=== PATIENT | female | born 1950 | race Caucasian/White ===

== ENCOUNTER 2016-07-10 09:23 | Inpatient (IN) | payer OTHER, MEDICARE ==
[~2016-07-10] VITALS: Ht 162.6 cm; Wt 99.9 kg
--- NOTE | 2016-07-10 10:01 | MH ---
cc: JUANITO BRICE M.D. DATE OF ADMISSION: 07/11/2016 ADMITTING DIAGNOSIS Severe osteoarthritis of the right hip, pain right hip, gait disturbance. HISTORY OF PRESENT ILLNESS The patient is a 66-year-old white female who has experienced greater than a one year history of pain involving her right hip area. She had noted the gradual onset of discomfort about the hip area unrelated to injury or unusual activity for which she had undergone previous medical evaluation with her primary care physician who initially diagnosed her symptoms as being related to sciatica. She was placed into a therapy program and prescribed meloxicam 7.5 mg. Following several weeks of treatment she experienced some trend of improvement and had been doing reasonably well for several months thereafter until her symptoms gradually began to recur. She returned to her primary care physician. At that time x-ray studies were completed of the right hip, the results of which reported severe arthritic changes for which the patient was again placed into a therapy program and prescribed meloxicam 15 mg. She was subsequently seen by the undersigned physician in April of this year describing ongoing pain about the right hip area for which she had begun to require the use of a cane as an ambulatory aid. A review of her x-ray studies revealed severe degenerative changes with compromise of the joint space for which findings and treatment options were reviewed. At that time the patient did not express her desire to undergo any form of operative intervention and thus elected to continue with conservative management while following her course of therapy intervention taking meloxicam as previously prescribed. She returned to the office shortly thereafter reporting that she was having increasing pain and incapacitation with regards to all weightbearing activities. Treatment options were again reviewed including the involvement of total hip arthroplasty with the emphasis being made that the decision to proceed with surgery would be left entirely to the patient's discretion. She admitted at that time that her symptoms had progressed to a point in time where she was ready to consider such treatment and planned accordingly in this regard which has resulted in this current admission in order that total hip replacement be completed. PAST MEDICAL HISTORY Her past medical history, hospitalizations and surgeries have included: 1. Vein stripping of the left lower extremity. 2. Bilateral cataract excision. 3. Tonsillectomy. Her medical illnesses include: 1. Hypothyroidism. 2. Depression. 3. Hypertension. MEDICATIONS 1. Levothyroxine 100 mcg daily. 2. Paroxetine 40 mg daily. 3. Bupropion 150 mg daily. 4. Amlodipine 5 mg daily. 5. Brimonidine 0.2% solution, one drop twice daily to each eye. ALLERGIES SHE DESCRIBES A DRUG ALLERGY TO SULFA WHICH HAS BEEN ASSOCIATED WITH FACIAL SWELLING. REVIEW OF SYSTEMS No history of headache, seizure or syncope. Occasional sinus congestion secondary to environmental irritants. No epistaxis. Auditory acuity intact. No tinnitus. No bleeding gums or dysphagia. Denies cough, shortness of breath, upper respiratory infection, pneumonia or tuberculosis. No angina or heart disease. She is medically managed for hypertension. Her appetite is good. Bowel movements are regular. No hepatitis, gallbladder disease, ulcers or hemorrhoids. No urinary tract infection. No kidney stones. No history of fractures. Positive history of depression. Her remaining review of systems is unremarkable and noncontributory. FAMILY HISTORY The patient has been a for over 6-1/2 years. Her at 50 years of age with a history of congestive heart failure. Two sons and one daughter indicated to be in good health. Family history is otherwise positive for hypertension, heart disease and prostate cancer. SOCIAL HISTORY The patient completed a high school education. She has been a housewife. She admits to a 40 year use of tobacco, less than one pack per day. Ethanol consumption in the form of an occasional glass of wine or beer. PHYSICAL EXAMINATION Height 5 feet 4 inches, weight 205 pounds. GENERAL: An alert, oriented and responsive 66-year-old white female who sits quietly upon the examination table with no obvious distress. HEAD, EYES, EARS, NOSE, AND THROAT: Pupils are equal, round and reactive to light. Extraocular movements full. Sclera clear. External nares clear. External auditory canals clear. Edentulous. Mucous membranes pink and moist. Pharynx clear. NECK: Supple. Active range of motion without appreciable pain. Carotid pulse palpable bilaterally. Trachea midline. Thyroid without enlargement. LUNGS: Clear to auscultation and percussion. BACK: No CVA tenderness. No discomfort throughout the dorsolumbar spine. HEART: Regular rhythm. No murmur or gallop. ABDOMEN: Soft, nontender. Bowel sounds present. PELVIC: Per primary care physician. EXTREMITIES: Extremities: Right Hip: No localizing tenderness to palpation. Restricted mobility of the hip joint in all ranges assessed, especially involving rotational motion with pain at the extreme of mobility and crepitation elicited. No obvious instability. Straight leg raising negative at 60 degrees. Simon sign is positive. Distal sensory grossly intact. Pronounced antalgic gait with cane support. NEUROLOGIC: Cranial nerves II through XII grossly intact. IMPRESSION Severe osteoarthritis of the right hip, pain right hip, gait disturbance. PLAN Right total hip arthroplasty. The nature of the planned surgical procedure, the potential complications and risks associated, the expectations of surgery and the consent form were thoroughly reviewed with the patient in the presence of her daughter prior to admission to the hospital. The patient has indicated her full understanding regarding all of the above and given consent to proceed with treatment as outlined. Medical evaluation and clearance for surgery will be completed by her primary care physician, Dr. Tracy. Juanito Brice MD NBS/BT /11:15 AM /8:59 AM
[2016-07-10] MEDS ORDERED: BRIM0.2S4 EACH EYE (13:06)
[2016-07-10] MEDS ORDERED: AMLO5TAB2 PO (13:06)
[2016-07-10] MEDS ORDERED: PARO40TA2 PO (13:06)
[2016-07-10] MEDS ORDERED: LEVO100T5 PO (13:06)
[2016-07-10] MEDS ORDERED: BUPR150T3 PO (13:06)
[2016-07-11] MEDS: POVIDONE IODINE 7.5% SCRUB 118 ML BOTTLE TOP SCH (06:00)
[2016-07-11] MEDS ORDERED: ceFAZolin 2 GM PREMIX 50 ML IV SCH (06:00)
[2016-07-11] MEDS ORDERED: METOPROLOL TARTRATE 25 MG TAB PO PRN (06:00)
[2016-07-11] MEDS ORDERED: LACTATED RINGER'S 1000 ML IV SCH (06:00)
[2016-07-11] MEDS ORDERED: SODIUM CHLORID 0.9% 500 ML IV SCH (06:00)
[2016-07-11] MEDS ORDERED: INSULIN HUMAN REGULAR 1,000 UNITS/10 ML VIAL SQ PRN (06:00)
[2016-07-11 06:27] VITALS: BP 139/76; PULSE 61; RESP 16; TEMP 98.5; O2SAT 96
[2016-07-11] MEDS: TRANEXAMIC ACID 1 GM POST-OP IV SCH ×4 (06:44→09:44)
[2016-07-11] MEDS ORDERED: ceFAZolin INJ 1,000 MG VIAL ONE (07:02)
[2016-07-11] MEDS ORDERED: MIDAZOLAM HCL 2 MG/2 ML VIAL ONE (07:17)
[2016-07-11] MEDS ORDERED: ACETAMINOPHEN 1000 MG/100 ML VIAL IV ONE (07:17)
[2016-07-11] MEDS ORDERED: HYDROmorphone HCL PF 2 MG/ML VIAL ONE (07:18)
[2016-07-11] MEDS ORDERED: fentaNYL CITRATE 250 MCG/5 ML AMP ONE (07:18)
[2016-07-11] MEDS ORDERED: TRANEXAMIC ACID 1 GM PRIOR TO PROCEDURE IV SCH ×2 (07:30)
[2016-07-11] MEDS ORDERED: Post-op Orders (for Pharmacy) MISC XX ONE (10:08)
[2016-07-11] MEDS ORDERED: MAGNESIUM HYDROXIDE SUSP 30 ML CUP PO PRN (10:15)
[2016-07-11] MEDS ORDERED: DOCUSATE SODIUM 100 MG CAP PO PRN (10:15)
[2016-07-11] MEDS ORDERED: BISACODYL 10 MG SUPP PR PRN (10:15)
[2016-07-11] MEDS ORDERED: ACETAMINOPHEN/HYDROcodone 325 MG/5 MG TAB PO PRN (10:15)
[2016-07-11] MEDS ORDERED: TRANEXAMIC ACID INJ 1,000 MG in SODIUM CHLORIDE 0.9% INJ 100 ML IV SCH (10:15)
[2016-07-11] MEDS ORDERED: ACETAMINOPHEN 325 MG TAB PO PRN (10:15)
[2016-07-11] MEDS ORDERED: ONDANSETRON HCL 4 MG/2 ML VIAL IV PUSH PRN (10:15)
[2016-07-11] MEDS ORDERED: SODIUM CHLORIDE 0.9% FLUSH 5 ML FLUSH IVF PRN (10:15)
[2016-07-11] MEDS ORDERED: NALOXONE HCL 0.4 MG/ML AMP IV PRN (10:15)
--- NOTE | 2016-07-11 11:01 | RADRPT ---
EXAM DATE/TIME: 07/11/2016 10:21 [facility] COMPARISON: No previous studies available for comparison. INDICATIONS : Post op right total hip. MEDICAL HISTORY : Unobtainable. SURGICAL HISTORY : Unobtainable. ENCOUNTER: Initial ACUITY: 1 day PAIN SCORE: Non-responsive. LOCATION: Right hip. FINDINGS: View of the right hip was obtained. There is a total hip arthroplasty. Both the femoral and acetabula r components are appropriately positioned without fracture. There appear to be 2 HORTENCIA type drains just cephalad to the hip joint. CONCLUSION: Appropriate postoperative appearance of the right hip status post total arthroplasty. Jack Ritter MD on July 11, 2016 at 10:54 Board Certified Radiologist. This report was verified electronically.
[2016-07-11] MEDS: DEXT 5%-NACL 0.45% 1000 ML INJ 1,000 ML IV SCH ×2 (11:19→20:00)
[2016-07-11 11:25] VITALS: BP 142/65; PULSE 74; RESP 17; TEMP 96.3; O2SAT 92
[2016-07-11] MEDS ORDERED: DO NOT ADM ANY ANTICOAGULANT DRUGS XX PRN (11:45)
[2016-07-11] MEDS ORDERED: MISCELLANEOUS PHARMACY INFORMATION XX ONE (12:00)
[2016-07-11] MEDS ORDERED: PROPOFOL 200 MG/20 ML AMP IV ONE (12:39)
[2016-07-11] MEDS ORDERED: NEOSTIGMINE 3 MG/3 ML SYR IV ONE (12:39)
[2016-07-11] MEDS ORDERED: ePHEDrine/NS 25 MG/5 ML SYR IV ONE (12:39)
[2016-07-11] MEDS ORDERED: PHENYLEPH/NS 1000 MCG/10 ML SYR IV ONE (12:39)
[2016-07-11] MEDS ORDERED: ONDANSETRON HCL 4 MG/2 ML VIAL IV PUSH ONE (12:40)
[2016-07-11] MEDS ORDERED: LACTATED RINGER'S 1000 ML INJ 1,000 ML IV ONE (12:40)
[2016-07-11] MEDS: PCA - TOTAL MG MORPHINE DELIVERED PER SHIFT SCH ×2 (14:00→22:00)
[2016-07-11 16:00] VITALS: BP 122/67; PULSE 63; RESP 18; TEMP 96.2; O2SAT 98
--- NOTE | 2016-07-11 16:49 | PD.CONS ---
[facility] Requested By Primary Care Physician Laureano Tracy MD Diagnoses: History of Present Illness This is a pleasant 66-year-old female who is status post right hip arthroplasty today for the indication of end-stage osteoarthritis. History was obtained from the patient as well as from review of her chart from her primary care physician's office. She states that she currently does not have pain. She has a history of hypertension, hypothyroidism, depression. She does smoke cigarettes. She lives by herself after her 6 years ago and is planning to go to a [facility] facility upon discharge. The patient states she is otherwise been in good health recently. Review of Systems Except as stated in HPI: all other systems reviewed are Neg Past Family Social History Allergies: Coded Allergies: Sulfa (Verified Allergy, Severe, HIVES, 07/11/16) Past Medical History Prediabetes although the patient is unaware Hypothyroidism Hypertension Depression Tobacco use Past Surgical History Cataract surgery, vein removal from the leg Reported Medications Allergies Coded Allergies Type Severity Reaction Last Updated Verified Sulfa Allergy Severe HIVES 07/11/16 Yes Active Scripts Medications Dose Route/Sig Days Date Category Brimonidine Opth Drops (Brimonidine Tartrate) 0.2% Soln 1 Drop EACH EYE BID 07/10/16 Reported Bupropion HCl ER 24 HR (Bupropion HCl) 150 Mg Tab 150 Mg PO DAILY 07/10/16 Reported Paroxetine (Paroxetine HCl) 40 Mg Tab 40 Mg PO DAILY 07/10/16 Reported Amlodipine (Amlodipine Besylate) 5 Mg Tab 5 Mg PO DAILY 07/10/16 Reported Levothyroxine (Levothyroxine Sodium) 100 Mcg Tab 100 Mcg PO DAILY 07/10/16 Reported Family History Dad had mesothelioma, mother had myocardial infarction Social History Her 6 years ago. She has 2 dogs. Lives by herself. She does smoke tobacco. Denies alcohol use. Physical Exam Vital Signs Vital Signs Date Time Temp Pulse Resp B/P Pulse Ox O2 Delivery O2 Flow Rate FiO2 07/11/16 11:25 96.3 74 17 142/65 92 07/11/16 11:00 73 16 150/81 94 Nasal Cannula 3 07/11/16 10:45 72 16 150/81 99 Nasal Cannula 4 07/11/16 10:30 100 21 154/91 96 Nasal Cannula 4 07/11/16 10:15 83 19 160/82 95 Nasal Cannula 4 07/11/16 10:12 97.8 78 20 144/82 97 Nasal Cannula 4 07/11/16 06:27 98.5 61 16 139/76 96 Physical Exam GENERAL: Well-nourished, well-developed patient. SKIN: Warm and dry. HEAD: Normocephalic. EYES: No scleral icterus. No injection or drainage. NECK: Supple, trachea midline. No JVD or lymphadenopathy. CARDIOVASCULAR: Regular rate and rhythm without murmurs, gallops, or rubs. RESPIRATORY: Breath sounds equal bilaterally. No accessory muscle use. GASTROINTESTINAL: Abdomen soft, non-tender, nondistended. EXTREMITIES: No cyanosis, or edema. NEUROLOGICAL: Awake, alert, and oriented x 3. Non-focal. Laboratory Laboratory Tests Test 07/11/16 06:20 Blood Type O POSITIVE Antibody Screen NEGATIVE Blood Bank Comment Assessment and Plan Problem List: (1) Depression ICD Code: F32.9 Status: Acute (2) Hypothyroidism ICD Code: E03.9 Status: Acute (3) HTN (hypertension) ICD Code: I10 Status: Acute (4) Prediabetes ICD Code: R73.03 Status: Acute Assessment and Plan Status post right hip arthroplasty management as per orthopedic surgery. Hypothyroidism - continue Synthroid as per home dose. Hypertension - blood pressure mildly elevated. We'll resume her Norvasc tomorrow morning. Depression - resume Paxil. Tobacco use - cessation counseling. Possible history of prediabetes. No indication to place the patient on sliding scale insulin. She is taking good by mouth. I advised her to follow-up with her primary care physician to monitor this. -DVT prophylaxis with Xarelto [address] you Dr[address] le for this consult. Citlaly Greene MD Jul 11, 2016 16:49
[2016-07-11] MEDS: MAGNESIUM HYDROXIDE SUSP 30 ML CUP PO SCH ×2 (17:30→20:07)
[2016-07-11] MEDS: MORPHINE SULFATE 30 MG/30 ML PCA IV SCH (18:50)
[2016-07-11] MEDS: ZOLPIDEM TARTRATE 5 MG TAB PO PRN (20:07)
[2016-07-11] MEDS: SENNOSIDES 8.6 MG TAB PO SCH (20:07)
[2016-07-11] MEDS: SODIUM CHLORIDE 0.9% FLUSH 5 ML FLUSH IVF SCH (20:08)
[2016-07-11] MEDS: BRIMONIDINE TARTRATE 0.2% OPHT SOLN 5 ML BTL EACH EYE SCH (20:08)
[2016-07-11 20:20] VITALS: BP 119/61; PULSE 68; RESP 16; TEMP 96.6; O2SAT 96
[2016-07-12 00:24] VITALS: BP 119/70; PULSE 72; RESP 16; TEMP 96.5; O2SAT 94
[2016-07-12 04:21] VITALS: BP 105/53; PULSE 73; RESP 16; TEMP 98.2; O2SAT 94
[2016-07-12] MEDS: POVIDONE IODINE 7.5% SCRUB 118 ML BOTTLE TOP SCH (06:00)
[2016-07-12] MEDS: PCA - TOTAL MG MORPHINE DELIVERED PER SHIFT SCH ×3 (06:00→22:39)
[2016-07-12] MEDS ORDERED: HYDR-3516 PO (06:05)
[2016-07-12] MEDS ORDERED: ASPI325T PO (06:05)
--- NOTE | 2016-07-12 06:07 | HHI.FF ---
Face to Face Verification Diagnosis: (1) Degenerative joint disease (DJD) of hip Physical Therapy Gait training Hip: Total hip, Protocol: Right, Abduction pillow while in bed Right LE Weight Bearing: WB as tolerated Right LE Range of Motion: Active ROM Nursing Dressing Changes: Daily dressing change I have seen patient Vanessa Cortez on 07/12/16. My clinical findings support the need for the requested home health care services because: Limited ability to care for self High risk of falls I certify that my clinical findings support that this patient is homebound because: Post-op weakness Unsteady gait/balance Unsafe to leave home unassisted Vinay Brice MD Jul 12, 2016 06:07
[2016-07-12] MEDS: DEXT 5%-NACL 0.45% 1000 ML INJ 1,000 ML IV SCH ×3 (06:09→20:34)
[2016-07-12] MEDS: LEVOTHYROXINE SODIUM 100 MCG TAB PO SCH (06:09)
[2016-07-12] MEDS ORDERED: GETGO ROLLING W1 MI1 (06:10)
[2016-07-12] MEDS ORDERED: BEDSIDE COMMODE1 MI1 (06:10)
[2016-07-12 06:13] LABS: HEMATOCRIT 29.9 % (35.0-46.0); REVIEW FLAG FINAL
[2016-07-12] MEDS: BRIMONIDINE TARTRATE 0.2% OPHT SOLN 5 ML BTL EACH EYE SCH ×2 (07:29→20:35)
[2016-07-12 07:44] VITALS: BP 113/53; PULSE 79; RESP 18; TEMP 98.1; O2SAT 92
[2016-07-12] MEDS: SODIUM CHLORIDE 0.9% FLUSH 5 ML FLUSH IVF SCH ×2 (09:00→20:32)
[2016-07-12] MEDS: MORPHINE SULFATE 30 MG/30 ML PCA IV SCH (09:27)
[2016-07-12] MEDS: MAGNESIUM HYDROXIDE SUSP 30 ML CUP PO SCH ×2 (09:29→20:04)
[2016-07-12] MEDS: amLODIPine BESYLATE 5 MG TAB PO SCH (09:29)
[2016-07-12] MEDS: PARoxetine HCL 20 MG TAB PO SCH (09:29)
[2016-07-12] MEDS: RIVAROXABAN 10 MG TAB PO SCH (09:29)
[2016-07-12] MEDS: buPROPion HCL 150 MG SUSTAINED RELEASE TAB PO SCH (09:29)
--- NOTE | 2016-07-12 10:32 | MP ---
cc: JUANITO BRICE M.D. DATE OF SURGERY 07/11/2016 PREOPERATIVE DIAGNOSIS Severe osteoarthritis of the right hip, pain right hip, gait disturbance. POSTOPERATIVE DIAGNOSIS Severe osteoarthritis of the right hip, pain right hip, gait disturbance. PROCEDURE Right total hip arthroplasty SURGEON Juanito Brice MD ANESTHESIA General endotracheal INDICATIONS A 66-year-old white female with a one-year history of pain involving her right hip onset being unrelated to injury or unusual activity. She had undergone previous medical evaluation with her primary care physician at which time where she was initially diagnosed as having sciatica and was treated with therapy intervention, as well as being prescribed Meloxicam 7.5 mg. Following several weeks of treatment, the patient did note some improvement with regards to her lower back symptoms and for several months thereafter seemed to be doing reasonably well until she returned to her primary care physician noting some residual symptoms involving her right hip area. X-ray studies completed at that time reported severe arthritic changes for which the patient was again placed into therapy and prescribed Meloxicam 15 mg. She was later seen by the undersigned physician in April of this year describing ongoing pain about her right hip for which she was requiring the use of a cane as an ambulatory aid. A review of her x-ray studies did reveal severe degenerative changes with compromise of the joint space for which findings and treatment options were reviewed. At that time, the patient was not interested in pursuing any form of operative intervention and elected to continue with conservative modalities following her course of therapy intervention and continuing her Meloxicam as previously prescribed. She returned to the office more recently indicating that she was having increasing pain and incapacitation regarding all weightbearing activities. Treatment options were again reviewed with the involvement of total hip arthroplasty being outlined and emphasis being made that the decision to proceed with surgery would be left entirely to the patient's discretion. The patient indicated at that time that she was at that point where she was ready to proceed with operative treatment and in compliance with her wishes, she was scheduled for admission at this time in order that the above be accomplished. FORMAT Following the induction of satisfactory general anesthesia by endotracheal intubation as completed per the Department of Anesthesia, the patient was positioned upon the operating table in a left lateral decubitus fashion. The right hip and lower extremity proper were isolated with a U-drape thereafter being prepped with Betadine solution and draped into a sterile field in the routine manner. Prior to initiation of the actual procedure, the standard time-out protocol was completed. All parameters were appropriately addressed and confirmed by operating room personnel. A standard posterolateral approach to the hip was initiated through a sharp skin incision and developed through abundant underlying subcutaneous tissue with hemostasis maintained by electrocautery. By deepening dissection the fascia overlying, the gluteus musculature was exposed and thereafter sharply incised to the limits of the incision. The short external rotator structures were identified. The piriformis tendon being utilized as an anatomical landmark, division of these structures was completed in a superior to inferior orientation and reflected medially exposing the posterior capsule. The sciatic nerve was protected. An L-shaped capsulotomy was accomplished through which a posterior dislocation of the femoral head was completed. Examination revealed severe degenerative changes with significant erosion of articular cartilage, subchondral bone exposed and hypertrophic bony reaction along the margins of the femoral head. The femoral template was positioned for alignment orientation. The neck was scored and thereafter divided with power saw, the amputated segment being passed to the back table as surgical specimen. Attention was initially directed to the proximal femur. Cancellus bone was harvested. The tapered reamer was inserted for alignment orientation. Sequential rasping and broaching was accomplished from 7-10 mm with the calcar kali being utilized to the 10 mm stage. The 10 mm stem was determined to be a favorable fit. Trial component being removed, attention was redirected to the acetabulum. The labrum and reactive soft tissue were sharply excised. Progressive reaming was accomplished from 48-51 mm. The 52 trial shell positioned and determined to be satisfactory. All trial components being removed, the wound was copiously irrigated with pulsating antibiotic solution. Hemostasis maintained by electrocautery. Harvested cancellous bone was digitally impacted into the depths of the acetabulum and thereafter a 52 mm ring lock acetabular shell was firmly seated in approximately 45 degrees inclination to the horizontal and slight anteversion. A single 25 mm, 6.5 cancellous screw was inserted superiorly to augment fixation. The permanent high wall acetabular liner was affixed to the acetabular shell. The canal was thereafter irrigated and dried and the size 10 standard femoral stem was firmly seated to which a 36 mm modular head with -6 mm neck length adapter was attached. The hip being carried through a passive range of motion and stability demonstrated at 90 degrees flexion and 45 degrees internal rotation. The wound was thereafter copiously irrigated with antibiotic saline solution, hemostasis maintained by electrocautery. The posterior capsule was repaired with 0 Vicryl suture. Piriformis tendon and short external rotators structures reapproximated with running 0 Vicryl suture. Hemovac drains inserted through superior stab wounds. The fascia of the gluteus musculature being reapproximated with a running 0 Vicryl suture. Remaining portion of the wound closed in layers in the routine manner. Skin margins being reapproximated with a running subcuticular 3-0 Vicryl suture over which Steri-Strips were applied. Xeroform gauze and a bulky dry sterile dressing placed. The patient repositioned into a supine orientation abduction splint attached. Anesthesia discontinued. The patient thus transferred to a hospital bed and returned to recovery room in satisfactory condition having tolerated her operative procedure well. Estimated blood loss was approximately 350 cc as determined per anesthesia. All implants were of the [employer] special education instructor. MD MARIANA Webster/MICHEL /10:04 AM /10:01 AM
[2016-07-12 12:00] VITALS: BP 111/47; PULSE 71; RESP 18; TEMP 99; O2SAT 93
[2016-07-12 16:00] VITALS: BP 112/56; PULSE 79; RESP 20; TEMP 97.6; O2SAT 95
[2016-07-12] MEDS: SENNOSIDES 8.6 MG TAB PO SCH (20:04)
[2016-07-12 20:05] VITALS: BP 115/52; PULSE 80; RESP 18; TEMP 97.4; O2SAT 91
[2016-07-12] MEDS: ZOLPIDEM TARTRATE 5 MG TAB PO PRN (20:08)
[2016-07-13] VITALS (7 sets, daily range): BP systolic 114–128; BP diastolic 44–68; PULSE 67–80; RESP 17–18; TEMP 97.1–99.5; O2SAT 93–98
[2016-07-13] MEDS: POVIDONE IODINE 7.5% SCRUB 118 ML BOTTLE TOP SCH (02:22)
[2016-07-13] MEDS: DEXT 5%-NACL 0.45% 1000 ML INJ 1,000 ML IV SCH ×4 (04:00→20:14)
[2016-07-13] MEDS: LEVOTHYROXINE SODIUM 100 MCG TAB PO SCH (04:32)
[2016-07-13] MEDS: PCA - TOTAL MG MORPHINE DELIVERED PER SHIFT SCH (04:33)
[2016-07-13] MEDS: BRIMONIDINE TARTRATE 0.2% OPHT SOLN 5 ML BTL EACH EYE SCH ×2 (09:00→20:14)
[2016-07-13] MEDS: PARoxetine HCL 20 MG TAB PO SCH (11:01)
[2016-07-13] MEDS: RIVAROXABAN 10 MG TAB PO SCH (11:01)
[2016-07-13] MEDS: MAGNESIUM HYDROXIDE SUSP 30 ML CUP PO SCH ×2 (11:01→20:15)
[2016-07-13] MEDS: amLODIPine BESYLATE 5 MG TAB PO SCH (11:01)
[2016-07-13] MEDS: buPROPion HCL 150 MG SUSTAINED RELEASE TAB PO SCH (11:01)
[2016-07-13] MEDS: ACETAMINOPHEN/HYDROcodone 325 MG/5 MG TAB PO PRN ×2 (11:02→13:53)
[2016-07-13] MEDS: SODIUM CHLORIDE 0.9% FLUSH 5 ML FLUSH IVF SCH ×2 (11:03→20:15)
[2016-07-13] MEDS: ZOLPIDEM TARTRATE 5 MG TAB PO PRN (20:15)
[2016-07-13] MEDS: SENNOSIDES 8.6 MG TAB PO SCH (20:15)
[2016-07-14 00:20] VITALS: BP 118/61; PULSE 72; RESP 16; TEMP 98.1; O2SAT 96
[2016-07-14] MEDS: LEVOTHYROXINE SODIUM 100 MCG TAB PO SCH (05:45)
[2016-07-14] MEDS: ACETAMINOPHEN/HYDROcodone 325 MG/5 MG TAB PO PRN ×2 (06:00→11:57)
[2016-07-14 07:58] VITALS: BP 123/80; PULSE 74; RESP 18; TEMP 97.3; O2SAT 94
[2016-07-14] MEDS: PARoxetine HCL 20 MG TAB PO SCH (08:07)
[2016-07-14] MEDS: buPROPion HCL 150 MG SUSTAINED RELEASE TAB PO SCH (08:07)
[2016-07-14] MEDS: MAGNESIUM HYDROXIDE SUSP 30 ML CUP PO SCH (08:07)
[2016-07-14] MEDS: amLODIPine BESYLATE 5 MG TAB PO SCH (08:07)
[2016-07-14] MEDS: RIVAROXABAN 10 MG TAB PO SCH (08:07)
[2016-07-14] MEDS: SODIUM CHLORIDE 0.9% FLUSH 5 ML FLUSH IVF SCH (08:08)
[2016-07-14] MEDS: BRIMONIDINE TARTRATE 0.2% OPHT SOLN 5 ML BTL EACH EYE SCH (08:09)
[2016-07-14] MEDS: DEXT 5%-NACL 0.45% 1000 ML INJ 1,000 ML IV SCH (12:00)
--- NOTE | 2016-07-18 14:07 | MD ---
cc: JESÚS TRACY MD SELTZER, NORMAN ADMISSION DATE: 07/11/2016 DISCHARGE DATE: 07/14/2016 ADMISSION DIAGNOSIS Severe osteoarthritis of the right hip, pain right hip, gait disturbance. DISCHARGE DIAGNOSIS Severe osteoarthritis of the right hip, pain right hip, gait disturbance. HISTORY A 66-year-old white female who had experienced greater than 1-year history of pain about her right hip. She had noted the gradual onset of discomfort unrelated to injury or unusual activity and had undergone previous medical evaluation with her primary care physician who initially diagnosed her symptoms as being related to sciatica. She was started in therapy and prescribed meloxicam 7.5 mg and was followed on an outpatient basis. Initially she experienced some trend of improvement and was doing reasonably well for several months and all her symptoms gradually began to recur. She returned to her primary care physician and at that time x-ray studies were completed, the results of which reported severe arthritic changes about her right hip for which the patient returned for additional therapy and prescribed meloxicam 15 mg. She was later seen by the undersigned physician in April of this year and at that time reported ongoing pain about her right hip which had begun to require use of a cane as an ambulatory aid. A review of her x-ray studies revealed severe degenerative changes with compromise of the joint space for which treatment options were reviewed. At that time the patient was not interested in considering any form of operative intervention and elected to continue with conservative modalities following her course of therapy intervention and continuing meloxicam. She returned to the office more recently in follow-up disposition reporting increasing pain and incapacitation regarding all weightbearing activities. Her treatment options were again reviewed including the involvement of total hip arthroplasty with emphasis being made that the decision to proceed with surgery would be left entirely to the patient's discretion. She readily admitted that she had progressed to a point in time where she was ready to consider such treatment and in compliance with her wishes she has currently been scheduled for admission in order that the above be accomplished. Her physical examination at the time of admission revealed no localizing tenderness about the right hip. There was restricted mobility of the hip joint in all ranges assessed especially involving rotational motion with pain at the extremes of mobility and crepitation elicited. No obvious instability. Straight-leg raising was negative at 60 degrees. Simon sign positive. Distal sensory grossly intact. Pronounced antalgic gait with cane support. HOSPITAL COURSE Prior to admission to the hospital the patient had undergone medical evaluation and clearance for surgery as completed by her primary care physician Dr. Tracy. She was taken to the operating room on the June and on that date underwent a right total hip arthroplasty completed in an uncomplicated manner. The patient was noted to have tolerated her operative procedure well and her postoperative course stable thereafter. She was progressively mobilized under the guidance of physical therapy, being permitted weightbearing to tolerance about the right lower extremity. Follow up examination of her surgical wound noted it to be intact, healing favorably, no evidence of infection. Medical followup per the hospitalist service, DVT prophylaxis initiated. Social service was consulted to assist with discharge planning. Hemoglobin/hematocrit assessment postoperatively was 10.4 and 29.9, respectively. The patient had indicated her desire for temporary rehab placement upon discharge from the hospital. Plans were finalized through the assistance of the Social Service Department and pending medical clearance she was scheduled for transfer on the third postoperative day, at which time she was noted to be making steady progress with regards to her rehab program. She had been scheduled for office followup in approximately 4 weeks. Her condition at the time of discharge was stable. Prognosis was favorable. MEDICATIONS Discharge medications included: 1. Hydrocodone 5/325 #60. 2. Aspirin 325 mg 1 tablet twice daily for 4 weeks #60. MD MARIANA Webster/TLL /6:44 AM /1:43 PM
== END 2016-07-14 13:05 | DRG 470 ==
LOC: HSDI 07-11 05:18 → N06B 07-11 11:23
PROVIDERS: ADMIT Orthopaedic Surgery; ATTEND Orthopaedic Surgery
PROC: 0SR903Z Replacement of Right Hip Joint with Ceramic Synthetic Substitute, Open Approach (ICD-10-PCS; principal; 2016-07-11 07:22)
DX: M16.11 Unilateral primary osteoarthritis, right hip (principal); I10 Essential (primary) hypertension; E03.9 Hypothyroidism, unspecified; F17.210 Nicotine dependence, cigarettes, uncomplicated; R73.03 Prediabetes; F32.9 Major depressive disorder, single episode, unspecified; M54.30 Sciatica, unspecified side; Z79.01 Long term (current) use of anticoagulants
CPT/HCPCS: 73501; 85014; 85018; 86850; 86900; 86901; 87641; 88304; 88305; 88311; 94150; C1776; J0131; J0690; J1170; J2250; J2270; J2370; J2405; J2710; J3010; J7120

== ENCOUNTER 2016-11-03 08:51 | Inpatient (IN) | payer OTHER, MEDICARE ==
[~2016-11-03] VITALS: Ht 162.6 cm; Wt 97.2 kg
[~2016-11-03 08:51] MED LIST: AMLO5TAB2 PO; ASPI325T PO; BEDSIDE COMMODE1 MI1; BRIM0.2S4 EACH EYE; BUPR150T3 PO; GETGO ROLLING W1 MI1; HYDR-3516 PO; LEVO100T5 PO; PARO40TA2 PO
[2016-11-03 08:52] VITALS: BP 150/73; PULSE 77; RESP 24; TEMP 97.6; O2SAT 96
[2016-11-03] MEDS ORDERED: CEPH-459 PO (09:18)
[2016-11-03] MEDS ORDERED: GABA100C4 PO (09:18)
[2016-11-03 09:31] VITALS: RESP 16; O2SAT 95
[2016-11-03 09:40] LABS: AUTOMATED NEUTROPHIL # 8.2 TH/MM3 (1.8-7.7); BASOPHIL % 0.3 % (0.0-2.0); EOSINOPHIL # 0.2 TH/MM3 (0-0.4); EOSINOPHIL % 1.9 % (0.0-4.0); HEMATOCRIT 33.7 % (35.0-46.0); HEMO FLAGS DIFF FINAL; LYMPH % 15.3 % (9.0-44.0); LYMPHOCYTE # 1.7 TH/MM3 (1.0-4.8); MEAN CORPUSCULAR HEMOGLOBIN 29.5 PG (27.0-34.0); MEAN CORPUSCULAR HGB CONC 35.5 % (32.0-36.0); MONO % 9.1 % (0.0-8.0); NEUT % 73.4 % (16.0-70.0); PLATELET COUNT 510 TH/MM3 (150-450); RED BLOOD COUNT 4.06 MIL/MM3 (4.00-5.30); RED CELL DISTRIBUTION WIDTH 14.7 % (11.6-17.2); WHITE BLOOD COUNT 11.1 TH/MM3 (4.0-11.0)
[2016-11-03 09:52] LABS: ANION GAP 9 MEQ/L (5-15); AST (GOT) 32 U/L (15-37); BICARBONATE 24.7 MEQ/L (21.0-32.0); BLOOD UREA NITROGEN 9 MG/DL (7-18); CHLORIDE 102 MEQ/L (98-107); GLOMERULAR FILTRATION RATE 60 ML/MIN (>89); POTASSIUM 3.4 MEQ/L (3.5-5.1); SODIUM (NA) 136 MEQ/L (136-145)
[2016-11-03 09:53] LABS: ALT (GPT) 46 U/L (10-53)
[2016-11-03 09:55] LABS: ALKALINE PHOSPHATASE 168 U/L (45-117); TOTAL BILIRUBIN ADULT 0.3 MG/DL (0.2-1.0)
--- NOTE | 2016-11-03 10:04 | PD ---
HPI Chief Complaint: Hip Injury Time Seen by Provider: 09:58 Travel History International Travel<30 days: No Contact w/Intl Traveler<30days: No Traveled to known affect area: No History of Present Illness HPI 66-year-old female patient with history of right total hip replacement done by Dr. quigley in June, presents to the ER today because a one-week history of increased redness and swelling over the right hip incision site. She states it hurts more with movement now. She denies any fevers, vomiting, or any other symptoms. She denies any injuries. Patient states that she had seen her primary care physician and has been put on Keflex for several days without improvement. Modifying Factors: None Associated Signs & Symptoms: Right hip surgery area pain, redness Risk Factors: Total hip surgery done by Dr. quigley in June PFS Past Medical History Hx Anticoagulant Therapy: No Arthritis: Yes (OA) Depression: Yes Cancer: No Cardiovascular Problems: No Chemotherapy: No Cerebrovascular Accident: No Diabetes: No Diminished Hearing: No Endocrine: Yes Genitourinary: No Hepatitis: No Hypertension: Yes Immune Disorder: No Musculoskeletal: Yes (OA) Neurologic: No Psychiatric: Yes (DEPRESSION) Reproductive: No Respiratory: No Thyroid Disease: Yes Influenza Vaccination: Yes Past Surgical History Abdominal Surgery: No AICD: No Cardiac Surgery: No Ear Surgery: No Endocrine Surgery: No Eye Surgery: Yes (CATARACTS) Genitourinary Surgery: No Gynecologic Surgery: No Hysterectomy: No Joint Replacement: Yes (RIGHT TOTAL HIP 07/11/16 DR QUIGLEY) Oral Surgery: Yes (TONSILLECTOMY) Pacemaker: No Thoracic Surgery: No Tonsillectomy: Yes Other Surgery: Yes (LEFT LEG VEIN STRIPPING) Social History Alcohol Use: No Tobacco Use: Yes (1/2 ppd) Substance Use: No Allergies-Medications (Allergen,Severity, Reaction): Coded Allergies: Sulfa (Verified Allergy, Severe, HIVES, 07/11/16) Reported Meds & Prescriptions Reported Meds & Active Scripts Active Bedside Commode (Device) 1 Mis Mis 1 Ea .ROUTE DIRECTED Walker Rolling/GetGo (Device) 1 Mis Mis 1 Ea .ROUTE DIRECTED Aspirin 325 Mg Tab 325 Mg PO BID Reported Gabapentin 100 Mg Cap 100 Mg PO BID Keflex (Cephalexin) 250 Mg Cap 250 Mg PO Q6H Brimonidine Opth Drops (Brimonidine Tartrate) 0.2% Soln 1 Drop EACH EYE BID Bupropion HCl ER 24 HR (Bupropion HCl) 150 Mg Tab 150 Mg PO DAILY Paroxetine (Paroxetine HCl) 40 Mg Tab 40 Mg PO DAILY Amlodipine (Amlodipine Besylate) 5 Mg Tab 5 Mg PO DAILY Levothyroxine (Levothyroxine Sodium) 100 Mcg Tab 100 Mcg PO DAILY Review of Systems Except as stated in HPI: all other systems reviewed are Neg Physical Exam Narrative GENERAL: Well-developed elderly white female patient currently in mild distress. Awake and oriented 3. SKIN: Focused skin assessment warm/dry. HEAD: Atraumatic. Normocephalic. EYES: Pupils equal and round. No scleral icterus. No injection or drainage. ENT: No nasal bleeding or discharge. Mucous membranes pink and moist. NECK: Trachea midline. No JVD. CARDIOVASCULAR: Regular rate and rhythm. No murmur appreciated. RESPIRATORY: No accessory muscle use. Clear to auscultation. Breath sounds equal bilaterally. GASTROINTESTINAL: Abdomen soft, non-tender, nondistended. Hepatic and splenic margins not palpable. MUSCULOSKELETAL: No obvious deformities. No clubbing. No cyanosis. No edema. Pelvis: Stable, tender palpation with obvious erythema over the right hip surgery scar area. No underlying fluctuance. NEUROLOGICAL: Awake and alert. No obvious cranial nerve deficits. Motor grossly within normal limits. Normal speech. PSYCHIATRIC: Appropriate mood and affect; insight and judgment normal. Data Data Last Documented VS Vital Signs Date Time Temp Pulse Resp B/P Pulse Ox O2 Delivery O2 Flow Rate FiO2 11/03/16 09:31 16 95 Room Air 11/03/16 08:52 97.6 77 150/73 Orders Complete Blood Count With Diff (11/03/16 09:23) Comprehensive Metabolic Panel (11/03/16 09:23) Lactic Acid Sepsis Protocol (11/03/16 09:23) Blood Culture (11/03/16 09:23) Blood Glucose (11/03/16 09:23) Ecg Monitoring (11/03/16 09:23) Iv Access Insert/Monitor (11/03/16 09:23) Oximetry (11/03/16 09:23) Oxygen Administration (11/03/16 09:23) Hip, Uni(Ap&Lat) Wo Ap Pelvis (11/03/16 09:59) Piperacil-Tazo 4.5 Gm Premix (Zosyn 4.5 (11/03/16 10:53) Vancomycin Inj (Vancomycin Inj) (11/03/16 10:53) Labs Laboratory Tests Test 11/03/16 09:25 White Blood Count 11.1 TH/MM3 Red Blood Count 4.06 MIL/MM3 Hemoglobin 12.0 GM/DL Hematocrit 33.7 % Mean Corpuscular Volume 83.0 FL Mean Corpuscular Hemoglobin 29.5 PG Mean Corpuscular Hemoglobin 35.5 % Concent Red Cell Distribution Width 14.7 % Platelet Count 510 TH/MM3 Mean Platelet Volume 8.0 FL Neutrophils (%) (Auto) 73.4 % Lymphocytes (%) (Auto) 15.3 % Monocytes (%) (Auto) 9.1 % Eosinophils (%) (Auto) 1.9 % Basophils (%) (Auto) 0.3 % Neutrophils # (Auto) 8.2 TH/MM3 Lymphocytes # (Auto) 1.7 TH/MM3 Monocytes # (Auto) 1.0 TH/MM3 Eosinophils # (Auto) 0.2 TH/MM3 Basophils # (Auto) 0.0 TH/MM3 CBC Comment DIFF FINAL Differential Comment Sodium Level 136 MEQ/L Potassium Level 3.4 MEQ/L Chloride Level 102 MEQ/L Carbon Dioxide Level 24.7 MEQ/L Anion Gap 9 MEQ/L Blood Urea Nitrogen 9 MG/DL Creatinine 0.93 MG/DL Estimat Glomerular Filtration 60 ML/MIN Rate Random Glucose 110 MG/DL Lactic Acid Level 1.4 mmol/L Calcium Level 9.3 MG/DL Total Bilirubin 0.3 MG/DL Aspartate Amino Transf 32 U/L (AST/SGOT) Alanine Aminotransferase 46 U/L (ALT/SGPT) Alkaline Phosphatase 168 U/L Total Protein 7.7 GM/DL Albumin 2.5 GM/DL MDM Medical Decision Making Medical Screen Exam Complete: Yes Emergency Medical Condition: Yes Medical Record Reviewed: Yes Interpretation(s) Laboratory Tests Test 11/03/16 09:25 White Blood Count 11.1 TH/MM3 (4.0-11.0) Hematocrit 33.7 % (35.0-46.0) Platelet Count 510 TH/MM3 (150-450) Neutrophils (%) (Auto) 73.4 % (16.0-70.0) Monocytes (%) (Auto) 9.1 % (0.0-8.0) Neutrophils # (Auto) 8.2 TH/MM3 (1.8-7.7) Monocytes # (Auto) 1.0 TH/MM3 (0-0.9) Potassium Level 3.4 MEQ/L (3.5-5.1) Estimat Glomerular Filtration 60 ML/MIN (>89) Rate Random Glucose 110 MG/DL (74-106) Alkaline Phosphatase 168 U/L (45-117) Albumin 2.5 GM/DL (3.4-5.0) Differential Diagnosis Right hip surgery area redness, painseptic arthritis versus cellulitis Narrative Course Patient has failed outpatient therapy. IV antibiotics initiated after cultures are drawn. I have attempted to call Dr. quigley without success. At this point , my plan would be to admit to medicine for further treatment with IV antibiotics. Case was discussed with Dr. Hendricks for admission. Diagnosis Primary Impression: Cellulitis of right hip Admitting Information Admitting Physician Requests: Admit Padmini Roman MD Nov 03, 2016 10:04
--- NOTE | 2016-11-03 10:49 | RADRPT ---
EXAM DATE/TIME: 11/03/2016 10:18 [place] COMPARISON: No previous studies available for comparison. INDICATIONS : Right hip pain, No trauma MEDICAL HISTORY : None. SURGICAL HISTORY : Right total hip ENCOUNTER: Initial ACUITY: 1 day PAIN SCORE: 6/10 LOCATION: Right pelvis FINDINGS: A two view examination of the right hip was performed. A total hip prosthesis is noted in place. Bony structures are intact. Acetabular and femoral components are in satisfactory alignment without evidence of dislocation or lo osening. CONCLUSION: Status post right hip replacement. There is no evidence of fracture or dislocation. Semaj Wells MD on November 03, 2016 at 10:46 Board Certified Radiologist. This report was verified electronically.
[2016-11-03] MEDS ORDERED: PIPERACIL-TAZO 4.5 GM PREMIX 100 ML IV STA (10:53)
[2016-11-03] MEDS ORDERED: VANCOMYCIN INJ 1,000 MG in SODIUM CHLOR 0.9% 250 ML INJ 250 ML IV STA (10:53)
[2016-11-03] MEDS ORDERED: Vancomycin Consult Pharmacy 1 EA OTHER PRN (11:45)
[2016-11-03] MEDS ORDERED: SENNOSIDES 8.6 MG TAB PO PRN (11:45)
[2016-11-03] MEDS ORDERED: NALOXONE HCL 0.4 MG/ML AMP IV PRN (11:45)
[2016-11-03] MEDS ORDERED: LACTULOSE SYRUP 20 GM/30 ML CUP PO PRN (11:45)
[2016-11-03] MEDS ORDERED: MAGNESIUM HYDROXIDE SUSP 30 ML CUP PO PRN (11:45)
[2016-11-03] MEDS ORDERED: SODIUM CHLORIDE 0.9% FLUSH 10 ML FLUSH IV FLUSH PRN (11:45)
[2016-11-03] MEDS ORDERED: BISACODYL 10 MG SUPP RECTAL PRN (11:45)
[2016-11-03] MEDS ORDERED: ONDANSETRON HCL 4 MG/2 ML VIAL IVP PRN (11:45)
[2016-11-03 12:00] VITALS: BP 137/68; PULSE 65; RESP 16; O2SAT 99
--- NOTE | 2016-11-03 14:01 | HHI.HP ---
[facility] Primary Care Physician Laureano Tracy MD Admission Diagnosis right hip cellulitis/failed outpatient therapy Diagnoses: Travel History International Travel<30 Days: No Contact w/Intl Traveler <30 Da: No Traveled to Known Affected Are: No History of Present Illness Mrs. Cortez is a 66-year-old female. She is being at [employer] secondary to cellulitis. Cellulitis is at a right hip incision wound. Hip surgery was approximately 4 months ago. She says the symptoms started 3 days ago at which time she has started Keflex as an outpatient. Despite antibiotics as an outpatient symptoms are getting worse so she came to the hospital today. No smoking, alcohol, or drug abuse. She lives alone at home. She denies any fevers or sweats. No sepsis on preliminary workup. This does represent an outpatient treatment failure and given hardware within her hip immediate control infection is recommended. She had otherwise been recovering quite well from her surgery and is pleased with the outcome describing minimal pain during her recovery. Review of Systems Constitutional: DENIES: Fatigue, Weight gain, Chills Eyes: DENIES: Blurred vision, Diplopia Ears, nose, mouth, throat: DENIES: Tinnitus, Hearing loss, Vertigo Respiratory: DENIES: Cough, Wheezing, Shortness of breath Cardiovascular: DENIES: Chest pain, Palpitations Gastrointestinal: DENIES: Abdominal pain, Black stools, Bloody stools Musculoskeletal: DENIES: Joint pain, Muscle aches, Stiffness Integumentary: COMPLAINS OF: Abnormal pigmentation Hematologic/lymphatic: DENIES: Bruising Immunologic/allergic: DENIES: Eczema Neurologic: DENIES: Abnormal gait Psychiatric: DENIES: Anxiety, Confusion Past Family Social History Past Medical History A diabetic Hypertension Hypothyroidism Depression Past history of tobacco use (not current) Past Surgical History Cataract surgery Vein surgery on leg Right hip replacement Reported Medications Reported Meds & Active Scripts Active Bedside Commode (Device) 1 Mis Mis 1 Ea .ROUTE DIRECTED Walker Rolling/GetGo (Device) 1 Mis Mis 1 Ea .ROUTE DIRECTED Aspirin 325 Mg Tab 325 Mg PO BID Reported Gabapentin 100 Mg Cap 100 Mg PO BID Brimonidine Opth Drops (Brimonidine Tartrate) 0.2% Soln 1 Drop EACH EYE BID Bupropion HCl ER 24 HR (Bupropion HCl) 150 Mg Tab 150 Mg PO DAILY Paroxetine (Paroxetine HCl) 40 Mg Tab 40 Mg PO DAILY Amlodipine (Amlodipine Besylate) 5 Mg Tab 5 Mg PO DAILY Levothyroxine (Levothyroxine Sodium) 100 Mcg Tab 100 Mcg PO DAILY Allergies: Coded Allergies: Sulfa (Verified Allergy, Severe, HIVES, 07/11/16) Family History Mesothelioma and father Myocardial infarction and mother Social History No smoking currently No alcohol use No drug abuse Physical Exam Vital Signs Vital Signs Date Time Temp Pulse Resp B/P Pulse Ox O2 Delivery O2 Flow Rate FiO2 11/03/16 09:31 16 95 Room Air 11/03/16 09:18 16 100 Room Air 11/03/16 08:52 97.6 77 24 150/73 96 Room Air Physical Exam GENERAL: NAD, A&Ox3 HEAD: Normocephalic. NECK: Supple, trachea midline. No lymphadenopathy. EYES: No scleral icterus. No injection or drainage. CARDIOVASCULAR: Regular rate and rhythm without murmurs, gallops, or rubs. RESPIRATORY: Breath sounds equal bilaterally. No accessory muscle use. GASTROINTESTINAL: Abdomen soft, non-tender, nondistended. MUSCULOSKELETAL: No cyanosis, or edema. Well healing right incision wound from his surgery. There is some scabbing of the distal portion of the wound. Surrounding the distal aspect of the scar are erythema and induration without tenderness or fluctuance to suggest any abscess no drainage (nothing to culture) SKIN: Warm and dry. NEURO: No focal neurological deficitis. Laboratory Laboratory Tests Test 11/03/16 09:25 White Blood Count 11.1 Red Blood Count 4.06 Hemoglobin 12.0 Hematocrit 33.7 Mean Corpuscular Volume 83.0 Mean Corpuscular Hemoglobin 29.5 Mean Corpuscular Hemoglobin 35.5 Concent Red Cell Distribution Width 14.7 Platelet Count 510 Mean Platelet Volume 8.0 Neutrophils (%) (Auto) 73.4 Lymphocytes (%) (Auto) 15.3 Monocytes (%) (Auto) 9.1 Eosinophils (%) (Auto) 1.9 Basophils (%) (Auto) 0.3 Neutrophils # (Auto) 8.2 Lymphocytes # (Auto) 1.7 Monocytes # (Auto) 1.0 Eosinophils # (Auto) 0.2 Basophils # (Auto) 0.0 CBC Comment DIFF FINAL Differential Comment Sodium Level 136 Potassium Level 3.4 Chloride Level 102 Carbon Dioxide Level 24.7 Anion Gap 9 Blood Urea Nitrogen 9 Creatinine 0.93 Estimat Glomerular Filtration 60 Rate Random Glucose 110 Lactic Acid Level 1.4 Calcium Level 9.3 Total Bilirubin 0.3 Aspartate Amino Transf 32 (AST/SGOT) Alanine Aminotransferase 46 (ALT/SGPT) Alkaline Phosphatase 168 Total Protein 7.7 Albumin 2.5 Date/Time Procedure Status Source Growth 11/03/16 09:30 Aerobic Blood Culture Received Blood Peripheral Pending 11/03/16 09:30 Anaerobic Blood Culture Received Blood Peripheral Pending Result Diagram: 11/03/1692411/03/16924 Assessment and Plan Problem List: (1) Cellulitis of right hip ICD Code: L03.115 Status: Acute (2) HTN (hypertension) ICD Code: I10 Status: Acute (3) Hypothyroidism ICD Code: E03.9 Status: Acute (4) Depression ICD Code: F32.9 Status: Acute Assessment and Plan Assessment and plan 66-year-old female admitted secondary to right hip cellulitis Cellulitis of right hip Cellulitis is over area where patient had surgery and is around her wound Wound is otherwise well healing Vancomycin Probiotics Monitor for improvement Orthopedics consult Hypertension Continue baseline treatments Follow blood pressure Depression Continue baseline treatments Follow as an outpatient Hypothyroidism No change of present treatments Follow as an outpatient DVT prophylaxis Lovenox Discharge planning Patient will need improvement in her wound with good response to IV antibiotics prior to reconsideration for switch to oral antibiotics and discharged home Physician Certification 2 Midnight Certification Type: Admission for Inpatient Services Order for Inpatient Services The services are ordered in accordance with Medicare regulations or non- Medicare payer requirements, as applicable. In the case of services not specified as inpatient-only, they are appropriately provided as inpatient services in accordance with the 2-midnight benchmark. Estimated LOS (days): 3 days is the estimated time the patient will need to remain in the hospital, assuming treatment plan goals are met and no additional complications. Post-Hospital Plan: Home Ramon Hendricks MD Nov 03, 2016 2:01 pm
[2016-11-03] MEDS: ENOXAPARIN SODIUM 40 MG/0.4 ML SYRINGE SQ SCH (14:36)
[2016-11-03] MEDS: LACTOBACILLUS ACIDOPHILUS TAB PO SCH ×2 (14:58→18:25)
[2016-11-03 15:00] VITALS: BP 135/60; PULSE 68; RESP 16; TEMP 96.9; O2SAT 97
[2016-11-03 17:00] VITALS: BP 137/60; PULSE 66; RESP 16; TEMP 98.8; O2SAT 98
[2016-11-03] MEDS: GABAPENTIN 100 MG CAP PO SCH (19:58)
[2016-11-03] MEDS: BRIMONIDINE TARTRATE 0.2% OPHT SOLN 5 ML BTL EACH EYE SCH (19:58)
[2016-11-03] MEDS: ASPIRIN 325 MG TAB PO SCH (19:58)
[2016-11-03] MEDS: DOCUSATE SODIUM 50 MG/SENNA 8.6 MG TAB PO SCH (19:58)
[2016-11-03] MEDS: SODIUM CHLORIDE 0.9% FLUSH 10 ML FLUSH IV FLUSH SCH (19:58)
[2016-11-03 20:00] VITALS: BP 117/58; PULSE 83; RESP 19; TEMP 99; O2SAT 98
[2016-11-03] MEDS ORDERED: VANCOMYCIN INJ 1,000 MG in SODIUM CHLOR 0.9% 250 ML INJ 250 ML IV SCH (23:00)
[2016-11-04 00:06] VITALS: BP 111/55; PULSE 76; RESP 18; TEMP 98.8; O2SAT 93
[2016-11-04] MEDS ORDERED: ACETAMINOPHEN/HYDROcodone 325 MG/5 MG TAB PO PRN (03:15)
[2016-11-04] MEDS: VANCOMYCIN INJ 1,500 MG in SODIUM CHLORID 0.9% 500 ML INJ 500 ML IV SCH (03:42)
[2016-11-04 04:00] VITALS: BP 118/53; PULSE 66; RESP 19; TEMP 97.2; O2SAT 97
[2016-11-04] MEDS: LEVOTHYROXINE SODIUM 100 MCG TAB PO SCH (05:27)
[2016-11-04 06:33] LABS: AUTOMATED NEUTROPHIL # 7.7 TH/MM3 (1.8-7.7); BASOPHIL % 0.4 % (0.0-2.0); EOSINOPHIL # 0.2 TH/MM3 (0-0.4); HEMATOCRIT 30.2 % (35.0-46.0); HEMO FLAGS DIFF FINAL; LYMPH % 16.4 % (9.0-44.0); LYMPHOCYTE # 1.8 TH/MM3 (1.0-4.8); MEAN CELL VOLUME 83.3 FL (80.0-100.0); MEAN CORPUSCULAR HGB CONC 33.6 % (32.0-36.0); MONO % 9.7 % (0.0-8.0); NEUT % 71.5 % (16.0-70.0); PLATELET COUNT 462 TH/MM3 (150-450); RED BLOOD COUNT 3.63 MIL/MM3 (4.00-5.30); RED CELL DISTRIBUTION WIDTH 14.9 % (11.6-17.2); WHITE BLOOD COUNT 10.8 TH/MM3 (4.0-11.0)
[2016-11-04 07:03] LABS: ALKALINE PHOSPHATASE 159 U/L (45-117); ALT (GPT) 43 U/L (10-53); ANION GAP 10 MEQ/L (5-15); AST (GOT) 37 U/L (15-37); BICARBONATE 23.8 MEQ/L (21.0-32.0); BLOOD UREA NITROGEN 8 MG/DL (7-18); CHLORIDE 105 MEQ/L (98-107); GLOMERULAR FILTRATION RATE 76 ML/MIN (>89); POTASSIUM 3.4 MEQ/L (3.5-5.1); SODIUM (NA) 139 MEQ/L (136-145); TOTAL BILIRUBIN ADULT 0.2 MG/DL (0.2-1.0)
[2016-11-04 08:00] VITALS: BP 125/80; PULSE 66; RESP 16; TEMP 97; O2SAT 95
[2016-11-04] MEDS: BRIMONIDINE TARTRATE 0.2% OPHT SOLN 5 ML BTL EACH EYE SCH ×2 (08:13→22:03)
[2016-11-04] MEDS: DOCUSATE SODIUM 50 MG/SENNA 8.6 MG TAB PO SCH ×2 (08:14→21:00)
[2016-11-04] MEDS: SODIUM CHLORIDE 0.9% FLUSH 10 ML FLUSH IV FLUSH SCH ×2 (08:14→22:01)
[2016-11-04] MEDS: amLODIPine BESYLATE 5 MG TAB PO SCH (08:14)
[2016-11-04] MEDS: GABAPENTIN 100 MG CAP PO SCH ×2 (08:14→22:00)
[2016-11-04] MEDS: PARoxetine HCL 20 MG TAB PO SCH (08:14)
[2016-11-04] MEDS: buPROPion HCL 150 MG SUSTAINED RELEASE TAB PO SCH (08:14)
[2016-11-04] MEDS: LACTOBACILLUS ACIDOPHILUS TAB PO SCH ×3 (08:14→17:05)
[2016-11-04] MEDS: ASPIRIN 325 MG TAB PO SCH ×2 (08:14→22:00)
[2016-11-04] MEDS ORDERED: POTASSIUM CHLORIDE 10 MEQ CONTROLLED RELEASE TAB PO ONE (08:15)
[2016-11-04] MEDS ORDERED: buPROPion HCL 150 MG EXTENDED RELEASE TAB PO SCH (09:00)
[2016-11-04 12:00] VITALS: BP 120/58; PULSE 68; RESP 16; TEMP 98.7; O2SAT 96
[2016-11-04] MEDS: ENOXAPARIN SODIUM 40 MG/0.4 ML SYRINGE SQ SCH (13:01)
--- NOTE | 2016-11-04 15:02 | HHI.PR ---
Subjective Remarks Improving since yesterday. Patient does report febrile symptoms overnight but she did not have a documented fever in our records. This likely represents rapid benefit from antibiotics and clinically patient shows improvement of her cellulitis. She has no new complaints today Objective Vital Signs Date Time Temp Pulse Resp B/P Pulse Ox O2 Delivery O2 Flow Rate FiO2 11/04/16 12:00 98.7 68 16 120/58 96 11/04/16 08:00 97.0 66 16 125/80 95 11/04/16 04:00 97.2 66 19 118/53 97 11/04/16 00:06 98.8 76 18 111/55 93 11/03/16 20:00 99.0 83 19 117/58 98 11/03/16 17:00 98.8 66 16 137/60 98 11/03/16 15:00 96.9 68 16 135/60 97 I/O 11/03/16 11/03/16 11/03/16 11/04/16 11/04/16 11/04/16 07:00 15:00 23:00 07:00 15:00 23:00 Intake Total 120 ml 860 ml Balance 120 ml 860 ml Intake Oral 120 ml 360 ml IV Total 0 ml 500 ml # Voids 2 2 # Bowel Movements 0 0 Result Diagram: 11/04/16 0551 11/04/16 0551 Objective Remarks GENERAL: NAD, A&Ox3 HEAD: Normocephalic. NECK: Supple, trachea midline. No lymphadenopathy. EYES: No scleral icterus. No injection or drainage. CARDIOVASCULAR: Regular rate and rhythm without murmurs, gallops, or rubs. RESPIRATORY: Breath sounds equal bilaterally. No accessory muscle use. GASTROINTESTINAL: Abdomen soft, non-tender, nondistended. MUSCULOSKELETAL: No cyanosis, or edema. Decreased erythema and induration around the wound at right hip. SKIN: Warm and dry. NEURO: No focal neurological deficitis. A/P Problem List: (1) Cellulitis of right hip ICD Code: L03.115 Assessment and Plan Assessment and plan 66-year-old female admitted secondary to right hip cellulitis. Improving significantly on vancomycin. Continue to monitor for further improvement. Follow CBC. Cellulitis of right hip Improved overnight. Continue antibiotic treatment. Vancomycin Probiotics Monitor for improvement Orthopedics consult Hypertension Continue baseline treatments Follow blood pressure Depression Continue baseline treatments Follow as an outpatient Hypothyroidism No change of present treatments Follow as an outpatient DVT prophylaxis Lovenox Discharge planning Significant improvement in the last 24 hours. Continue antibiotic treatments and if she continues to improve through tomorrow we'll consider discharge on by mouth antibiotics tomorrow. Ramon Henrdicks MD Nov 04, 2016 15:02
[2016-11-04 16:00] VITALS: BP 136/65; PULSE 69; RESP 16; TEMP 99.7; O2SAT 99
[2016-11-04] MEDS: ACETAMINOPHEN/HYDROcodone 325 MG/10 MG TAB PO PRN (19:43)
[2016-11-04 20:00] VITALS: BP 136/69; PULSE 68; RESP 19; TEMP 98.9; O2SAT 97
[2016-11-05] VITALS: BP 106/62; PULSE 57; RESP 23; TEMP 96.2; O2SAT 95
[2016-11-05] MEDS: VANCOMYCIN INJ 1,500 MG in SODIUM CHLORID 0.9% 500 ML INJ 500 ML IV SCH (03:46)
[2016-11-05] MEDS: ACETAMINOPHEN/HYDROcodone 325 MG/10 MG TAB PO PRN (03:50)
[2016-11-05] MEDS: LEVOTHYROXINE SODIUM 100 MCG TAB PO SCH (05:35)
[2016-11-05 06:02] LABS: HEMATOCRIT 29.3 % (35.0-46.0); MEAN CELL VOLUME 82.8 FL (80.0-100.0); MEAN CORPUSCULAR HGB CONC 33.8 % (32.0-36.0); PLATELET COUNT 457 TH/MM3 (150-450); RED BLOOD COUNT 3.54 MIL/MM3 (4.00-5.30); RED CELL DISTRIBUTION WIDTH 14.5 % (11.6-17.2); REVIEW FLAG FINAL; WHITE BLOOD COUNT 9.3 TH/MM3 (4.0-11.0)
[2016-11-05 06:26] LABS: BICARBONATE 27.7 MEQ/L (21.0-32.0); POTASSIUM 4.2 MEQ/L (3.5-5.1)
[2016-11-05 08:00] VITALS: BP 109/66; PULSE 63; RESP 16; TEMP 97.2; O2SAT 94
[2016-11-05] MEDS: PARoxetine HCL 20 MG TAB PO SCH (08:42)
[2016-11-05] MEDS: GABAPENTIN 100 MG CAP PO SCH (08:42)
[2016-11-05] MEDS ORDERED: CLIN1CAP6 PO (08:42)
[2016-11-05] MEDS ORDERED: LACTTAB8 PO (08:42)
[2016-11-05] MEDS ORDERED: AUGM875T3 PO (08:42)
[2016-11-05] MEDS: buPROPion HCL 150 MG SUSTAINED RELEASE TAB PO SCH (08:42)
[2016-11-05] MEDS: amLODIPine BESYLATE 5 MG TAB PO SCH (08:42)
[2016-11-05] MEDS ORDERED: NORC5TAB PO (08:42)
[2016-11-05] MEDS: LACTOBACILLUS ACIDOPHILUS TAB PO SCH (08:42)
[2016-11-05] MEDS: ASPIRIN 325 MG TAB PO SCH (08:42)
[2016-11-05] MEDS: SODIUM CHLORIDE 0.9% FLUSH 10 ML FLUSH IV FLUSH SCH (08:43)
[2016-11-05] MEDS: DOCUSATE SODIUM 50 MG/SENNA 8.6 MG TAB PO SCH (08:43)
[2016-11-05] MEDS: BRIMONIDINE TARTRATE 0.2% OPHT SOLN 5 ML BTL EACH EYE SCH (08:44)
--- NOTE | 2016-11-05 08:46 | HHI.DS ---
Discharge Summary Admission Date Nov 03, 2016 at 11:33 am Discharge Date: Nov 05, 2016 Admitting Diagnosis right hip cellulitis/failed outpatient therapy (1) Cellulitis of right hip ICD Code: L03.115 Diagnosis: Principal (2) HTN (hypertension) ICD Code: I10 Diagnosis: Secondary (3) Hypothyroidism ICD Code: E03.9 Diagnosis: Secondary (4) Depression ICD Code: F32.9 Diagnosis: Secondary Procedures None Brief History - From Admission Mrs. Cortez is a 66-year-old female. She is being at [facility] secondary to cellulitis. Cellulitis is at a right hip incision wound. Hip surgery was approximately 4 months ago. She says the symptoms started 3 days ago at which time she has started Keflex as an outpatient. Despite antibiotics as an outpatient symptoms are getting worse so she came to the hospital today. No smoking, alcohol, or drug abuse. She lives alone at home. She denies any fevers or sweats. No sepsis on preliminary workup. This does represent an outpatient treatment failure and given hardware within her hip immediate control infection is recommended. She had otherwise been recovering quite well from her surgery and is pleased with the outcome describing minimal pain during her recovery. CBC/BMP: 11/05/16 0524 11/05/16 0524 Significant Findings Laboratory Tests Test 11/03/16 11/04/16 11/05/16 09:25 05:51 05:24 White Blood Count 11.1 TH/MM3 (4.0-11.0) Hematocrit 33.7 % 30.2 % 29.3 % (35.0-46.0) (35.0-46.0) (35.0-46.0) Platelet Count 510 TH/MM3 462 TH/MM3 457 TH/MM3 (150-450) (150-450) (150-450) Neutrophils (%) (Auto) 73.4 % 71.5 % (16.0-70.0) (16.0-70.0) Monocytes (%) (Auto) 9.1 % (0.0-8.0) 9.7 % (0.0-8.0) Neutrophils # (Auto) 8.2 TH/MM3 (1.8-7.7) Monocytes # (Auto) 1.0 TH/MM3 1.1 TH/MM3 (0-0.9) (0-0.9) Potassium Level 3.4 MEQ/L 3.4 MEQ/L (3.5-5.1) (3.5-5.1) Estimat Glomerular Filtration 60 ML/MIN (>89) 76 ML/MIN (>89) Rate Random Glucose 110 MG/DL 176 MG/DL (74-106) (74-106) Alkaline Phosphatase 168 U/L 159 U/L (45-117) (45-117) Albumin 2.5 GM/DL 2.1 GM/DL (3.4-5.0) (3.4-5.0) Red Blood Count 3.63 MIL/MM3 3.54 MIL/MM3 (4.00-5.30) (4.00-5.30) Hemoglobin 10.2 GM/DL 9.9 GM/DL (11.6-15.3) (11.6-15.3) Hospital Course Mrs. Cortez is a 66-year-old female. She had a right hip surgery in June of this year which is approximate 4 months ago. 3 days prior to coming into the emergency department she had development of a right cellulitis at her right hip wound. The surgical wound had previously been healing well. She tried Keflex as an outpatient over the three-day course nothing improved and in fact there was worsening. She was treated with vancomycin inpatient and has had significant improvement in rapid improvement in her cellulitis in the time that she has been here (2 days ). Medically stable now for transition to by mouth treatment and discharged home today. She has not patient follow up with orthopedics next month. Because she responded well to vancomycin, clindamycin and double coverage with Augmentin (patient has a sulfa allergy) has been selected as treatment. Discharge home today. Pt Condition on Discharge: Stable Discharge Disposition: Discharge Home Discharge Time: <= 30 minutes Discharge Instructions DIET: Follow Instructions for: As Tolerated, No Restrictions Activities you can perform: Regular-No Restrictions Follow up Referrals: Orthopedics - 1 Month with Vinay Brice MD PCP Follow-up - 2 Weeks New Medications: Amoxicillin-Clavulanate (Augmentin) 875-125 Mg Tab 1 TAB PO BID Infection #14 Ref 0 TAB Clindamycin (Clindamycin) 300 Mg Cap 600 MG PO Q8H Infection #21 Ref 0 CAP Hydrocodone-Acetaminophen ([place]) 5-325 mg Tab 1 TAB PO Q6H PRN PAIN #20 Ref 0 TAB Lactobacillus Acidophilus (Lactobacillus Acidophilus) 1 Tab Tab 1 TAB PO TIDAC Nutritional Supplement #30 Ref 0 TAB Continued Medications: Amlodipine (Amlodipine) 5 Mg Tab 5 MG PO DAILY Blood Pressure Management #30 Ref 0 TAB Aspirin (Aspirin) 325 Mg Tab 325 MG PO BID Prevent Blood Clot #60 Ref 0 TAB Brimonidine Opth Drops (Brimonidine Opth Drops) 0.2% Soln 1 DROP EACH EYE BID Intraocular pressure #1 Ref 0 BOTTLE Bupropion HCl ER 24 HR (Bupropion HCl ER 24 HR) 150 Mg Tab 150 MG PO DAILY Control Depression Ref 0 TAB Gabapentin (Gabapentin) 100 Mg Cap 100 MG PO BID #60 Ref 0 CAP Levothyroxine (Levothyroxine) 100 Mcg Tab 100 MCG PO DAILY Thyroid #30 Ref 0 TAB Paroxetine (Paroxetine) 40 Mg Tab 40 MG PO DAILY #30 Ref 0 TAB Ramon Hendricks MD Nov 05, 2016 8:46 am
[2016-11-06] MEDS ORDERED: PHARMACY ORDERED LAB ONE (02:45)
== END 2016-11-05 10:52 | disposition home or self-care (01) | DRG 603 ==
LOC: NEPC 08:51 → NEDA 11:33 → N07B 14:53
PROVIDERS: ADMIT Hospitalist; ATTEND Hospitalist
DX: L03.115 Cellulitis of right lower limb (principal); I10 Essential (primary) hypertension; E03.9 Hypothyroidism, unspecified; F32.9 Major depressive disorder, single episode, unspecified; Z87.891 Personal history of nicotine dependence; Z88.2 Allergy status to sulfonamides; Z96.641 Presence of right artificial hip joint
CPT/HCPCS: 73502; 80048; 80053; 83605; 85025; 85027; 87040; 96365; 96368; J1650; J2543; J3370; J7040; J7050

== ENCOUNTER 2017-01-23 13:01 | Day surgery (SDC) | payer OTHER ==
[~2017-01-23 13:01] MED LIST changes: +AUGM875T3 PO; +CLIN1CAP6 PO; +GABA100C4 PO; -HYDR-3516 PO; +LACTTAB8 PO; +NORC5TAB PO
[2017-01-23 13:25] VITALS: BP 168/72; PULSE 84; RESP 17; TEMP 98.5; O2SAT 99
[2017-01-23 15:05] VITALS: BP 158/72; PULSE 68; RESP 17; TEMP 98.6; O2SAT 98
--- NOTE | 2017-01-23 15:15 | PD.RAD ---
Post Procedure Progress Note Pre Procedure Diagnosis: (1) Cellulitis of right hip Post Procedure Diagnosis: (1) Synovial fluid collection, Right hip (2) Cellulitis of right hip Procedure Date: Jan 23, 2017 Supervising Radiologist: Jack Ritter Proceduralist/Assist: Malinda Gallardo, RT(R)(CV), RT Kia(R) Anesthesia: Local Plan of Activity Patient to Unit: ROPU Patient Condition: Good See PACS Report for procedural detail/treatment Drainage Procedure Procedure 1 Imaging Guidance: Ultrasound Procedure Type: Aspiration (Complex right hip periarticular collection) [place]: 6 Drainage: Suction (Syringe aspiration) Fluid Removal (CCs): 41 Fluid Description: Cloudy, Yellow Findings: Complex periarticular right hip collection identified sonographically. 41cc drained and sample sent to lab. 5cc lidocaine injected through catheter with some relief of clinical symptoms Jack Ritter MD Jan 23, 2017 15:15
[2017-01-23 15:20] VITALS: BP 157/70; PULSE 67; RESP 18; O2SAT 98
--- NOTE | 2017-01-23 16:23 | RADRPT ---
EXAM DATE/TIME: 01/23/2017 14:20 [facility] COMPARISON: No previous studies available for comparison. INDICATIONS : Patient s/p right hip surgery. Pain and redness at surgical site. MEDICAL HISTORY : 1. HTN 2. Graves disease 3. OA 4. anxiety 5. smoker SURGICAL HISTORY : 1.Right hip surgery 2. tonsillectomy 3. left leg stripping ENCOUNTER: Initial ACUITY: 4 - 6 months PAIN SCORE: 10/10 LOCATION: Right hip FLUORO TIME: IMAGE SERIES: DEVICE(S): 18 gauge needle was placed into the right hip joint. RESPONSE: Pre procedure pain level was 10/10 Post procedure pain level was 0/10 FLUID: Total volume of41 cc of cloudy yellow fluid was removed. Fluid specimen was submitted to the lab for evaluation. TECH NOTE: 6.3 EXPEL CATH WAS INSERTED AND FLUID WAS THEN DRAWN OFF.CATH WAS THEN REMOVED.THELMA MURILLO MR#:[id number] :48 Exam Dt/Desc: January 23, 2017ASPIRATION, HIP, RIGHT PROCEDURE : 1. Fluoroscopically guided lateral right hip aspiration. The risks, benefits and alternatives to the procedure were explained and verbal and written consent w as obtained. The site was prepped in sterile fashion. Right hip was interrogated sonographically an d demonstrated a complex, hypoechoic collection lateral to the hip prosthesis measuring 5.2 x 8.4 cm. Full sterile technique was used, including cap, mask, sterile gloves and gown and a large sterile she et. Hand hygiene and 2% chlorhexidine and/or betadine/alcohol prep was utilized per protocol for cut aneous antisepsis. The skin and subcutaneous tissues were infiltrated with local anesthetic solution . 21 gauge micropuncture needle was sonographically guided into the collection. The 018 wire was advanc ed through the needle over which the 3-4 dilator was placed. An 80 cm Foley wire was advanced through the outer 4 Tuvaluan dilator to facilitate placement of the 6.3 Tuvaluan expel catheter. A total of 41 c c of cloudy, somewhat thick yellow fluid was aspirated. Approximately half that volume was sent to arabella lopez for analysis. Post aspiration measurements of the lateral fluid collection show significant decrease in size now measuring 2.9 x 6.2 cm. The echogenicity is also increased suggesting particulat e debris. Approximately 5 cc of lidocaine was then infused into the collection. Preprocedural pain le amelia was reported at 10 out of 10 with a postprocedural pain level 0/10. The patient tolerated the procedure well and there were no complications. CONCLUSION: Uncomplicated aspiration as above. Jack Ritter MD on January 23, 2017 at 16:14 Board Certified Radiologist. This report was verified electronically.
[2017-01-23 18:49] LABS: WBC, SYNOVIAL FLUID 15500 /MM3 (0-200)
[2017-01-28] MEDS ORDERED: HYDR-3583 PO (08:52)
== END 2017-01-23 15:45 | disposition home or self-care (01) ==
LOC: HROP 13:01 → HRIP 13:02 → HROP 15:45
PROVIDERS: ATTEND Orthopaedic Surgery
DX: L03.115 Cellulitis of right lower limb (principal); B95.61 Methicillin susceptible Staphylococcus aureus infection as the cause of diseases classified elsewhere
CPT/HCPCS: 20610; 77002; 86403; 87015; 87070; 87077; 87102; 87116; 87186; 87205; 87206; 89051; 89060; C1729; C1769

== ENCOUNTER → 2017-01-28 | Outpatient (CLI) | payer OTHER ==
[~2017-01-28] MED LIST changes: -AUGM875T3 PO; -CLIN1CAP6 PO; +EPIN1INJ21 IV PUSH; +EPIN1INJ21 SQ; -GABA100C4 PO; +HYDR-3516 PO; +HYDR-3583 PO; +SOLU250I IV PUSH; +VANC10IN IV
[2017-01-28 09:54] LABS: HEMATOCRIT 34.3 % (35.0-46.0); MEAN CELL VOLUME 78.4 FL (80.0-100.0); MEAN CORPUSCULAR HEMOGLOBIN 25.3 PG (27.0-34.0); MEAN CORPUSCULAR HGB CONC 32.2 % (32.0-36.0); RED BLOOD COUNT 4.37 MIL/MM3 (4.00-5.30); RED CELL DISTRIBUTION WIDTH 17.5 % (11.6-17.2); WHITE BLOOD COUNT 11.7 TH/MM3 (4.0-11.0)
[2017-01-28 09:55] LABS: AUTOMATED NEUTROPHIL # 8.6 TH/MM3 (1.8-7.7); BASOPHIL # 0.1 TH/MM3 (0-0.2); BASOPHIL % 0.8 % (0.0-2.0); EOSINOPHIL # 0.2 TH/MM3 (0-0.4); EOSINOPHIL % 1.7 % (0.0-4.0); HEMO FLAGS DIFF FINAL; LYMPH % 17.5 % (9.0-44.0); LYMPHOCYTE # 2.1 TH/MM3 (1.0-4.8); MONO % 6.8 % (0.0-8.0); NEUT % 73.2 % (16.0-70.0); PLATELET COUNT 562 TH/MM3 (150-450)
[2017-01-28 10:03] LABS: PROTHROMBIN TIME - PATIENT 10.5 SEC (9.8-11.6)
[2017-01-28 10:19] LABS: BLOOD, URINE NEG (NEG); GLUCOSE,URINE NEG (NEG); HYALINE CAST, URINE 1 /lpf (RARE); KETONE, URINE NEG (NEG); MUCUS URINE FEW /lpf (OCC); NITRITE,URINE NEG (NEG); URINE COLOR YELLOW (YELLW/STRAW)
[2017-01-28 10:21] LABS: COMMENT (UR) CATH-CULT NOT IND; CULTURE IF INDICATED CATH CULTURE NOT IND
[2017-01-28 10:22] LABS: POTASSIUM 4.1 MEQ/L (3.5-5.1)
== END ==
LOC: CPRE 08:05
PROVIDERS: ATTEND Orthopaedic Surgery
DX: Z01.812 Encounter for preprocedural laboratory examination (principal); T84.51XA Infection and inflammatory reaction due to internal right hip prosthesis, initial encounter
CPT/HCPCS: 36415; 80048; 81001; 85025; 85610

== ENCOUNTER 2017-01-30 05:25 | Inpatient (IN) | payer OTHER, MEDICARE ==
--- NOTE | 2017-01-26 17:36 | MH ---
cc: JUANITO QUIGLEY DATE OF ADMISSION: 01/30/2017 ADMITTING DIAGNOSIS: 1. Septic joint, status post right total hip arthroplasty. 2. Pain, right hip. HISTORY OF PRESENT ILLNESS: The patient is a 66-year-old white female who was admitted to [facility] in June of this year for a history of severe osteoarthritis of her right hip with associated pain and gait disturbance. At that time, she underwent a right total hip arthroplasty which was accomplished in an uncomplicated manner and the patient noted to have tolerated her operative procedure quite well. She was progressed into a postoperative rehab program and when seen in office follow up approximately one month postoperatively, she appeared to be doing quite well reporting a definite trend of improvement regarding her preoperative level of pain. Her surgical wound was healing favorably. Her x-ray studies noted total hip components to be in appropriate alignment and orientation. The patient was encouraged to continue with her rehab program and was scheduled to be seen in office follow up approximately four months thereafter. She returned to the office in November at which time she was almost five months postop and at that time reported that she had been continuing to do well until the past few weeks when she began to note soreness about her right hip and [facility] she was prescribed an antibiotic. There were no medical records to review but the patient was experiencing some lingering symptoms for which she was later seen in the emergency room of [facility] and was admitted to the hospital for a suspected cellulitis of her right hip and treated with a two-day course of intravenous antibiotics. Her white blood cell count was reported as being 9.3. Upon discharge from the hospital, the patient was maintained on oral antibiotics for an additional one week and thereafter returned to the [facility] facility where she was encouraged to continue with antibiotic coverage. She completed an additional course of treatment and shortly thereafter began to note some recurrent swelling and soreness about her right hip and was again started on a course of oral antibiotics including Cipro 500 milligrams twice a day and clindamycin 300 milligrams three times a day. She presented to the undersigned in November and at that time her x-ray studies noted total hip components to remain in appropriate alignment and orientation. The patient was suspected as having a localized cellulitis of her right hip, possibly as a reaction to suture material, and at that time was treated with a Kenalog injection and a Medrol Dosepack. She thereafter described a trend of improvement with follow up examination of her surgical wound being unremarkable for any residual erythema and no localizing tenderness. At that time, the patient was again encouraged to continue with her exercise activities, transitioning from a cane as her progress might permit and was scheduled to actually be seen in further follow up in June of the coming year. Unfortunately she was noted to have developed a recurrent pain about her right hip and she was beyond the six month serg of her surgery and at that time a recommendation was made to proceed with additional diagnostic studies. Subsequent laboratory values included an elevated white count at 11.2. Her sedimentation rate at 52 with the upper limits of normal being at 40. Her C-reactive protein at 67.8 with the upper limit of normal being 4.9. A subsequent aspiration under fluoroscopic control of her right hip was initially described as being unremarkable for any organisms but subsequent culture analysis demonstrated a methicillin-resistant staph aureus. The patient returned to the office at that time and the findings of her recent studies were reviewed and further disposition was completed. Of interest, during the course of that office evaluation, the patient volunteered that during the previous two years she had actually been admitted to the hospital for a MRSA infection of her lower back region that did require debridement and an extended course of antibiotic treatment thereafter. Unfortunately this information had not been relayed to the treating surgeon prior to her hip arthroplasty. Based upon current findings however, it was felt that the patient's current symptomatology was consistent with a septic process involving her right hip and thus it was recommended that she be readmitted to the hospital in order that she would undergo a resection arthroplasty of her right hip with insertion of a cement spacer with infectious disease consultation being completed anticipating at least a six week course of intravenous antibiotic intervention before further disposition might be made including consideration for a second-stage reimplantation. The patient indicated her full understanding regarding this course of treatment and has given her consent to proceed accordingly. PAST MEDICAL HISTORY, HOSPITALIZATIONS AND SURGERIES: In addition to that described above have included: 1. A vein stripping of the left lower extremity. 2. Bilateral cataract excision. 3. Tonsillectomy. Her medical illnesses include: 1. Hypothyroidism. 2. Depression. 3. Hypertension. MEDICATIONS: Her medications have included: 1. Levothyroxine 100 micrograms daily. 2. Paroxetine 40 milligrams daily. 3. Bupropion 150 milligrams daily. 4. Amlodipine 5 milligrams daily. 5. 0.2% solution one drop to each eye twice daily. ALLERGIES: THE PATIENT DESCRIBES A DRUG ALLERGY TO SULFA, WHICH HAD BEEN ASSOCIATED WITH FACIAL SWELLING. REVIEW OF SYSTEMS: There is no headache, seizure or syncope. Occasional sinus congestion as related to environmental irritants. No epistaxis. Auditory acuity intact. No tinnitus. No bleeding gums or dysphagia. Denies cough, shortness of breath, upper respiratory infection, pneumonia or tuberculosis. No angina or heart disease. She is medically managed for hypertension. Appetite is good. Bowel movements are regular. No hepatitis, gallbladder disease, ulcers or hemorrhoids. There has been no urinary tract infection. No kidney stones. No history of fractures. She has been treated in the past for depression. Her remaining review of systems is unremarkable and noncontributory. FAMILY HISTORY: The patient has been a for almost seven years. Her at 50 years of age with a history of congestive heart failure. She has two sons and one daughter, all described as being in good health. Her family history is positive for hypertension, heart disease and prostate cancer. SOCIAL HISTORY: The patient completed a high school education. She has been a housewife. She admits to a forty pack/year use of tobacco but less than one pack per day. Ethanol consumption in the form of an occasional glass of wine or beer. PHYSICAL EXAMINATION: HEIGHT: 5 feet 4 inches. WEIGHT: 205 pounds. GENERAL: An alert, oriented and responsive 66-year-old white female sitting quietly upon the examination table in no obvious distress. HEAD, EYES, EARS, NOSE, AND THROAT: Pupils are equally round and reactive to light. Extraocular movements full. Sclerae are clear. External nares clear. External auditory canals clear. Edentulous. Mucous membranes pink and moist. Pharynx clear. NECK: Supple. Active range of motion without associated pain. Carotid pulse palpable bilaterally. Trachea midline. Thyroid without enlargement. LUNGS: Clear to auscultation and percussion. BACK: No CVA tenderness. No discomfort involving the dorsal or lumbar spine. HEART: Regular rhythm. No murmur or gallop. ABDOMEN: Soft, nontender. Bowel sounds present. PELVIC: Per her primary care physician. EXTREMITIES: Right hip - an intact surgical wound about the posterolateral aspect of the hip with no obvious signs of infection. There is no significant tenderness elicited with palpation. There is limited mobility of the hip joint at the extremes of motion with mild discomfort associated. No sensation of instability. Straight leg raising negative at 80 degrees. Mild antalgic gait with walker support. NEUROLOGIC: Cranial nerves II through XII grossly intact. IMPRESSION: 1. Septic joint status post right total hip arthroplasty. 2. Pain, right hip. PLAN: Resection arthroplasty with insertion of cement spacer right hip. The nature of the planned surgical procedure, the potential complications and risks associated, the expectations of surgery and the consent form were thoroughly reviewed with the patient prior to her admission to the hospital. Vanessa has indicated her full understanding regarding all of the above and given consent to proceed with treatment as outlined. MD MARIANA Webster/JCC /4:58 PM /5:10 PM
[~2017-01-30] VITALS: Ht 162.6 cm; Wt 92.3 kg
[~2017-01-30 05:25] MED LIST changes: -EPIN1INJ21 IV PUSH; -EPIN1INJ21 SQ; -HYDR-3516 PO; -SOLU250I IV PUSH; -VANC10IN IV
[2017-01-30] MEDS ORDERED: POVIDONE IODINE 7.5% SCRUB 118 ML BOTTLE TOPICAL SCH (06:00)
[2017-01-30] MEDS ORDERED: POVIDONE IODINE 5% (ANTISEPSIS KIT) 4 APPLICATIONS EACH NARE PRN (06:00)
[2017-01-30] MEDS ORDERED: SODIUM CHLORID 0.9% 500 ML IV PRN (06:00)
[2017-01-30] MEDS ORDERED: LACTATED RINGER'S 1000 ML IV PRN (06:00)
[2017-01-30] MEDS ORDERED: CHLORHEXIDINE GLUCONATE 2 % 1 PACK (2 CLOTHS) TOPICAL PRN (06:00)
[2017-01-30] MEDS ORDERED: INSULIN HUMAN REGULAR 1,000 UNITS/10 ML VIAL SQ PRN (06:00)
[2017-01-30] MEDS ORDERED: METOPROLOL TARTRATE 25 MG TAB PO PRN (06:00)
[2017-01-30] MEDS ORDERED: ceFAZolin INJ 1,000 MG VIAL ONE (07:08)
[2017-01-30] MEDS ORDERED: MIDAZOLAM HCL 2 MG/2 ML VIAL ONE (07:15)
[2017-01-30] MEDS ORDERED: FAMOTIDINE 20 MG/2 ML VIAL ONE (07:15)
[2017-01-30] MEDS ORDERED: TRANEXAMIC ACID 1 GM PRIOR TO PROCEDURE IV SCH ×2 (07:30)
[2017-01-30] MEDS ORDERED: TRANEXAMIC ACID 1 GM POST-OP IV SCH ×2 (10:30)
[2017-01-30] MEDS ORDERED: DO NOT ADM ANY ANTICOAGULANT DRUGS PRN (10:50)
[2017-01-30] MEDS ORDERED: *morphine SULFATE 8 MG/ML PERIprocedure ONLY ONE (10:55)
[2017-01-30] MEDS: DEXT 5%-NACL 0.45% 1000 ML INJ 1,000 ML IV SCH ×2 (10:56→18:56)
[2017-01-30] MEDS ORDERED: ACETAMINOPHEN 325 MG TAB PO PRN (11:00)
[2017-01-30] MEDS ORDERED: TRANEXAMIC ACID INJ 1,000 MG in SODIUM CHLORIDE 0.9% INJ 100 ML IV SCH (11:00)
[2017-01-30] MEDS ORDERED: Post-op Orders (for Pharmacy) MISC XX ONE (11:00)
[2017-01-30] MEDS ORDERED: MISCELLANEOUS PHARMACY INFORMATION XX ONE (11:00)
[2017-01-30] MEDS ORDERED: DOCUSATE SODIUM 100 MG CAP PO PRN (11:00)
[2017-01-30] MEDS ORDERED: ONDANSETRON HCL 4 MG/2 ML VIAL IVP PRN (11:00)
[2017-01-30] MEDS ORDERED: ZOLPIDEM TARTRATE 5 MG TAB PO PRN (11:00)
[2017-01-30] MEDS ORDERED: ACETAMINOPHEN/HYDROcodone 325 MG/5 MG TAB PO PRN (11:00)
[2017-01-30] MEDS ORDERED: SODIUM CHLORIDE 0.9% FLUSH 5 ML FLUSH IVF PRN (11:00)
--- NOTE | 2017-01-30 11:27 | MP ---
cc: JUANITO BRICE MD DATE OF SURGERY 01/30/2017 PREOPERATIVE DIAGNOSIS Septic joint status post right total hip arthroplasty, pain of the right hip. POSTOPERATIVE DIAGNOSIS Septic joint status post right total hip arthroplasty, pain of the right hip. PROCEDURE Resection arthroplasty right hip with insertion of cement spacer utilizing the Biomet stage I select system. SURGEON Juanito Brice MD ANESTHESIA Generalized endotracheal INDICATIONS This is a 66-year-old white female who underwent a right total hip arthroplasty in June of this year for a history of severe osteoarthritis of the right hip for which she was noted to have tolerated her operative procedure well and experienced an uneventful recovery in the initial postoperative. She was carried through a course of rehabilitation and did quite well with regards to progressive mobilization. She returned to the office in November of this year reporting that she had been doing quite well until the previous few weeks when she began to note some soreness about her right hip and was evaluated by her primary care physician at which time she was prescribed a course of antibiotics. The patient did experience some lingering discomfort thereafter and was later seen in the emergency room of [facility] at which time she was admitted to the hospital for a suspected cellulitis of her right hip and treated with a 2-day course of intravenous antibiotics at which time her white count was reported to be 9.3. Upon discharge from the hospital, she was maintained on additional antibiotics for a one week interval of time and then seen in follow-up evaluation at [facility] facility. She was encouraged to continue with antibiotic coverage. Her treatment at that time did include Cipro 500 mg twice daily and clindamycin 300 mg three times daily. She subsequently presented to the undersigned physician in the latter part of November and at that time her x-ray studies revealed total hip components to remain in appropriate alignment and orientation. The patient was suspected as having a possible cellulitis of the right hip, possibly related to suture material. She was treated with a Kenalog injection and a Medrol Dosepak and thereafter described overall improvement with her surgical wound appearing unremarkable. She continued to conform to an exercise program and was scheduled for follow-up disposition in June of the coming year. Unfortunately, she began to develop recurrent pain about her right hip even beyond the six-month period postoperatively and at that time she underwent additional diagnostic studies which included a white count elevated at 11.2, sedimentation rate 52, and C-reactive protein 67.8, all parameters being above normal limits. A subsequent fluoroscopic aspiration of her right hip initially was unremarkable for any organisms, but later culture analysis demonstrated methicillin-resistant staph aureus. The patient returned to the office thereafter and at that time the findings of her recent evaluation were reviewed. During the course of the office evaluation, the patient volunteered that during the previous two years she had actually been admitted to the hospital for a MRSA infection of her lower back that did require debridement and an extended course of antibiotic treatment. Unfortunately, this information had not been provided prior to her surgical treatment. Based upon her current findings however, it was felt that the patient's symptomatology was consistent with a septic process of her right hip and thus it was recommended that she be readmitted to the hospital in anticipation of undergoing a resection arthroplasty of her right hip with insertion of a cement spacer with infectious disease consultation regarding antibiotic management. Upon completion of same, consideration being given for a stage II reimplantation. The patient was in full agreement to this plan of treatment and was admitted at this time in order that the above be accomplished. FORMAT Following the induction of satisfactory general anesthesia by endotracheal intubation as completed per the Department of Anesthesia, the patient was positioned upon the operating table in a left lateral decubitus fashion. The right hip and lower extremity proper were isolated with a U-drape thereafter being prepped with Betadine solution and draped into a sterile field in the routine manner. Prior to initiation of the actual procedure, the standard time-out protocol was completed. All parameters were appropriately addressed and confirmed by operating room personnel. The previous surgical scar about the posterolateral aspect of the hip was used as a landmark for initiating a new skin incision which was developed through underlying subcutaneous tissue with hemostasis being maintained by electrocautery. By progressive dissection, the posterior capsular region was exposed, both soft tissue and fluid specimen was obtained for culture analysis. The joint space was entered with additional culture material being obtained and thereafter the previously inserted total hip was dislocated from the confines of the acetabular shell. The ceramic head was removed and the proximal femur debrided of all fibrotic tissue. Limited release was completed with flexible osteotomes and thereafter the femoral component was extracted from the confines of the femoral canal. Attention was redirected to the acetabulum. The acetabular liner was removed. The anchoring screw extracted from the acetabular shell and thereafter the shell removed from the acetabulum proper. A thorough debridement was accomplished throughout the acetabular and proximal femur region including a pulse antibiotic lavage and brushing of the canal itself. Debridement of the acetabulum was accomplished with graded reamers. Sizing was accomplished with 52 mm acetabulum and determined to be satisfactory and size 11 femoral stem determined to be appropriate. The wound was thereafter irrigated in a repeat fashion and on the back table, the cement spacer mold was prepared utilizing a 52 mm hip head cement spacer and an 11-mm hip stem spacer component. With the component fully formed utilizing a 1.2 grams tobramycin mix with each unit of cement with 140 grams unit for the femoral component and two 40 grams units for the head component and once the components had fully cured, they were assembled utilizing a -6 mm neck length adapter. The stem was inserted into the proximal canal following repeat irrigation and the head component attached and reduced into the acetabulum. The hip was carried through a passive range of motion and stability was demonstrated at 90 degrees flexion and 45 degrees internal rotation. Final irrigation was accomplished. The posterior capsular region was repaired with 0 Vicryl suture. The remaining portion of the wound was closed in layers in the routine manner, skin margins being reapproximated with a running subcuticular 3-0 Vicryl suture over which Steri-Strips were applied. A silver impregnated dressing was used to cover the operative site. The patient was repositioned into a supine orientation where an abduction splint was attached. Anesthesia was discontinued and she was thereafter transferred to a hospital bed and returned to recovery room in satisfactory condition having tolerated her operative procedure well. Estimated blood loss approximately 450 cc as determined per anesthesia. The implants were of the Biomet ground source heat pump technician. MD MARIANA Webster/MICHEL /10:43 AM /11:00 AM
--- NOTE | 2017-01-30 11:39 | RADRPT ---
EXAM DATE/TIME: 01/30/2017 11:04 [facility] COMPARISON: HIP RIGHT AP ONLY WO AP PELVIS, July 11, 2016, 10:21. INDICATIONS : Post op right hip. MEDICAL HISTORY : None. SURGICAL HISTORY : None. ENCOUNTER: Initial ACUITY: 1 day PAIN SCORE: 10/10 LOCATION: Right hip. FINDINGS: A single frontal view of the right hip shows a total hip prosthesis in good position on this single p rojection. No discrete fracture is observed. Mild soft tissue swelling noted. CONCLUSION: Total hip arthroplasty. Jameson Fair Jr., MD on January 30, 2017 at 11:37 Board Certified Radiologist. This report was verified electronically.
[2017-01-30] MEDS ORDERED: NALOXONE HCL 0.4 MG/ML AMP IV PUSH PRN (13:00)
[2017-01-30] MEDS: ACETAMINOPHEN/HYDROcodone 325 MG/5 MG TAB PO PRN (13:45)
[2017-01-30] MEDS: MORPHINE SULFATE 30 MG/30 ML PCA IV SCH ×2 (13:45→15:28)
[2017-01-30] MEDS ORDERED: VANCOMYCIN HCL 1000 MG VIAL ONE (13:58)
[2017-01-30] MEDS: PCA - TOTAL MG MORPHINE DELIVERED PER SHIFT SCH ×2 (14:00→20:41)
[2017-01-30] MEDS ORDERED: VANCOMYCIN 500 MG VIAL ONE (14:03)
[2017-01-30] MEDS ORDERED: Vancomycin Consult Pharmacy 1 EA OTHER SCH (14:15)
--- NOTE | 2017-01-30 14:25 | PD.ID.CON ---
History of Present Illness Service ID Consult Requested By Dr Brice Reason for Consult R prosthetic hip infection Primary Care Physician Laureano Tracy MD Diagnoses: History of Present Illness 66 yo female sp R hip arthroplasty in June 2016 She reported to me doing well for the first 4 months, but in October developped progressive swelling, redness, painwith walking She was given cipro for almost 4 weeks without any signifiance improvement Also she had Kenalog injection in November and Medrol pack with temporal improvement She continued with pain , swelling and switched from cane back to walkr 2/2 pain On 01/23 the hip was aspirated and culture was positive for MRSA Pt was admitted to the hospital and uderwent resection of infected prosthesis with placementof abx spacer Pt has no other c/o, except some fatigue Self reported temps were in uppre 97s F She is afebrile, but has mild leukocytosis 11K and promintt thrombocytosis - 560+ Review of Systems Except as stated in HPI: all other systems reviewed are Neg Past Family Social History Allergies: Coded Allergies: Sulfa (Sulfonamide Antibiotics) (Verified Allergy, Severe, HIVES, 01/30/17 ) Past Medical History HTN depression arthritis Graves disease Past Surgical History R hip arthroplasty 07/11/2016 cataract surgeries tonsilectomy Active Ordered Medications Medications where reviewed in EMR Antibiotics Include: none Family History reviewed non contributory Social History + Tobacco. 1 pack a week No ETOH. No Illicit Drugs. Physical Exam Vital Signs Vital Signs Date Time Temp Pulse Resp B/P (MAP) Pulse Ox O2 Delivery O2 Flow Rate FiO2 01/30/17 13:54 62 12 112/53 (72) 100 Nasal Cannula 2 01/30/17 13:45 19 01/30/17 12:15 66 12 120/57 (78) 100 Nasal Cannula 2 01/30/17 11:15 64 12 156/63 (94) 99 Nasal Cannula 2 01/30/17 11:00 70 12 155/67 (96) 97 Nasal Cannula 2 01/30/17 10:50 97.5 70 12 141/64 (89) 100 Nasal Cannula 2 01/30/17 06:21 97.7 68 20 135/65 (88) 98 Physical Exam CONSTITUTIONAL/GENERAL: This is a moderately obese patient, in no apparent distress. TUBES/LINES/DRAINS: SKIN: No jaundice, rashes, or lesions. Skin temperature appropriate. Not diaphoretic. HEAD: Atraumatic. Normocephalic. EYES: Pupils equal and round and reactive. Extraocular motions intact. No scleral icterus. No injection or drainage. Fundi not examined. ENT: Hearing grossly normal. Nose without bleeding or purulent drainage. Oral mucosae without visible erythema, exudates, masses, or lesions. Edentulous NECK: Trachea midline. Supple, nontender. CARDIOVASCULAR: Regular rate and rhythm without murmurs, gallops, or rubs. No JVD. Peripheral pulses symmetric. well perfused perifery RESPIRATORY/CHEST: Symmetric, unlabored respirations. Clear to auscultation. Breath sounds equal bilaterally. No wheezes, rales, or rhonchi. GASTROINTESTINAL: Abdomen soft, non-tender, nondistended. No hepato-splenomegaly , or palpable masses. No guarding. Bowel sounds present. GENITOURINARY: Without palpable bladder distension. MUSCULOSKELETAL: Extremities without clubbing, cyanosis, or edema. . No mottling or clubbing. Surg dressing i place over R hip, intect RLE immobilyzer LYMPHATICS: No palpable cervical or supraclavicular adenopathy. NEUROLOGICAL: Awake and alert. Motor and sensory grossly within normal limits. Follows commands. Clear speech . Moves all extremities. PSYCHIATRIC: No obvious anxiety/depression. no apparent hallucinations or other psychotic thought process. Laboratory Date/Time Source Procedure Growth Status 01/30/17 08:11 Wound Hip Fungal Smear Pending Received 01/30/17 08:11 Wound Hip Fungal Culture Pending Received Imaging Last Impressions Hip X-Ray 01/30/17 1056 Signed Impressions: Service Date/Time: Monday, January 30, 2017 11:04 - CONCLUSION: Total hip arthroplasty. 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
--- NOTE | 2017-01-30 14:27 | HHI.FF ---
Infusion Therapy Location of Infusion Therapy: Home [facility] IV Infusion Order Patient Information Patient Weight 88 kg Diagnosis: Coded Allergies: Sulfa (Sulfonamide Antibiotics) (Verified Allergy, Severe, HIVES, 01/30/17 ) Administer Medication Vancomycin 2 grams IV q 24 hours Start Treatment: Jan 31, 2017 Stop Treatment: Mar 14, 2017 Additional Information Venous access: PICC Line Additional Instructions [x] Peripheral flush and dressing changes per protocol [x] Implanted port and central casing in line feeder: * Implanted port: 10 ml Normal Saline followed by 5 ml Heparin 100 units/ml Heparin flush after each use and monthly to maintain. [] May leave port accessed during therapy. [] May leave peripheral site accessed for duration of therapy. [x] If patient has SOB or respiratory distress, check oxygen saturation. If less than 90% or clinical signs of respiratory distress, administer oxygen at 2 L/min. via nasal cannula and notify physician. [x] Anaphylaxis/Reaction orders: * Stop infusion. * Keep IV line open with saline flush. * Notify physician. * Monitor vital signs every 15 minutes until symptoms resolve. * Check Oxygen saturation; Oxygen at 2 L/min. via nasal cannula if less than 90% or clinical signs of respiratory distress. * Administer diphenhydramine (Benadryl) 25 mg IV STAT, (unless patient has received as pre-med). May repeat once, if necessary. * Solu-Cortef 250 mg IVP over 30-60 seconds, use 100 mg vials for each dissolution. * Epinephrine (1mg/1 ml) 0.3 mg subcutaneously or IVP now with any signs of respiratory distress. * Check with physician for new additional pre-med orders if patient is re- challenged or re-treated. [x] May remove PICC line when treatment complete, after confirming with Physician. [x] If the patient is admitted to the hospital, the ED, or transferred via [facility] , complete transfer form including medication reconciliation order sheet. Laboratory Tests Weekly Labs: CBC w/diff, Creatinine (q Mon, Thur), CRP, SED Rate, Vancomycin Trough (q Mon, Thur) Makayla Mejia MD Jan 30, 2017 14:27
[2017-01-30 16:00] VITALS: BP 103/51; PULSE 64; RESP 18; TEMP 97.3; O2SAT 94
--- NOTE | 2017-01-30 17:13 | PD.CONS ---
[facility] By Dr. Brice. Reason for Consult Medical management Primary Care Physician Laureano Tracy MD Diagnoses: History of Present Illness This is a 66-year-old female who was admitted due to right septic joint and had a resection arthroplasty right hip with insertion of cement spacer utilizing the Biomet stage I select system that was done today. [facility] consulted for medical management. Patient was seen after surgery. Only complaining of right hip pain otherwise she has no complaints. All other systems reviewed and negative. Review of Systems Cardiovascular: COMPLAINS OF: Lower Extremity Edema Past Family Social History Allergies: Coded Allergies: Sulfa (Sulfonamide Antibiotics) (Verified Allergy, Severe, HIVES, 01/30/17 ) Past Medical History Hypothyroidism, depression, hypertension, glaucoma Past Surgical History Right total hip arthroplasty A vein stripping of the left lower extremity. Bilateral cataract excision. Tonsillectomy. Reported Medications Hydrocodone-Acetaminophen 10-325 mg Tab 1 Tab PO Q6H PRN Brimonidine Opth Drops (Brimonidine Tartrate) 0.2% Soln 1 Drop EACH EYE BID Bupropion HCl ER 24 HR (Bupropion HCl) 150 Mg Tab 150 Mg PO DAILY Paroxetine (Paroxetine HCl) 40 Mg Tab 40 Mg PO DAILY Amlodipine (Amlodipine Besylate) 5 Mg Tab 5 Mg PO DAILY Levothyroxine (Levothyroxine Sodium) 100 Mcg Tab 100 Mcg PO DAILY Active Ordered Medications Current Medications Povidone Iodine (Betadine 7.5% Scrub) 1 applic ONCE TOPICAL Last administered on 01/30/17 06:00; Start 01/30/17 at 06:00; Stop 01/30/17 at 12:48; Status DC Tranexamic Acid 1000 mg/Sodium Chloride 110 ml @ 220 mls/hr ONCE IV Last administered on 01/30/17 06:35; Start 01/30/17 at 07:30; Stop 01/30/17 at 13 :30; Status DC Tranexamic Acid 1000 mg/Sodium Chloride 110 ml @ 220 mls/hr ONCE IV Last administered on 01/30/17 11:51; Start 01/30/17 at 10:30; Stop 01/30/17 at 16 :30; Status DC Lactated Ringer's 1,000 ml @ 30 mls/hr Q24H PRN IV SEE LABEL COMMENTS Last administered on 01/30/17 06:31; Start 01/30/17 at 06:00; Stop 01/30/17 at 12 :47; Status DC Sodium Chloride 500 ml @ 30 mls/hr [id number] PRN IV SEE LABEL COMMENTS; Start at 06:00; Stop 01/30/17 at 12:47; Status DC Metoprolol Tartrate (Lopressor) 25 mg OPERATIONAL RISK ANALYST PRN PO SEE LABEL COMMENTS; Start 01/30/17 at 06:00; Stop 01/30/17 at 12:47; Status DC Povidone Iodine (Betadine 5% Antisepsis Kit) 1 applic OPERATIONAL RISK ANALYST PRN EACH NARE SEE LABEL COMMENTS Last administered on 01/30/17 06:30; Start 01/30/17 at 06: 00; Stop 01/30/17 at 12:47; Status DC Chlorhexidine Gluconate (Chlorhexidine 2% Cloth) 3 pack OPERATIONAL RISK ANALYST PRN TOPICAL SEE LABEL COMMENTS Last administered on 01/30/17 06:20; Start 01/30/17 at 06: 00; Stop 01/30/17 at 12:47; Status DC Insulin Human Regular (NovoLIN R INJ) See Protocol Table ... OPERATIONAL RISK ANALYST PRN SQ SEE PROTOCOL TABLE; Start 01/30/17 at 06:00; Stop 01/30/17 at 12:47; Status DC Cefazolin Sodium (Ancef Inj) 2,000 mg STK-MED ONCE .ROUTE ; Start 01/30/17 at 07:08; Stop 01/30/17 at 07:09; Status DC Midazolam HCl (Versed Inj) 2 mg STK-MED ONCE .ROUTE Last administered on 07:20; Start 01/30/17 at 07:15; Stop 01/30/17 at 07:16; Status DC Famotidine (Pepcid Inj) 20 mg STK-MED ONCE .ROUTE Last administered on 07:18; Start 01/30/17 at 07:15; Stop 01/30/17 at 07:16; Status DC Morphine Sulfate (*morphine INJ PERIprocedure ONLY) 8 mg STK-MED ONCE .ROUTE Last administered on 01/30/17 10:55; Start 01/30/17 at 10:55; Stop 01/30/17 at 10:56; Status DC Dextrose/Sodium Chloride 1,000 ml @ 125 mls/hr Q8H IV Last administered on 10:56; Start 01/30/17 at 10:56 IV Flush (NS Flush) 2 ml UNSCH PRN IVF FLUSH AFTER USING IV ACCESS; Start 03/08 at 11:00 IV Flush (NS Flush) 2 ml BID IVF ; Start 01/30/17 at 21:00 Miscellaneous Information (Post-op Orders (for Pharmacy)) STAT ONCE XX ; Start 01/30/17 at 11:00; Stop 01/30/17 at 12:50; Status DC Miscellaneous Medication ([facility] Pharmacy Information) ONCE ONCE XX ; Start 03/08 at 11:00; Stop 01/30/17 at 12:50; Status DC Acetaminophen/ Hydrocodone Bitart ([place] [address] 5-325 Mg) 1 tab Q4H PRN PO PAIN LESS THAN 5 ON SCALE; Start 01/30/17 at 11:00 Acetaminophen/ Hydrocodone Bitart ([place] [address] 5-325 Mg) 2 tab Q4H PRN PO PAIN SCALE 5 TO 10 Last administered on 01/30/17 13:45; Start 01/30/17 at 11:00 Acetaminophen (Tylenol) 650 mg Q6H PRN PO FEVER > 101; Start 01/30/17 at 11:00 Tranexamic Acid 1000 mg/Sodium Chloride 110 ml @ 200 mls/hr UNSCH IV ; Start 01/30/17 at 11:00; Stop 01/30/17 at 11:32; Status UNV Ondansetron HCl (Zofran Inj) 4 mg Q6H PRN IVP NAUSEA OR VOMITING; Start at 11:00 Docusate Sodium (Colace) 100 mg BID PRN PO CONSTIPATION; Start 01/30/17 at 11: 00 Zolpidem Tartrate (Ambien) 5 mg HS PRN PO SLEEP; Start 01/30/17 at 11:00 Naloxone HCl (Narcan Inj) 0.4 mg UNSCH PRN IV PUSH RESPIRATORY RATE LESS THAN 10; Start 01/30/17 at 13:00; Stop 02/01/17 at 12:59 Morphine Sulfate (Morphine 1 Mg/ ml SUPERVISOR DRAWING) 30 mg UNSCH IV Last administered on t 15:28; Start 01/30/17 at 13:00; Stop 02/01/17 at 12:59 SUPERVISOR DRAWING Dosage Infused (Pha) 1 Q8HR .XX Last administered on 01/30/17 14:00; Start 01/30/17 at 14:00; Stop 02/01/17 at 13:59 Aspirin (Aspirin) 325 mg BID PO ; Start 01/30/17 at 21:00 Vancomycin HCl (Vancomycin Inj) 1,000 mg STK-MED ONCE .ROUTE Last administered on 01/30/17 13:58; Start 01/30/17 at 13:58; Stop 01/30/17 at 13:59; Status DC Vancomycin HCl 1500 mg/Sodium Chloride 515 ml @ 257.5 mls/ hr Q18H IV ; Start 01/31/17 at 10:00 Pharmacy Profile Note 0 ml @ 0 mls/hr UNSCH OTHER ; Start 01/30/17 at 14:15 Vancomycin HCl (Vancomycin Inj) 500 mg STK-MED ONCE .ROUTE ; Start 01/30/17 at 14:03; Stop 01/30/17 at 14:04; Status DC Miscellaneous Information SPECIFIC LAB TO BE DRAWN:VANCOMYCIN TROUGH DATE TO... ONCE ONCE .XX ; Start 02/01/17 at 21:45; Stop 02/01/17 at 21:46 Miscellaneous Information ALL NURSING DEPARTME... UNSCH PRN .XX SEE LABEL COMMENTS; Start 01/30/17 at 10:50; Stop 01/31/17 at 10:49 Influenza Virus Vaccine (Flu (Quadrivalent) Vaccine Inj) 0.5 ml ONCE ONCE IM ; Start 01/31/17 at 10:00; Stop 01/31/17 at 10:01 Family History Family history positive for hypertension and prostate cancer. Social History Smokes for 40 pack per year use of tobacco but less than one pack per day. Occasional alcohol use. Physical Exam Vital Signs Vital Signs Date Time Temp Pulse Resp B/P (MAP) Pulse Ox O2 Delivery O2 Flow Rate FiO2 01/30/17 15:28 17 01/30/17 13:54 62 12 112/53 (72) 100 Nasal Cannula 2 01/30/17 13:45 19 01/30/17 12:15 66 12 120/57 (78) 100 Nasal Cannula 2 01/30/17 11:15 64 12 156/63 (94) 99 Nasal Cannula 2 01/30/17 11:00 70 12 155/67 (96) 97 Nasal Cannula 2 01/30/17 10:50 97.5 70 12 141/64 (89) 100 Nasal Cannula 2 01/30/17 06:21 97.7 68 20 135/65 (88) 98 Physical Exam GENERAL: This is a well-nourished, well-developed patient, in no apparent distress. SKIN: No rashes, ecchymoses or lesions. Cool and dry. HEAD: Atraumatic. Normocephalic. No temporal or scalp tenderness. EYES: Pupils equal round and reactive. Extraocular motions intact. No scleral icterus. No injection or drainage. ENT: Nose without bleeding, purulent drainage or septal hematoma. Throat without erythema, tonsillar hypertrophy or exudate. Uvula midline. Airway patent. NECK: Trachea midline. No JVD or lymphadenopathy. Supple, nontender, no meningeal signs. CARDIOVASCULAR: Regular rate and rhythm without murmurs, gallops, or rubs. RESPIRATORY: Clear to auscultation. Breath sounds equal bilaterally. No wheezes , rales, or rhonchi. GASTROINTESTINAL: Abdomen soft, non-tender, nondistended. No hepato-splenomegaly , or palpable masses. No guarding. MUSCULOSKELETAL: Extremities without clubbing, cyanosis, or edema. No joint tenderness, effusion, or edema noted. No calf tenderness. Negative Homans sign bilaterally. NEUROLOGICAL: Awake and alert. Cranial nerves II through XII intact. Sensation grossly intact. Laboratory Laboratory Tests Test 01/30/17 16:15 Erythrocyte Sedimentation Rate 82 Date/Time Source Procedure Growth Status 01/30/17 08:11 Wound Hip Fungal Smear - Final NO FUNGAL ELEMENTS SEEN. Resulted 01/30/17 08:11 Wound Hip Fungal Culture Pending Resulted Imaging Last Impressions Hip X-Ray 01/30/17 1056 Signed Impressions: Service Date/Time: Monday, January 30, 2017 11:04 - CONCLUSION: Total hip arthroplasty. Jameson Fair Jr., MD Assessment and Plan Assessment and Plan This is a 66-year-old female who presented with right hip septic joint Right hip septic joint s/p right hip arthroplasty on June 2016. -Status post resection arthroplasty right hip with insertion of cement spacer utilizing the Biomet stage I select system that was done today. -Infectious disease was consulted and patient put on vancomycin. Continue with vancomycin per infectious disease. Hypertension/depression/hypothyroidism -Since blood pressures normal at the moment can hold off on her oral antihypertensive medication. Will resume her other medication. DVT prophylaxis -Per orthopedic surgeon. Discussed Condition With patient Venice Munguia MD Jan 30, 2017 17:13
[2017-01-30 19:20] VITALS: BP 149/60; PULSE 83; RESP 18; TEMP 97.4; O2SAT 97
[2017-01-30] MEDS: SODIUM CHLORIDE 0.9% FLUSH 5 ML FLUSH IVF SCH (20:39)
[2017-01-30] MEDS: ASPIRIN 325 MG TAB PO SCH (20:39)
[2017-01-30] MEDS: BRIMONIDINE TARTRATE 0.2% OPHT SOLN 5 ML BTL EACH EYE SCH (20:39)
[2017-01-30 23:49] VITALS: BP 117/62; PULSE 76; RESP 18; TEMP 98.9; O2SAT 96
[2017-01-31] MEDS: DEXT 5%-NACL 0.45% 1000 ML INJ 1,000 ML IV SCH ×4 (01:41→23:05)
[2017-01-31] MEDS: MORPHINE SULFATE 30 MG/30 ML PCA IV SCH (03:21)
[2017-01-31 03:23] VITALS: BP 107/49; PULSE 72; RESP 18; TEMP 98.9; O2SAT 97
[2017-01-31] MEDS ORDERED: ASPI325T PO (06:00)
[2017-01-31] MEDS ORDERED: HYDR-3516 PO (06:00)
[2017-01-31] MEDS: PCA - TOTAL MG MORPHINE DELIVERED PER SHIFT SCH ×4 (06:00→23:05)
--- NOTE | 2017-01-31 06:04 | HHI.FF ---
Face to Face Verification Diagnosis: (1) Septic hip Physical Therapy Gait training Hip: Total hip, Protocol: Right, Abduction pillow while in bed Right LE Weight Bearing: Partial WB 50% Right LE Range of Motion: Active ROM Nursing Dressing Changes: Other Additional Instructions Post-op dressing may be maintained for 7 days then initiate daily dressing change for additional one week I have seen patient Vanessa Cortez on 01/31/17. My clinical findings support the need for the requested home health care services because: Limited ability to care for self High risk of falls I certify that my clinical findings support that this patient is homebound because: Post-op weakness Unsteady gait/balance Unsafe to leave home unassisted Vinay Brice MD Jan 31, 2017 06:04
[2017-01-31] MEDS: LEVOTHYROXINE SODIUM 100 MCG TAB PO SCH (06:11)
[2017-01-31 07:09] LABS: HEMATOCRIT 27.9 % (35.0-46.0); REVIEW FLAG FINAL
[2017-01-31 08:00] VITALS: BP 126/69; PULSE 75; RESP 17; TEMP 96.5; O2SAT 95
[2017-01-31] MEDS: PARoxetine HCL 20 MG TAB PO SCH (08:56)
[2017-01-31] MEDS: ASPIRIN 325 MG TAB PO SCH ×2 (08:56→20:39)
[2017-01-31] MEDS: BRIMONIDINE TARTRATE 0.2% OPHT SOLN 5 ML BTL EACH EYE SCH ×2 (08:56→20:39)
[2017-01-31] MEDS: buPROPion HCL 150 MG SUSTAINED RELEASE TAB PO SCH (08:57)
[2017-01-31] MEDS: SODIUM CHLORIDE 0.9% FLUSH 5 ML FLUSH IVF SCH ×2 (08:57→20:39)
[2017-01-31] MEDS ORDERED: INFLUENZA VIRUS VACCINE (QUADRIVALENT) 0.5 ML SYR IM ONE (10:00)
[2017-01-31] MEDS ORDERED: VANCOMYCIN INJ 1,500 MG in SODIUM CHLORID 0.9% 500 ML INJ 500 ML IV SCH (10:00)
[2017-01-31 12:00] VITALS: BP 117/47; PULSE 68; RESP 17; TEMP 98.4; O2SAT 94
--- NOTE | 2017-01-31 13:10 | HHI.PR ---
Subjective Remarks Follow-up for right hip infection Patient stated that she just feels very weak. Denies any pain. She stated that she is on amlodipine at home. Otherwise she has no other complaints. Objective Vitals Vital Signs Date Time Temp Pulse Resp B/P (MAP) Pulse Ox O2 Delivery O2 Flow Rate FiO2 01/31/17 12:00 98.4 68 17 117/47 (70) 94 01/31/17 08:00 96.5 75 17 126/69 (88) 95 01/31/17 07:24 Room Air 01/31/17 06:00 18 01/31/17 03:23 98.9 72 18 107/49 (68) 97 01/31/17 03:21 16 01/30/17 23:49 98.9 76 18 117/62 (80) 96 01/30/17 20:41 16 01/30/17 19:20 97.4 83 18 149/60 (89) 97 01/30/17 16:00 97.3 64 18 103/51 (68) 94 01/30/17 15:28 17 01/30/17 13:54 62 12 112/53 (72) 100 Nasal Cannula 2 01/30/17 13:45 19 I/O 01/30/17 01/30/17 01/30/17 01/31/17 01/31/17 01/31/17 07:00 15:00 23:00 07:00 15:00 23:00 Intake Total 2190 ml 480 ml 480 ml Output Total 450 ml Balance 1740 ml 480 ml 480 ml Intake Oral 480 ml 480 ml IV Total 2190 ml Output Estimated Blood Loss 450 ml # Voids 1 2 # Bowel Movements 0 0 Result Diagram: 01/31/1760401/31/17604 Objective Remarks GENERAL: This is a well-nourished, well-developed patient, in no apparent distress. Patient is sitting in chair. NECK: Trachea midline. No JVD or lymphadenopathy. Supple, nontender, no meningeal signs. CARDIOVASCULAR: Regular rate and rhythm without murmurs, gallops, or rubs. RESPIRATORY: Clear to auscultation. Breath sounds equal bilaterally. No wheezes , rales, or rhonchi. GASTROINTESTINAL: Abdomen soft, non-tender, nondistended. No hepato-splenomegaly , or palpable masses. No guarding. MUSCULOSKELETAL: Extremities without clubbing, cyanosis, or edema. No joint tenderness, effusion, or edema noted. No calf tenderness. Negative Homans sign bilaterally. NEUROLOGICAL: Awake and alert. Cranial nerves II through XII intact. Sensation grossly intact. Medications and IVs Current Medications Povidone Iodine (Betadine 7.5% Scrub) 1 applic ONCE TOPICAL Last administered on 01/30/17 06:00; Start 01/30/17 at 06:00; Stop 01/30/17 at 12:48; Status DC Tranexamic Acid 1000 mg/Sodium Chloride 110 ml @ 220 mls/hr ONCE IV Last administered on 01/30/17 06:35; Start 01/30/17 at 07:30; Stop 01/30/17 at 13 :30; Status DC Tranexamic Acid 1000 mg/Sodium Chloride 110 ml @ 220 mls/hr ONCE IV Last administered on 01/30/17 11:51; Start 01/30/17 at 10:30; Stop 01/30/17 at 16 :30; Status DC Lactated Ringer's 1,000 ml @ 30 mls/hr Q24H PRN IV SEE LABEL COMMENTS Last administered on 01/30/17 06:31; Start 01/30/17 at 06:00; Stop 01/30/17 at 12 :47; Status DC Sodium Chloride 500 ml @ 30 mls/hr [id number] PRN IV SEE LABEL COMMENTS; Start at 06:00; Stop 01/30/17 at 12:47; Status DC Metoprolol Tartrate (Lopressor) 25 mg AIR ROUTE CONTROLLER PRN PO SEE LABEL COMMENTS; Start 01/30/17 at 06:00; Stop 01/30/17 at 12:47; Status DC Povidone Iodine (Betadine 5% Antisepsis Kit) 1 applic AIR ROUTE CONTROLLER PRN EACH NARE SEE LABEL COMMENTS Last administered on 01/30/17 06:30; Start 01/30/17 at 06: 00; Stop 01/30/17 at 12:47; Status DC Chlorhexidine Gluconate (Chlorhexidine 2% Cloth) 3 pack AIR ROUTE CONTROLLER PRN TOPICAL SEE LABEL COMMENTS Last administered on 01/30/17 06:20; Start 01/30/17 at 06: 00; Stop 01/30/17 at 12:47; Status DC Insulin Human Regular (NovoLIN R INJ) See Protocol Table ... AIR ROUTE CONTROLLER PRN SQ SEE PROTOCOL TABLE; Start 01/30/17 at 06:00; Stop 01/30/17 at 12:47; Status DC Cefazolin Sodium (Ancef Inj) 2,000 mg STK-MED ONCE .ROUTE ; Start 01/30/17 at 07:08; Stop 01/30/17 at 07:09; Status DC Midazolam HCl (Versed Inj) 2 mg STK-MED ONCE .ROUTE Last administered on 07:20; Start 01/30/17 at 07:15; Stop 01/30/17 at 07:16; Status DC Famotidine (Pepcid Inj) 20 mg STK-MED ONCE .ROUTE Last administered on 07:18; Start 01/30/17 at 07:15; Stop 01/30/17 at 07:16; Status DC Morphine Sulfate (*morphine INJ PERIprocedure ONLY) 8 mg STK-MED ONCE .ROUTE Last administered on 01/30/17 10:55; Start 01/30/17 at 10:55; Stop 01/30/17 at 10:56; Status DC Dextrose/Sodium Chloride 1,000 ml @ 125 mls/hr Q8H IV Last administered on 10:56; Start 01/30/17 at 10:56 IV Flush (NS Flush) 2 ml UNSCH PRN IVF FLUSH AFTER USING IV ACCESS; Start 03/08 at 11:00 IV Flush (NS Flush) 2 ml BID IVF ; Start 01/30/17 at 21:00 Miscellaneous Information (Post-op Orders (for Pharmacy)) STAT ONCE XX ; Start 01/30/17 at 11:00; Stop 01/30/17 at 12:50; Status DC Miscellaneous Medication ([facility] Information) ONCE ONCE XX ; Start 03/08 at 11:00; Stop 01/30/17 at 12:50; Status DC Acetaminophen/ Hydrocodone Bitart ([place] 5-325 Mg) 1 tab Q4H PRN PO PAIN LESS THAN 5 ON SCALE; Start 01/30/17 at 11:00 Acetaminophen/ Hydrocodone Bitart ([place] 5-325 Mg) 2 tab Q4H PRN PO PAIN SCALE 5 TO 10 Last administered on 01/31/17 16:05; Start 01/30/17 at 11:00 Acetaminophen (Tylenol) 650 mg Q6H PRN PO FEVER > 101; Start 01/30/17 at 11:00 Tranexamic Acid 1000 mg/Sodium Chloride 110 ml @ 200 mls/hr UNSCH IV ; Start 01/30/17 at 11:00; Stop 01/30/17 at 11:32; Status UNV Ondansetron HCl (Zofran Inj) 4 mg Q6H PRN IVP NAUSEA OR VOMITING; Start at 11:00 Docusate Sodium (Colace) 100 mg BID PRN PO CONSTIPATION; Start 01/30/17 at 11: 00 Zolpidem Tartrate (Ambien) 5 mg HS PRN PO SLEEP; Start 01/30/17 at 11:00 Naloxone HCl (Narcan Inj) 0.4 mg UNSCH PRN IV PUSH RESPIRATORY RATE LESS THAN 10; Start 01/30/17 at 13:00; Stop 02/01/17 at 12:59 Morphine Sulfate (Morphine 1 Mg/ ml SUPPLY MANAGER) 30 mg UNSCH IV Last administered on 03:21; Start 01/30/17 at 13:00; Stop 02/01/17 at 12:59 SUPPLY MANAGER Dosage Infused (Pha) 1 Q8HR .XX Last administered on 01/31/17 14:00; Start 01/30/17 at 14:00; Stop 02/01/17 at 13:59 Aspirin (Aspirin) 325 mg BID PO Last administered on 01/31/17 08:56; Start 01/30/17 at 21:00 Vancomycin HCl (Vancomycin Inj) 1,000 mg STK-MED ONCE .ROUTE Last administered on 01/30/17 13:58; Start 01/30/17 at 13:58; Stop 01/30/17 at 13:59; Status DC Vancomycin HCl 1500 mg/Sodium Chloride 515 ml @ 257.5 mls/ hr Q18H IV Last administered on 01/31/17 09:07; Start 01/31/17 at 10:00; Stop 01/31/17 at 10 :00; Status DC Pharmacy Profile Note 0 ml @ 0 mls/hr UNSCH OTHER ; Start 01/30/17 at 14:15 Vancomycin HCl (Vancomycin Inj) 500 mg STK-MED ONCE .ROUTE ; Start 01/30/17 at 14:03; Stop 01/30/17 at 14:04; Status DC Miscellaneous Information SPECIFIC LAB TO BE DRAWN:VANCOMY... ONCE ONCE .XX ; Start 02/04/17 at 08:45; Stop 02/04/17 at 08:46 Miscellaneous Information ALL NURSING DEPARTME... UNSCH PRN .XX SEE LABEL COMMENTS; Start 01/30/17 at 10:50; Stop 01/31/17 at 10:49; Status DC Influenza Virus Vaccine (Flu (Quadrivalent) Vaccine Inj) 0.5 ml ONCE ONCE IM Last administered on 01/31/17 08:56; Start 01/31/17 at 10:00; Stop 01/31/17 at 10:01; Status DC Brimonidine Tartrate ([place] 0.2% Opth Soln) 1 drop BID EACH EYE Last administered on 01/31/17 08:56; Start 01/30/17 at 21:00 Bupropion HCl (Wellbutrin Sr) 150 mg DAILY PO Last administered on 01/31/17 08:57; Start 01/31/17 at 09:00 Levothyroxine Sodium (Synthroid) 100 mcg DAILY@0600 PO Last administered on 06:11; Start 01/31/17 at 06:00 Paroxetine HCl (Paxil) 40 mg DAILY PO Last administered on 01/31/17 08:56; Start 01/31/17 at 09:00 Vancomycin HCl 2250 mg/Sodium Chloride 522.5 ml @ 250 mls/hr Q24H IV ; Start 02/01/17 at 09:00 A/P Assessment and Plan This is a 66-year-old female who presented with right hip septic joint Right hip septic joint s/p right hip arthroplasty on June 2016. -Status post resection arthroplasty right hip with insertion of cement spacer utilizing the Biomet stage I select system on 11/30/2016. -Infectious disease was consulted and patient put on vancomycin. Continue with vancomycin per infectious disease. Hypertension/depression/hypothyroidism -Since blood pressures normal at the moment can hold off on her oral antihypertensive medication. Continue with current regimen. -Will continue to monitor blood pressure to determine when to restart her antihypertensive medication. DVT prophylaxis -Per orthopedic surgeon. Discussed management patient's nurse. Venice Munguia MD Jan 31, 2017 13:10
--- NOTE | 2017-01-31 15:25 | HHI.IDPN ---
Subjective Subjective Remarks afebrile growing MRSA in 3/3 op cultures no new c/o Antibiotics vancomycin Allergies: Coded Allergies: Sulfa (Sulfonamide Antibiotics) (Verified Allergy, Severe, HIVES, 01/30/17 ) Objective . Vital Signs Date Time Temp Pulse Resp B/P (MAP) Pulse Ox O2 Delivery O2 Flow Rate FiO2 01/31/17 12:00 98.4 68 17 117/47 (70) 94 01/31/17 08:00 96.5 75 17 126/69 (88) 95 01/31/17 07:24 Room Air 01/31/17 06:00 18 01/31/17 03:23 98.9 72 18 107/49 (68) 97 01/31/17 03:21 16 01/30/17 23:49 98.9 76 18 117/62 (80) 96 01/30/17 20:41 16 01/30/17 19:20 97.4 83 18 149/60 (89) 97 01/30/17 16:00 97.3 64 18 103/51 (68) 94 01/30/17 15:28 17 01/31/17 01/31/17 02/01/17 15:00 23:00 07:00 Intake Total 600 ml Balance 600 ml Intake Oral 600 ml # Voids 3 # Bowel Movements 0 . Laboratory Tests Test 01/30/17 16:15 01/31/17 06:05 Erythrocyte Sedimentation Rate 82 mm/hr Hemoglobin 8.8 GM/DL Hematocrit 27.9 % Laboratory Tests Test 01/31/17 06:05 Creatinine 0.68 MG/DL Estimat Glomerular Filtration Rate 86 ML/MIN Microbiology Date/Time Source Procedure Growth Status 01/30/17 08:11 Wound Hip Fungal Smear - Final NO FUNGAL ELEMENTS SEEN. Resulted 01/30/17 08:11 Wound Hip Fungal Culture Pending Resulted 01/30/17 08:11 Wound Hip Acid Fast Stain - Final NO ACID FAST BACILLI SEEN Resulted 01/30/17 08:11 Wound Hip Mycobacterial Culture Pending Resulted 01/30/17 08:11 Wound Hip Gram Stain - Final Resulted 01/30/17 08:11 Wound Culture - Preliminary S. Aureus Mrsa Resulted 01/30/17 08:11 Abscess Hip Fungal Smear - Final NO FUNGAL ELEMENTS SEEN. Resulted 01/30/17 08:11 Abscess Hip Fungal Culture Pending Resulted 01/30/17 08:11 Abscess Hip Acid Fast Stain - Final NO ACID FAST BACILLI SEEN Resulted 01/30/17 08:11 Abscess Hip Mycobacterial Culture Pending Resulted 01/30/17 08:11 Abscess Hip Gram Stain - Final Resulted 01/30/17 08:11 Wound Culture - Preliminary S. Aureus Mrsa Resulted 01/30/17 08:11 Wound Hip Fungal Smear - Final NO FUNGAL ELEMENTS SEEN. Resulted 01/30/17 08:11 Wound Hip Fungal Culture Pending Resulted 01/30/17 08:11 Wound Hip Acid Fast Stain - Final NO ACID FAST BACILLI SEEN Resulted 01/30/17 08:11 Wound Hip Mycobacterial Culture Pending Resulted 01/30/17 08:11 Wound Hip Gram Stain - Final Resulted 01/30/17 08:11 Wound Culture - Preliminary S. Aureus Mrsa Resulted Physical Exam CONSTITUTIONAL/GENERAL: This is a moderately obese patient, in no apparent distress. SKIN: No jaundice, rashes, or lesions. CARDIOVASCULAR: Regular rate and rhythm without murmurs, gallops, or rubs. No JVD. Peripheral pulses symmetric. well perfused perifery RESPIRATORY/CHEST: Symmetric, unlabored respirations. Clear to auscultation. Breath sounds equal bilaterally. No wheezes, rales, or rhonchi. GASTROINTESTINAL: Abdomen soft, non-tender, nondistended. No hepato-splenomegaly , or palpable masses. MUSCULOSKELETAL: Extremities without clubbing, cyanosis, or edema. . No mottling or clubbing. Surg dressing i place over R hip, intect RLE immobilyzer NEUROLOGICAL: Awake and alert. 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
[2017-01-31 16:00] VITALS: BP 96/50; PULSE 72; RESP 18; TEMP 98.7; O2SAT 96
[2017-01-31] MEDS: ACETAMINOPHEN/HYDROcodone 325 MG/5 MG TAB PO PRN ×2 (16:05→20:40)
--- NOTE | 2017-01-31 20:14 | RADRPT ---
EXAM DATE/TIME: 01/31/2017 19:00 [facility] COMPARISON: No previous studies available for comparison. INDICATIONS : Post PICC placement. MEDICAL HISTORY : None. SURGICAL HISTORY : Total hip replacement, right. ENCOUNTER: Initial ACUITY: 1 day PAIN SCORE: 0/10 LOCATION: Bilateral chest FINDINGS: A single view of the chest demonstrates the lungs to be symmetrically aerated without evidence of mas s, infiltrate or effusion. Right PICC line tip near cavoatrial junction. The cardiomediastinal conto urs are unremarkable except tortuous aorta.. Osseous structures are intact. CONCLUSION: 1. Right PICC line tip near cavoatrial junction without pneumothorax. Tk Woods MD on January 31, 2017 at 20:12 Board Certified Radiologist. This report was verified electronically.
[2017-01-31 20:44] VITALS: O2SAT 96
[2017-01-31 20:53] VITALS: BP 108/55; PULSE 71; RESP 18; TEMP 98.6; O2SAT 94
[2017-02-01] MEDS: ACETAMINOPHEN/HYDROcodone 325 MG/5 MG TAB PO PRN ×5 (01:38→17:02)
[2017-02-01 01:44] VITALS: BP 112/44; PULSE 65; RESP 18; TEMP 96; O2SAT 98
[2017-02-01] MEDS: LEVOTHYROXINE SODIUM 100 MCG TAB PO SCH (05:29)
[2017-02-01 07:40] LABS: HEMATOCRIT 22.8 % (35.0-46.0); MEAN CELL VOLUME 79.4 FL (80.0-100.0); MEAN CORPUSCULAR HEMOGLOBIN 25.9 PG (27.0-34.0); MEAN CORPUSCULAR HGB CONC 32.7 % (32.0-36.0); PLATELET COUNT 336 TH/MM3 (150-450); RED BLOOD COUNT 2.88 MIL/MM3 (4.00-5.30); RED CELL DISTRIBUTION WIDTH 17.2 % (11.6-17.2); REVIEW FLAG FINAL; WHITE BLOOD COUNT 10.9 TH/MM3 (4.0-11.0)
--- NOTE | 2017-02-01 07:53 | MD ---
cc: JESÚS FISCHER MD, NORMAN CROSSMAN,SALLY Turner M.D. ADMISSION DATE: 01/30/2017 DISCHARGE DATE: 02/02/2017 [place] Visit Search.Discharge Date ADMITTING DIAGNOSIS Septic joint status post right total hip arthroplasty and pain right hip. DISCHARGE DIAGNOSIS Septic joint status post right total hip arthroplasty and pain right hip. HISTORY This is a 66-year-old white female who was admitted to [facility] in June of this year for history of severe osteoarthritis of her right hip at which time she underwent a total hip arthroplasty which was completed in an uncomplicated manner. The patient was noted to have tolerated her operative procedure well and her initial rehabilitation was unremarkable. At approximately 5-6 months post-op she develop some localized irritation about her wound site that was thought to be consistent with a cellulitis. She was treated with antibiotic coverage over a two-week interval of time, initially experiencing a trend of improvement but gradually noting a recurrence of soreness about the hip area thereafter. She subsequently underwent additional diagnostic evaluation which noted an elevated white count of 11.2, sedimentation rate 52 and C-reactive protein 67.8. A subsequent aspiration under fluoroscopic control of her right hip initially was described as unremarkable with no organisms being identified, but subsequent culture analysis demonstrated MRSA. The patient returned to the office and at that time the findings of her study were reviewed. Of interest during the course of that evaluation the patient volunteered that during the previous 1-2 years she had actually been admitted to the hospital for a MRSA infection of her lower back that required debridement and an extended course of antibiotic treatment. Unfortunately this information had not been relayed to the treating surgeon prior to her hip arthroplasty. Based upon current findings, however, it was felt that the patient should be re-admitted to the hospital for an obvious septic process of her right hip in anticipation of undergoing a resection arthroplasty with insertion of a cement spacer with Infectious Disease consultation involving at least a six-week course of intravenous antibiotic treatment before consideration might be given to a second-stage reimplantation. The patient was in agreement to this recommendation and thus admitted at this time in order that the above be accomplished. Her physical examination at the time of admission revealed an intact surgical wound about the posterolateral aspect of her right hip with no obvious signs of infection. There was no significant tenderness elicited with palpation, limited mobility of the hip joint at the extremes of motion with mild discomfort associated, no sensation of instability. Straight-leg raising negative at 80 degrees. Mild antalgic gait with walker support. HOSPITAL COURSE On the date of admission the patient was taken to the operating room and at that time underwent a resection arthroplasty of her right hip with insertion of a cement spacer. She was noted to have tolerated her operative procedure well and her postoperative course stable thereafter. Hemoglobin and hematocrit assessment postoperatively was 8.8 and 27.9 respectively. The patient was permitted mobilization conforming to a partial weightbearing status about her right lower extremity. Infectious Disease consultation was completed with Dr. Mejia who made appropriate disposition with regards to intravenous antibiotic coverage. Bean Viner was consulted to assist with discharge planning. The patient expressed her desire to be transferred to a rehab facility for initial mobilization upon discharge from the hospital. Plans were finalized in this regard and she was thus scheduled to be transferred on the third postoperative day to continue her antibiotic coverage. She was scheduled to be seen in office follow-up in approximately 4 weeks. Her condition at the time of discharge was stable. Prognosis fair. Additional discharge medications include: 1. Hydrocodone 5/325, #60. 2. Aspirin 325 mg, one tablet twice daily for 4 weeks. Vinay Brice MD NBS/BT /6:28 AM /7:31 AM
[2017-02-01 08:00] VITALS: BP 109/50; PULSE 62; RESP 18; TEMP 95.8; O2SAT 96
[2017-02-01 08:46] LABS: BICARBONATE 26.1 MEQ/L (21.0-32.0)
[2017-02-01] MEDS ORDERED: VANCOMYCIN INJ 2,250 MG in SODIUM CHLORID 0.9% 500 ML INJ 500 ML IV SCH (09:00)
[2017-02-01] MEDS: SODIUM CHLORIDE 0.9% FLUSH 5 ML FLUSH IVF SCH (09:00)
[2017-02-01] MEDS: ASPIRIN 325 MG TAB PO SCH (09:21)
[2017-02-01] MEDS: buPROPion HCL 150 MG SUSTAINED RELEASE TAB PO SCH (09:21)
[2017-02-01] MEDS: PARoxetine HCL 20 MG TAB PO SCH (09:21)
[2017-02-01] MEDS: BRIMONIDINE TARTRATE 0.2% OPHT SOLN 5 ML BTL EACH EYE SCH (09:24)
[2017-02-01] MEDS ORDERED: EPIN1INJ21 SQ (09:50)
[2017-02-01] MEDS ORDERED: VANC10IN IV (09:50)
[2017-02-01] MEDS ORDERED: EPIN1INJ21 IV PUSH (09:50)
[2017-02-01] MEDS ORDERED: SOLU250I IV PUSH (09:50)
[2017-02-01] MEDS: DEXT 5%-NACL 0.45% 1000 ML INJ 1,000 ML IV SCH (10:56)
[2017-02-01 12:00] VITALS: BP 99/46; PULSE 61; RESP 18; TEMP 96.3; O2SAT 99
[2017-02-01 13:58] VITALS: O2SAT 96
[2017-02-04] MEDS ORDERED: PHARMACY ORDERED LAB ONE (08:45)
== END 2017-02-01 17:21 | DRG 465 ==
LOC: HSDI 05:25 → N06A 14:43
PROVIDERS: ADMIT Orthopaedic Surgery; ATTEND Orthopaedic Surgery
PROC: 0SPR0JZ Removal of Synthetic Substitute from Right Hip Joint, Femoral Surface, Open Approach (ICD-10-PCS; 2017-01-30)
PROC: 0QB60ZZ Excision of Right Upper Femur, Open Approach (ICD-10-PCS; 2017-01-30)
PROC: 0QB40ZZ Excision of Right Acetabulum, Open Approach (ICD-10-PCS; 2017-01-30)
PROC: 0SH908Z Insertion of Spacer into Right Hip Joint, Open Approach (ICD-10-PCS; 2017-01-30)
PROC: 0SPA0JZ Removal of Synthetic Substitute from Right Hip Joint, Acetabular Surface, Open Approach (ICD-10-PCS; principal; 2017-01-30 07:20)
PROC: 02HV33Z Insertion of Infusion Device into Superior Vena Cava, Percutaneous Approach (ICD-10-PCS; 2017-01-31)
PROC: B548ZZA Ultrasonography of Superior Vena Cava, Guidance (ICD-10-PCS; 2017-01-31)
DX: T84.51XA Infection and inflammatory reaction due to internal right hip prosthesis, initial encounter (principal); B95.62 Methicillin resistant Staphylococcus aureus infection as the cause of diseases classified elsewhere; I10 Essential (primary) hypertension; F32.9 Major depressive disorder, single episode, unspecified; E03.9 Hypothyroidism, unspecified; Z86.14 Personal history of Methicillin resistant Staphylococcus aureus infection; Z88.1 Allergy status to other antibiotic agents; D75.89 Other specified diseases of blood and blood-forming organs; H40.9 Unspecified glaucoma; F17.210 Nicotine dependence, cigarettes, uncomplicated; Z23 Encounter for immunization
CPT/HCPCS: 36415; 71010; 73501; 80048; 81001; 82565; 85014; 85018; 85025; 85027; 85610; 85652; 86403; 86850; 86900; 86901; 87015; 87070; 87102; 87116; 87147; 87186; 87205; 87206; 90471; 90686; 94150; G0008; J0690; J2250; J2270; J3370; J7040; J7120; Q2038

== ENCOUNTER → 2017-02-27 | Day surgery (SDC) | payer OTHER ==
--- NOTE | 2017-02-26 15:29 | MH ---
cc: CECILIARUTHJUANITO DATE OF ADMISSION: 02/27/2017 ADMITTING DIAGNOSIS Dislocation, right hip. HISTORY OF PRESENT ILLNESS The patient is a 66-year-old white female who has had a rather involved history dealing with her right hip. She was admitted to the hospital in June of this year for a history of severe osteoarthritis of her right hip for which she did undergo a right total hip arthroplasty and noted to have tolerated her operative procedure well and her postoperative course stable thereafter. She was noted to make favorable progress with regards to her initial rehabilitation until November of this year when she was approximately five months post-op when she began to experience some pain and swelling about her hip area. She underwent subsequent evaluation and was later diagnosed as having a MRSA infection of her right hip for which she was re-admitted to the hospital in January at which time she underwent a resection arthroplasty of her right hip and insertion of a stage I cement spacer. She was also evaluated by Dr. Makayla Mejia for infectious disease intervention. Following her discharge from the hospital she was maintained in a rehabilitation facility where she was progressively mobilized while continuing to receive intravenous antibiotic coverage and was subsequently discharged home to continue treatment on an outpatient basis. It was during this interval of time that she became aware of some soreness and redness about her right hip area and an obvious shortening of her right lower extremity. She had contacted the office with regards to these findings and at that time was advised to present to the office for further evaluation and treatment. X-ray studies revealed a superior dislocation of the spacer implant for which a recommendation was made to proceed with an attempt at closed reduction while the patient continues to receive her intravenous antibiotic coverage prior to being evaluated for a stage II reimplantation. The patient was in agreement to this recommendation and thus scheduled for admission to the hospital at this time. PAST MEDICAL HISTORY Her past medical history in addition to the surgery involving her right hip include: 1. Vein stripping of the left lower extremity. 2. Bilateral cataract excision. 3. Tonsillectomy. 4. The patient later provided information following her original hip surgery that she apparently had been treated at sometime in the past year or so for a MRSA infection of her back area that did require some type of I&D procedure. Her medical illnesses include: 1. Hypothyroidism. 2. Depression. 3. Hypertension. MEDICATIONS 1. Levofloxacin 100 mcg daily. 2. Paroxetine 40 mg daily. 3. Bupropion 150 mg daily. 4. Amlodipine 5 mg daily. 5. Eye drops that are taken daily. ALLERGIES THE PATIENT DESCRIBES A DRUG ALLERGY TO SULFA WHICH HAS BEEN ASSOCIATED WITH FACIAL SWELLING. REVIEW OF SYSTEMS No headache, seizure or syncope. Occasional sinus congestion secondary to environmental agents. No epistaxis. Auditory acuity intact. No tinnitus. No bleeding gums or dysphagia. No cough, shortness of breath, upper respiratory infection, pneumonia or tuberculosis. No angina or heart disease. She is medically managed for hypertension. Her appetite is good. Bowel movements regular. No hepatitis, gallbladder disease, ulcers or hemorrhoids. No urinary tract infection. No kidney stones. No fractures. She has been treated in the past for depression. The remaining review of systems is unremarkable and noncontributory. FAMILY HISTORY The patient has been a for seven years, at 50 years of age with a history of congestive heart failure. Two sons and one daughter all indicated to be in good health. Family history is positive for hypertension, heart disease and prostate cancer. SOCIAL HISTORY The patient completed a high school education. She has been a housewife. Admits to a [id number] use of tobacco but less than one pack per day in the more recent past. Ethanol consumption in the form of an occasional glass of wine or beer. PHYSICAL EXAMINATION Height 5 feet 4 inches, weight 205 pounds. GENERAL: An alert, oriented and responsive 66-year-old white female who sits quietly upon the examination table with mild distress as related to her right hip area. HEENT: Pupils are equally round and reactive to light. Extraocular movements full. Sclera clear. External nares clear. External auditory canals clear. Edentulous. Mucous membranes pink and moist. Pharynx clear. NECK: Supple. Active mobility without appreciable pain. Carotid pulse palpable bilaterally. Trachea midline. Thyroid without enlargement. LUNGS: Clear to auscultation and percussion. BACK: No CVA tenderness. No discomfort of the dorsolumbar spine. HEART: Regular rhythm. No murmur or gallop. ABDOMEN: Soft, nontender. Bowel sounds present. PELVIC: Per primary care physician. EXTREMITIES: An intact surgical wound about the posterolateral aspect of the right hip with no drainage. There is minimal bordering erythema but no associated fluctuance. Limited mobility of the hip joint with pain associated at the extremes of motion. There is an obvious shortening of the right lower extremity compared to the left leg of at least 2 cm magnitude. Distal sensory grossly intact. NEUROLOGIC: Cranial nerves II through XII grossly intact. IMPRESSION 1. Dislocated spacer implant prosthesis, right hip. 2. History of MRSA infection right hip, status post total hip arthroplasty. 3. Right hip pain. PLAN Attempt at closed reduction dislocated right hip. The nature of the planned surgical procedure, the potential complications and risks associated, the expectations of surgery and the consent form were thoroughly reviewed with the patient prior to her admission to the hospital. Vanessa has indicated her full understanding regarding all of the above and given consent to proceed with treatment as outlined. Juanito Brice MD NBS/BT /3:01 PM /3:12 PM
[~2017-02-27] VITALS: Ht 162.6 cm; Wt 93.0 kg
[~2017-02-27] MED LIST changes: +ASPI-183 PO; -ASPI325T PO; -BEDSIDE COMMODE1 MI1; +CHLORHEXIDINE GLUCONATE 2 % 1 PACK (2 CLOTHS) TOPICAL PRN; +DO NOT ADM ANY ANTICOAGULANT DRUGS PRN; +EPIN1INJ21 IV PUSH; +EPIN1INJ21 SQ; -GETGO ROLLING W1 MI1; -HYDR-3583 PO; +INSULIN HUMAN REGULAR 1,000 UNITS/10 ML VIAL SQ PRN; +LACTATED RINGER'S 1000 ML IV PRN; -LACTTAB8 PO; +METOPROLOL TARTRATE 25 MG TAB PO PRN; +MORPHINE SULFATE 10 MG/ML INJ IM ONE; -NORC5TAB PO; +PICC Daily Heparin 100 unit/mL Lock Flush IV FLUSH SCH; +PICC PRN After Blood Draw NS Lock Flush IV FLUSH; +POVIDONE IODINE 5% (ANTISEPSIS KIT) 4 APPLICATIONS EACH NARE PRN; +POVIDONE IODINE 7.5% SCRUB 118 ML BOTTLE TOPICAL SCH; +PROPOFOL 200 MG/20 ML AMP IV ONE; +SODIUM CHLORID 0.9% 500 ML IV PRN; +SODIUM CHLORIDE 0.9% FLUSH 10 ML FLUSH IV FLUSH PRN; +VANC10IN IV
--- NOTE | 2017-02-27 12:48 | EKG ---
Date Performed: 02/27/2017 Time Performed: 10:01:31 PTAGE: 66 years EKG: Sinus rhythm WITH FREQUENT VENTRICULAR PREMATURE COMPLEXES WITH OCCASIONAL SUPRAVENTRICULAR PREMATURE COMPLEXES I N A BIGEMINAL PATTERN ABNORMAL RHYTHM ECG NO PREVIOUS TRACING DOCTOR: Rodney Gunderson Interpretating Date/Time 02/27/2017 12:46:22
--- NOTE | 2017-02-27 12:51 | MP ---
cc: JUANITO BRICE DATE OF SURGERY: February 27, 2017 PREOPERATIVE DIAGNOSIS Dislocation right hip status post resection arthroplasty for history of septic joint following total hip arthroplasty. POSTOPERATIVE DIAGNOSIS Dislocation right hip status post resection arthroplasty for history of septic joint following total hip arthroplasty. PROCEDURE PERFORMED Attempted closed reduction dislocated spacer prosthesis. SURGEON Juanito Brice MD ANESTHESIA IV sedation. PROCEDURE Following induction of satisfactory IV sedation as completed per the Department of Anesthesia, the standard time-out protocol was completed where after pre-manipulation C-arm monitoring demonstrated a superior dislocation of the head of the spacer component in relationship to the glenoid. By way of longitudinal traction and slight rotational motion, the head of the implant was reduced to the level of the acetabulum, but would not fully seat within the depths of the acetabulum, that was thought to be possibly secondary to soft-tissue content within the confines of the acetabulum that prevented the head of the component from fully seating. Unfortunately as the hip was passively manipulated thereafter it would obviously dislocate from the confines of the acetabulum. This potential outcome had been previously discussed with the patient prior to the procedure for which it was noted that no further disposition would be made at this time and the patient would complete two additional weeks of prescribed intravenous antibiotic coverage before being reevaluated for reimplantation of a stage II procedure. The patient otherwise was noted to have tolerated today's manipulation without difficulty. Juanito Brice MD NBS/TLL /12:25 PM /12:36 PM
[2017-02-27 13:35] VITALS: BP 132/58; PULSE 73; RESP 18; TEMP 97.1; O2SAT 100
--- NOTE | 2017-02-28 14:21 | RADRPT ---
EXAM DATE/TIME: 02/27/2017 12:14 [facility] COMPARISON: ASPIRATION, HIP, RIGHT, January 23, 2017, 14:20. HIP RIGHT AP ONLY WO AP PELVIS, January 30, 2017, 1 1:04. INDICATIONS : Closed reduction, right hip. MEDICAL HISTORY : None. SURGICAL HISTORY : Right total hip replacement ENCOUNTER: Initial ACUITY: 1 day PAIN SCORE: Non-responsive. LOCATION: Right hip FINDINGS: View of the right hip was obtained. Right hip replacement is noted. Femoral component is well-seated within the acetabulum. CONCLUSION: Satisfactory alignment of right hip prosthesis. Semaj Wells MD on February 28, 2017 at 14:18 Board Certified Radiologist. This report was verified electronically.
== END | disposition home or self-care (01) ==
LOC: HSDC 08:20
PROVIDERS: ATTEND Orthopaedic Surgery
DX: T84.020A Dislocation of internal right hip prosthesis, initial encounter (principal); M16.11 Unilateral primary osteoarthritis, right hip; M00.9 Pyogenic arthritis, unspecified; I10 Essential (primary) hypertension; E03.9 Hypothyroidism, unspecified; F32.9 Major depressive disorder, single episode, unspecified; Z86.14 Personal history of Methicillin resistant Staphylococcus aureus infection; Z96.641 Presence of right artificial hip joint
CPT/HCPCS: 01200; 27266; 73501; 76000; 93005; J1642

== ENCOUNTER 2017-04-17 05:17 | Inpatient (IN) | payer OTHER, MEDICARE ==
--- NOTE | 2017-04-11 18:38 | MH ---
cc: JUANITO QUIGLEY DATE OF ADMISSION: 04/17/2017 ADMITTING DIAGNOSIS 1. MRSA infection, right hip status post total hip arthroplasty 2. Pain right hip 3. Dislocation cement spacer prosthesis right hip. HISTORY OF PRESENT ILLNESS The patient is a 66-year-old white female who was admitted to the hospital in June of this year for A history of osteoarthritis of her right hip and, at that time, she underwent a right total hip arthroplasty. She was noted to have tolerated her operative procedure well and she did make favorable progress with regards to her initial rehab program. Approximately five months postoperatively, she began to experience pain and swelling about her hip area and was later evaluated and diagnosed as having a MRSA infection of her right hip for which she was readmitted to the hospital in January and, at that time, she underwent a resection arthroplasty of her right hip followed by the insertion of a stage I cement spacer. She had been seen by Dr. Makayla Mejia for infectious disease intervention and was being followed on an outpatient basis at which time she was receiving intravenous antibiotic treatment. She later began to develop some soreness and redness about the hip area with an obvious shortening of her right lower extremity for which she was seen in the office and, at that time, was diagnosed as having a dislocation of her temporary prosthesis. She was readmitted to the hospital in February of this year and at that time underwent closed manipulation of the dislocated implant. The implant was noted to reduce but would not remain in a reduced position with a recurrent subluxation from the confines of the hip joint. At that time, it was elected not to proceed with any further intervention, especially with regards to opening the hip joint for additional management. The patient was followed on an outpatient basis and, at that time, was continuing to be monitored by Dr. Mejia. She was followed with laboratory studies, which did demonstrate a gradual trend of improvement over time with the more recent studies noting her white blood count to be at 6.1, sedimentation rate 36, C-reactive protein 7.5. These findings were reviewed with Dr. Mejia who felt that they were within normal parameters for a patient of her stated age and, given her overall response and the clinical appearance of her wound, it was felt that the setting was appropriate to proceed with reimplantation of total hip components. The patient was quite eager to proceed in this direction and thus has been scheduled for admission at this time in order that the above be accomplished. PAST MEDICAL HISTORY 1. Vein stripping of the left lower extremity 2. Bilateral cataract excision, 3. Tonsillectomy. The patient also was subsequently provided additional information following her original hip surgery that had not been revealed beforehand that noted that sometime within the previous year she had been diagnosed with a MRSA infection of her back area that did require I&D treatment. MEDICAL ILLNESSES 1. Hypothyroidism, 2. Depression 3. Hypertension. MEDICATIONS Prescribed medications have included 1. Levofloxacin 100 mcg daily, 2. Paroxetine 40 mg daily. 3. Bupropion 150 mg daily, 4. Amlodipine 5 mg daily 5. Eye drops taken daily. ALLERGIES SULFA - HAS BEEN ASSOCIATED WITH FACIAL SWELLING. REVIEW OF SYSTEMS No headache, seizure or syncope. Occasional sinus congestion as related to environmental agents. No epistaxis. Auditory acuity intact. No tinnitus. No bleeding gums or dysphagia. No cough, shortness of breath, upper respiratory infection, pneumonia or tuberculosis. No angina or heart disease. She is medically managed for hypertension. Appetite good. Bowel movements regular. No hepatitis, gallbladder disease, ulcers or hemorrhoids. No urinary tract infection. No kidney stones. No fracture. She has been treated in the past for depression. Her remaining review of systems is unremarkable and noncontributory. FAMILY HISTORY The patient has been a for at least seven years, at 50 years of age secondary to congestive heart failure. She has two sons and one daughter, all described as being in good health. Her family history is positive for hypertension, heart disease and prostate cancer. SOCIAL HISTORY The patient completed a high school education. She has been a housewife. She admits to a 40 pack-year use of tobacco but trying to taper down to less than one-pack per day more recently. Ethanol consumption in the form of an occasional glass of wine or beer. PHYSICAL EXAMINATION VITAL SIGNS: Height 5 feet 4 inches, weight 204 pounds. GENERAL: An alert, oriented and responsive 66-year-old white female who sits quietly upon the examination table with no obvious distress. HEENT: Pupils are equally round and reactive to light. Extraocular movements full. Sclerae clear. External nares clear. External auditory canals clear. Edentulous. Mucous membranes pink and moist. Pharynx clear. NECK: Supple. Active range of motion without pain. Carotid pulse palpable bilaterally. Trachea midline. Thyroid without enlargement. LUNGS: Clear to auscultation and percussion. No CVA tenderness. No discomfort throughout the dorsal lumbar spine. HEART: Regular rhythm. No murmur or gallop. ABDOMEN: Soft, nontender. Bowel sounds present. PELVIC: Per primary care physician. EXTREMITIES: A healed surgical wound about the posterolateral aspect of the right hip. There is no associated erythema or suggestion for fluctuance. There is limited mobility of the hip joint with mild discomfort at the extremes of motion. No significant sensation of instability. There is shortening of the right lower extremity as compared to the opposite leg consistent with dislocated prosthesis. Active toe motion. Sensory grossly intact. NEUROLOGIC: Cranial nerves II-XII grossly intact. IMPRESSION History of MRSA infection status post right total hip arthroplasty, pain right hip, dislocation cement spacer implant right hip. PLAN Reimplantation of right total hip. The nature of the planned surgical procedure, the potential complications and risks associated, the expectations of surgery and the consent form have been thoroughly reviewed with the patient prior to her admission to the hospital. In addition, emphasis had been made that during the course of the surgical procedure should any indication be noted that would suggest residual infection about the hip joint, the plan would encompass abandoning the total hip replacement and reevaluating for application of a cement spacer implant. The patient has indicated her full understanding regarding all of the above and given consent to proceed with treatment at this time. MD MARIANA Webster/ /3:59 PM /6:01 PM
[~2017-04-17 05:17] MED LIST changes: -ASPI-183 PO; +ASPI325T33 PO; -CHLORHEXIDINE GLUCONATE 2 % 1 PACK (2 CLOTHS) TOPICAL PRN; -DO NOT ADM ANY ANTICOAGULANT DRUGS PRN; -EPIN1INJ21 IV PUSH; -EPIN1INJ21 SQ; -INSULIN HUMAN REGULAR 1,000 UNITS/10 ML VIAL SQ PRN; -LACTATED RINGER'S 1000 ML IV PRN; -METOPROLOL TARTRATE 25 MG TAB PO PRN; -MORPHINE SULFATE 10 MG/ML INJ IM ONE; -PICC Daily Heparin 100 unit/mL Lock Flush IV FLUSH SCH; -PICC PRN After Blood Draw NS Lock Flush IV FLUSH; -POVIDONE IODINE 5% (ANTISEPSIS KIT) 4 APPLICATIONS EACH NARE PRN; -POVIDONE IODINE 7.5% SCRUB 118 ML BOTTLE TOPICAL SCH; -PROPOFOL 200 MG/20 ML AMP IV ONE; -SODIUM CHLORID 0.9% 500 ML IV PRN; -SODIUM CHLORIDE 0.9% FLUSH 10 ML FLUSH IV FLUSH PRN; -VANC10IN IV
[2017-04-17] MEDS ORDERED: METOPROLOL TARTRATE 25 MG TAB PO PRN (06:00)
[2017-04-17] MEDS ORDERED: POVIDONE IODINE 7.5% SCRUB 118 ML BOTTLE TOPICAL SCH (06:00)
[2017-04-17] MEDS ORDERED: VANCOMYCIN 1000 MG/NS 250 ML (for <70 kg) IV SCH ×2 (06:00)
[2017-04-17] MEDS ORDERED: ceFAZolin 2 GM PREMIX 50 ML IV SCH (06:00)
[2017-04-17] MEDS ORDERED: SODIUM CHLORID 0.9% 500 ML IV PRN (06:00)
[2017-04-17] MEDS ORDERED: POVIDONE IODINE 5% (ANTISEPSIS KIT) 4 APPLICATIONS EACH NARE PRN (06:00)
[2017-04-17] MEDS ORDERED: LACTATED RINGER'S 1000 ML IV PRN (06:00)
[2017-04-17] MEDS ORDERED: CHLORHEXIDINE GLUCONATE 2 % 1 PACK (2 CLOTHS) TOPICAL PRN (06:00)
[2017-04-17] MEDS ORDERED: ceFAZolin INJ 1,000 MG VIAL ONE (06:10)
[2017-04-17] MEDS ORDERED: FAMOTIDINE 20 MG/2 ML VIAL ONE (06:30)
[2017-04-17] MEDS ORDERED: ACETAMINOPHEN 1000 MG/100 ML 100 ML IV ONE (06:30)
[2017-04-17] MEDS ORDERED: TRANEXAMIC ACID 1 GM PRIOR TO PROCEDURE IV SCH ×2 (07:00)
[2017-04-17] MEDS ORDERED: Post-op Orders (for Pharmacy) XX ONE (09:37)
[2017-04-17] MEDS ORDERED: ONDANSETRON HCL 4 MG/2 ML VIAL IVP PRN (10:00)
[2017-04-17] MEDS ORDERED: ZOLPIDEM TARTRATE 5 MG TAB PO PRN (10:00)
[2017-04-17] MEDS ORDERED: MISCELLANEOUS PHARMACY INFORMATION XX ONE (10:00)
[2017-04-17] MEDS ORDERED: TRANEXAMIC ACID INJ 1,000 MG in SODIUM CHLORIDE 0.9% INJ 100 ML IV SCH (10:00)
[2017-04-17] MEDS ORDERED: TRANEXAMIC ACID 1 GM POST-OP IV SCH ×2 (10:00)
[2017-04-17] MEDS ORDERED: ACETAMINOPHEN 325 MG TAB PO PRN (10:00)
[2017-04-17] MEDS ORDERED: NALOXONE HCL 0.4 MG/ML AMP IV PUSH PRN (10:00)
[2017-04-17] MEDS ORDERED: DOCUSATE SODIUM 100 MG CAP PO PRN (10:00)
[2017-04-17] MEDS: DEXT 5%-NACL 0.45% 1000 ML INJ 1,000 ML IV SCH ×2 (11:00→17:36)
[2017-04-17] MEDS: MORPHINE SULFATE 30 MG/30 ML PCA IV SCH ×2 (11:09→20:28)
--- NOTE | 2017-04-17 11:51 | RADRPT ---
EXAM DATE/TIME: 04/17/2017 11:24 [facility] COMPARISON: HIP RIGHT AP ONLY WO AP PELVIS, February 27, 2017, 12:14. INDICATIONS : Post op right hip surgery MEDICAL HISTORY : None. SURGICAL HISTORY : previous right hip surgeries ENCOUNTER: Initial ACUITY: 1 day PAIN SCORE: 10/10 LOCATION: Right hip FINDINGS: A single AP view of the right hip was obtained and demonstrates the patient is status post right hip arthroplasty. The femoral and acetabular components are intact and in normal alignment. There is surr ounding soft tissue swelling and gas. CONCLUSION: Expected postoperative changes status post arthroplasty. Kelvin Bush MD on April 17, 2017 at 11:49 Board Certified Radiologist. This report was verified electronically.
[2017-04-17] MEDS ORDERED: LACTATED RINGER'S 1000 ML INJ 1,000 ML IV ONE (12:00)
[2017-04-17] MEDS ORDERED: PHENYLEPH/NS 1000 MCG/10 ML SYR IV ONE (12:00)
[2017-04-17] MEDS ORDERED: NEOSTIGMINE 5 MG/5 ML SYRINGE IV PUSH ONE (12:00)
[2017-04-17] MEDS ORDERED: GLYCOPYRROLATE 1 MG/5 ML SYRINGE IV PUSH ONE (12:00)
[2017-04-17] MEDS ORDERED: PROPOFOL 200 MG/20 ML AMP IV ONE (12:00)
[2017-04-17] MEDS ORDERED: LIDOCAINE HCL 1% PF 5 ML SYRINGE OTHER ONE (12:00)
[2017-04-17] MEDS ORDERED: ROCURONIUM INJ 50 MG/5 ML SYRINGE IV PUSH ONE (12:00)
[2017-04-17] MEDS ORDERED: ONDANSETRON HCL 4 MG/2 ML VIAL IV ONE (12:00)
[2017-04-17] MEDS ORDERED: ePHEDrine/NS 25 MG/5 ML SYRINGE IV ONE (12:00)
[2017-04-17] MEDS: PCA - TOTAL MG MORPHINE DELIVERED PER SHIFT SCH ×2 (14:00→22:00)
--- NOTE | 2017-04-17 14:29 | MP ---
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 PROCEDURE Second stage reimplantation, right hip. SURGEON Juanito Brice MD ANESTHESIA General endotracheal. INDICATIONS 66-year-old white female who was admitted to the hospital in June of this year for history of osteoarthritis of her right hip and at that time underwent a right total hip arthroplasty. She tolerated her operative procedure well and made favorable progress with initial rehab period. Approximately 5 months postoperatively she began to experience pain and swelling about her hip area and was later diagnosed as having a MRSA infection of her right hip for which she was re-admitted to the hospital in January and at that time underwent resection arthroplasty followed by insertion of a stage I cement spacer. The patient was evaluated at that time by Dr. Makayla Mejia for infectious disease management and followed on outpatient basis thereafter. Subsequent to this treatment the patient began to develop some soreness and redness about her right hip with shortening of her right lower extremity for which follow-up examination identified a dislocation of her temporary prosthesis. She was re-admitted to the hospital in February and at that time underwent a closed manipulation of the dislocated implant, at which time the implant reduced but would not remain in its reduced position with recurrent subluxation from the confines of the hip joint. It was elected not to proceed with any further intervention at that time, especially as regarding opening the hip joint for additional management. The patient was followed on outpatient basis and was continuing to be monitored by Dr. Mejia. Her laboratory studies did demonstrate a trend of improvement over time with her white blood count being at 6.1, sedimentation rate 36 and C-reactive protein 17.5. These findings were reviewed with Dr. Mejia who felt they were within normal parameters for the patient of her stated age and given her overall response and clinical appearance of her wound, it was felt that the setting was appropriate to proceed with reimplantation of total hip components. The patient was eager to proceed in this direction and thus scheduled for readmission at this time in order that the above be accomplished. FORMAT Following induction of satisfactory general anesthesia by endotracheal intubation as completed per the Department of Anesthesia, the patient was positioned upon the operating table in a left lateral decubitus fashion. The right hip and lower extremity proper was isolated with a U drape thereafter being prepped with Betadine solution and draped into a sterile field in the routine manner. Prior to initiation of the actual procedure the standard time-out protocol was completed, all parameters were appropriately confirmed by operating room personnel. A previous surgical scar about the posterolateral aspect of the right hip was utilized as anatomical landmark for initiating a new skin incision and developed to underlying subcutaneous tissue with hemostasis maintained by electrocautery. As progressive dissection was completed to the level of the joint space, three separate culture specimens including both fluid and soft tissue were obtained and submitted to the lab for analysis. The results of which were negative for any residual evidence of bacterial contamination. Progressive dissection facilitated exposure of the head of the dislocated stage I cement spacer. Significant fibrotic and reactive tissue was encountered during the course of the dissection and resected in the process of developing the wound. The head of the cement spacer was dissociated from the stem component improving visualization and thereafter the femoral component was extracted from the confines of the acetabulum. There was significant fibrotic tissue occupying the confines of the acetabulum which was debrided in its entirety. There was a localized cavitary defect at the 4 o'clock position of the acetabulum but progressive reaming under image control did demonstrate a satisfactory development of the confines of the acetabulum. A 50 mm trial acetabular shell was positioned and determined to be satisfactory. With the trial component removed attention was redirected to the proximal femur. Reactive tissue was excised and progressive rasping and broaching was accomplished from 7 through 11 mm with the calcar kali being utilized at 11 mm stage. The 11 mm stem was determined to be a favorable fit. With all trial components being removed the wound was copiously irrigated with pulsating antibiotic solution. Hemostasis was maintained by electrocautery. A 50-mm Continuum trabecular metal shell was thereafter firmly seated approximately 45 degrees inclination to the horizontal and slight anteversion. Two additional 6.5-mm cancellous screws were inserted superiorly of 25 and 30 mm length to augment fixation. The permanent high wall acetabular liner was attached to the acetabular shell. The 11 mm trial femoral broach was repositioned and a trial reduction followed utilizing a 36 mm modular head with -6 mm neck length adapter. The hip reduced and was carried through a passive range of motion with stability being demonstrated at 90 degrees flexion and 45 degrees internal rotation. An open dislocation was completed. The trial femoral component being removed, the canal was thoroughly irrigated and dried and thereafter 11 mm Echo biometric standard femoral stem was firmly seated to which a 36 mm ceramic head with -6 mm neck length adapter attached. The hip was again reduced and carried through a repeat range of motion with stability again being demonstrated as previously described. Final irrigation was accomplished, hemostasis being maintained. The residual capsular area was reapproximated with 0 Vicryl suture. The remaining portion of the wound was closed in layers in the routine manner, skin margins being reapproximated with a running subcuticular 3-0 Vicryl suture over which Steri-Strips were applied. Xeroform gauze and a bulky dry sterile dressing were placed. The patient was repositioned into a supine orientation where an abduction splint was attached. Anesthesia was discontinued and she was thereafter transferred to a hospital bed and returned to the recovery room in satisfactory condition having tolerated her operative procedure well. Estimated blood loss was approximately 400 ccs as determined per Anesthesia. Acetabular implants were of the [employer] men's locker room attendant, femoral implants of the [employer] men's locker room attendant. MD MARIANA Webster/TLL /9:44 AM /1:48 PM
--- NOTE | 2017-04-17 14:35 | PD.CONS ---
[facility] By Dr. Vinay Winslow, orthopedics Reason for Consult Medical management in a patient with hypothyroidism and hypertension Primary Care Physician Laureano Tracy MD Diagnoses: History of Present Illness This is a 66-year-old female with known history of hypertension which is controlled. She does have a history of MRSA infection postoperatively from a total hip arthroplasty. This originally started of as the first surgery in June and subsequent spacer placement and final surgery today. She is seen postoperatively in her room without complaints. No pain. She had general anesthesia and is recovering well. She does note recent changes in her medications Review of Systems Musculoskeletal: COMPLAINS OF: Joint pain Except as stated in HPI: all other systems reviewed are Neg Past Family Social History Allergies: Coded Allergies: Sulfa (Sulfonamide Antibiotics) (Verified Allergy, Severe, HIVES, 04/17/17 ) Past Medical History Hypertension Depression Past Surgical History Been stripping Cataract surgery Tonsillectomy Multiple surgeries for her right hip Reported Medications Reviewed in the EMR Active Ordered Medications Reviewed in the EMR Family History Hypertension, prostate cancer Social History The patient smokes a pack a day, lives alone, is a Physical Exam Vital Signs Vital Signs Date Time Temp Pulse Resp B/P (MAP) Pulse Ox O2 Delivery O2 Flow Rate FiO2 04/17/17 11:09 15 04/17/17 11:00 97.8 63 15 140/63 (88) 100 Nasal Cannula 3 04/17/17 10:45 62 16 142/70 (94) 100 Nasal Cannula 3 04/17/17 10:30 64 16 155/65 (95) 100 Nasal Cannula 3 04/17/17 10:15 65 16 152/70 (97) 100 Nasal Cannula 3 04/17/17 10:00 66 17 137/62 (87) 100 Nasal Cannula 3 04/17/17 09:43 97.7 64 14 120/58 (78) 97 Nasal Cannula 3 04/17/17 05:42 98.5 73 20 157/73 (101) 99 Physical Exam GENERAL: This is a well-nourished, well-developed patient, in no apparent distress. SKIN: No rashes, ecchymoses or lesions. Cool and dry. HEAD: Atraumatic. Normocephalic. No temporal or scalp tenderness. EYES: Pupils equal round and reactive. Extraocular motions intact. No scleral icterus. No injection or drainage. ENT: Nose without bleeding, purulent drainage or septal hematoma. Throat without erythema, tonsillar hypertrophy or exudate. Uvula midline. Airway patent. NECK: Trachea midline. No JVD or lymphadenopathy. Supple, nontender, no meningeal signs. CARDIOVASCULAR: Regular rate and rhythm without murmurs, gallops, or rubs. RESPIRATORY: Clear to auscultation. Breath sounds equal bilaterally. No wheezes , rales, or rhonchi. GASTROINTESTINAL: Abdomen soft, non-tender, nondistended. No hepato-splenomegaly , or palpable masses. No guarding. MUSCULOSKELETAL: Extremities without clubbing, cyanosis, or edema. No joint tenderness, effusion, or edema noted. No calf tenderness. Negative Homans sign bilaterally. NEUROLOGICAL: Awake and alert. Cranial nerves II through XII intact. Motor and sensory grossly within normal limits. Five out of 5 muscle strength in all muscle groups. Normal speech. Laboratory Date/Time Source Procedure Growth Status 04/17/17 07:36 Fluid Other Gram Stain - Final Resulted 04/17/17 07:36 Fluid Other Body Fluid Culture Pending Resulted 04/17/17 07:36 Wound Other Gram Stain - Final Resulted 04/17/17 07:36 Wound Other Wound Culture Pending Resulted Assessment and Plan Problem List: (1) Hypothyroidism ICD Code: E03.9 - Hypothyroidism, unspecified Status: Acute Plan: With a history of Graves', currently stable on levothyroxin which we will continue (2) Depression ICD Code: F32.9 - Major depressive disorder, single episode, unspecified Status: Acute Plan: Continue bupropion and paroxetine, stable (3) HTN (hypertension) ICD Code: I10 - Essential (primary) hypertension Status: Acute Plan: Currently controlled on amlodipine which we will continue Assessment and Plan Continue orthopedic management Patient declines a nicotine patch at this time Continue PT and OT Patient plans to go home once cleared by orthopedic Code Status Full code Discussed Condition With Patient Keerthi Quintanilla MD Apr 17, 2017 14:35
[2017-04-17 15:34] VITALS: BP 134/62; PULSE 70; RESP 19; TEMP 95.6; O2SAT 99
--- NOTE | 2017-04-17 16:49 | MB ---
cc: KAYLEIGH COLBY MD DATE OF CONSULTATION: 04/17/[address] Vinay Brice. REASON FOR CONSULTATION: Antibiotic management. Right hip reimplantation. HISTORY OF PRESENT ILLNESS This is a 66-year-old white female who has had infection of the right hip following right hip arthroplasty in June 2016. The patient required removal of the prosthesis and placement of antibiotic spacer and treatment with antibiotic treatment for MRSA. She was seen by Dr. Mejia for infectious disease and she was treated with a long course of IV antibiotics and then the antibiotics was discontinued and eventually it was decided that it was safe to go ahead and reimplant the prosthesis which was performed today. New cultures were sent and the patient has been given IV antibiotic preop with cefazolin and also vancomycin. The patient currently has no complaints. She is awake and alert. PAST MEDICAL HISTORY 1. Hypertension 2. Depression 3. Cataract surgery 4. Hip surgery 5. Tonsillectomy. ALLERGIES SULFA CEPHAZOLIN VANCOMYCIN SYNTHROID PAXIL WELLBUTRIN NORVASC XARELTO MORPHINE SULFATE NEEDED SOCIAL HISTORY The patient smokes half-a-pack of cigarettes a day. No alcohol or tobacco. IMPRESSION No alcohol or illicit drugs. FAMILY HISTORY Noncontributory. REVIEW OF SYSTEMS Review of systems negative 10-point review. PHYSICAL EXAMINATION IN [facility]: This is a moderately obese female who is in no acute distress. She is awake and alert and oriented. VITAL SIGNS: Include temperature 95.6, BP 134/62, respirations 19, heart rate 70. HEAD, EYES, EARS, NOSE, AND THROAT: Head is atraumatic. Extraocular movements grossly intact, pupils reactive to light. No icterus. Oropharynx moist mucosa without lesions. NECK: Supple without adenopathy. LUNGS: Clear breath sounds bilateral. HEART: Regular S1-S2 without murmurs, rubs or gallops. ABDOMEN: Benign, soft, nontender. RECTUM: A rectal was not performed. EXTREMITIES: The right hip is post surgery. There is no erythema visible. No significant swelling visible. The rest of the extremities have no clubbing, cyanosis or edema. SKIN: No rash. NEUROLOGIC: No gross focal findings. PSYCHIATRIC: The patient is calm and cooperative. IMPRESSION Patient with prior right hip infection due to MRSA who required removal of the prosthetic hardware and now admitted for reimplantation which has been performed. RECOMMENDATIONS 1. Follow the cultures which were obtained with the surgery 2. Follow her clinical status during the hospitalization. Decision on antibiotics depending on the new culture results. If the cultures are negative I think the patient should be able to safely be discharged from the hospital. I will follow up on the cultures. 4. The patients doctor Dr. Mejia is unavailable until April 24. Thank you for this consultation. Kayleigh Colby MD FD/javier /3:31 PM /4:21 PM [email or web address]
[2017-04-17] MEDS: BRIMONIDINE TARTRATE 0.2% OPHT SOLN 5 ML BTL EACH EYE SCH (20:15)
[2017-04-17 20:57] VITALS: BP 114/57; PULSE 72; RESP 16; TEMP 99.9; O2SAT 95
[2017-04-18] VITALS (7 sets, daily range): BP systolic 114–140; BP diastolic 56–97; PULSE 64–107; RESP 16–19; TEMP 96.8–100.4; O2SAT 94–96
[2017-04-18 04:55] LABS: HEMATOCRIT 32.2 % (35.0-46.0); HEMOGLOBIN 10.3 GM/DL (11.6-15.3)
[2017-04-18] MEDS: LEVOTHYROXINE SODIUM 100 MCG TAB PO SCH (05:35)
[2017-04-18] MEDS: DEXT 5%-NACL 0.45% 1000 ML INJ 1,000 ML IV SCH ×3 (05:43→19:00)
[2017-04-18] MEDS: MORPHINE SULFATE 30 MG/30 ML PCA IV SCH ×2 (05:54→17:02)
[2017-04-18] MEDS: PCA - TOTAL MG MORPHINE DELIVERED PER SHIFT SCH ×3 (06:00→21:03)
[2017-04-18] MEDS ORDERED: HYDR-3516 PO (06:06)
--- NOTE | 2017-04-18 06:08 | HHI.FF ---
Face to Face Verification Diagnosis: (1) Septic hip Physical Therapy Gait training Hip: Total hip, Protocol: Right, Abduction pillow while in bed Right LE Weight Bearing: WB as tolerated Right LE Range of Motion: Active ROM Nursing Dressing Changes: Daily dressing change I have seen patient Vanessa Cortez on 04/18/17. My clinical findings support the need for the requested home health care services because: Limited ability to care for self High risk of falls I certify that my clinical findings support that this patient is homebound because: Post-op weakness Unsteady gait/balance Unsafe to leave home unassisted Vinay Brice MD Apr 18, 2017 06:08
[2017-04-18] MEDS: amLODIPine BESYLATE 5 MG TAB PO SCH (09:45)
[2017-04-18] MEDS: RIVAROXABAN 10 MG TAB PO SCH (09:45)
[2017-04-18] MEDS: BRIMONIDINE TARTRATE 0.2% OPHT SOLN 5 ML BTL EACH EYE SCH ×2 (09:46→21:03)
[2017-04-18] MEDS: buPROPion HCL 150 MG SUSTAINED RELEASE TAB PO SCH (09:46)
[2017-04-18] MEDS: PARoxetine HCL 20 MG TAB PO SCH (09:46)
--- NOTE | 2017-04-18 09:51 | HHI.PR ---
Subjective Remarks patient seen and evaluated today in follow-up for reimplantation of hip implant , pulse 71, no fevers, feels well, pain is controlled ID consult appreciated Objective Vitals Vital Signs Date Time Temp Pulse Resp B/P (MAP) Pulse Ox O2 Delivery O2 Flow Rate FiO2 04/18/17 08:00 97.8 107 18 117/73 (88) 95 04/18/17 06:00 15 04/18/17 05:54 15 04/18/17 04:00 99.8 81 17 124/64 (84) 94 04/18/17 00:35 100.4 88 17 140/63 (88) 96 04/17/17 22:00 16 04/17/17 20:57 99.9 72 16 114/57 (76) 95 04/17/17 20:28 15 04/17/17 15:34 95.6 70 19 134/62 (86) 99 04/17/17 14:00 18 04/17/17 11:09 15 04/17/17 11:00 97.8 63 15 140/63 (88) 100 Nasal Cannula 3 04/17/17 10:45 62 16 142/70 (94) 100 Nasal Cannula 3 04/17/17 10:30 64 16 155/65 (95) 100 Nasal Cannula 3 04/17/17 10:15 65 16 152/70 (97) 100 Nasal Cannula 3 04/17/17 10:00 66 17 137/62 (87) 100 Nasal Cannula 3 I/O 04/17/17 04/17/17 04/17/17 04/18/17 04/18/17 04/18/17 07:00 15:00 23:00 07:00 15:00 23:00 Intake Total 1700 ml 360 ml 240 ml Output Total 400 ml Balance 1300 ml 360 ml 240 ml Intake Oral 360 ml 240 ml IV Total 1700 ml Output Urine Total 0 ml Estimated Blood Loss 400 ml # Voids 1 3 # Bowel Movements 0 0 Result Diagram: 04/18/17 0429 Imaging Last Impressions Hip X-Ray 04/17/17 0000 Signed Impressions: Service Date/Time: Monday, April 17, 2017 11:24 - CONCLUSION: Expected postoperative changes status post arthroplasty. Kelvin Bush MD Objective Remarks GENERAL: This is a well-nourished, well-developed patient, in no apparent distress. CARDIOVASCULAR: Regular rate and rhythm without murmurs, gallops, or rubs. RESPIRATORY: Clear to auscultation. Breath sounds equal bilaterally. No wheezes , rales, or rhonchi. GASTROINTESTINAL: Abdomen soft, non-tender, nondistended. Normal active bowel sounds MUSCULOSKELETAL: Extremities without clubbing, cyanosis, or edema. NEURO: Alert & Oriented x4 to person, place, time, situation. Moves all ext x4 A/P Problem List: (1) Hypothyroidism ICD Code: E03.9 - Hypothyroidism, unspecified Status: Acute Plan: With a history of Graves' status post radiation, currently stable on levothyroxine which we will continue (2) Depression ICD Code: F32.9 - Major depressive disorder, single episode, unspecified Status: Acute Plan: Continue bupropion and paroxetine, stable (3) HTN (hypertension) ICD Code: I10 - Essential (primary) hypertension Status: Acute Plan: Currently controlled on amlodipine which we will continue (4) S/P total hip arthroplasty ICD Code: Z96.649 - Presence of unspecified artificial hip joint Plan: Patient's fourth surgery (infected hip status post pacer and now reimplantation) Follow-up for history of MRSA in joint, cultures pending ID following and patient is being followed off of antibiotics Xarelto vanco given periop Discharge Planning pending clearance by Primary, ID Medicine to follow Keerthi Quintanilla MD Apr 18, 2017 09:51
[2017-04-19] MEDS: DEXT 5%-NACL 0.45% 1000 ML INJ 1,000 ML IV SCH ×3 (03:00→19:00)
[2017-04-19] MEDS: LEVOTHYROXINE SODIUM 100 MCG TAB PO SCH (05:58)
[2017-04-19] MEDS: PCA - TOTAL MG MORPHINE DELIVERED PER SHIFT SCH (05:59)
[2017-04-19] MEDS ORDERED: HOSP BED1 (06:29)
[2017-04-19 08:00] VITALS: BP 111/50; PULSE 75; RESP 18; TEMP 97.7; O2SAT 93
[2017-04-19] MEDS: amLODIPine BESYLATE 5 MG TAB PO SCH (09:00)
[2017-04-19] MEDS: RIVAROXABAN 10 MG TAB PO SCH (09:10)
[2017-04-19] MEDS: buPROPion HCL 150 MG SUSTAINED RELEASE TAB PO SCH (09:10)
[2017-04-19] MEDS: PARoxetine HCL 20 MG TAB PO SCH (09:11)
[2017-04-19] MEDS: ACETAMINOPHEN/HYDROcodone 325 MG/5 MG TAB PO PRN ×3 (09:11→21:04)
[2017-04-19] MEDS: BRIMONIDINE TARTRATE 0.2% OPHT SOLN 5 ML BTL EACH EYE SCH ×2 (09:12→21:05)
[2017-04-19 12:00] VITALS: BP 100/48; PULSE 63; RESP 19; TEMP 97.2; O2SAT 96
--- NOTE | 2017-04-19 13:34 | HHI.PR ---
Subjective Remarks Follow up hypertension, hip replacement. Patient without complaints at this time. Pain is well controlled. Denies chest pain, dyspnea, nausea, vomiting. No BM yet. Objective Vitals Vital Signs Date Time Temp Pulse Resp B/P (MAP) Pulse Ox O2 Delivery O2 Flow Rate FiO2 04/19/17 12:00 97.2 63 19 100/48 (65) 96 04/19/17 08:00 97.7 75 18 111/50 (70) 93 04/19/17 05:59 15 04/18/17 23:50 96.9 64 17 115/56 (75) 94 04/18/17 21:03 15 04/18/17 20:15 96.8 75 16 114/61 (78) 96 04/18/17 17:02 15 04/18/17 16:00 97.4 75 19 139/97 (111) 96 04/18/17 14:00 15 I/O 04/18/17 04/18/17 04/18/17 04/19/17 04/19/17 04/19/17 07:00 15:00 23:00 07:00 15:00 23:00 Intake Total 240 ml 1510 ml 360 ml Balance 240 ml 1510 ml 360 ml Intake Oral 240 ml 360 ml 360 ml IV Total 1150 ml # Voids 3 4 1 1 # Bowel Movements 0 0 0 Result Diagram: 04/18/17 0429 Imaging Last Impressions Hip X-Ray 04/17/17 0000 Signed Impressions: Service Date/Time: Monday, April 17, 2017 11:24 - CONCLUSION: Expected postoperative changes status post arthroplasty. Kelvin Bush MD Objective Remarks General: No acute distress. Heart: Regular rate and rhythm. No murmur. Lungs: Clear to auscultation bilaterally. No wheezes, rales, or rhonchi. Breathing is nonlabored. Abdomen: Soft, nontender, nondistended. Extremities: No lower extremity edema. Psych: Alert and oriented. Urinary Catheter: No Vascular Central Line Catheter: No A/P Problem List: (1) Hypothyroidism ICD Code: E03.9 - Hypothyroidism, unspecified Status: Acute (2) Depression ICD Code: F32.9 - Major depressive disorder, single episode, unspecified Status: Acute (3) HTN (hypertension) ICD Code: I10 - Essential (primary) hypertension Status: Acute (4) S/P total hip arthroplasty ICD Code: Z96.649 - Presence of unspecified artificial hip joint Assessment and Plan 1. Hypertension: Blood pressure well controlled on amlodipine. 2. Hypothyroidism: Continue levothyroxine. 3. Depression: Continue bupropion, paroxetine. 4. Status post hip arthroplasty: Patient has history of MRSA in the joint. Cultures are negative so far. Appreciate infectious disease recommendations. Currently off antibiotics. Received vancomycin IV perioperatively. 5. Constipation: Continue bowel regimen. 6. DVT prophylaxis: Xarelto. Discharge Planning Per orthopedic surgery, infectious disease. Rony Coker MD Apr 19, 2017 13:34
[2017-04-19 16:00] VITALS: BP 122/66; PULSE 62; RESP 17; TEMP 97.1; O2SAT 97
--- NOTE | 2017-04-19 18:02 | HHI.IDPN ---
Note Infectious Disease Note Patient feels okay. No pain in r. hip. Afebrile. Cultures negative at 48 hours. Post redo R. hip arthroplasty after removal of previous hardware and treatment with vancomycin. PAST MEDICAL HISTORY 1. Hypertension 2. Depression 3. Cataract surgery 4. Hip surgery 5. Tonsillectomy. ALLERGIES SULFA CEPHAZOLIN VANCOMYCIN SYNTHROID PAXIL WELLBUTRIN NORVASC XARELTO MORPHINE SULFATE NEEDED Current Medications Medications (Trade) Dose Ordered Sig/Heidy Route PRN Reason Start Time Stop Time Status Last Admin Dose Admin Povidone Iodine (Betadine 7.5% Scrub) 1 applic ONCE TOPICAL 04/17/17 06:00 04/20/17 05:59 04/17/17 06:00 Vancomycin HCl 1000 mg/Sodium Chloride 250 ml @ 250 mls/hr HEAD OF [employer] IV 04/17/17 06:00 04/20/17 05:59 04/17/17 07:39 Metoprolol Tartrate (Lopressor) 25 mg [employer] PRN PO SEE LABEL COMMENTS 04/17/17 06:00 04/20/17 05:59 Povidone Iodine (Betadine 5% Antisepsis Kit) 1 applic HEAD OF [employer] PRN EACH NARE SEE LABEL COMMENTS 04/17/17 06:00 04/20/17 05:59 04/17/17 06:00 Chlorhexidine Gluconate (Chlorhexidine 2% Cloth) 3 pack [employer] PRN TOPICAL SEE LABEL COMMENTS 04/17/17 06:00 04/20/17 05:59 04/17/17 05:30 Dextrose/Sodium Chloride 1,000 ml @ 125 mls/hr Q8H IV 04/17/17 11:00 04/18/17 05:43 Rivaroxaban (Xarelto) 10 mg Q24H PO 04/18/17 09:00 04/19/17 09:10 Acetaminophen/ Hydrocodone Bitart ([place] 5-325 Mg) 1 tab Q4H PRN PO PAIN LESS THAN 5 ON SCALE 04/17/17 10:00 04/19/17 14:52 Acetaminophen/ Hydrocodone Bitart ([place] 5-325 Mg) 2 tab Q4H PRN PO PAIN SCALE 5 TO 10 04/17/17 10:00 04/19/17 09:11 Acetaminophen (Tylenol) 650 mg Q6H PRN PO FEVER > 101 04/17/17 10:00 Ondansetron HCl (Zofran Inj) 4 mg Q6H PRN IVP NAUSEA OR VOMITING 04/17/17 10:00 Docusate Sodium (Colace) 100 mg BID PRN PO CONSTIPATION 04/17/17 10:00 04/18/17 10:17 Zolpidem Tartrate (Ambien) 5 mg HS PRN PO SLEEP 04/17/17 10:00 Amlodipine Besylate (Norvasc) 5 mg DAILY PO 04/18/17 09:00 04/18/17 09:45 Brimonidine Tartrate ([place] 0.2% Opth Soln) 1 drop BID EACH EYE 04/17/17 21:00 04/19/17 09:12 Bupropion HCl (Wellbutrin Sr) 150 mg DAILY PO 04/18/17 09:00 04/19/17 09:10 Levothyroxine Sodium (Synthroid) 100 mcg DAILY@0600 PO 04/18/17 06:00 04/19/17 05:58 Paroxetine HCl (Paxil) 40 mg DAILY PO 04/18/17 09:00 04/19/17 09:11 SOCIAL HISTORY The patient smokes half-a-pack of cigarettes a day. No alcohol or tobacco. Vital Signs Date Time Temp Pulse Resp B/P (MAP) Pulse Ox O2 Delivery O2 Flow Rate FiO2 04/19/17 16:00 97.1 62 17 122/66 (84) 97 04/19/17 12:00 97.2 63 19 100/48 (65) 96 04/19/17 08:00 97.7 75 18 111/50 (70) 93 04/19/17 05:59 15 04/18/17 23:50 96.9 64 17 115/56 (75) 94 04/18/17 21:03 15 04/18/17 20:15 96.8 75 16 114/61 (78) 96 Laboratory Tests Test 04/18/17 04:29 Hemoglobin 10.3 GM/DL Hematocrit 32.2 % Microbiology Date/Time Source Procedure Growth Status 04/17/17 07:36 Fluid Other Gram Stain - Final Resulted 04/17/17 07:36 Fluid Other Body Fluid Culture - Preliminary NO GROWTH IN 48 HOURS. Resulted 04/17/17 07:36 Wound Other Gram Stain - Final Resulted 04/17/17 07:36 Wound Other Wound Culture - Preliminary NO GROWTH IN 48 HOURS. Resulted 04/17/17 07:36 Wound Hip Gram Stain - Final Resulted 04/17/17 07:36 Wound Hip Wound Culture - Preliminary NO GROWTH IN 48 HOURS. Resulted PHYSICAL EXAMINATION GENERAL: No acute distress. She is awake and alert and oriented. HEAD, EYES, EARS, NOSE, AND THROAT: No icterus. Oropharynx moist mucosa without lesions. NECK: Supple without adenopathy. LUNGS: Clear breath sounds. HEART: Regular S1-S2 without murmurs, rubs or gallops. ABDOMEN: Benign, soft, nontender. EXTREMITIES: The right hip is post surgery. There is no erythema visible. Mild edema. SKIN: No rash. NEUROLOGIC: No gross focal findings. PSYCHIATRIC: Calm and cooperative. IMPRESSION Patient with prior right hip infection due to MRSA who required removal of the prosthetic hardware and now admitted for reimplantation which has been performed. RECOMMENDATION: Okay to discharge without antibiotics if cultures remain negative at 72 hours. If culture positive, call ID molded goods controls operator for weekend. Phil Beck MD Apr 19, 2017 18:02
[2017-04-19 20:00] VITALS: BP 117/66; PULSE 64; RESP 20; TEMP 98.2; O2SAT 97
[2017-04-19] MEDS: MAGNESIUM HYDROXIDE SUSP 30 ML CUP PO PRN (21:04)
[2017-04-20] VITALS: BP 131/68; PULSE 69; RESP 20; TEMP 97.4; O2SAT 98
[2017-04-20] MEDS: ACETAMINOPHEN/HYDROcodone 325 MG/5 MG TAB PO PRN (04:51)
[2017-04-20] MEDS: LEVOTHYROXINE SODIUM 100 MCG TAB PO SCH (04:51)
[2017-04-20] MEDS: MAGNESIUM HYDROXIDE SUSP 30 ML CUP PO PRN (04:51)
[2017-04-20 08:00] VITALS: BP 151/65; PULSE 66; RESP 18; TEMP 96.7; O2SAT 96
[2017-04-20] MEDS: buPROPion HCL 150 MG SUSTAINED RELEASE TAB PO SCH (08:53)
[2017-04-20] MEDS: RIVAROXABAN 10 MG TAB PO SCH (08:53)
[2017-04-20] MEDS: amLODIPine BESYLATE 5 MG TAB PO SCH (08:53)
[2017-04-20] MEDS: PARoxetine HCL 20 MG TAB PO SCH (08:53)
[2017-04-20] MEDS: BRIMONIDINE TARTRATE 0.2% OPHT SOLN 5 ML BTL EACH EYE SCH (08:54)
--- NOTE | 2017-04-20 08:57 | HHI.PR ---
Subjective Remarks Follow up joint infection. The patient has no complaints at this time. Pain is well controlled. She wants to go home. Objective Vitals Vital Signs Date Time Temp Pulse Resp B/P (MAP) Pulse Ox O2 Delivery O2 Flow Rate FiO2 04/20/17 00:00 97.4 69 20 131/68 (89) 98 04/19/17 20:00 98.2 64 20 117/66 (83) 97 04/19/17 16:00 97.1 62 17 122/66 (84) 97 04/19/17 12:00 97.2 63 19 100/48 (65) 96 I/O 04/19/17 04/19/17 04/19/17 04/20/17 04/20/17 04/20/17 07:00 15:00 23:00 07:00 15:00 23:00 Intake Total 360 ml 920 ml 320 ml Balance 360 ml 920 ml 320 ml Intake Oral 360 ml 920 ml 320 ml # Voids 1 2 1 # Bowel Movements 0 0 Result Diagram: 04/18/17 0429 Imaging Last Impressions Hip X-Ray 04/17/17 0000 Signed Impressions: Service Date/Time: Monday, April 17, 2017 11:24 - CONCLUSION: Expected postoperative changes status post arthroplasty. Kelvin Bush MD Objective Remarks General: No acute distress. Sitting up in a chair. Heart: Regular rate and rhythm. No murmur. Lungs: Clear to auscultation bilaterally. No wheezes, rales, or rhonchi. Breathing is nonlabored. Abdomen: Soft, nontender, nondistended. Extremities: No lower extremity edema. SCDs. Psych: Alert and oriented. Procedures 04/17/17 Second stage reimplantation, right hip Urinary Catheter: No Vascular Central Line Catheter: No A/P Problem List: (1) Hypothyroidism ICD Code: E03.9 - Hypothyroidism, unspecified Status: Acute (2) Depression ICD Code: F32.9 - Major depressive disorder, single episode, unspecified Status: Acute (3) HTN (hypertension) ICD Code: I10 - Essential (primary) hypertension Status: Acute (4) S/P total hip arthroplasty ICD Code: Z96.649 - Presence of unspecified artificial hip joint Assessment and Plan 1. Hypertension: Blood pressure well controlled on amlodipine. 2. Hypothyroidism: Continue levothyroxine. 3. Depression: Continue bupropion, paroxetine. 4. Status post hip arthroplasty: Patient has history of MRSA in the joint. Cultures are negative so far. Appreciate infectious disease recommendations. If cultures remain negative, will not need antibiotics at discharge. Received vancomycin IV perioperatively. 5. Constipation: Continue bowel regimen. 6. DVT prophylaxis: Xarelto. Discharge Planning Discharge home today with home health if cultures remain negative at 72 hours. Rony Coker MD Apr 20, 2017 08:57
[2017-04-20 12:00] VITALS: BP 115/66; PULSE 62; RESP 18; TEMP 96.7; O2SAT 99
--- NOTE | 2017-04-22 07:44 | MD ---
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 HISTORY This is a 66-year-old white female who was admitted to the hospital in June of this year for a history of osteoarthritis of her right hip at which time she underwent a right total hip arthroplasty. She tolerated her operative procedure well and made favorable progress with regards to the initial rehab. Approximately five months postoperatively, she began to experience pain and swelling about her hip and was later diagnosed as having a MRSA infection for which she was readmitted to the hospital in January 28 and at that time underwent a resection arthroplasty followed by insertion of a stage I cement spacer. Infectious disease consultation was completed with Dr. Jeffery Mejia who monitored and treated the patient from an antibiotic management standpoint. The patient later developed some soreness and redness about the hip area with x-ray studies revealing a dislocation of the temporary prosthesis. She was readmitted to the hospital in February and at that time underwent closed manipulation of the dislocated implant. The implant was noted to reduce, but would not remain in its reduced position with recurrent subluxation from the confines of the hip joint. At that time, it was elected not to proceed with any further intervention especially with regards to opening the hip joint for additional management. The patient was followed on outpatient basis while being monitored with follow up laboratory studies revealing a white count 6.1, sedimentation rate 36, C-reactive protein 17.5. These findings were reviewed with Dr. Mejia who felt they were within normal parameters for a patient of her stated age and given her overall response and clinical appearance of her wound, it was felt that the setting was appropriate to proceed with reimplantation of total hip components. The patient was quite eager to proceed in this direction and thus she was scheduled for admission at this time in order that the above be accomplished. PHYSICAL EXAM Her physical examination at the time admission revealed a healed surgical wound about the posterolateral aspect of the right hip. No associated erythema or suggestion for fluctuance. There was limited mobility of the hip joint with mild discomfort at the extremes of motion. No sensation of instability. Shortening of the right lower extremity as compared to the opposite leg consistent with a dislocated prosthesis. Active toe motion. Sensory grossly intact. HOSPITAL COURSE Following admission to the hospital, the patient was taken to the operating room on 17 April 2017 and on that date underwent reimplantation of a right total hip arthroplasty. The patient was noted to have tolerated her operative procedure well. Her postoperative course was stable thereafter. Serial cultures during the course of surgery were negative for any residual bacterial contamination. Hemoglobin/hematocrit assessment postoperatively was 10.3 and 32.2 respectively. The patient was progressively mobilized under the guidance of physical therapy being permitted weightbearing to tolerance about the right lower extremity. Follow up examination of her surgical wound noted to be intact healing favorably. No evidence of infection. Medical followup per the hospitalist service. DVT prophylaxis initiated. dietary services manager consulted to assist with discharge planning. The patient had indicated her desire to be discharged home and continue her rehabilitation on an outpatient basis. Plans were finalized in this regard through the assistance of the Social Service Department and pending medical clearance she was scheduled for discharge on the third postoperative day. At this time, she was noted to be making favorable progress with regards to her rehab program. She was scheduled be seen in office followup in approximately four weeks. Her discharge medications included: 1. Hydrocodone 5/325 #60. 2. The patient was also to continue with aspirin therapy 325 mg one tablet twice daily for four weeks. MD MARIANA Webster/MICHEL /6:19 AM /7:29 AM
== END 2017-04-20 14:49 | disposition home health service (06) | DRG 941 ==
LOC: HSDI 05:17 → N06A 11:55
PROVIDERS: ADMIT Orthopaedic Surgery; ATTEND Orthopaedic Surgery
PROC: 0SP90JZ Removal of Synthetic Substitute from Right Hip Joint, Open Approach (ICD-10-PCS; 2017-04-17)
PROC: 0SR903A Replacement of Right Hip Joint with Ceramic Synthetic Substitute, Uncemented, Open Approach (ICD-10-PCS; principal; 2017-04-17 06:41)
DX: T84.51XD Infection and inflammatory reaction due to internal right hip prosthesis, subsequent encounter (principal); I10 Essential (primary) hypertension; T84.020D Dislocation of internal right hip prosthesis, subsequent encounter; F32.9 Major depressive disorder, single episode, unspecified; E03.9 Hypothyroidism, unspecified; Y79.2 Prosthetic and other implants, materials and accessory orthopedic devices associated with adverse incidents; Z86.14 Personal history of Methicillin resistant Staphylococcus aureus infection; F17.210 Nicotine dependence, cigarettes, uncomplicated; Z92.3 Personal history of irradiation; B95.62 Methicillin resistant Staphylococcus aureus infection as the cause of diseases classified elsewhere; Z80.42 Family history of malignant neoplasm of prostate; Z82.49 Family history of ischemic heart disease and other diseases of the circulatory system; E66.9 Obesity, unspecified; K59.00 Constipation, unspecified
CPT/HCPCS: 73501; 76000; 85014; 85018; 86850; 86900; 86901; 87070; 87205; 94150; C1776; J0131; J0690; J2270; J2370; J2405; J2710; J3370; J7050; J7120

== ENCOUNTER 2017-04-28 14:58 | Inpatient (IN) | payer OTHER, MEDICARE ==
[~2017-04-28] VITALS: Ht 167.6 cm; Wt 91.9 kg
[~2017-04-28 14:58] MED LIST changes: +HOSP BED1; +HYDR-3516 PO
[2017-04-28 14:59] VITALS: BP 145/65; PULSE 82; RESP 16; TEMP 99.5; O2SAT 98
[2017-04-28 15:30] VITALS: BP 127/62; PULSE 76; RESP 18; O2SAT 97
[2017-04-28] MEDS ORDERED: ONDANSETRON HCL 4 MG/2 ML VIAL IV PUSH ONE (16:00)
[2017-04-28] MEDS ORDERED: MORPHINE SULFATE 2 MG/ML INJ IV PUSH ONE (16:00)
[2017-04-28 16:35] LABS: AUTOMATED NEUTROPHIL # 18.2 TH/MM3 (1.8-7.7); BASOPHIL # 0.1 TH/MM3 (0-0.2); BASOPHIL % 0.3 % (0.0-2.0); HEMATOCRIT 30.6 % (35.0-46.0); LYMPH % 5.2 % (9.0-44.0); LYMPHOCYTE # 1.1 TH/MM3 (1.0-4.8); MEAN CELL VOLUME 78.5 FL (80.0-100.0); MEAN CORPUSCULAR HEMOGLOBIN 25.7 PG (27.0-34.0); MEAN CORPUSCULAR HGB CONC 32.7 % (32.0-36.0); MEAN PLATELET VOLUME 7.7 FL (7.0-11.0); MONO % 8.3 % (0.0-8.0); MONOCYTE # 1.8 TH/MM3 (0-0.9); NEUT % 86.2 % (16.0-70.0); PLATELET COUNT 480 TH/MM3 (150-450); RED BLOOD COUNT 3.89 MIL/MM3 (4.00-5.30); RED CELL DISTRIBUTION WIDTH 17.3 % (11.6-17.2); WHITE BLOOD COUNT 21.2 TH/MM3 (4.0-11.0)
[2017-04-28 16:38] LABS: ALT (GPT) 16 U/L (10-53)
--- NOTE | 2017-04-28 16:39 | RADRPT ---
EXAM DATE/TIME: 04/28/2017 15:58 [facility] COMPARISON: No previous studies available for comparison. INDICATIONS : Right leg pain. MEDICAL HISTORY : Hypothyroidism. Methicillin-resistant Staphylococcus aureus. Hypertension. Graves disease. Arthrit is. Anticoagulant therapy, Aspirin 325mg. SURGICAL HISTORY : Tonsillectomy. Left leg vein stripping. ENCOUNTER: Initial ACUITY: 1 week PAIN SCORE: 7/10 LOCATION: Right leg. TECHNIQUE: Venous ultrasound of the leg was performed from the inguinal ligament to the proximal calf. Real-darrian e, color Doppler and spectral tracing, compression and augmentation techniques were used. FINDINGS: There is normal compressibility of the deep venous system from the inguinal region to the proximal ca lf. No echogenic clot is seen in the lumen of the common femoral, femoral, popliteal, and posterior tibial veins. There is a normal response of the venous system to proximal and distal augmentation an d respiration. CONCLUSION: 1. No evidence of deep venous thrombosis. Dave Eason MD on April 28, 2017 at 16:36 Board Certified Radiologist. This report was verified electronically.
[2017-04-28 16:40] LABS: ALKALINE PHOSPHATASE 114 U/L (45-117); TOTAL BILIRUBIN ADULT 0.5 MG/DL (0.2-1.0); TOTAL PROTEIN 7.3 GM/DL (6.4-8.2)
[2017-04-28] MEDS ORDERED: VANCOMYCIN INJ 1,000 MG in SODIUM CHLOR 0.9% 250 ML INJ 250 ML IV ONE (16:45)
[2017-04-28 16:46] LABS: ALBUMIN 2.8 GM/DL (3.4-5.0); AST (GOT) 30 U/L (15-37); BICARBONATE 22.7 MEQ/L (21.0-32.0); BLOOD UREA NITROGEN 15 MG/DL (7-18); CALCIUM 8.6 MG/DL (8.5-10.1); CHLORIDE 101 MEQ/L (98-107); CREATININE 0.99 MG/DL (0.50-1.00); GLOMERULAR FILTRATION RATE 56 ML/MIN (>89); GLUCOSE,RANDOM 101 MG/DL (74-106); SODIUM (NA) 131 MEQ/L (136-145)
[2017-04-28] MEDS ORDERED: PROPOFOL 200 MG/20 ML AMP IV ONE (17:15)
--- NOTE | 2017-04-28 17:29 | PD ---
HPI Chief Complaint: Pain: Acute or Chronic Time Seen by Provider: 15:15 Travel History International Travel<30 days: No Contact w/Intl Traveler<30days: No Traveled to known affect area: No History of Present Illness HPI 66-year-old female that presents to the ED for evaluation of pain to the right hip. Patient has a significant history including multiple sutures to her right hip. Per patient she had a hip replacement done around June of this last year by Dr. brice. Patient did well but she develop infection for which she had to had the hip prosthesis removed and surgery to get cultures as well as to medicate her. Patient did well after that and infectious disease cleared her and on April 17 the decided to put a new hip replacement. Patient was admitted during that time and was released to rehabilitation and has been doing okay until yesterday. Per patient she did was stood up yesterday to get into her bathroom using her walker and she develops severe pain. She's not been able to ambulate secondary to pain because of it since yesterday. She states that her head hurts mainly on the medial aspect. She denies any numbness, tilling, weakness. She does state having some chills and sweats but no obvious fevers. She denies any discharge from the wound other than some yellow stuff. Per patient she has wound care at home done by a nurse at home and so far per patient his been doing well. She has no pain on the surgical scar. She states that the pain is with weightbearing. She denies any falls or injuries. She has not been able to get in contact with her physician. She does have allergies to sulfa. Per patient she had an infection and it grew MRSA. PFSH Past Medical History Hx Anticoagulant Therapy: No Arthritis: Yes (OA) Asthma: No Autoimmune Disease: No Anxiety: Yes Depression: Yes (paxil ) Heart Rhythm Problems: No Cancer: No Cardiovascular Problems: No High Cholesterol: No Chemotherapy: No Chest Pain: No Congestive Heart Failure: No COPD: No Cerebrovascular Accident: No Diabetes: No Diminished Hearing: No Endocrine: Yes GERD: No Genitourinary: No Hepatitis: No Hiatal Hernia: No Hypertension: Yes Immune Disorder: No Kidney Stones: No Musculoskeletal: Yes (OA) Neurologic: No Psychiatric: Yes (ANXIETY, DEPRESSION) Reproductive: No Respiratory: No Migraines: No Radiation Therapy: No Renal Failure: No Seizures: No Sickle Cell Disease: No Sleep Apnea: No Thyroid Disease: Yes (Graves) Ulcer: No Tetanus Vaccination: Unknown Influenza Vaccination: Yes Past Surgical History Abdominal Surgery: No AICD: No Arteriovenous Shunt: No Cardiac Surgery: No Ear Surgery: No Endocrine Surgery: No Eye Surgery: Yes (CATARACTS) Genitourinary Surgery: No Gynecologic Surgery: No Hysterectomy: No Insulin Pump: No Joint Replacement: Yes (RIGHT TOTAL HIP 07/11/16 01/30/17 DR BRICE) Oral Surgery: Yes (TONSILLECTOMY) Pacemaker: No Thoracic Surgery: No Tonsillectomy: Yes Other Surgery: Yes (LEFT LEG VEIN STRIPPING) Social History Alcohol Use: No Tobacco Use: Yes (04/23 ppd) Substance Use: No Allergies-Medications (Allergen,Severity, Reaction): Coded Allergies: Sulfa (Sulfonamide Antibiotics) (Verified Allergy, Severe, HIVES, 04/28/17) Reported Meds & Prescriptions Reported Meds & Active Scripts Active Hospital Bed - Electric 1 Ea Ea Ea .ROUTE DIRECTED use as directed Hydrocodone-Acetamin 5-325 mg (Hydrocodone/Acetaminophen) 5 Mg-325 Mg Tablet 2 Tab PO Q4H PRN 60 Days Reported Aspirin EC (Aspirin) 325 Mg Tabdr 325 Mg PO DAILY Brimonidine Opth Drops (Brimonidine Tartrate) 0.2% Soln 1 Drop EACH EYE BID Bupropion HCl ER 24 HR (Bupropion HCl) 150 Mg Tab 150 Mg PO DAILY Paroxetine (Paroxetine HCl) 40 Mg Tab 40 Mg PO DAILY Amlodipine (Amlodipine Besylate) 5 Mg Tab 5 Mg PO DAILY Levothyroxine (Levothyroxine Sodium) 100 Mcg Tab 100 Mcg PO DAILY Review of Systems Except as stated in HPI: all other systems reviewed are Neg Physical Exam Narrative GENERAL: SKIN: Warm and dry. HEAD: Atraumatic. Normocephalic. EYES: Pupils equal and round. No scleral icterus. No injection or drainage. ENT: No nasal bleeding or discharge. Mucous membranes pink and moist. Tongue is midline. No uvula deviation. NECK: Trachea midline. No JVD. CARDIOVASCULAR: Regular rate and rhythm. RESPIRATORY: No accessory muscle use. Clear to auscultation. Breath sounds equal bilaterally. GASTROINTESTINAL: Abdomen soft, non-tender, nondistended. Hepatic and splenic margins not palpable. MUSCULOSKELETAL: Extremities without clubbing, cyanosis, or edema. No obvious deformities. Full range of motion of the upper and lower extremities bilaterally with exception of the right hip which she cannot completely flex without severe pain. No obvious deformity noted but hard to assess because patient's body habitus. Patient does appear to have a surgical scar with some erythema that appears to be more from healing than actual infection. Some yellow discharge noted from the wound but minimal. Small amount of shortening on the right leg compared to the left but hard to assess again because of patient's body habitus. 2+ pulses bilaterally. Neurovascular intact otherwise. NEUROLOGICAL: Awake and alert. No obvious cranial nerve deficits. Motor grossly within normal limits. Five out of 5 muscle strength in the arms and legs. Normal speech. PSYCHIATRIC: Appropriate mood and affect; insight and judgment normal. Data Data Last Documented VS Vital Signs Date Time Temp Pulse Resp B/P (MAP) Pulse Ox O2 Delivery O2 Flow Rate FiO2 04/28/17 17:30 100 Non-Rebreather 15.00 100 04/28/17 15:30 76 18 127/62 (83) 04/28/17 14:59 99.5 Orders Orders Sepsis Workup Initiated (04/28/17 ) Complete Blood Count With Diff (04/28/17 15:07) Comprehensive Metabolic Panel (04/28/17 15:07) Lactic Acid Sepsis Protocol (04/28/17 15:07) Blood Culture (04/28/17 15:07) Iv Access Insert/Monitor (04/28/17 15:07) Oxygen Administration (04/28/17 15:07) Oximetry (04/28/17 15:07) Blood Glucose (04/28/17 15:07) C-Reactive Protein (Crp) (04/28/17 15:17) Westergren Sedimentation Rate (04/28/17 15:17) Us Leg Venous Doppler (04/28/17 ) Hip, Uni(Ap&Lat) W Ap Pelvis (04/28/17 ) Morphine Inj (Morphine Inj) (04/28/17 16:00) Ondansetron Inj (Zofran Inj) (04/28/17 16:00) Vancomycin Inj (Vancomycin Inj) (04/28/17 16:45) Wound Culture And Gram Stain (04/28/17 17:09) Propofol 200 Mg/20 Ml Inj (Diprivan 200 (04/28/17 17:15) Admit Order (Ed Use Only) (04/28/17 17:47) Hip, Ap Only Wo Ap Pelvis (04/28/17 ) Equal Employment Opportunity Officer / Telemetry [email or web address].[id number] (04/28/17 17:48) Diet Npo (04/28/17 Dinner) Activity Oob With Assistance (04/28/17 17:48) Notify Dr: Other (04/28/17 17:48) Consult Infectious Disease (04/28/17 ) ^ Home Medications (04/28/17 17:48) Immobilizer Knee 20 Inch (04/28/17 ) Labs Laboratory Tests Test 04/28/17 15:40 White Blood Count 21.2 TH/MM3 Red Blood Count 3.89 MIL/MM3 Hemoglobin 10.0 GM/DL Hematocrit 30.6 % Mean Corpuscular Volume 78.5 FL Mean Corpuscular Hemoglobin 25.7 PG Mean Corpuscular Hemoglobin Concent 32.7 % Red Cell Distribution Width 17.3 % Platelet Count 480 TH/MM3 Mean Platelet Volume 7.7 FL Neutrophils (%) (Auto) 86.2 % Lymphocytes (%) (Auto) 5.2 % Monocytes (%) (Auto) 8.3 % Eosinophils (%) (Auto) 0.0 % Basophils (%) (Auto) 0.3 % Neutrophils # (Auto) 18.2 TH/MM3 Lymphocytes # (Auto) 1.1 TH/MM3 Monocytes # (Auto) 1.8 TH/MM3 Eosinophils # (Auto) 0.0 TH/MM3 Basophils # (Auto) 0.1 TH/MM3 CBC Comment DIFF FINAL Differential Comment Erythrocyte Sedimentation Rate 72 mm/hr Blood Urea Nitrogen 15 MG/DL Creatinine 0.99 MG/DL Random Glucose 101 MG/DL Total Protein 7.3 GM/DL Albumin 2.8 GM/DL Calcium Level 8.6 MG/DL Alkaline Phosphatase 114 U/L Aspartate Amino Transf (AST/SGOT) 30 U/L Alanine Aminotransferase (ALT/SGPT) 16 U/L Total Bilirubin 0.5 MG/DL Sodium Level 131 MEQ/L Potassium Level 3.9 MEQ/L Chloride Level 101 MEQ/L Carbon Dioxide Level 22.7 MEQ/L Anion Gap 7 MEQ/L Estimat Glomerular Filtration Rate 56 ML/MIN Lactic Acid Level 1.2 mmol/L C-Reactive Protein 22.00 MG/DL [facility] Medical Decision Making Medical Screen Exam Complete: Yes Emergency Medical Condition: Yes Medical Record Reviewed: Yes Interpretation(s) CBC & BMP Diagram 04/28/17 15:40 Total Protein 7.3, Albumin 2.8 L, Calcium Level 8.6, Alkaline Phosphatase 114, Aspartate Amino Transf (AST/SGOT) 30, Alanine Aminotransferase (ALT/SGPT) 16, Total Bilirubin 0.5 Last Impressions Lower Extremity Ultrasound 04/28/17 0000 Signed Impressions: Service Date/Time: Friday, April 28, 2017 15:58 - CONCLUSION: 1. No evidence of deep venous thrombosis. Dave Eason MD Differential Diagnosis Postop complication versus dislocation versus fracture versus hip infection versus cellulitis versus septic joint Narrative Course 66-year-old female that presents to the ED for evaluation of right hip pain. Patient was properly examined and was found to have signs and symptoms concerning for infection versus injury. Labs and imaging were ordered. Initially x-ray had not been done but ultrasound and labs came back and shows signs of leukocytosis as well as possible infection. Definite concerning. X- ray did show dislocation of prosthesis. After explained procedure to the patient and she agreed to it hip was reduced by my attending. Please refer to his note. Case was discussed with Dr. Muñoz who is ironworker apprentice shop for Dr Brice who agrees with admission, wants admitted to [facility], pharmacy vancomycin, NPO, activity as tolertaed, continue meds, ID consult. Procedures EKG Prior to Arrival: No Diagnosis Primary Impression: Septic hip Additional Impression: Dislocated hip Qualified Codes: S73.004A - Unspecified dislocation of right hip, initial encounter Admitting Information Admitting Physician Requests: Admit Neil Reed Apr 28, 2017 17:29
[2017-04-28 17:30] VITALS: O2SAT 100
--- NOTE | 2017-04-28 17:50 | PD ---
Data Data Last Documented VS Vital Signs Date Time Temp Pulse Resp B/P (MAP) Pulse Ox O2 Delivery O2 Flow Rate FiO2 04/28/17 17:30 100 Non-Rebreather 15.00 100 04/28/17 15:30 76 18 127/62 (83) 04/28/17 14:59 99.5 Orders Orders Sepsis Workup Initiated (04/28/17 ) Complete Blood Count With Diff (04/28/17 15:07) Comprehensive Metabolic Panel (04/28/17 15:07) Lactic Acid Sepsis Protocol (04/28/17 15:07) Blood Culture (04/28/17 15:07) Iv Access Insert/Monitor (04/28/17 15:07) Oxygen Administration (04/28/17 15:07) Oximetry (04/28/17 15:07) Blood Glucose (04/28/17 15:07) C-Reactive Protein (Crp) (04/28/17 15:17) Westergren Sedimentation Rate (04/28/17 15:17) Us Leg Venous Doppler (04/28/17 ) Hip, Uni(Ap&Lat) W Ap Pelvis (04/28/17 ) Morphine Inj (Morphine Inj) (04/28/17 16:00) Ondansetron Inj (Zofran Inj) (04/28/17 16:00) Vancomycin Inj (Vancomycin Inj) (04/28/17 16:45) Wound Culture And Gram Stain (04/28/17 17:09) Propofol 200 Mg/20 Ml Inj (Diprivan 200 (04/28/17 17:15) Hip, Lat Only Wo Ap Pelvis (04/28/17 ) Labs Laboratory Tests Test 04/28/17 15:40 White Blood Count 21.2 TH/MM3 Red Blood Count 3.89 MIL/MM3 Hemoglobin 10.0 GM/DL Hematocrit 30.6 % Mean Corpuscular Volume 78.5 FL Mean Corpuscular Hemoglobin 25.7 PG Mean Corpuscular Hemoglobin Concent 32.7 % Red Cell Distribution Width 17.3 % Platelet Count 480 TH/MM3 Mean Platelet Volume 7.7 FL Neutrophils (%) (Auto) 86.2 % Lymphocytes (%) (Auto) 5.2 % Monocytes (%) (Auto) 8.3 % Eosinophils (%) (Auto) 0.0 % Basophils (%) (Auto) 0.3 % Neutrophils # (Auto) 18.2 TH/MM3 Lymphocytes # (Auto) 1.1 TH/MM3 Monocytes # (Auto) 1.8 TH/MM3 Eosinophils # (Auto) 0.0 TH/MM3 Basophils # (Auto) 0.1 TH/MM3 CBC Comment DIFF FINAL Differential Comment Erythrocyte Sedimentation Rate 72 mm/hr Blood Urea Nitrogen 15 MG/DL Creatinine 0.99 MG/DL Random Glucose 101 MG/DL Total Protein 7.3 GM/DL Albumin 2.8 GM/DL Calcium Level 8.6 MG/DL Alkaline Phosphatase 114 U/L Aspartate Amino Transf (AST/SGOT) 30 U/L Alanine Aminotransferase (ALT/SGPT) 16 U/L Total Bilirubin 0.5 MG/DL Sodium Level 131 MEQ/L Potassium Level 3.9 MEQ/L Chloride Level 101 MEQ/L Carbon Dioxide Level 22.7 MEQ/L Anion Gap 7 MEQ/L Estimat Glomerular Filtration Rate 56 ML/MIN Lactic Acid Level 1.2 mmol/L C-Reactive Protein 22.00 MG/DL MDM Supervised Visit with ABHI: Yes Procedures Procedure Narrative I'm documenting a procedure note on the R hip reduction this patient I was seeing the patient in conjunction with GREGORY Leonard. Was found that this patient had a right hip dislocation. I performed reduction. I discussed with the patient risk benefits and alternatives. She signed informed consent. I placed her on pulse oximetry and telemetry and oxygen. My Total bedside time was 20 minutes I gave her 75 mg IV Diprivan for sedation This achieved a good level. I then flexed her knee at 90 and pulled straight up while an volunteer assistant held the pelvis down This produced good reduction Her leg length was then symmetric and anemia wall eyes replaced on the right leg I reviewed a postreduction x-ray which showed good placement of the joint She was given an hour on monitoring to metabolize the sedation Diagnosis Primary Impression: Septic hip Additional Impression: Dislocated hip Qualified Codes: S73.004A - Unspecified dislocation of right hip, initial encounter Rony Vega MD Apr 28, 2017 17:50
--- NOTE | 2017-04-28 17:51 | RADRPT ---
EXAM DATE/TIME: 04/28/2017 16:44 [facility] COMPARISON: No previous studies available for comparison. INDICATIONS : Hip pain for one day. No trauma. History of right hip replacement on April 17. MEDICAL HISTORY : None. SURGICAL HISTORY : Right hip replacement. ENCOUNTER: Initial ACUITY: 1 day PAIN SCORE: 8/10 LOCATION: Right hip. FINDINGS: There is superior dislocation of the femoral component of the right hip prosthesis. There is no evide nce of acute fracture. CONCLUSION: 1. Hip dislocation Dave Eason MD on April 28, 2017 at 17:47 Board Certified Radiologist. This report was verified electronically.
[2017-04-28 18:04] VITALS: BP 126/59; PULSE 70; RESP 17; O2SAT 100
--- NOTE | 2017-04-28 18:10 | RADRPT ---
EXAM DATE/TIME: 04/28/2017 17:48 [facility] COMPARISON: HIP RIGHT AP ONLY WO AP PELVIS, April 17, 2017, 11:24. INDICATIONS : Post reduction right hip MEDICAL HISTORY : None. SURGICAL HISTORY : Right hip arthroplasty ENCOUNTER: Subsequent ACUITY: 1 day PAIN SCORE: 0/10 LOCATION: Right Hip FINDINGS: There is an uncomplicated reduction of the previously seen dislocation. There is no evidence of acute fracture. Bony mineralization is normal. CONCLUSION: 1. Uncomplicated reduction Dave Eason MD on April 28, 2017 at 18:07 Board Certified Radiologist. This report was verified electronically.
[2017-04-28] MEDS ORDERED: Vancomycin Consult Pharmacy 1 EA OTHER SCH (18:15)
[2017-04-28 19:02] VITALS: BP 138/63
[2017-04-28 19:13] LABS: AMORPHOUS SEDIMENT, URINE RARE; BACTERIA, URINE RARE /hpf; BILIRUBIN, URINE NEG (NEG); BLOOD, URINE NEG (NEG); CALCIUM OXALATE CRYSTALS,URINE RARE /hpf; GLUCOSE,URINE NEG (NEG); KETONE, URINE 10 mg/dL (NEG); MUCUS URINE FEW /lpf (OCC); NITRITE,URINE NEG (NEG); SQUAMOUS EPITHELIAL CELL URINE 21 /hpf (0-5); URINE COLOR YELLOW (YELLW/STRAW); URINE LEUKOCYTE ESTERASE LARGE (NEG)
[2017-04-28 20:00] VITALS: BP 117/56; PULSE 76; PULSE 77; RESP 20; TEMP 99.2; O2SAT 98
[2017-04-28] MEDS ORDERED: MORPHINE SULFATE 2 MG/ML INJ IV PRN (23:15)
[2017-04-28] MEDS: ACETAMINOPHEN/HYDROcodone 325 MG/5 MG TAB PO PRN (23:30)
[2017-04-29] VITALS (13 sets, daily range): BP systolic 113–131; BP diastolic 52–61; PULSE 62–85; RESP 16–18; TEMP 98–100.7; O2SAT 94–99
[2017-04-29] MEDS ORDERED: VANCOMYCIN INJ 1,500 MG in SODIUM CHLORID 0.9% 500 ML INJ 500 ML IV ONE (11:00)
--- NOTE | 2017-04-29 13:48 | PD.ID.CON ---
History of Present Illness Service ID Consult Requested By Dr Olinda Davis Reason for Consult R prosthetic hip infection Primary Care Physician Laureano Tracy MD Diagnoses: History of Present Illness pt is a 66 yo female well known to me from her previous hoospitalistion when she presented with MRSA R prosthetic hip infection Prosthesis was removed and pt completed 6 weeks of IV abx (vanco+ rifampin) and was doing good w/o signs of recurrence She was off abx for over 2 weeks and on underwent 2nd part of her 2 stage procedure on Apr 1706/22 op cultures were negative - final Pt was doing OK initilally and on Saturday she developped severe R hip pain after attempt to ambulate She denies fever, chills, night sweats, but her WBC was 20 + and her ESR around 90 Her Xray showed dislocation Her blood clx growing GPC in 1/4 bottles She has some drainage from R hip incision and culture is positive for coag positive staph - further ID to follow Review of Systems Except as stated in HPI: all other systems reviewed are Neg Past Family Social History Allergies: Coded Allergies: Sulfa (Sulfonamide Antibiotics) (Verified Allergy, Severe, HIVES, 04/28/17) Past Medical History HTN depression arthritis Graves disease Past Surgical History R hip arthroplasty 07/11/2016 cataract surgeries tonsilectomy Active Ordered Medications Medications where reviewed in EMR Antibiotics Include: none Family History reviewed non contributory Social History + Tobacco. 1 pack a week No ETOH. No Illicit Drugs. Physical Exam Vital Signs Vital Signs Date Time Temp Pulse Resp B/P (MAP) Pulse Ox O2 Delivery O2 Flow Rate FiO2 01/30/17 13:54 62 12 112/53 (72) 100 Nasal Cannula 2 01/30/17 13:45 19 01/30/17 12:15 66 12 120/57 (78) 100 Nasal Cannula 2 01/30/17 11:15 64 12 156/63 (94) 99 Nasal Cannula 2 01/30/17 11:00 70 12 155/67 (96) 97 Nasal Cannula 2 01/30/17 10:50 97.5 70 12 141/64 (89) 100 Nasal Cannula 2 01/30/17 06:21 97.7 68 20 135/65 (88) 98 Physical Exam Active Ordered Medications Medications where reviewed in EMR Antibiotics Include: vancomycin Physical Exam Vital Signs Vital Signs Date Time Temp Pulse Resp B/P (MAP) Pulse Ox O2 Delivery O2 Flow Rate FiO2 04/29/17 12:00 98.1 71 16 117/54 (75) 99 04/29/17 08:00 Room Air 04/29/17 08:00 98.5 76 18 119/57 (77) 97 04/29/17 04:09 62 04/29/17 04:00 98.0 64 18 123/59 (80) 96 04/29/17 01:50 75 04/29/17 00:00 81 04/29/17 00:00 99.0 82 18 114/52 (72) 95 04/28/17 20:00 Room Air 04/28/17 20:00 99.2 76 20 117/56 (76) 98 04/28/17 20:00 77 04/28/17 19:02 74 18 138/63 (88) 98 04/28/17 18:04 70 17 126/59 (81) 100 Nasal Cannula 2.00 04/28/17 17:30 100 Non-Rebreather 15.00 100 04/28/17 17:30 100 15.00 100 04/28/17 15:30 97 Room Air 04/28/17 15:30 76 18 127/62 (83) 97 Room Air 04/28/17 15:30 76 18 04/28/17 14:59 99.5 82 16 145/65 (91) 98 Physical Exam CONSTITUTIONAL/GENERAL: This is a moderately obese patient, in no apparent distress. TUBES/LINES/DRAINS: SKIN: No jaundice, rashes, or lesions. Skin temperature appropriate. Not diaphoretic. HEAD: Atraumatic. Normocephalic. EYES: Pupils equal and round and reactive. Extraocular motions intact. No scleral icterus. No injection or drainage. Fundi not examined. ENT: Hearing grossly normal. Nose without bleeding or purulent drainage. Oral mucosae without visible erythema, exudates, masses, or lesions. Edentulous NECK: Trachea midline. Supple, nontender. CARDIOVASCULAR: Regular rate and rhythm without murmurs, gallops, or rubs. No JVD. Peripheral pulses symmetric. well perfused perifery RESPIRATORY/CHEST: Symmetric, unlabored respirations. Clear to auscultation. Breath sounds equal bilaterally. No wheezes, rales, or rhonchi. GASTROINTESTINAL: Abdomen soft, non-tender, nondistended. No hepato-splenomegaly , or palpable masses. No guarding. Bowel sounds present. GENITOURINARY: Without palpable bladder distension. MUSCULOSKELETAL: Extremities without clubbing, cyanosis, or edema. . No mottling or clubbing. Dressing i place over R hip, small amount of odorless serosang drainage noted RLE immobilyzer LYMPHATICS: No palpable cervical or supraclavicular adenopathy. NEUROLOGICAL: Awake and alert. Motor and sensory grossly within normal limits. Follows commands. Clear speech . Moves all extremities. PSYCHIATRIC: No obvious anxiety/depression. no apparent hallucinations or other psychotic thought process. Laboratory Result Diagram: 04/28/17 1540 04/28/17 1540 Imaging Last Impressions Lower Extremity Ultrasound 04/28/17 0000 Signed Impressions: Service Date/Time: Friday, April 28, 2017 15:58 - CONCLUSION: 1. No evidence of deep venous thrombosis. Dave Eason MD Hip and Pelvis X-Ray 04/28/17 0000 Signed Impressions: Service Date/Time: Friday, April 28, 2017 16:44 - CONCLUSION: 1. Hip dislocation Dave Eason MD Hip X-Ray 04/28/17 0000 Signed Impressions: Service Date/Time: Friday, April 28, 2017 17:48 - CONCLUSION: 1. Uncomplicated reduction Dave Eason MD Assessment and Plan Assessment and Plan R prosthetic hip infection, MRSA sp removal of R hip prosthesis 03/01 with abx spacer placement, then 6 wks of abx Sp placement of new prosthesis 04/17 with probable new infection 2/2 coag + staph Bactermemia Rec's: cont vanco tenatevely fu wound clx MRI fu blood clx Makayla Mejia MD Apr 29, 2017 13:48
[2017-04-29] MEDS: ACETAMINOPHEN/HYDROcodone 325 MG/5 MG TAB PO PRN ×2 (14:51→21:34)
--- NOTE | 2017-04-29 17:29 | PD.CONS ---
[facility] By [facility] Br[facility] Reason for Consult Medical management Primary Care Physician Laureano Tracy MD Diagnoses: (1) Bacteremia (2) Dislocated hip (3) HTN (hypertension) (4) Hypothyroidism (5) Depression History of Present Illness The patient is a 66-year-old female who presented to emergency department for evaluation of right hip pain. She does not recall a specific injury. Pain became severe in the right hip and groin. She had hip replacement in June 2016. She developed an infection in the joint and the hip prosthesis was removed. She completed a 6 week course of vancomycin and rifampin. She had revision of the hip replacement on 04/17/17. Postoperative cultures were negative. She has been having home health for wound care. Other than the hip pain, she has no complaints at this time. Review of Systems Constitutional: DENIES: Fever, Chills, Night Sweats Eyes: DENIES: Blurred vision, Vision loss Ears, nose, mouth, throat: DENIES: Hearing loss Respiratory: DENIES: Cough, Wheezing, Sputum production, Shortness of breath Cardiovascular: DENIES: Chest pain, Palpitations, Dyspnea on Exertion, Lower Extremity Edema Gastrointestinal: DENIES: Abdominal pain, Constipation, Diarrhea, Nausea, Vomiting Genitourinary: DENIES: Urinary frequency, Urinary incontinence, Urgency, Hematuria, Dysuria, Nocturia Musculoskeletal: COMPLAINS OF: Joint pain, DENIES: Muscle aches Integumentary: DENIES: Pruritus, Rash Hematologic/lymphatic: DENIES: Bruising Neurologic: DENIES: Headache Past Family Social History Allergies: Coded Allergies: Sulfa (Sulfonamide Antibiotics) (Verified Allergy, Severe, HIVES, 04/28/17) Past Medical History Hypertension Depression Graves' disease Osteoarthritis Past Surgical History Right hip arthroplasty 07/11/16, revision 04/17/17 Cataract surgery Tonsillectomy Reported Medications Hydrocodone-Acetamin 5-325 mg (Hydrocodone/Acetaminophen) 5 Mg-325 Mg Tablet 2 Tab PO Q4H PRN 60 Days Aspirin EC (Aspirin) 325 Mg Tabdr 325 Mg PO DAILY Brimonidine Opth Drops (Brimonidine Tartrate) 0.2% Soln 1 Drop EACH EYE BID Bupropion HCl ER 24 HR (Bupropion HCl) 150 Mg Tab 150 Mg PO DAILY Paroxetine (Paroxetine HCl) 40 Mg Tab 40 Mg PO DAILY Amlodipine (Amlodipine Besylate) 5 Mg Tab 5 Mg PO DAILY Levothyroxine (Levothyroxine Sodium) 100 Mcg Tab 100 Mcg PO DAILY Family History Heart disease Thyroid disease Social History Patient states that she quit smoking a number of years ago. Rare alcohol use. Denies illicit drug use. Physical Exam Vital Signs Vital Signs Date Time Temp Pulse Resp B/P (MAP) Pulse Ox O2 Delivery O2 Flow Rate FiO2 04/29/17 16:00 99.1 85 16 113/58 (76) 94 04/29/17 12:10 68 04/29/17 12:00 98.1 71 16 117/54 (75) 99 04/29/17 08:01 74 04/29/17 08:00 Room Air 04/29/17 08:00 98.5 76 18 119/57 (77) 97 04/29/17 04:09 62 04/29/17 04:00 98.0 64 18 123/59 (80) 96 04/29/17 01:50 75 04/29/17 00:00 81 04/29/17 00:00 99.0 82 18 114/52 (72) 95 04/28/17 20:00 Room Air 04/28/17 20:00 99.2 76 20 117/56 (76) 98 04/28/17 20:00 77 04/28/17 19:02 74 18 138/63 (88) 98 04/28/17 18:04 70 17 126/59 (81) 100 Nasal Cannula 2.00 04/28/17 17:30 100 Non-Rebreather 15.00 100 04/28/17 17:30 100 15.00 100 Physical Exam GENERAL: Elderly female in no acute distress. HEENT: Normocephalic, atraumatic. Pupils equal, round and reactive. Extraocular movements intact. No scleral icterus. No injection or drainage. Oropharynx is clear. Mucous membranes are moist. CARDIOVASCULAR: Regular rate and rhythm without murmurs, gallops, or rubs. RESPIRATORY: Clear to auscultation. No wheezes, rales, or rhonchi. Breathing is non-labored. GASTROINTESTINAL: Abdomen soft, non-tender, nondistended. EXTREMITIES: No lower extremity edema. No calf tenderness. Right leg in a splint. PSYCH: Alert and oriented x 3. Laboratory Laboratory Tests Test 04/28/17 18:45 Urine Color YELLOW Urine Turbidity HAZY Urine pH 6.0 Urine Specific [place] 1.014 Urine Protein 30 Urine Glucose (UA) NEG Urine Ketones 10 Urine Occult Blood NEG Urine Nitrite NEG Urine Bilirubin NEG Urine Urobilinogen LESS THAN 2.0 Urine Leukocyte Esterase LARGE Urine RBC 22 Urine WBC 40 Urine Squamous Epithelial Cells 21 Urine Calcium Oxalate Crystals RARE Urine Amorphous Sediment RARE Urine Bacteria RARE Urine Mucus FEW Microscopic Urinalysis Comment CULTURE INDICATED Date/Time Source Procedure Growth Status 04/28/17 15:50 Blood Peripheral Aerobic Blood Culture - Preliminary NO GROWTH IN 1 DAY Resulted 04/28/17 15:50 Anaerobic Blood Culture - Preliminary Gram Positive Cocci Resulted 04/28/17 18:45 Urine Random Urine Urine Culture - Preliminary 50-100,000 CFU/ML MIXED ASHA... Resulted 04/28/17 17:40 Wound Hip Gram Stain - Final Resulted 04/28/17 17:40 Wound Culture - Preliminary Staph Sp Coagulase Positive Resulted Result Diagram: 04/28/17 1540 04/28/17 1540 Imaging Last Impressions Lower Extremity Ultrasound 04/28/17 0000 Signed Impressions: Service Date/Time: Friday, April 28, 2017 15:58 - CONCLUSION: 1. No evidence of deep venous thrombosis. Dave Eason MD Hip and Pelvis X-Ray 04/28/17 0000 Signed Impressions: Service Date/Time: Friday, April 28, 2017 16:44 - CONCLUSION: 1. Hip dislocation Dave Eason MD Hip X-Ray 04/28/17 0000 Signed Impressions: Service Date/Time: Friday, April 28, 2017 17:48 - CONCLUSION: 1. Uncomplicated reduction Dave Eason MD Assessment and Plan Assessment and Plan 1. Right hip dislocation, infection: Management per orthopedic surgery, infectious disease. Continue antibiotics. Continue Kidney pain control. 2. Hypertension: Continue amlodipine. 3. Hypothyroidism: Continue Synthroid. 4. Depression: Continue Wellbutrin, paroxetine. 5. Bacteremia: Blood culture growing MRSA. Wound culture growing coag positive staph. Continue antibiotics. Appreciate infectious disease recommendations. 6. DVT prophylaxis: Anticoagulation per orthopedic surgery. Problem Qualifiers (1) Dislocated hip: Qualified Codes: S73.004A - Unspecified dislocation of right hip, initial encounter Rony Coker MD Apr 29, 2017 17:29
[2017-04-29] MEDS ORDERED: NALOXONE HCL 0.4 MG/ML AMP IV PUSH PRN (18:30)
[2017-04-29] MEDS ORDERED: ACETAMINOPHEN 325 MG TAB PO PRN (18:30)
[2017-04-29] MEDS ORDERED: ACETAMINOPHEN/HYDROcodone 325 MG/5 MG TAB PO PRN (18:30)
[2017-04-29] MEDS ORDERED: ONDANSETRON HCL 4 MG/2 ML VIAL IVP PRN (18:30)
[2017-04-29] MEDS ORDERED: DOCUSATE SODIUM 100 MG CAP PO PRN (18:30)
[2017-04-29] MEDS: BRIMONIDINE TARTRATE 0.2% OPHT SOLN 5 ML BTL EACH EYE SCH (21:36)
[2017-04-29] MEDS ORDERED: GADODIAMIDE PF 287 MG/ML 5 ML VIAL (for RAD MRI) IV PUSH ONE (23:03)
[2017-04-29] MEDS: ZOLPIDEM TARTRATE 5 MG TAB PO PRN (23:21)
--- NOTE | 2017-04-29 23:22 | RADRPT ---
EXAM DATE/TIME: 04/29/2017 21:57 [facility] COMPARISON: No previous studies available for comparison. INDICATIONS : Abscess. CONTRAST: 18 cc Omniscan (gadodiamide) IV MEDICAL HISTORY : Hypertension. Osteoarthritis. SURGICAL HISTORY : Right hip replacement x 3. ENCOUNTER: Subsequent ACUITY: 1 week PAIN SCORE: 8/10 LOCATION: Right hip TECHNIQUE: Multiplanar, multisequence MRI examination was performed without contrast and after the intravenous a dministration of gadolinium. FINDINGS: Right hip arthroplasty is present. There is a complex irregular ring-enhancing collection posterior l ateral to the right measuring 9.3 x 6 CM. Abscess is not excluded. The bladder appears normal. No wal l thickening or intraluminal masses are identified. No free fluid is identified. No abnormally enlarg ed lymph nodes are identified. CONCLUSION: 1. Fluid collection posterior lateral to the right hip arthroplasty. Abscess is not excluded. This wo uld be accessible to percutaneous biopsy. Dave Eason MD on April 29, 2017 at 23:16 Board Certified Radiologist. This report was verified electronically.
[2017-04-30] VITALS (9 sets, daily range): BP systolic 116–136; BP diastolic 57–66; PULSE 58–72; RESP 18–20; TEMP 97.9–102.2; O2SAT 96–100
[2017-04-30 09:01] LABS: CREATININE 0.82 MG/DL (0.50-1.00)
[2017-04-30 09:03] LABS: RANDOM VANCOMYCIN 15.6 COMMENT
[2017-04-30] MEDS: ACETAMINOPHEN/HYDROcodone 325 MG/5 MG TAB PO PRN ×2 (10:00→21:01)
[2017-04-30] MEDS: LEVOTHYROXINE SODIUM 100 MCG TAB PO SCH (10:00)
[2017-04-30] MEDS: buPROPion HCL 150 MG SUSTAINED RELEASE TAB PO SCH (10:01)
[2017-04-30] MEDS: amLODIPine BESYLATE 5 MG TAB PO SCH (10:01)
[2017-04-30] MEDS: PARoxetine HCL 20 MG TAB PO SCH (10:02)
[2017-04-30] MEDS: BRIMONIDINE TARTRATE 0.2% OPHT SOLN 5 ML BTL EACH EYE SCH ×2 (10:03→21:00)
--- NOTE | 2017-04-30 10:28 | MH ---
cc: CECILIARUTHJUANITO DATE OF ADMISSION 04/28/2017 ADMITTING DIAGNOSIS Dislocation right hip status post total hip arthroplasty. HISTORY OF PRESENT ILLNESS The patient is a 66-year-old white female who is well-known to the undersigned physician having undergone previous orthopedic evaluation that included a total hip arthroplasty accomplished within the past year that was complicated by a subsequent MRSA infection necessitating the patient to undergo a resection arthroplasty with insertion of a cement spacer implant. She was evaluated and treated at that time by Dr. Makayla Mejia for infectious disease management which included a course of intravenous antibiotic treatment. She was later diagnosed as having a dislocation of her cement prosthesis that was manipulated in a closed fashion but would not stay in a reduced orientation. It was elected at that time not to proceed with any further disposition but the patient continued to be monitored from an infectious disease standpoint. She was felt to demonstrate overall improvement and was subsequently re-admitted to the hospital on the 17 of April this past year at which time she underwent a second-stage reimplantation of her right hip. Cultures at the time of surgery were unremarkable and negative for any evidence of residual bacterial contamination. The patient tolerated her operative procedure well and her initial recovery thereafter was unremarkable. She was discharged home where she was being monitored on an outpatient basis until the day prior to this current admission when the patient reports the onset of pain about her right hip. She did not recall any fall, but had been able to utilize the bathroom independently not describing any unusual posturing of her hip during this activity but apparently became symptomatic that did result in difficulty with ambulatory activities. She was subsequently evaluated in the emergency room of [facility] where x-ray examination demonstrated a dislocation of her hip prosthesis. The patient underwent a successful closed reduction at that time. Her x-ray studies demonstrated an elevated white count for which the patient has subsequently been admitted to the hospital for further disposition and management. PAST MEDICAL HISTORY Past medical history, hospitalizations and surgeries in addition to the multiple surgical procedures of her right hip as described have included: 1. Vein stripping of her left lower extremity. 2. Bilateral cataract excision. 3. Tonsillectomy. 4. The patient apparently has also been treated in the past for a MRSA infection of her back area that did require I&D treatment. Her medical illnesses include: 1. Hypothyroidism. 2. Depression. 3. Hypertension. MEDICATIONS Prescribed medications have included: 1. Levofloxacin. 2. Paroxetine. 3. Bupropion. 4. Amlodipine. 5. Eye drops. ALLERGIES SHE DESCRIBES A DRUG ALLERGY TO SULFA WHICH HAS BEEN ASSOCIATED WITH FACIAL SWELLING. REVIEW OF SYSTEMS No headache, seizure or syncope. Occasional sinus congestion. No epistaxis. Auditory acuity intact. No tinnitus. No bleeding gums or dysphagia. No cough, shortness of breath, upper respiratory infection, pneumonia or tuberculosis. No angina or heart disease. She is medically managed for hypertension. Appetite good. Bowel movements regular. No hepatitis, gallbladder disease, ulcers or hemorrhoids. No urinary tract infection. No kidney stones. No previous fractures. She has been treated for depression. The remaining review of systems is unremarkable and noncontributory. FAMILY HISTORY The patient has been a for seven years, at 50 years of age secondary to congestive heart failure. She has two sons and one daughter all described as being in good health. Her family history is positive for hypertension, heart disease and prostate cancer. SOCIAL HISTORY The patient completed a high school education. She has been a housewife. She admits to a [id number] use of tobacco but has tried to taper this habit in the more recent past. Ethanol consumption in the form of an occasional glass of wine or beer. PHYSICAL EXAMINATION Height 5 feet 4 inches. Weight 204 pounds. GENERAL: An alert, oriented and responsive 66-year-old white female sitting quietly in bed with no obvious distress. HEAD, EYES, EARS, NOSE, AND THROAT: Pupils equally round and reactive to light. Extraocular movements full. Sclera clear. External nares clear. External auditory canals clear. Edentulous. Mucous membranes pink and moist. Pharynx clear. NECK: Supple. Active range of motion. Carotid pulse palpable bilaterally. Trachea midline. Thyroid without enlargement. LUNGS: Clear to auscultation and percussion. BACK: No CVA tenderness. No discomfort of the dorsolumbar spine. HEART: Regular rhythm. No murmur or gallop. ABDOMEN: Soft, nontender. Bowel sounds present. PELVIC: Per primary care physician. EXTREMITIES: Intact surgical wound about the right hip area with bordering erythema but no significant fluctuance or evidence of drainage. There is some limited mobility of the hip joint with range of motion assessment but no associated sensation of instability. Distal sensory grossly intact. No attempted ambulatory assessment is made at this time. NEUROLOGIC: Cranial nerves II-XII grossly intact. IMPRESSION 1. Dislocation right hip, status post total hip arthroplasty. 2. History of MRSA infection. PLAN The patient has been evaluated earlier today by Dr. Mejia who has ordered additional diagnostic studies while the patient has been initiated into a course of intravenous antibiotics at this time. I will continue to monitor the course of current treatment having outlined to the patient the possibility of requiring further evaluation of her right hip including potential aspiration to rule out the possibility of any recurrent infection involving the hip area. The patient will be monitored accordingly. Further discussion will be completed with Dr. Mejia with regards to additional infectious disease management. Juanito Brice MD NBS/BT /6:03 PM /10:02 AM
--- NOTE | 2017-04-30 11:28 | HHI.PR ---
Subjective Remarks Follow up Right prosthetic hip infection/Bacteremia 04/30/17-Patient seen and examined, denies any significant stump pain. Currently afebrile Objective Vitals Vital Signs Date Time Temp Pulse Resp B/P (MAP) Pulse Ox O2 Delivery O2 Flow Rate FiO2 04/30/17 08:00 98.1 65 20 126/59 (81) 97 04/30/17 04:24 58 04/30/17 04:00 98.2 63 18 135/61 (85) 96 04/30/17 01:00 99.5 04/30/17 00:00 Room Air 04/30/17 00:00 102.2 72 18 122/58 (79) 96 04/29/17 23:57 79 04/29/17 20:28 79 04/29/17 20:00 Room Air 04/29/17 20:00 100.7 73 18 131/61 (84) 95 04/29/17 16:07 75 04/29/17 16:00 99.1 85 16 113/58 (76) 94 04/29/17 12:10 68 04/29/17 12:00 98.1 71 16 117/54 (75) 99 I/O 04/29/17 04/29/17 04/29/17 04/30/17 04/30/17 04/30/17 06:59 14:59 22:59 06:59 14:59 22:59 Intake Total 480 ml Output Total 730 ml Balance -730 ml 480 ml Intake Oral 480 ml Output Urine Total 730 ml # Voids 2 # Bowel Movements 0 Result Diagram: 04/28/17 1540 04/30/17 0746 Imaging Last Impressions Hip MRI 04/29/17 0000 Signed Impressions: Service Date/Time: Saturday, April 29, 2017 21:57 - CONCLUSION: 1. Fluid collection posterior lateral to the right hip arthroplasty. Abscess is not excluded. This would be accessible to percutaneous biopsy. Dave Eason MD Lower Extremity Ultrasound 04/28/17 0000 Signed Impressions: Service Date/Time: Friday, April 28, 2017 15:58 - CONCLUSION: 1. No evidence of deep venous thrombosis. Dave Eason MD Hip and Pelvis X-Ray 04/28/17 0000 Signed Impressions: Service Date/Time: Friday, April 28, 2017 16:44 - CONCLUSION: 1. Hip dislocation Dave Eason MD Hip X-Ray 04/28/17 0000 Signed Impressions: Service Date/Time: Friday, April 28, 2017 17:48 - CONCLUSION: 1. Uncomplicated reduction Dave Eason MD Objective Remarks GENERAL: NAD SKIN: Warm and dry. HEAD: Normocephalic. EYES: No scleral icterus. No injection or drainage. NECK: Supple, trachea midline. No JVD or lymphadenopathy. CARDIOVASCULAR: Regular rate and rhythm without murmurs, gallops, or rubs. RESPIRATORY: Breath sounds equal bilaterally. No accessory muscle use. GASTROINTESTINAL: Abdomen soft, non-tender, nondistended. MUSCULOSKELETAL: No cyanosis, or edema. right hip prosthetic BACK: Nontender without obvious deformity. No CVA tenderness. A/P Problem List: (1) Bacteremia ICD Code: R78.81 - Bacteremia (2) Infected prosthetic hip ICD Code: T84.59XA - Infection and inflammatory reaction due to other internal joint prosthesis, initial encounter; Z96.649 - Presence of unspecified artificial hip joint (3) Dislocated hip ICD Code: S73.006A - Unspecified dislocation of unspecified hip, initial encounter Status: Acute (4) HTN (hypertension) ICD Code: I10 - Essential (primary) hypertension Status: Acute (5) Hypothyroidism ICD Code: E03.9 - Hypothyroidism, unspecified Status: Acute (6) Depression ICD Code: F32.9 - Major depressive disorder, single episode, unspecified Status: Acute (7) UTI (urinary tract infection) ICD Code: N39.0 - Urinary tract infection, site not specified Assessment and Plan 66 yrs old female with: Bacteremia Currently on vancomycin PENDING culture report Appreciate input from infectious disease specialist 2-D echo pending Right hip prosthetic infection Currently on vancomycin pending culture reports MRI of the hip noted and review Appreciate input from orthopedic surgery, infectious disease specialist Pain management accordingly PT to treat and eval Urinary tract infection Currently on IV Antibiotic pending culture report Hypertension Amlodipine Hypothyroidism: Continue Synthroid Depression: Continue Wellbutrin, paroxetine DVT prophylaxis: Anticoagulation per orthopedic surgery. Problem Qualifiers (1) Dislocated hip: Qualified Codes: S73.004A - Unspecified dislocation of right hip, initial encounter Panchito Lock MD Apr 30, 2017 11:28
--- NOTE | 2017-04-30 12:49 | HHI.PR ---
Addendum to Inpatient Note Additional Information Hip MRI 04/29/17 0000 Signed Impressions: Service Date/Time: Saturday, April 29, 2017 21:57 - CONCLUSION: 1. Fluid collection posterior lateral to the right hip arthroplasty. Abscess is not excluded. This would be accessible to percutaneous biopsy. Dave Eason MD PLAN: consult Dr Brice will need I+D Makayla Mejia MD Apr 30, 2017 12:49
[2017-04-30] MEDS: VANCOMYCIN INJ 1,500 MG in SODIUM CHLORID 0.9% 500 ML INJ 500 ML IV SCH (14:01)
[2017-04-30] MEDS: ZOLPIDEM TARTRATE 5 MG TAB PO PRN (23:07)
[2017-05-01] VITALS (8 sets, daily range): BP systolic 108–159; BP diastolic 54–70; PULSE 60–88; RESP 16–18; TEMP 97.5–98.6; O2SAT 94–99
[2017-05-01] MEDS ORDERED: SODIUM CHLORID 0.9% 500 ML IV PRN (05:15)
[2017-05-01] MEDS ORDERED: POVIDONE IODINE 5% (ANTISEPSIS KIT) 4 APPLICATIONS EACH NARE PRN (05:15)
[2017-05-01] MEDS ORDERED: CHLORHEXIDINE GLUCONATE 2 % 1 PACK (2 CLOTHS) TOPICAL PRN (05:15)
[2017-05-01] MEDS ORDERED: LACTATED RINGER'S 1000 ML IV PRN (05:15)
[2017-05-01] MEDS ORDERED: METOPROLOL TARTRATE 25 MG TAB PO PRN (05:15)
[2017-05-01] MEDS: VANCOMYCIN INJ 1,500 MG in SODIUM CHLORID 0.9% 500 ML INJ 500 ML IV SCH (05:50)
[2017-05-01] MEDS: LEVOTHYROXINE SODIUM 100 MCG TAB PO SCH (09:00)
[2017-05-01] MEDS: buPROPion HCL 150 MG SUSTAINED RELEASE TAB PO SCH (09:00)
[2017-05-01] MEDS: amLODIPine BESYLATE 5 MG TAB PO SCH (09:00)
[2017-05-01] MEDS: PARoxetine HCL 20 MG TAB PO SCH (09:00)
[2017-05-01] MEDS: BRIMONIDINE TARTRATE 0.2% OPHT SOLN 5 ML BTL EACH EYE SCH ×2 (09:00→21:47)
[2017-05-01 10:19] LABS: AUTOMATED NEUTROPHIL # 6.7 TH/MM3 (1.8-7.7); BASOPHIL % 0.3 % (0.0-2.0); EOSINOPHIL # 0.2 TH/MM3 (0-0.4); EOSINOPHIL % 1.8 % (0.0-4.0); HEMATOCRIT 26.8 % (35.0-46.0); HEMOGLOBIN 8.6 GM/DL (11.6-15.3); LYMPH % 9.8 % (9.0-44.0); LYMPHOCYTE # 0.8 TH/MM3 (1.0-4.8); MEAN CELL VOLUME 79.2 FL (80.0-100.0); MEAN CORPUSCULAR HEMOGLOBIN 25.5 PG (27.0-34.0); MEAN CORPUSCULAR HGB CONC 32.2 % (32.0-36.0); MEAN PLATELET VOLUME 8.5 FL (7.0-11.0); MONO % 8.6 % (0.0-8.0); MONOCYTE # 0.7 TH/MM3 (0-0.9); NEUT % 79.5 % (16.0-70.0); PLATELET COUNT 422 TH/MM3 (150-450); RED BLOOD COUNT 3.39 MIL/MM3 (4.00-5.30); RED CELL DISTRIBUTION WIDTH 16.7 % (11.6-17.2); WHITE BLOOD COUNT 8.4 TH/MM3 (4.0-11.0)
--- NOTE | 2017-05-01 10:34 | HHI.PR ---
Subjective Remarks Follow up Right prosthetic hip infection/Bacteremia 04/30/17-Patient seen and examined, denies any significant stump pain. Currently afebrile 05/01/17-patient seen and examined, no complaint. Afebrile. Currently nothing by mouth Objective Vitals Vital Signs Date Time Temp Pulse Resp B/P (MAP) Pulse Ox O2 Delivery O2 Flow Rate FiO2 05/01/17 08:08 98.6 66 18 159/70 (99) 97 05/01/17 04:00 98.6 72 18 135/62 (86) 96 05/01/17 03:46 62 05/01/17 02:02 61 05/01/17 00:00 Room Air 05/01/17 00:00 98.4 60 16 108/54 (72) 99 04/30/17 20:00 98.9 66 18 136/66 (89) 100 04/30/17 20:00 Room Air 04/30/17 16:09 98.0 64 20 118/58 (78) 96 04/30/17 12:00 97.9 63 20 116/57 (76) 97 04/30/17 11:58 62 I/O 04/30/17 04/30/17 04/30/17 05/01/17 05/01/17 05/01/17 07:00 15:00 23:00 07:00 15:00 23:00 Intake Total 480 ml 240 ml Output Total 800 ml Balance 480 ml -560 ml Intake Oral 480 ml 240 ml Output Urine Total 800 ml # Bowel Movements 0 Result Diagram: 05/01/17 0750 04/30/17 0746 Imaging Last Impressions Hip MRI 04/29/17 0000 Signed Impressions: Service Date/Time: Saturday, April 29, 2017 21:57 - CONCLUSION: 1. Fluid collection posterior lateral to the right hip arthroplasty. Abscess is not excluded. This would be accessible to percutaneous biopsy. Dave Eason MD Lower Extremity Ultrasound 04/28/17 0000 Signed Impressions: Service Date/Time: Friday, April 28, 2017 15:58 - CONCLUSION: 1. No evidence of deep venous thrombosis. Dave Eason MD Hip and Pelvis X-Ray 04/28/17 0000 Signed Impressions: Service Date/Time: Friday, April 28, 2017 16:44 - CONCLUSION: 1. Hip dislocation Dave Eason MD Hip X-Ray 04/28/17 0000 Signed Impressions: Service Date/Time: Friday, April 28, 2017 17:48 - CONCLUSION: 1. Uncomplicated reduction Dave Eason MD Objective Remarks GENERAL: NAD SKIN: Warm and dry. HEAD: Normocephalic. EYES: No scleral icterus. No injection or drainage. NECK: Supple, trachea midline. No JVD or lymphadenopathy. CARDIOVASCULAR: Regular rate and rhythm without murmurs, gallops, or rubs. RESPIRATORY: Breath sounds equal bilaterally. No accessory muscle use. GASTROINTESTINAL: Abdomen soft, non-tender, nondistended. MUSCULOSKELETAL: No cyanosis, or edema. right hip prosthetic BACK: Nontender without obvious deformity. No CVA tenderness. A/P Problem List: (1) Bacteremia ICD Code: R78.81 - Bacteremia (2) Infected prosthetic hip ICD Code: T84.59XA - Infection and inflammatory reaction due to other internal joint prosthesis, initial encounter; Z96.649 - Presence of unspecified artificial hip joint (3) Dislocated hip ICD Code: S73.006A - Unspecified dislocation of unspecified hip, initial encounter Status: Acute (4) HTN (hypertension) ICD Code: I10 - Essential (primary) hypertension Status: Acute (5) Hypothyroidism ICD Code: E03.9 - Hypothyroidism, unspecified Status: Acute (6) Depression ICD Code: F32.9 - Major depressive disorder, single episode, unspecified Status: Acute (7) UTI (urinary tract infection) ICD Code: N39.0 - Urinary tract infection, site not specified Assessment and Plan Last Impressions Hip MRI 04/29/17 0000 Signed Impressions: Service Date/Time: Saturday, April 29, 2017 21:57 - CONCLUSION: 1. Fluid collection posterior lateral to the right hip arthroplasty. Abscess is not excluded. This would be accessible to percutaneous biopsy. Dave Eason MD Lower Extremity Ultrasound 04/28/17 0000 Signed Impressions: Service Date/Time: Friday, April 28, 2017 15:58 - CONCLUSION: 1. No evidence of deep venous thrombosis. Dave Eason MD Hip and Pelvis X-Ray 04/28/17 0000 Signed Impressions: Service Date/Time: Friday, April 28, 2017 16:44 - CONCLUSION: 1. Hip dislocation Dave Eason MD Hip X-Ray 04/28/17 0000 Signed Impressions: Service Date/Time: Friday, April 28, 2017 17:48 - CONCLUSION: 1. Uncomplicated reduction Dave Eason MD 66 yrs old female with: Bacteremia Currently on vancomycin PENDING culture report Appreciate input from infectious disease specialist 2-D echo pending Right hip prosthetic infection Currently on vancomycin pending culture reports MRI of the hip noted and review Appreciate input from orthopedic surgery, infectious disease specialist Pain management accordingly PT to treat and eval Questionable abscess posterior lateral of the right hip arthroplasty Plan for possible drainage by orthopedic surgery today 05/01/17 Continue current antibiotics Urinary tract infection Currently on IV Antibiotic pending culture report Hypertension Amlodipine Hypothyroidism: Continue Synthroid Depression: Continue Wellbutrin, paroxetine DVT prophylaxis: Anticoagulation per orthopedic surgery. Problem Qualifiers (1) Dislocated hip: Qualified Codes: S73.004A - Unspecified dislocation of right hip, initial encounter Panchito Lock MD May 01, 2017 10:34
[2017-05-01] MEDS ORDERED: VANCOMYCIN HCL 1000 MG VIAL ONE (11:07)
[2017-05-01] MEDS ORDERED: GENTAMICIN SULFATE 80 MG/2 ML VIAL ONE (11:07)
[2017-05-01] MEDS ORDERED: SODIUM CHLOR 0.9% 250 ML INJ 0 ML ONE (11:08)
[2017-05-01] MEDS ORDERED: PHENYLEPH/NS 1000 MCG/10 ML SYR IV ONE (12:00)
[2017-05-01] MEDS ORDERED: LACTATED RINGER'S 1000 ML INJ 1,000 ML IV ONE (12:00)
[2017-05-01] MEDS ORDERED: GLYCOPYRROLATE 1 MG/5 ML SYRINGE IV PUSH ONE (12:00)
[2017-05-01] MEDS ORDERED: LIDOCAINE HCL 1% PF 5 ML SYRINGE OTHER ONE (12:00)
[2017-05-01] MEDS ORDERED: NEOSTIGMINE 5 MG/5 ML SYRINGE IV PUSH ONE (12:00)
[2017-05-01] MEDS ORDERED: ePHEDrine/NS 25 MG/5 ML SYRINGE IV ONE (12:00)
[2017-05-01] MEDS ORDERED: ROCURONIUM INJ 50 MG/5 ML SYRINGE IV PUSH ONE (12:00)
[2017-05-01] MEDS ORDERED: PROPOFOL 200 MG/20 ML AMP IV ONE (12:00)
[2017-05-01] MEDS ORDERED: ONDANSETRON HCL 4 MG/2 ML VIAL IV PUSH ONE (12:00)
[2017-05-01] MEDS: DEXT 5%-NACL 0.45% 1000 ML INJ 1,000 ML IV SCH ×2 (13:00→21:47)
[2017-05-01] MEDS ORDERED: ZOLPIDEM TARTRATE 5 MG TAB PO PRN (15:00)
[2017-05-01] MEDS ORDERED: ACETAMINOPHEN/HYDROcodone 325 MG/5 MG TAB PO PRN ×2 (15:00)
[2017-05-01] MEDS ORDERED: ACETAMINOPHEN 325 MG TAB PO PRN (15:00)
[2017-05-01] MEDS ORDERED: Post-op Orders (for Pharmacy) XX ONE (15:00)
[2017-05-01] MEDS ORDERED: DOCUSATE SODIUM 100 MG CAP PO PRN (15:00)
[2017-05-01] MEDS ORDERED: ONDANSETRON HCL 4 MG/2 ML VIAL IVP PRN (15:00)
[2017-05-01] MEDS ORDERED: MISCELLANEOUS PHARMACY INFORMATION XX ONE (15:00)
[2017-05-01] MEDS ORDERED: NALOXONE HCL 0.4 MG/ML AMP IV PUSH PRN (15:00)
--- NOTE | 2017-05-01 15:28 | RADRPT ---
EXAM DATE/TIME: 05/01/2017 15:10 [facility] COMPARISON: HIP RIGHT AP ONLY WO AP PELVIS, April 28, 2017, 17:48. INDICATIONS : Right hip post op. MEDICAL HISTORY : Hypertension. Osteoarthritis. SURGICAL HISTORY : Right hip replacement x 3. ENCOUNTER: Initial ACUITY: 1 day PAIN SCORE: Non-responsive. LOCATION: Right hip. FINDINGS: View of the right hip was obtained. Right hip arthroplasty. Postoperative changes. No hardware loosen ing.. CONCLUSION: Right hip arthroplasty, unchanged. Panchito Gonzalez MD on May 01, 2017 at 15:24 Board Certified Radiologist. This report was verified electronically.
[2017-05-01] MEDS ORDERED: DO NOT ADM ANY ANTICOAGULANT DRUGS PRN (15:30)
[2017-05-01] MEDS ORDERED: *morphine SULFATE 4 MG/ML PERIprocedure ONLY ONE (15:31)
[2017-05-01] MEDS ORDERED: Vancomycin Consult Pharmacy 1 EA OTHER SCH (16:00)
[2017-05-01] MEDS: MORPHINE SULFATE 30 MG/30 ML PCA IV SCH ×2 (16:50→21:40)
--- NOTE | 2017-05-01 19:43 | ECHRPT ---
Indication: VEGETATION CONCLUSIONS Mildly dilated left ventricle. Wall thickness is measured at the upper limits of normal. The left ventricular systolic function is normal with an estimated ejection fraction of 55%. Mild tricuspid regurgitation. BP: 126 / 59 HR: 65 Rhythm: MEASUREMENTS (Male / Female) Normal Values Technical Quality:Good 2D ECHO LV Diastolic Diameter PLAX 5.2 cm 4.2 - 5.9 / 3.9 - 5.3 cm LV Systolic Diameter PLAX 3.9 cm IVS Diastolic Thickness 1.3 cm 0.6 - 1.0 / 0.6 - 0.9 cm LVPW Diastolic Thickness 0.7 cm 0.6 - 1.0 / 0.6 - 0.9 cm LV Relative Wall Thickness 0.4 DOPPLER TR Peak Velocity 289.0 cm/s TR Peak Gradient 33.4 mmHg FINDINGS LEFT VENTRICLE Mildly dilated left ventricle. Wall thickness is measured at the upper limits of normal. The left ventricular systolic function is normal with an estimated ejection fraction of 55%. RIGHT VENTRICLE Normal right ventricular size and systolic function. LEFT ATRIUM The left atrial size is normal. RIGHT ATRIUM The right atrial size is normal. ATRIAL SEPTUM Normal atrial septal thickness without atrial level shunting by limited color doppler interrogation. AORTA The aortic root and proximal ascending aorta are normal in size on limited imaging. MITRAL VALVE Structurally normal mitral valve. No mitral valve stenosis or regurgitation. AORTIC VALVE Trileaflet aortic valve. No aortic valve stenosis or regurgitation. TRICUSPID VALVE Structurally normal tricuspid valve. Mild tricuspid regurgitation. PULMONARY VALVE The pulmonary valve is not well visualized. VESSELS The inferior vena cava is normal in size. PERICARDIUM No pericardial effusion. Sarath Mayer MD, FACC (Electronically Signed) Final Date:01 May 2017 19:42
--- NOTE | 2017-05-01 21:06 | EKG ---
Date Performed: 05/01/2017 Time Performed: 07:08:49 PTAGE: 66 years EKG: Sinus rhythm VOLTAGE CRITERIA FOR LVH ABNORMAL ECG PREVIOUS TRACING : 02/27/2017 10.01 Compared to the previous tracing no PACs present DOCTOR: Sarath Mayer Interpretating Date/Time 05/01/2017 21:05:31
[2017-05-01] MEDS: PCA - TOTAL MG MORPHINE DELIVERED PER SHIFT SCH (21:47)
[2017-05-02] VITALS (10 sets, daily range): BP systolic 115–154; BP diastolic 56–66; PULSE 65–80; RESP 16–20; TEMP 97.9–98.4; O2SAT 92–98
[2017-05-02] MEDS ORDERED: PHARMACY ORDERED LAB ONE (00:45)
[2017-05-02] MEDS: VANCOMYCIN INJ 1,500 MG in SODIUM CHLORID 0.9% 500 ML INJ 500 ML IV SCH (00:56)
[2017-05-02] MEDS: ZOLPIDEM TARTRATE 5 MG TAB PO PRN ×2 (01:07→21:38)
[2017-05-02] MEDS ORDERED: VANCOMYCIN INJ 1,000 MG in SODIUM CHLOR 0.9% 250 ML INJ 250 ML IV SCH (02:00)
[2017-05-02] MEDS: PCA - TOTAL MG MORPHINE DELIVERED PER SHIFT SCH ×3 (06:00→21:26)
--- NOTE | 2017-05-02 06:41 | HHI.FF ---
Face to Face Verification Diagnosis: (1) Dislocation, hip closed (2) Dislocated hip (3) Septic hip Physical Therapy Gait training Hip: Total hip, Posterior hip precautions, Abduction pillow while in bed Right LE Weight Bearing: WB as tolerated Right LE Range of Motion: Active ROM Nursing Dressing Changes: Daily dressing change I have seen patient Vanessa Cortez on 05/02/17. My clinical findings support the need for the requested home health care services because: Limited ability to care for self High risk of falls I certify that my clinical findings support that this patient is homebound because: Post-op weakness Unsteady gait/balance Unsafe to leave home unassisted Vinay Brice MD May 02, 2017 06:41
[2017-05-02] MEDS: DEXT 5%-NACL 0.45% 1000 ML INJ 1,000 ML IV SCH ×3 (06:55→21:26)
--- NOTE | 2017-05-02 07:40 | MP ---
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 PROCEDURE Incision and drainage of right hip. SURGEON Waqas Brice MD ANESTHESIA General endotracheal. FORMAT Following the induction of satisfactory general anesthesia by endotracheal intubation as completed per the Department of Anesthesia, the patient was positioned upon the operating table in a right lateral decubitus fashion. The right hip and lower extremity proper were isolated with a U-drape thereafter being prepped with Betadine solution and draped into a sterile field in the routine manner. Prior to initiation of the actual procedure, the standard time-out protocol was completed. All parameters were appropriately addressed and confirmed by operating room personnel. A previous surgical incision with a very minimal degree of wound dehiscence was sharply excised in its entirety in an elliptical fashion and thereafter progressive dissection was completed in a deepening fashion. There was an obvious disruption of the deeper repair from recent surgery with communication being appreciated directly into the deeper tissues that was consistent with the history of the patient having had a recent dislocation of her right hip. Cultures were obtained at deep subcutaneous level as well as within the confines of the joint space. The hip components were visualized and noted to be in appropriate orientation. Thereafter thorough irrigation was completed utilizing 9 liters with pulsating antibiotic solution. Upon completion of same, the deeper tissue layer was reapproximated with a running 0 Vicryl suture and the remaining portion of the wound closed in layers in the routine manner, skin margins being reapproximated with a running subcuticular 3-0 Vicryl suture over which Steri-Strips were applied. Xeroform gauze and a bulky dry sterile dressing were placed. The patient was repositioned into a supine orientation a knee immobilizer was positioned, anesthesia was discontinued. She was thereafter transferred to a hospital bed and returned to the recovery room in satisfactory condition having tolerated her operative procedure well. Estimated blood loss was approximately 75-100 cc. Juanito Brice MD NBS/SSB /2:47 PM /7:24 AM
[2017-05-02 09:58] LABS: HEMATOCRIT 25.7 % (35.0-46.0); HEMOGLOBIN 8.2 GM/DL (11.6-15.3)
[2017-05-02 10:28] LABS: CREATININE 0.76 MG/DL (0.50-1.00)
[2017-05-02] MEDS: buPROPion HCL 150 MG SUSTAINED RELEASE TAB PO SCH (11:28)
[2017-05-02] MEDS: PARoxetine HCL 20 MG TAB PO SCH (11:28)
[2017-05-02] MEDS: BRIMONIDINE TARTRATE 0.2% OPHT SOLN 5 ML BTL EACH EYE SCH ×2 (11:28→21:26)
[2017-05-02] MEDS: LEVOTHYROXINE SODIUM 100 MCG TAB PO SCH (11:28)
[2017-05-02] MEDS: amLODIPine BESYLATE 5 MG TAB PO SCH (11:28)
[2017-05-02] MEDS: MORPHINE SULFATE 30 MG/30 ML PCA IV SCH (15:36)
--- NOTE | 2017-05-02 15:37 | HHI.PR ---
Subjective Remarks Follow up Right prosthetic hip infection/Bacteremia 04/30/17-Patient seen and examined, denies any significant stump pain. Currently afebrile 05/01/17-patient seen and examined, no complaint. Afebrile. 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 LIVES ALONE WITH HER DOGS WANTS HHC AT DC NOT SNF Objective Vitals Vital Signs Date Time Temp Pulse Resp B/P (MAP) Pulse Ox O2 Delivery O2 Flow Rate FiO2 05/02/17 14:00 18 05/02/17 11:36 74 05/02/17 08:00 98.2 71 20 129/60 (83) 92 05/02/17 06:00 18 05/02/17 05:06 97.9 66 16 118/62 (80) 96 05/02/17 00:55 98.0 80 16 115/56 (75) 95 05/02/17 00:00 75 05/01/17 21:47 16 05/01/17 21:47 16 05/01/17 21:40 16 05/01/17 21:27 97.9 63 16 124/58 (80) 97 05/01/17 20:00 97 Nasal Cannula 2.00 05/01/17 16:50 17 05/01/17 16:08 97.5 88 18 129/61 (83) 94 05/01/17 16:00 98.4 71 17 130/58 (82) 100 Nasal Cannula 3 05/01/17 15:45 71 17 122/60 (80) 100 Nasal Cannula 3 I/O 05/01/17 05/01/17 05/01/17 05/02/17 05/02/17 05/02/17 07:00 15:00 23:00 07:00 15:00 23:00 Intake Total 240 ml 1200 ml 995 ml Output Total 800 ml 50 ml Balance -560 ml 1150 ml 995 ml Intake Oral 240 ml 480 ml IV Total 515 ml Other 1200 ml Output Urine Total 800 ml Estimated Blood Loss 50 ml # Voids 3 # Bowel Movements 0 0 Result Diagram: 05/02/17 0930 05/02/17 0930 Other Results Laboratory Tests Test 04/30/17 07:46 05/01/17 07:50 05/02/17 00:45 05/02/17 09:30 Creatinine 0.82 MG/DL 0.76 MG/DL Estimat Glomerular Filtration Rate 69 ML/MIN 76 ML/MIN Random Vancomycin Level 15.6 COMMENT White Blood Count 8.4 TH/MM3 Red Blood Count 3.39 MIL/MM3 Hemoglobin 8.6 GM/DL 8.2 GM/DL Hematocrit 26.8 % 25.7 % Mean Corpuscular Volume 79.2 FL Mean Corpuscular Hemoglobin 25.5 PG Mean Corpuscular Hemoglobin Concent 32.2 % Red Cell Distribution Width 16.7 % Platelet Count 422 TH/MM3 Mean Platelet Volume 8.5 FL Neutrophils (%) (Auto) 79.5 % Lymphocytes (%) (Auto) 9.8 % Monocytes (%) (Auto) 8.6 % Eosinophils (%) (Auto) 1.8 % Basophils (%) (Auto) 0.3 % Neutrophils # (Auto) 6.7 TH/MM3 Lymphocytes # (Auto) 0.8 TH/MM3 Monocytes # (Auto) 0.7 TH/MM3 Eosinophils # (Auto) 0.2 TH/MM3 Basophils # (Auto) 0.0 TH/MM3 CBC Comment DIFF FINAL Differential Comment Vancomycin Level Trough 34.8 MCG/ML Imaging Last Impressions Hip X-Ray 05/01/17 1455 Signed Impressions: Service Date/Time: Monday, May 01, 2017 15:10 - CONCLUSION: Right hip arthroplasty, unchanged. Panchito Gonzalez MD Hip MRI 04/29/17 0000 Signed Impressions: Service Date/Time: Saturday, April 29, 2017 21:57 - CONCLUSION: 1. Fluid collection posterior lateral to the right hip arthroplasty. Abscess is not excluded. This would be accessible to percutaneous biopsy. Dave Eason MD Lower Extremity Ultrasound 04/28/17 0000 Signed Impressions: Service Date/Time: Friday, April 28, 2017 15:58 - CONCLUSION: 1. No evidence of deep venous thrombosis. Dave Eason MD Hip and Pelvis X-Ray 04/28/17 0000 Signed Impressions: Service Date/Time: Friday, April 28, 2017 16:44 - CONCLUSION: 1. Hip dislocation Dave Eason MD Objective Remarks GENERAL: Awake alert talkative and cooperative denies any pain in her right hip at this time SKIN: Warm and dry. HEAD: Atraumatic. Normocephalic. EYES: Pupils equal and round. No scleral icterus. No injection or drainage. Extraocular muscles intact ENT: No nasal bleeding or discharge. Mucous membranes pink and moist. Oral mucosa is moist tongue is midline NECK: Trachea midline. No JVD. Supple CARDIOVASCULAR: Regular rate and rhythm. S1 and S2 no S3-S4 RESPIRATORY: No accessory muscle use. Clear to auscultation. Breath sounds equal bilaterally. GASTROINTESTINAL: Abdomen soft, non-tender, nondistended. Hepatic and splenic margins not palpable. Obese MUSCULOSKELETAL: Extremities without clubbing, cyanosis, or edema. No obvious deformities. NEUROLOGICAL: Awake and alert. No obvious cranial nerve deficits. Motor grossly within normal limits. Five out of 5 muscle strength in the arms and legs. Normal speech. PSYCHIATRIC: Appropriate mood and affect; insight and judgment normal. 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 PROCEDURE Incision and drainage of right hip. SURGEON Waqas Brice MD ANESTHESIA General endotracheal. FORMAT Following the induction of satisfactory general anesthesia by endotracheal intubation as completed per the Department of Anesthesia, the patient was positioned upon the operating table in a right lateral decubitus fashion. The right hip and lower extremity proper were isolated with a U-drape thereafter being prepped with Betadine solution and draped into a sterile field in the routine manner. Prior to initiation of the actual procedure, the standard time-out protocol was completed. All parameters were appropriately addressed and confirmed by operating room personnel. A previous surgical incision with a very minimal degree of wound dehiscence was sharply excised in its entirety in an elliptical fashion and thereafter progressive dissection was completed in a deepening fashion. There was an obvious disruption of the deeper repair from recent surgery with communication being appreciated directly into the deeper tissues that was consistent with the history of the patient having had a recent dislocation of her right hip. Cultures were obtained at deep subcutaneous level as well as within the confines of the joint space. The hip components were visualized and noted to be in appropriate orientation. Thereafter thorough irrigation was completed utilizing 9 liters with pulsating antibiotic solution. Upon completion of same, the deeper tissue layer was reapproximated with a running 0 Vicryl suture and the remaining portion of the wound closed in layers in the routine manner, skin margins being reapproximated with a running subcuticular 3-0 Vicryl suture over which Steri-Strips were applied. Xeroform gauze and a bulky dry sterile dressing were placed. The patient was repositioned into a supine orientation a knee immobilizer was positioned, anesthesia was discontinued. She was thereafter transferred to a hospital bed and returned to the recovery room in satisfactory condition having tolerated her operative procedure well. Estimated blood loss was approximately 75-100 cc. Medications and IVs Current Medications Morphine Sulfate (Morphine Inj) 4 mg ONCE ONCE IV PUSH Last administered on 04/28/17at 16:40; Start 04/28/17 at 16:00; Stop 04/28/17 at 16:01; Status DC Ondansetron HCl (Zofran Inj) 4 mg ONCE ONCE IV PUSH Last administered on at 16:40; Start 04/28/17 at 16:00; Stop 04/28/17 at 16:01; Status DC Vancomycin HCl 1000 mg/Sodium Chloride 250 ml @ 250 mls/hr ONCE ONCE IV Last administered on 04/28/17at 17:27; Start 04/28/17 at 16:45; Stop 04/28/17 at 17:44; Status DC Propofol (Diprivan 200 Mg/20 ml Inj) 90 mg ONCE ONCE IV ; Start 04/28/17 at 17: 15; Stop 04/28/17 at 17:16; Status DC Pharmacy Profile Note 0 ml @ 0 mls/hr UNSCH OTHER ; Start 04/28/17 at 18:15; Stop 05/01/17 at 16:18; Status DC Morphine Sulfate (Morphine Inj) 3 mg Q2H PRN IV PAIN WHEN PT NPO Last administered on 04/29/17at 09:25; Start 04/28/17 at 23:15 Acetaminophen/ Hydrocodone Bitart ([place] 5-325 Mg) 2 tab QID PRN PO PAIN WHEN TAKING PO Last administered on 04/29/17at 14:51; Start 04/28/17 at 23:15; Stop 04/29 at 18:36; Status DC Vancomycin HCl 1500 mg/Sodium Chloride 515 ml @ 257.5 mls/ hr ONCE ONCE IV Last administered on 04/29/17at 10:20; Start 04/29/17 at 11:00; Stop 04/29/17 at 12: 59; Status DC Amlodipine Besylate (Norvasc) 5 mg DAILY PO Last administered on 05/02/17 11: 28; Start 04/30/17 at 09:00 Brimonidine Tartrate ([place] 0.2% Opth Soln) 1 drop BID EACH EYE Last administered on 05/02/17 11:28; Start 04/29/17 at 21:00 Bupropion HCl (Wellbutrin Sr) 150 mg DAILY PO Last administered on 05/02/17 11 :28; Start 04/30/17 at 09:00 Levothyroxine Sodium (Synthroid) 100 mcg DAILY PO Last administered on 11:28; Start 04/30/17 at 09:00 Paroxetine HCl (Paxil) 40 mg DAILY PO Last administered on 05/02/17 11:28; Start 04/30/17 at 09:00 Acetaminophen/ Hydrocodone Bitart ([place] 5-325 Mg) 1 tab Q4H PRN PO PAIN LESS THAN 5 ON SCALE; Start 04/29/17 at 18:30 Acetaminophen/ Hydrocodone Bitart ([place] 5-325 Mg) 2 tab Q4H PRN PO PAIN SCALE 5 TO 10 Last administered on 04/30/17at 21:01; Start 04/29/17 at 18:30 Acetaminophen (Tylenol) 650 mg Q6H PRN PO FEVER > 101 Last administered on at 23:22; Start 04/29/17 at 18:30 Ondansetron HCl (Zofran Inj) 4 mg Q6H PRN IVP NAUSEA OR VOMITING; Start at 18:30 Docusate Sodium (Colace) 100 mg BID PRN PO CONSTIPATION; Start 04/29/17 at 18:30 ; Stop 05/01/17 at 15:14; Status DC Zolpidem Tartrate (Ambien) 5 mg HS PRN PO SLEEP Last administered on 05/02/17at 01:07; Start 04/29/17 at 18:30 Naloxone HCl (Narcan Inj) 0.4 mg UNSCH PRN IV PUSH RESPIRATORY RATE LESS THAN 10; Start 04/29/17 at 18:30 Gadodiamide (Omniscan Pf Inj) 18 ml STK-MED ONCE IV PUSH Last administered on at 23:03; Start 04/29/17 at 23:03; Stop 04/29/17 at 23:04; Status DC Vancomycin HCl 1500 mg/Sodium Chloride 515 ml @ 250 mls/hr Q18H IV Last administered on 05/02/17at 00:56; Start 04/30/17 at 13:00; Status Future Hold Miscellaneous Information SPECIFIC LAB TO BE DRAWN:VANCOMYCIN TROUGH DATE TO... ONCE ONCE .XX Last administered on 05/02/17at 00:45; Start 05/02/17 at 00:45; Stop 05/02/17 at 00:46; Status DC Lactated Ringer's 1,000 ml @ 30 mls/hr Q24H PRN IV SEE LABEL COMMENTS; Start at 05:15; Stop 05/01/17 at 15:14; Status DC Sodium Chloride 500 ml @ 30 mls/hr [id number] PRN IV SEE LABEL COMMENTS; Start 02/06 at 05:15; Stop 05/01/17 at 15:14; Status DC Metoprolol Tartrate (Lopressor) 25 mg COMPUTER REPAIRER PRN PO SEE LABEL COMMENTS; Start 05/01/17 at 05:15; Stop 05/04/17 at 05:14 Povidone Iodine (Betadine 5% Antisepsis Kit) 1 applic COMPUTER REPAIRER PRN EACH NARE SEE LABEL COMMENTS; Start 05/01/17 at 05:15; Stop 05/04/17 at 05:14 Chlorhexidine Gluconate (Chlorhexidine 2% Cloth) 3 pack COMPUTER REPAIRER PRN TOPICAL SEE LABEL COMMENTS; Start 05/01/17 at 05:15; Stop 05/04/17 at 05:14 Gentamicin Sulfate (Gentamicin Inj) 640 mg STK-MED ONCE .ROUTE Last administered on 05/01/17at 13:48; Start 05/01/17 at 11:07; Stop 05/01/17 at 11:08 ; Status DC Vancomycin HCl (Vancomycin Inj) 1,000 mg STK-MED ONCE .ROUTE ; Start 05/01/17 at 11:07; Stop 05/01/17 at 11:08; Status DC Sodium Chloride 0 ml @ As Directed STK-MED ONCE .ROUTE ; Start 05/01/17 at 11:08 ; Stop 05/01/17 at 11:09; Status DC Fentanyl Citrate (fentaNYL INJ) 200 mcg STK-MED ONCE .ROUTE ; Start 05/01/17 at 13:17; Stop 05/01/17 at 13:18; Status DC Dextrose/Sodium Chloride 1,000 ml @ 125 mls/hr Q8H IV Last administered on 03/09at 11:29; Start 05/01/17 at 14:55 Vancomycin HCl 1000 mg/Sodium Chloride 250 ml @ 250 mls/hr Q12H IV ; Start 03/09 at 02:00; Stop 05/02/17 at 02:00; Status DC Miscellaneous Information (Post-op Orders (for Pharmacy)) STAT ONCE XX ; Start 05/01/17 at 15:00; Stop 05/01/17 at 15:16; Status DC Miscellaneous Medication ([facility] Information) ONCE ONCE XX ; Start 02/06 at 15:00; Stop 05/01/17 at 15:15; Status DC Acetaminophen/ Hydrocodone Bitart ([place] 5-325 Mg) 1 tab Q4H PRN PO PAIN LESS THAN 5 ON SCALE; Start 05/01/17 at 15:00; Stop 05/01/17 at 15:10; Status DC Acetaminophen/ Hydrocodone Bitart ([place] 5-325 Mg) 2 tab Q4H PRN PO PAIN SCALE 5 TO 10; Start 05/01/17 at 15:00; Stop 05/01/17 at 15:10; Status DC Acetaminophen (Tylenol) 650 mg Q6H PRN PO FEVER > 101; Start 05/01/17 at 15:00 ; Stop 05/01/17 at 15:12; Status DC Ondansetron HCl (Zofran Inj) 4 mg Q6H PRN IVP NAUSEA OR VOMITING; Start at 15:00; Stop 05/01/17 at 15:13; Status DC Docusate Sodium (Colace) 100 mg BID PRN PO CONSTIPATION; Start 05/01/17 at 15: 00 Zolpidem Tartrate (Ambien) 5 mg HS PRN PO SLEEP; Start 05/01/17 at 15:00; Stop 05/01/17 at 15:12; Status DC Naloxone HCl (Narcan Inj) 0.4 mg UNSCH PRN IV PUSH RESPIRATORY RATE LESS THAN 10; Start 05/01/17 at 15:00 Morphine Sulfate (Morphine 1 Mg/ ml [employer]ER) 30 mg UNSCH IV Last administered on 02/06at 21:40; Start 05/01/17 at 15:00; Stop 05/03/17 at 14:59 [employer] Dosage Infused (Pha) 1 Q8HR .XX Last administered on 05/02/17at 14:00; Start 05/01/17 at 22:00 Miscellaneous Information ALL NURSING DEPARTME... UNSCH PRN .XX SEE LABEL COMMENTS; Start 05/01/17 at 15:30; Stop 05/02/17 at 15:29; Status DC Morphine Sulfate (*morphine INJ PERIprocedure ONLY) 4 mg STK-MED ONCE .ROUTE Last administered on 05/01/17at 15:31; Start 05/01/17 at 15:31; Stop 05/01/17 at 15:32; Status DC Pharmacy Profile Note 0 ml @ 0 mls/hr UNSCH OTHER ; Start 05/01/17 at 16:00 Lactated Ringer's 1,000 ml @ As Directed STK-MED ONCE IV ; Start 05/01/17 at 12 :00; Stop 05/02/17 at 09:56; Status DC Lidocaine HCl (Xylocaine-Mpf 1% Inj) 10 ml STK-MED ONCE OTHER ; Start 05/01/17 at 12:00; Stop 05/02/17 at 09:56; Status DC Rocuronium [place] (Zemuron Inj) 50 mg STK-MED ONCE IV PUSH ; Start 05/01/17 at 12:00; Stop 05/02/17 at 09:56; Status DC Neostigmine Methylsulfate (Prostigmine Inj) 5 mg STK-MED ONCE IV PUSH ; Start at 12:00; Stop 05/02/17 at 09:56; Status DC Glycopyrrolate (Robinul Inj) 1 mg STK-MED ONCE IV PUSH ; Start 05/01/17 at 12:00 ; Stop 05/02/17 at 09:56; Status DC Phenylephrine HCl (Neosynephrine/ NS 1000 Mcg/10ml Syr) 1,000 mcg STK-MED ONCE IV ; Start 05/01/17 at 12:00; Stop 05/02/17 at 09:56; Status DC Ephedrine Sulfate (ePHEDrine/NS 25 MG/5 ML SYR) 50 mg STK-MED ONCE IV ; Start at 12:00; Stop 05/02/17 at 09:56; Status DC Ondansetron HCl (Zofran Inj) 4 mg STK-MED ONCE IV PUSH ; Start 05/01/17 at 12:00 ; Stop 05/02/17 at 09:56; Status DC Propofol (Diprivan 200 Mg/20 ml Inj) 200 mg STK-MED ONCE IV ; Start 05/01/17 at 12:00; Stop 05/02/17 at 09:56; Status DC A/P Problem List: (1) Bacteremia ICD Code: R78.81 - Bacteremia (2) Infected prosthetic hip ICD Code: T84.59XA - Infection and inflammatory reaction due to other internal joint prosthesis, initial encounter; Z96.649 - Presence of unspecified artificial hip joint (3) Dislocated hip ICD Code: S73.006A - Unspecified dislocation of unspecified hip, initial encounter Status: Acute (4) HTN (hypertension) ICD Code: I10 - Essential (primary) hypertension Status: Acute (5) Hypothyroidism ICD Code: E03.9 - Hypothyroidism, unspecified Status: Acute (6) Depression ICD Code: F32.9 - Major depressive disorder, single episode, unspecified Status: Acute (7) UTI (urinary tract infection) ICD Code: N39.0 - Urinary tract infection, site not specified Assessment and Plan 66 yrs old female with: Bacteremia Currently on vancomycin PENDING culture report Appreciate input from infectious disease specialist 2-D echo pending Suspect MRSA Right hip prosthetic infection Currently on vancomycin pending culture reports MRI of the hip noted and review Appreciate input from orthopedic surgery, infectious disease specialist Pain management accordingly PT to treat and eval Status post incision and drainage of right hip. Yesterday Suspect MRSA Questionable abscess posterior lateral of the right hip arthroplasty Had drainage by orthopedic surgery on 05/01/17 Continue current antibiotics Urinary tract infection Currently on IV Antibiotic pending culture report Hypertension Amlodipine Hypothyroidism: Continue Synthroid Depression: Continue Wellbutrin, paroxetine Suspected MRSA infection DVT prophylaxis: Anticoagulation per orthopedic surgery. Wants to go home with home healthcare and not go to SNF Discharge Planning Wants to go home with home health care and not SNF Problem Qualifiers (1) Dislocated hip: Qualified Codes: S73.004A - Unspecified dislocation of right hip, initial encounter Dwayne Pak DO May 02, 2017 15:37
[2017-05-02] MEDS: ENOXAPARIN SODIUM 40 MG/0.4 ML SYRINGE SQ SCH (17:00)
[2017-05-02] MEDS: RIFAMPIN 150 MG CAP PO SCH (21:26)
[2017-05-03] VITALS (9 sets, daily range): BP systolic 125–153; BP diastolic 59–72; PULSE 60–82; RESP 17–18; TEMP 98.1–98.9; O2SAT 93–98
[2017-05-03] MEDS: DEXT 5%-NACL 0.45% 1000 ML INJ 1,000 ML IV SCH ×3 (04:44→22:35)
[2017-05-03] MEDS: PCA - TOTAL MG MORPHINE DELIVERED PER SHIFT SCH ×3 (06:00→22:00)
[2017-05-03] MEDS: LEVOTHYROXINE SODIUM 100 MCG TAB PO SCH (09:00)
[2017-05-03] MEDS: amLODIPine BESYLATE 5 MG TAB PO SCH (09:17)
[2017-05-03] MEDS: RIFAMPIN 150 MG CAP PO SCH ×2 (09:18→21:00)
[2017-05-03] MEDS: PARoxetine HCL 20 MG TAB PO SCH (09:18)
[2017-05-03] MEDS: BRIMONIDINE TARTRATE 0.2% OPHT SOLN 5 ML BTL EACH EYE SCH ×2 (09:18→22:35)
[2017-05-03] MEDS: buPROPion HCL 150 MG SUSTAINED RELEASE TAB PO SCH (09:18)
[2017-05-03 09:22] LABS: AUTOMATED NEUTROPHIL # 4.2 TH/MM3 (1.8-7.7); BASOPHIL # 0.1 TH/MM3 (0-0.2); BASOPHIL % 0.9 % (0.0-2.0); EOSINOPHIL # 0.3 TH/MM3 (0-0.4); EOSINOPHIL % 4.6 % (0.0-4.0); HEMATOCRIT 25.9 % (35.0-46.0); HEMOGLOBIN 8.3 GM/DL (11.6-15.3); LYMPH % 15.2 % (9.0-44.0); MEAN CELL VOLUME 79.7 FL (80.0-100.0); MEAN CORPUSCULAR HEMOGLOBIN 25.7 PG (27.0-34.0); MEAN CORPUSCULAR HGB CONC 32.2 % (32.0-36.0); MEAN PLATELET VOLUME 8.5 FL (7.0-11.0); MONOCYTE # 0.8 TH/MM3 (0-0.9); NEUT % 66.3 % (16.0-70.0); PLATELET COUNT 482 TH/MM3 (150-450); RED BLOOD COUNT 3.25 MIL/MM3 (4.00-5.30); RED CELL DISTRIBUTION WIDTH 16.7 % (11.6-17.2); WHITE BLOOD COUNT 6.3 TH/MM3 (4.0-11.0)
[2017-05-03 09:57] LABS: ALBUMIN 2.1 GM/DL (3.4-5.0); AST (GOT) 16 U/L (15-37); BICARBONATE 24.1 MEQ/L (21.0-32.0); BLOOD UREA NITROGEN 6 MG/DL (7-18); CALCIUM 8.5 MG/DL (8.5-10.1); CHLORIDE 105 MEQ/L (98-107); CREATININE 0.87 MG/DL (0.50-1.00); GLOMERULAR FILTRATION RATE 65 ML/MIN (>89); GLUCOSE,RANDOM 107 MG/DL (74-106); MAGNESIUM 2.2 MG/DL (1.5-2.5); SODIUM (NA) 137 MEQ/L (136-145)
[2017-05-03 09:59] LABS: ALT (GPT) 17 U/L (10-53)
[2017-05-03 10:18] LABS: ALKALINE PHOSPHATASE 96 U/L (45-117); FREE T4 1.06 NG/DL (0.76-1.46); PHOSPHORUS 3.4 MG/DL (2.5-4.9); RANDOM VANCOMYCIN 25.2 COMMENT; TOTAL BILIRUBIN ADULT 0.2 MG/DL (0.2-1.0); TOTAL PROTEIN 6.4 GM/DL (6.4-8.2)
--- NOTE | 2017-05-03 12:35 | HHI.PR ---
Subjective Remarks Follow up Right prosthetic hip infection/Bacteremia 04/30/17-Patient seen and examined, denies any significant stump pain. Currently afebrile 05/01/17-patient seen and examined, no complaint. Afebrile. Currently nothing by mouth - HAD SURGERY WITH ORTHO YESTERDAY STATES USED CREDIT RISK ASSOCIATE A LITTLE TODAY DW RN AND PT LIVES ALONE WITH HER DOGS WANTS HHC AT [place] NOT SNF 05-03 NOT CLEARED BY ID YET WILL RECALL DW RN AND PT AND FAMILY USING CREDIT RISK ASSOCIATE A LITTLE STILL INCREASE SYNTHROID FOR ELEVATED TSH OF 7 Objective Vitals Vital Signs Date Time Temp Pulse Resp B/P (MAP) Pulse Ox O2 Delivery O2 Flow Rate FiO2 05/03/17 08:45 Nasal Cannula 2.00 05/03/17 08:03 60 05/03/17 08:00 98.9 65 18 140/72 (94) 94 05/03/17 06:00 16 05/03/17 04:00 98.1 60 18 129/70 (89) 93 05/03/17 00:00 60 05/03/17 00:00 98.3 63 18 125/59 (81) 93 05/02/17 21:26 16 05/02/17 20:15 65 05/02/17 20:15 97 Nasal Cannula 2.00 05/02/17 20:00 98.3 70 18 138/64 (88) 95 05/02/17 16:00 98.4 70 20 154/66 (95) 98 05/02/17 15:44 65 05/02/17 15:36 16 05/02/17 14:00 18 I/O 05/02/17 05/02/17 05/02/17 05/03/17 05/03/17 05/03/17 06:59 14:59 22:59 06:59 14:59 22:59 Intake Total 995 ml 2200 ml 1000 ml Output Total 600 ml Balance 995 ml 2200 ml 400 ml Intake Oral 480 ml 1200 ml IV Total 515 ml 1000 ml 1000 ml Output Urine Total 600 ml # Voids 3 4 # Bowel Movements 0 Result Diagram: 05/03/17 0831 05/03/17 0831 Other Results Laboratory Tests Test 05/01/17 07:50 05/02/17 00:45 05/02/17 09:30 05/03/17 08:31 White Blood Count 8.4 TH/MM3 6.3 TH/MM3 Red Blood Count 3.39 MIL/MM3 3.25 MIL/MM3 Hemoglobin 8.6 GM/DL 8.2 GM/DL 8.3 GM/DL Hematocrit 26.8 % 25.7 % 25.9 % Mean Corpuscular Volume 79.2 FL 79.7 FL Mean Corpuscular Hemoglobin 25.5 PG 25.7 PG Mean Corpuscular Hemoglobin Concent 32.2 % 32.2 % Red Cell Distribution Width 16.7 % 16.7 % Platelet Count 422 TH/MM3 482 TH/MM3 Mean Platelet Volume 8.5 FL 8.5 FL Neutrophils (%) (Auto) 79.5 % 66.3 % Lymphocytes (%) (Auto) 9.8 % 15.2 % Monocytes (%) (Auto) 8.6 % 13.0 % Eosinophils (%) (Auto) 1.8 % 4.6 % Basophils (%) (Auto) 0.3 % 0.9 % Neutrophils # (Auto) 6.7 TH/MM3 4.2 TH/MM3 Lymphocytes # (Auto) 0.8 TH/MM3 1.0 TH/MM3 Monocytes # (Auto) 0.7 TH/MM3 0.8 TH/MM3 Eosinophils # (Auto) 0.2 TH/MM3 0.3 TH/MM3 Basophils # (Auto) 0.0 TH/MM3 0.1 TH/MM3 CBC Comment DIFF FINAL DIFF FINAL Differential Comment Vancomycin Level Trough 34.8 MCG/ML Creatinine 0.76 MG/DL 0.87 MG/DL Estimat Glomerular Filtration Rate 76 ML/MIN 65 ML/MIN Blood Urea Nitrogen 6 MG/DL Random Glucose 107 MG/DL Total Protein 6.4 GM/DL Albumin 2.1 GM/DL Calcium Level 8.5 MG/DL Phosphorus Level 3.4 MG/DL Magnesium Level 2.2 MG/DL Alkaline Phosphatase 96 U/L Aspartate Amino Transf (AST/SGOT) 16 U/L Alanine Aminotransferase (ALT/SGPT) 17 U/L Total Bilirubin 0.2 MG/DL Sodium Level 137 MEQ/L Potassium Level 3.7 MEQ/L Chloride Level 105 MEQ/L Carbon Dioxide Level 24.1 MEQ/L Anion Gap 8 MEQ/L Free Thyroxine 1.06 NG/DL Thyroid Stimulating Hormone 3rd Gen 7.110 uIU/ML Random Vancomycin Level 25.2 COMMENT Imaging Last Impressions Hip X-Ray 05/01/17 9297 Signed Impressions: Service Date/Time: Monday, May 01, 2017 15:10 - CONCLUSION: Right hip arthroplasty, unchanged. Panchito Gonzalez MD Hip MRI 04/29/17 0000 Signed Impressions: Service Date/Time: Saturday, April 29, 2017 21:57 - CONCLUSION: 1. Fluid collection posterior lateral to the right hip arthroplasty. Abscess is not excluded. This would be accessible to percutaneous biopsy. Dave Eason MD Lower Extremity Ultrasound 04/28/17 0000 Signed Impressions: Service Date/Time: Friday, April 28, 2017 15:58 - CONCLUSION: 1. No evidence of deep venous thrombosis. Dave Eason MD Hip and Pelvis X-Ray 04/28/17 0000 Signed Impressions: Service Date/Time: Friday, April 28, 2017 16:44 - CONCLUSION: 1. Hip dislocation Dave Eason MD Objective Remarks GENERAL: Awake alert talkative and cooperative denies any pain in her right hip at this time SKIN: Warm and dry. HEAD: Atraumatic. Normocephalic. EYES: Pupils equal and round. No scleral icterus. No injection or drainage. Extraocular muscles intact ENT: No nasal bleeding or discharge. Mucous membranes pink and moist. Oral mucosa is moist tongue is midline NECK: Trachea midline. No JVD. Supple CARDIOVASCULAR: Regular rate and rhythm. S1 and S2 no S3-S4 RESPIRATORY: No accessory muscle use. Clear to auscultation. Breath sounds equal bilaterally. GASTROINTESTINAL: Abdomen soft, non-tender, nondistended. Hepatic and splenic margins not palpable. Obese MUSCULOSKELETAL: Extremities without clubbing, cyanosis, or edema. No obvious deformities. NEUROLOGICAL: Awake and alert. No obvious cranial nerve deficits. Motor grossly within normal limits. Five out of 5 muscle strength in the arms and legs. Normal speech. PSYCHIATRIC: Appropriate mood and affect; insight and judgment normal. 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 PROCEDURE Incision and drainage of right hip. SURGEON Waqas Brice MD ANESTHESIA General endotracheal. FORMAT Following the induction of satisfactory general anesthesia by endotracheal intubation as completed per the Department of Anesthesia, the patient was positioned upon the operating table in a right lateral decubitus fashion. The right hip and lower extremity proper were isolated with a U-drape thereafter being prepped with Betadine solution and draped into a sterile field in the routine manner. Prior to initiation of the actual procedure, the standard time-out protocol was completed. All parameters were appropriately addressed and confirmed by operating room personnel. A previous surgical incision with a very minimal degree of wound dehiscence was sharply excised in its entirety in an elliptical fashion and thereafter progressive dissection was completed in a deepening fashion. There was an obvious disruption of the deeper repair from recent surgery with communication being appreciated directly into the deeper tissues that was consistent with the history of the patient having had a recent dislocation of her right hip. Cultures were obtained at deep subcutaneous level as well as within the confines of the joint space. The hip components were visualized and noted to be in appropriate orientation. Thereafter thorough irrigation was completed utilizing 9 liters with pulsating antibiotic solution. Upon completion of same, the deeper tissue layer was reapproximated with a running 0 Vicryl suture and the remaining portion of the wound closed in layers in the routine manner, skin margins being reapproximated with a running subcuticular 3-0 Vicryl suture over which Steri-Strips were applied. Xeroform gauze and a bulky dry sterile dressing were placed. The patient was repositioned into a supine orientation a knee immobilizer was positioned, anesthesia was discontinued. She was thereafter transferred to a hospital bed and returned to the recovery room in satisfactory condition having tolerated her operative procedure well. Estimated blood loss was approximately 75-100 cc. Medications and IVs Current Medications Morphine Sulfate (Morphine Inj) 4 mg ONCE ONCE IV PUSH Last administered on 04/28/17at 16:40; Start 04/28/17 at 16:00; Stop 04/28/17 at 16:01; Status DC Ondansetron HCl (Zofran Inj) 4 mg ONCE ONCE IV PUSH Last administered on at 16:40; Start 04/28/17 at 16:00; Stop 04/28/17 at 16:01; Status DC Vancomycin HCl 1000 mg/Sodium Chloride 250 ml @ 250 mls/hr ONCE ONCE IV Last administered on 04/28/17at 17:27; Start 04/28/17 at 16:45; Stop 04/28/17 at 17:44; Status DC Propofol (Diprivan 200 Mg/20 ml Inj) 90 mg ONCE ONCE IV ; Start 04/28/17 at 17: 15; Stop 04/28/17 at 17:16; Status DC Pharmacy Profile Note 0 ml @ 0 mls/hr UNSCH OTHER ; Start 04/28/17 at 18:15; Stop 05/01/17 at 16:18; Status DC Morphine Sulfate (Morphine Inj) 3 mg Q2H PRN IV PAIN WHEN PT NPO Last administered on 04/29/17at 09:25; Start 04/28/17 at 23:15 Acetaminophen/ Hydrocodone Bitart ([place] 5-325 Mg) 2 tab QID PRN PO PAIN WHEN TAKING PO Last administered on 04/29/17at 14:51; Start 04/28/17 at 23:15; Stop 04/29 at 18:36; Status DC Vancomycin HCl 1500 mg/Sodium Chloride 515 ml @ 257.5 mls/ hr ONCE ONCE IV Last administered on 04/29/17at 10:20; Start 04/29/17 at 11:00; Stop 04/29/17 at 12: 59; Status DC Amlodipine Besylate (Norvasc) 5 mg DAILY PO Last administered on 05/03/17at 09: 17; Start 04/30/17 at 09:00 Brimonidine Tartrate (Alphagan 0.2% Opt Sol) 1 drop BID EACH EYE Last administered on 05/03/17at 09:18; Start 04/29/17 at 21:00 Bupropion HCl (Wellbutrin Sr) 150 mg DAILY PO Last administered on 05/03/17at 09 :18; Start 04/30/17 at 09:00 Levothyroxine Sodium (Synthroid) 100 mcg DAILY PO Last administered on at 11:28; Start 04/30/17 at 09:00 Paroxetine HCl (Paxil) 40 mg DAILY PO Last administered on 05/03/17at 09:18; Start 04/30/17 at 09:00 Acetaminophen/ Hydrocodone Bitart ([place] 5-325 Mg) 1 tab Q4H PRN PO PAIN LESS THAN 5 ON SCALE; Start 04/29/17 at 18:30 Acetaminophen/ Hydrocodone Bitart ([place] 5-325 Mg) 2 tab Q4H PRN PO PAIN SCALE 5 TO 10 Last administered on 04/30/17at 21:01; Start 04/29/17 at 18:30 Acetaminophen (Tylenol) 650 mg Q6H PRN PO FEVER > 101 Last administered on at 23:22; Start 04/29/17 at 18:30 Ondansetron HCl (Zofran Inj) 4 mg Q6H PRN IVP NAUSEA OR VOMITING; Start at 18:30 Docusate Sodium (Colace) 100 mg BID PRN PO CONSTIPATION; Start 04/29/17 at 18:30 ; Stop 05/01/17 at 15:14; Status DC Zolpidem Tartrate (Ambien) 5 mg HS PRN PO SLEEP Last administered on 05/02/17at 21:38; Start 04/29/17 at 18:30 Naloxone HCl (Narcan Inj) 0.4 mg UNSCH PRN IV PUSH RESPIRATORY RATE LESS THAN 10; Start 04/29/17 at 18:30 Gadodiamide (Omniscan Pf Inj) 18 ml STK-MED ONCE IV PUSH Last administered on at 23:03; Start 04/29/17 at 23:03; Stop 04/29/17 at 23:04; Status DC Vancomycin HCl 1500 mg/Sodium Chloride 515 ml @ 250 mls/hr Q18H IV Last administered on 05/02/17at 00:56; Start 04/30/17 at 13:00; Status Future Hold Miscellaneous Information SPECIFIC LAB TO BE DRAWN:VANCOMYCIN TROUGH DATE TO... ONCE ONCE .XX Last administered on 05/02/17at 00:45; Start 05/02/17 at 00:45; Stop 05/02/17 at 00:46; Status DC Lactated Ringer's 1,000 ml @ 30 mls/hr Q24H PRN IV SEE LABEL COMMENTS; Start at 05:15; Stop 05/01/17 at 15:14; Status DC Sodium Chloride 500 ml @ 30 mls/hr [id number] PRN IV SEE LABEL COMMENTS; Start 02/06 at 05:15; Stop 05/01/17 at 15:14; Status DC Metoprolol Tartrate (Lopressor) 25 mg [employer] OPERATOR PRN PO SEE LABEL COMMENTS; Start 05/01/17 at 05:15; Stop 05/04/17 at 05:14 Povidone Iodine (Betadine 5% Antisepsis Kit) 1 applic [employer]PER[employer] OPERATOR PRN EACH NARE SEE LABEL COMMENTS; Start 05/01/17 at 05:15; Stop 05/04/17 at 05:14 Chlorhexidine Gluconate (Chlorhexidine 2% Cloth) 3 pack SEC[employer]PER[employer] OPERATOR PRN TOPICAL SEE LABEL COMMENTS; Start 05/01/17 at 05:15; Stop 05/04/17 at 05:14 Gentamicin Sulfate (Gentamicin Inj) 640 mg STK-MED ONCE .ROUTE Last administered on 05/01/17at 13:48; Start 05/01/17 at 11:07; Stop 05/01/17 at 11:08 ; Status DC Vancomycin HCl (Vancomycin Inj) 1,000 mg STK-MED ONCE .ROUTE ; Start 05/01/17 at 11:07; Stop 05/01/17 at 11:08; Status DC Sodium Chloride 0 ml @ As Directed STK-MED ONCE .ROUTE ; Start 05/01/17 at 11:08 ; Stop 05/01/17 at 11:09; Status DC Fentanyl Citrate (fentaNYL INJ) 200 mcg STK-MED ONCE .ROUTE ; Start 05/01/17 at 13:17; Stop 05/01/17 at 13:18; Status DC Dextrose/Sodium Chloride 1,000 ml @ 125 mls/hr Q8H IV Last administered on 04/08at 12:16; Start 05/01/17 at 14:55 Vancomycin HCl 1000 mg/Sodium Chloride 250 ml @ 250 mls/hr Q12H IV ; Start 03/09 at 02:00; Stop 05/02/17 at 02:00; Status DC Miscellaneous Information (Post-op Orders (for Pharmacy)) STAT ONCE XX ; Start 05/01/17 at 15:00; Stop 05/01/17 at 15:16; Status DC [facility] ONCE ONCE XX ; Start 02/06 at 15:00; Stop 05/01/17 at 15:15; Status DC Acetaminophen/ Hydrocodone Bitart ([place] 5-325 Mg) 1 tab Q4H PRN PO PAIN LESS THAN 5 ON SCALE; Start 05/01/17 at 15:00; Stop 05/01/17 at 15:10; Status DC Acetaminophen/ Hydrocodone Bitart ([place] 5-325 Mg) 2 tab Q4H PRN PO PAIN SCALE 5 TO 10; Start 05/01/17 at 15:00; Stop 05/01/17 at 15:10; Status DC Acetaminophen (Tylenol) 650 mg Q6H PRN PO FEVER > 101; Start 05/01/17 at 15:00 ; Stop 05/01/17 at 15:12; Status DC Ondansetron HCl (Zofran Inj) 4 mg Q6H PRN IVP NAUSEA OR VOMITING; Start at 15:00; Stop 05/01/17 at 15:13; Status DC Docusate Sodium (Colace) 100 mg BID PRN PO CONSTIPATION; Start 05/01/17 at 15: 00 Zolpidem Tartrate (Ambien) 5 mg HS PRN PO SLEEP; Start 05/01/17 at 15:00; Stop 05/01/17 at 15:12; Status DC Naloxone HCl (Narcan Inj) 0.4 mg UNSCH PRN IV PUSH RESPIRATORY RATE LESS THAN 10; Start 05/01/17 at 15:00 Morphine Sulfate (Morphine 1 Mg/ ml CREDIT RISK ASSOCIATE) 30 mg UNSCH IV Last administered on 03/09at 15:36; Start 05/01/17 at 15:00; Stop 05/03/17 at 14:59 CREDIT RISK ASSOCIATE Dosage Infused (Pha) 1 Q8HR .XX Last administered on 05/03/17at 06:00; Start 05/01/17 at 22:00 Miscellaneous Information ALL NURSING DEPARTME... UNSCH PRN .XX SEE LABEL COMMENTS; Start 05/01/17 at 15:30; Stop 05/02/17 at 15:29; Status DC Morphine Sulfate (*morphine INJ PERIprocedure ONLY) 4 mg STK-MED ONCE .ROUTE Last administered on 05/01/17at 15:31; Start 05/01/17 at 15:31; Stop 05/01/17 at 15:32; Status DC Pharmacy Profile Note 0 ml @ 0 mls/hr UNSCH OTHER ; Start 05/01/17 at 16:00 Lactated Ringer's 1,000 ml @ As Directed STK-MED ONCE IV ; Start 05/01/17 at 12 :00; Stop 05/02/17 at 09:56; Status DC Lidocaine HCl (Xylocaine-Mpf 1% Inj) 10 ml STK-MED ONCE OTHER ; Start 05/01/17 at 12:00; Stop 05/02/17 at 09:56; Status DC Rocuronium Sutter (Zemuron Inj) 50 mg STK-MED ONCE IV PUSH ; Start 05/01/17 at 12:00; Stop 05/02/17 at 09:56; Status DC Neostigmine Methylsulfate (Prostigmine Inj) 5 mg STK-MED ONCE IV PUSH ; Start at 12:00; Stop 05/02/17 at 09:56; Status DC Glycopyrrolate (Robinul Inj) 1 mg STK-MED ONCE IV PUSH ; Start 05/01/17 at 12:00 ; Stop 05/02/17 at 09:56; Status DC Phenylephrine HCl (Neosynephrine/ NS 1000 Mcg/10ml Syr) 1,000 mcg STK-MED ONCE IV ; Start 05/01/17 at 12:00; Stop 05/02/17 at 09:56; Status DC Ephedrine Sulfate (ePHEDrine/NS 25 MG/5 ML SYR) 50 mg STK-MED ONCE IV ; Start at 12:00; Stop 05/02/17 at 09:56; Status DC Ondansetron HCl (Zofran Inj) 4 mg STK-MED ONCE IV PUSH ; Start 05/01/17 at 12:00 ; Stop 05/02/17 at 09:56; Status DC Propofol (Diprivan 200 Mg/20 ml Inj) 200 mg STK-MED ONCE IV ; Start 05/01/17 at 12:00; Stop 05/02/17 at 09:56; Status DC Enoxaparin Sodium (Lovenox Inj) 40 mg Q24H SQ Last administered on 05/02/17at 17 :00; Start 05/02/17 at 16:00 Rifampin (Rifampin) 300 mg Q12HR PO Last administered on 05/03/17at 09:18; Start 05/02/17 at 21:00 A/P Problem List: (1) Bacteremia ICD Code: R78.81 - Bacteremia (2) Infected prosthetic hip ICD Code: T84.59XA - Infection and inflammatory reaction due to other internal joint prosthesis, initial encounter; Z96.649 - Presence of unspecified artificial hip joint (3) Dislocated hip ICD Code: S73.006A - Unspecified dislocation of unspecified hip, initial encounter Status: Acute (4) HTN (hypertension) ICD Code: I10 - Essential (primary) hypertension Status: Acute (5) Hypothyroidism ICD Code: E03.9 - Hypothyroidism, unspecified Status: Acute (6) Depression ICD Code: F32.9 - Major depressive disorder, single episode, unspecified Status: Acute (7) UTI (urinary tract infection) ICD Code: N39.0 - Urinary tract infection, site not specified Assessment and Plan 66 yrs old female with: Bacteremia Currently on vancomycin PENDING culture report Appreciate input from infectious disease specialist 2-D echo pending Suspect MRSA Right hip prosthetic infection Currently on vancomycin pending culture reports MRI of the hip noted and review Appreciate input from orthopedic surgery, infectious disease specialist Pain management accordingly PT to treat and eval Status post incision and drainage of right hip. Yesterday Suspect MRSA Questionable abscess posterior lateral of the right hip arthroplasty Had drainage by orthopedic surgery on 05/01/17 Continue current antibiotics Urinary tract infection Currently on IV Antibiotic pending culture report Hypertension Amlodipine Hypothyroidism: Continue Synthroid- WILL INCREASE TO 125MCG DAILY Depression: Continue Wellbutrin, paroxetine Suspected MRSA infection DVT prophylaxis: Anticoagulation per orthopedic surgery. AM LABS Wants to go home with home healthcare and not go to SNF Discharge Planning Wants to go home with home health care and not SNF Problem Qualifiers (1) Dislocated hip: Qualified Codes: S73.004A - Unspecified dislocation of right hip, initial encounter Dwayne Pak DO May 03, 2017 12:35
--- NOTE | 2017-05-03 14:50 | HHI.FF ---
Infusion Therapy Location of Infusion Therapy: Home Health Care IV Infusion Order Patient Information Patient Weight 94.1 kg Diagnosis: Coded Allergies: Sulfa (Sulfonamide Antibiotics) (Verified Allergy, Severe, HIVES, 04/28/17) Administer Medication Vancomycin 2 grams IV Start Treatment: May 03, 2017 Stop Treatment: Jun 27, 2017 Additional Information Venous access: PICC Line Additional Instructions [x] Peripheral flush and dressing changes per protocol [x] Implanted port and central shirt line operator: * Implanted port: 10 ml Normal Saline followed by 5 ml Heparin 100 units/ml Heparin flush after each use and monthly to maintain. [] May leave port accessed during therapy. [] May leave peripheral site accessed for duration of therapy. [x] If patient has SOB or respiratory distress, check oxygen saturation. If less than 90% or clinical signs of respiratory distress, administer oxygen at 2 L/min. via nasal cannula and notify physician. [x] Anaphylaxis/Reaction orders: * Stop infusion. * Keep IV line open with saline flush. * Notify physician. * Monitor vital signs every 15 minutes until symptoms resolve. * Check Oxygen saturation; Oxygen at 2 L/min. via nasal cannula if less than 90% or clinical signs of respiratory distress. * Administer diphenhydramine (Benadryl) 25 mg IV STAT, (unless patient has received as pre-med). May repeat once, if necessary. * Solu-Cortef 250 mg IVP over 30-60 seconds, use 100 mg vials for each dissolution. * Epinephrine (1mg/1 ml) 0.3 mg subcutaneously or IVP now with any signs of respiratory distress. * Check with physician for new additional pre-med orders if patient is re- challenged or re-treated. [x] May remove PICC line when treatment complete, after confirming with Physician. [x] If the patient is admitted to the hospital, the ED, or transferred via [facility] , complete transfer form including medication reconciliation order sheet. Laboratory Tests Weekly Labs: CBC w/diff, Creatinine, CRP, LFT's (Hepatic function test), SED Rate, Vancomycin Trough Makayla Mejia MD May 03, 2017 14:50
--- NOTE | 2017-05-03 14:56 | HHI.FF ---
Infusion Therapy Location of Infusion Therapy: Home Health Care IV Infusion Order Patient Information Patient Weight 94.1 kg Diagnosis: Coded Allergies: Sulfa (Sulfonamide Antibiotics) (Verified Allergy, Severe, HIVES, 04/28/17) Administer Medication Vancomycin 2 grams IV q 24 hours Start Treatment: May 03, 2017 Stop Treatment: Jun 27, 2017 Additional Information Venous access: PICC Line Additional Instructions [x] Peripheral flush and dressing changes per protocol [x] Implanted port and central telecommunications line installer: * Implanted port: 10 ml Normal Saline followed by 5 ml Heparin 100 units/ml Heparin flush after each use and monthly to maintain. [] May leave port accessed during therapy. [] May leave peripheral site accessed for duration of therapy. [x] If patient has SOB or respiratory distress, check oxygen saturation. If less than 90% or clinical signs of respiratory distress, administer oxygen at 2 L/min. via nasal cannula and notify physician. [x] Anaphylaxis/Reaction orders: * Stop infusion. * Keep IV line open with saline flush. * Notify physician. * Monitor vital signs every 15 minutes until symptoms resolve. * Check Oxygen saturation; Oxygen at 2 L/min. via nasal cannula if less than 90% or clinical signs of respiratory distress. * Administer diphenhydramine (Benadryl) 25 mg IV STAT, (unless patient has received as pre-med). May repeat once, if necessary. * Solu-Cortef 250 mg IVP over 30-60 seconds, use 100 mg vials for each dissolution. * Epinephrine (1mg/1 ml) 0.3 mg subcutaneously or IVP now with any signs of respiratory distress. * Check with physician for new additional pre-med orders if patient is re- challenged or re-treated. [x] May remove PICC line when treatment complete, after confirming with Physician. [x] If the patient is admitted to the hospital, the ED, or transferred via [facility] , complete transfer form including medication reconciliation order sheet. Laboratory Tests Weekly Labs: CBC w/diff, Creatinine, CRP, LFT's (Hepatic function test), SED Rate, Vancomycin Trough Makayla Mejia MD May 03, 2017 14:56
[2017-05-03] MEDS ORDERED: EPIN1INJ21 IV PUSH (14:57)
[2017-05-03] MEDS ORDERED: SOLU250I IV PUSH (14:57)
[2017-05-03] MEDS ORDERED: EPIN1INJ21 SQ (14:57)
[2017-05-03] MEDS ORDERED: RIFA300C2 PO (14:58)
[2017-05-03 15:48] LABS: HEMOGLOBIN A1C 5.2 % (4.3-6.0)
--- NOTE | 2017-05-03 16:20 | HHI.PR ---
Addendum to Inpatient Note Additional Information pt seen arounf 4 pm - full note to follow Makayla Mejia MD May 03, 2017 16:20
[2017-05-03] MEDS: ENOXAPARIN SODIUM 40 MG/0.4 ML SYRINGE SQ SCH (18:24)
[2017-05-03] MEDS: ZOLPIDEM TARTRATE 5 MG TAB PO PRN (22:34)
[2017-05-03] MEDS: ACETAMINOPHEN/HYDROcodone 325 MG/5 MG TAB PO PRN (22:39)
--- NOTE | 2017-05-03 23:54 | HHI.IDPN ---
Subjective Subjective Remarks doing OK repeat blood clx are negative afebrile growing MRSA Antibiotics vancomycin Allergies: Coded Allergies: Sulfa (Sulfonamide Antibiotics) (Verified Allergy, Severe, HIVES, 04/28/17) Objective . Vital Signs Date Time Temp Pulse Resp B/P (MAP) Pulse Ox O2 Delivery O2 Flow Rate FiO2 05/03/17 22:28 Nasal Cannula 2.00 05/03/17 20:00 98.4 70 17 153/66 (95) 95 05/03/17 18:25 18 05/03/17 16:13 82 05/03/17 16:00 82 05/03/17 12:00 98.1 65 18 139/65 (89) 98 05/03/17 11:31 69 05/03/17 11:31 69 05/03/17 08:45 Nasal Cannula 2.00 05/03/17 08:03 60 05/03/17 08:00 98.9 65 18 140/72 (94) 94 05/03/17 06:00 16 05/03/17 04:00 98.1 60 18 129/70 (89) 93 05/03/17 00:00 60 05/03/17 00:00 98.3 63 18 125/59 (81) 93 05/03/17 05/03/17 05/04/17 15:00 23:00 07:00 Intake Total 1719 ml Balance 1719 ml Intake Oral 720 ml IV Total 999 ml # Voids 4 . Laboratory Tests Test 05/02/17 09:30 05/03/17 08:31 Hemoglobin 8.2 GM/DL 8.3 GM/DL Hematocrit 25.7 % 25.9 % White Blood Count 6.3 TH/MM3 Red Blood Count 3.25 MIL/MM3 Mean Corpuscular Volume 79.7 FL Mean Corpuscular Hemoglobin 25.7 PG Mean Corpuscular Hemoglobin Concent 32.2 % Red Cell Distribution Width 16.7 % Platelet Count 482 TH/MM3 Mean Platelet Volume 8.5 FL Neutrophils (%) (Auto) 66.3 % Lymphocytes (%) (Auto) 15.2 % Monocytes (%) (Auto) 13.0 % Eosinophils (%) (Auto) 4.6 % Basophils (%) (Auto) 0.9 % Neutrophils # (Auto) 4.2 TH/MM3 Lymphocytes # (Auto) 1.0 TH/MM3 Monocytes # (Auto) 0.8 TH/MM3 Eosinophils # (Auto) 0.3 TH/MM3 Basophils # (Auto) 0.1 TH/MM3 CBC Comment DIFF FINAL Differential Comment Laboratory Tests Test 05/02/17 09:30 05/03/17 08:31 Creatinine 0.76 MG/DL 0.87 MG/DL Estimat Glomerular Filtration Rate 76 ML/MIN 65 ML/MIN Blood Urea Nitrogen 6 MG/DL Random Glucose 107 MG/DL Total Protein 6.4 GM/DL Albumin 2.1 GM/DL Calcium Level 8.5 MG/DL Phosphorus Level 3.4 MG/DL Magnesium Level 2.2 MG/DL Alkaline Phosphatase 96 U/L Aspartate Amino Transf (AST/SGOT) 16 U/L Alanine Aminotransferase (ALT/SGPT) 17 U/L Total Bilirubin 0.2 MG/DL Sodium Level 137 MEQ/L Potassium Level 3.7 MEQ/L Chloride Level 105 MEQ/L Carbon Dioxide Level 24.1 MEQ/L Anion Gap 8 MEQ/L Hemoglobin A1c 5.2 % Free Thyroxine 1.06 NG/DL Thyroid Stimulating Hormone 3rd Gen 7.110 uIU/ML Microbiology Date/Time Source Procedure Growth Status 05/01/17 14:57 Wound Hip Fungal Smear - Final NO FUNGAL ELEMENTS SEEN. Resulted 05/01/17 14:57 Wound Hip Fungal Culture Pending Resulted 05/01/17 14:57 Wound Hip Acid Fast Stain - Final NO ACID FAST BACILLI SEEN Resulted 05/01/17 14:57 Wound Hip Mycobacterial Culture Pending Resulted 05/01/17 14:57 Wound Hip Gram Stain - Final Complete 05/01/17 14:57 Wound Culture - Final S. Aureus Mrsa Complete 05/01/17 14:57 Wound Hip Fungal Smear - Final NO FUNGAL ELEMENTS SEEN. Resulted 05/01/17 14:57 Wound Hip Fungal Culture Pending Resulted 05/01/17 14:57 Wound Hip Acid Fast Stain - Final NO ACID FAST BACILLI SEEN Resulted 05/01/17 14:57 Wound Hip Mycobacterial Culture Pending Resulted 05/01/17 14:57 Wound Hip Gram Stain - Final Complete 05/01/17 14:57 Wound Culture - Final S. Aureus Mrsa Complete Imaging Last Impressions Hip X-Ray 05/01/17 0564 Signed Impressions: Service Date/Time: Monday, May 01, 2017 15:10 - CONCLUSION: Right hip arthroplasty, unchanged. Panchito Gonzalez MD Hip MRI 1/8/18 0000 Signed Impressions: Service Date/Time: Saturday, April 29, 2017 21:57 - CONCLUSION: 1. Fluid collection posterior lateral to the right hip arthroplasty. Abscess is not excluded. This would be accessible to percutaneous biopsy. Dave Eason MD Lower Extremity Ultrasound 04/28/17 0000 Signed Impressions: Service Date/Time: Friday, April 28, 2017 15:58 - CONCLUSION: 1. No evidence of deep venous thrombosis. Dave Eason MD Hip and Pelvis X-Ray 04/28/17 0000 Signed Impressions: Service Date/Time: Friday, April 28, 2017 16:44 - CONCLUSION: 1. Hip dislocation Dave Eason MD Physical Exam CONSTITUTIONAL/GENERAL: This is a moderately obese patient, in no apparent distress. TUBES/LINES/DRAINS: SKIN: No jaundice, rashes, or lesions. Skin temperature appropriate. Not diaphoretic. CARDIOVASCULAR: Regular rate and rhythm without murmurs, gallops, or rubs. No JVD. Peripheral pulses symmetric. well perfused perifery RESPIRATORY/CHEST: Symmetric, unlabored respirations. Clear to auscultation. Breath sounds equal bilaterally. No wheezes, rales, or rhonchi. GASTROINTESTINAL: Abdomen soft, non-tender, nondistended. No hepato-splenomegaly , or palpable masses. No guarding. Bowel sounds present. GENITOURINARY: Without palpable bladder distension. MUSCULOSKELETAL: Extremities without clubbing, cyanosis, or edema. . No mottling or clubbing. Dressing i place over R hip, pretty dry drainage + edema RLE immobilyzer NEUROLOGICAL: Awake and alert. Motor and sensory grossly within normal limits. Follows commands. Clear speech . Moves all extremities. PSYCHIATRIC: No obvious anxiety/depression. no apparent hallucinations or other psychotic thought process. Assessment & Plan Remarks Assessment and Plan Assessment and Plan R prosthetic hip infection, MRSA - sp I+D sp removal of R hip prosthesis 03/01 with abx spacer placement, then 6 wks of abx Sp placement of new prosthesis 04/17 with probable new infection 2/2 coag + staph Bactermemia Rec's: cont vanco + Rifampin x 8 weeks, then followed by po Rx up to 3 mos at least Prosthesis removal if fails during or afgter tx OPAT forms filled out PICC fgu with ID specialist as o/p - will refer to Dr Hyde dw Babs Sifuentes,Makayla Jessica MD May 03, 2017 23:54
[2017-05-04] VITALS: BP 120/58; PULSE 55; PULSE 63; RESP 17; TEMP 97.9; O2SAT 97
[2017-05-04 04:00] VITALS: BP 129/59; PULSE 53; PULSE 64; RESP 17; TEMP 97.8; O2SAT 98
[2017-05-04] MEDS: PCA - TOTAL MG MORPHINE DELIVERED PER SHIFT SCH ×3 (05:28→20:50)
[2017-05-04] MEDS: ACETAMINOPHEN/HYDROcodone 325 MG/5 MG TAB PO PRN ×4 (05:34→22:33)
[2017-05-04] MEDS: DEXT 5%-NACL 0.45% 1000 ML INJ 1,000 ML IV SCH ×3 (05:34→22:33)
[2017-05-04] MEDS: LEVOTHYROXINE SODIUM 125 MCG TAB PO SCH (05:35)
[2017-05-04 07:36] LABS: AUTOMATED NEUTROPHIL # 3.1 TH/MM3 (1.8-7.7); BASOPHIL # 0.1 TH/MM3 (0-0.2); EOSINOPHIL # 0.3 TH/MM3 (0-0.4); EOSINOPHIL % 5.4 % (0.0-4.0); HEMATOCRIT 27.4 % (35.0-46.0); HEMOGLOBIN 8.8 GM/DL (11.6-15.3); LYMPH % 21.8 % (9.0-44.0); LYMPHOCYTE # 1.2 TH/MM3 (1.0-4.8); MEAN CELL VOLUME 78.6 FL (80.0-100.0); MEAN CORPUSCULAR HEMOGLOBIN 25.1 PG (27.0-34.0); MEAN CORPUSCULAR HGB CONC 31.9 % (32.0-36.0); MONO % 14.4 % (0.0-8.0); MONOCYTE # 0.8 TH/MM3 (0-0.9); NEUT % 57.4 % (16.0-70.0); PLATELET COUNT 462 TH/MM3 (150-450); RED BLOOD COUNT 3.48 MIL/MM3 (4.00-5.30); RED CELL DISTRIBUTION WIDTH 16.7 % (11.6-17.2); WHITE BLOOD COUNT 5.4 TH/MM3 (4.0-11.0)
[2017-05-04 07:56] LABS: ALT (GPT) 16 U/L (10-53); AST (GOT) 18 U/L (15-37); BICARBONATE 24.2 MEQ/L (21.0-32.0); BLOOD UREA NITROGEN 5 MG/DL (7-18); CALCIUM 8.4 MG/DL (8.5-10.1); CHLORIDE 108 MEQ/L (98-107); CREATININE 0.89 MG/DL (0.50-1.00); GLOMERULAR FILTRATION RATE 63 ML/MIN (>89); GLUCOSE,RANDOM 99 MG/DL (74-106); MAGNESIUM 2.1 MG/DL (1.5-2.5); PHOSPHORUS 3.6 MG/DL (2.5-4.9); SODIUM (NA) 141 MEQ/L (136-145)
[2017-05-04 07:58] LABS: ALKALINE PHOSPHATASE 101 U/L (45-117); TOTAL BILIRUBIN ADULT 0.1 MG/DL (0.2-1.0); TOTAL PROTEIN 6.5 GM/DL (6.4-8.2)
[2017-05-04 08:00] VITALS: BP 158/70; PULSE 60; PULSE 62; RESP 20; TEMP 97.5; O2SAT 99
[2017-05-04] MEDS: PARoxetine HCL 20 MG TAB PO SCH (08:50)
[2017-05-04] MEDS: buPROPion HCL 150 MG SUSTAINED RELEASE TAB PO SCH (08:50)
[2017-05-04] MEDS: RIFAMPIN 150 MG CAP PO SCH ×2 (08:50→20:43)
[2017-05-04] MEDS: amLODIPine BESYLATE 5 MG TAB PO SCH (08:50)
[2017-05-04] MEDS: BRIMONIDINE TARTRATE 0.2% OPHT SOLN 5 ML BTL EACH EYE SCH ×2 (08:51→20:50)
--- NOTE | 2017-05-04 11:24 | HHI.PR ---
Subjective Remarks Follow up Right prosthetic hip infection/Bacteremia 04/30/17-Patient seen and examined, denies any significant stump pain. Currently afebrile 05/01/17-patient seen and examined, no complaint. Afebrile. Currently nothing by mouth - HAD SURGERY WITH ORTHO YESTERDAY STATES USED PHERESIS SPECIALIST A LITTLE TODAY HAO RN AND PT LIVES ALONE WITH HER DOGS WANTS HHC AT DC NOT SNF 05-03 NOT CLEARED BY ID YET WILL RECALL DW RN AND PT AND FAMILY USING PHERESIS SPECIALIST A LITTLE STILL INCREASE SYNTHROID FOR ELEVATED TSH OF 7 05-04 needs PICC AND HHC SET UP FOR DISCHARGE ON ANTIBIOTICS Objective Vitals Vital Signs Date Time Temp Pulse Resp B/P (MAP) Pulse Ox O2 Delivery O2 Flow Rate FiO2 05/04/17 10:33 Nasal Cannula 2.00 05/04/17 08:00 62 05/04/17 08:00 97.5 60 20 158/70 (99) 99 05/04/17 08:00 62 05/04/17 04:00 97.8 64 17 129/59 (82) 98 05/04/17 04:00 53 05/04/17 00:00 Nasal Cannula 2.00 05/04/17 00:00 55 05/04/17 00:00 97.9 63 17 120/58 (78) 97 05/03/17 22:28 Nasal Cannula 2.00 05/03/17 20:00 98.4 70 17 153/66 (95) 95 05/03/17 20:00 65 05/03/17 18:25 18 05/03/17 16:13 82 05/03/17 16:00 82 05/03/17 12:00 98.1 65 18 139/65 (89) 98 05/03/17 11:31 69 05/03/17 11:31 69 I/O 05/03/17 05/03/17 05/03/17 05/04/17 05/04/17 05/04/17 07:00 15:00 23:00 07:00 15:00 23:00 Intake Total 1000 ml 1719 ml 1499 ml Output Total 600 ml 500 ml Balance 400 ml 1719 ml 999 ml Intake Oral 720 ml 500 ml IV Total 1000 ml 999 ml 999 ml Output Urine Total 600 ml 500 ml # Voids 4 1 # Bowel Movements 1 Result Diagram: 05/04/17 0550 05/04/17 0550 Other Results Laboratory Tests Test 05/02/17 00:45 05/02/17 09:30 05/03/17 08:31 05/04/17 05:50 Vancomycin Level Trough 34.8 MCG/ML Hemoglobin 8.2 GM/DL 8.3 GM/DL 8.8 GM/DL Hematocrit 25.7 % 25.9 % 27.4 % Creatinine 0.76 MG/DL 0.87 MG/DL 0.89 MG/DL Estimat Glomerular Filtration Rate 76 ML/MIN 65 ML/MIN 63 ML/MIN White Blood Count 6.3 TH/MM3 5.4 TH/MM3 Red Blood Count 3.25 MIL/MM3 3.48 MIL/MM3 Mean Corpuscular Volume 79.7 FL 78.6 FL Mean Corpuscular Hemoglobin 25.7 PG 25.1 PG Mean Corpuscular Hemoglobin Concent 32.2 % 31.9 % Red Cell Distribution Width 16.7 % 16.7 % Platelet Count 482 TH/MM3 462 TH/MM3 Mean Platelet Volume 8.5 FL 8.0 FL Neutrophils (%) (Auto) 66.3 % 57.4 % Lymphocytes (%) (Auto) 15.2 % 21.8 % Monocytes (%) (Auto) 13.0 % 14.4 % Eosinophils (%) (Auto) 4.6 % 5.4 % Basophils (%) (Auto) 0.9 % 1.0 % Neutrophils # (Auto) 4.2 TH/MM3 3.1 TH/MM3 Lymphocytes # (Auto) 1.0 TH/MM3 1.2 TH/MM3 Monocytes # (Auto) 0.8 TH/MM3 0.8 TH/MM3 Eosinophils # (Auto) 0.3 TH/MM3 0.3 TH/MM3 Basophils # (Auto) 0.1 TH/MM3 0.1 TH/MM3 CBC Comment DIFF FINAL DIFF FINAL Differential Comment Blood Urea Nitrogen 6 MG/DL 5 MG/DL Random Glucose 107 MG/DL 99 MG/DL Total Protein 6.4 GM/DL 6.5 GM/DL Albumin 2.1 GM/DL 2.0 GM/DL Calcium Level 8.5 MG/DL 8.4 MG/DL Phosphorus Level 3.4 MG/DL 3.6 MG/DL Magnesium Level 2.2 MG/DL 2.1 MG/DL Alkaline Phosphatase 96 U/L 101 U/L Aspartate Amino Transf (AST/SGOT) 16 U/L 18 U/L Alanine Aminotransferase (ALT/SGPT) 17 U/L 16 U/L Total Bilirubin 0.2 MG/DL 0.1 MG/DL Sodium Level 137 MEQ/L 141 MEQ/L Potassium Level 3.7 MEQ/L 3.9 MEQ/L Chloride Level 105 MEQ/L 108 MEQ/L Carbon Dioxide Level 24.1 MEQ/L 24.2 MEQ/L Anion Gap 8 MEQ/L 9 MEQ/L Hemoglobin A1c 5.2 % Free Thyroxine 1.06 NG/DL Thyroid Stimulating Hormone 3rd Gen 7.110 uIU/ML Random Vancomycin Level 25.2 COMMENT 19.1 COMMENT Imaging Last Impressions Hip X-Ray 05/01/17 1455 Signed Impressions: Service Date/Time: Monday, May 01, 2017 15:10 - CONCLUSION: Right hip arthroplasty, unchanged. Panchito Gonzalez MD Hip MRI 04/29/17 0000 Signed Impressions: Service Date/Time: Saturday, April 29, 2017 21:57 - CONCLUSION: 1. Fluid collection posterior lateral to the right hip arthroplasty. Abscess is not excluded. This would be accessible to percutaneous biopsy. Dave Eason MD Lower Extremity Ultrasound 04/28/17 0000 Signed Impressions: Service Date/Time: Friday, April 28, 2017 15:58 - CONCLUSION: 1. No evidence of deep venous thrombosis. Dave Eason MD Hip and Pelvis X-Ray 04/28/17 0000 Signed Impressions: Service Date/Time: Friday, April 28, 2017 16:44 - CONCLUSION: 1. Hip dislocation Dave Eason MD Objective Remarks GENERAL: Awake alert talkative and cooperative denies any pain in her right hip at this time SKIN: Warm and dry. HEAD: Atraumatic. Normocephalic. EYES: Pupils equal and round. No scleral icterus. No injection or drainage. Extraocular muscles intact ENT: No nasal bleeding or discharge. Mucous membranes pink and moist. Oral mucosa is moist tongue is midline NECK: Trachea midline. No JVD. Supple CARDIOVASCULAR: Regular rate and rhythm. S1 and S2 no S3-S4 RESPIRATORY: No accessory muscle use. Clear to auscultation. Breath sounds equal bilaterally. GASTROINTESTINAL: Abdomen soft, non-tender, nondistended. Hepatic and splenic margins not palpable. Obese MUSCULOSKELETAL: Extremities without clubbing, cyanosis, or edema. No obvious deformities. NEUROLOGICAL: Awake and alert. No obvious cranial nerve deficits. Motor grossly within normal limits. Five out of 5 muscle strength in the arms and legs. Normal speech. PSYCHIATRIC: Appropriate mood and affect; insight and judgment normal. Procedures DANNJUANITO DATE OF SURGERY 01 May 2017 PREOPERATIVE DIAGNOSIS 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 PROCEDURE Incision and drainage of right hip. SURGEON Waqas Brice MD ANESTHESIA General endotracheal. FORMAT Following the induction of satisfactory general anesthesia by endotracheal intubation as completed per the Department of Anesthesia, the patient was positioned upon the operating table in a right lateral decubitus fashion. The right hip and lower extremity proper were isolated with a U-drape thereafter being prepped with Betadine solution and draped into a sterile field in the routine manner. Prior to initiation of the actual procedure, the standard time-out protocol was completed. All parameters were appropriately addressed and confirmed by operating room personnel. A previous surgical incision with a very minimal degree of wound dehiscence was sharply excised in its entirety in an elliptical fashion and thereafter progressive dissection was completed in a deepening fashion. There was an obvious disruption of the deeper repair from recent surgery with communication being appreciated directly into the deeper tissues that was consistent with the history of the patient having had a recent dislocation of her right hip. Cultures were obtained at deep subcutaneous level as well as within the confines of the joint space. The hip components were visualized and noted to be in appropriate orientation. Thereafter thorough irrigation was completed utilizing 9 liters with pulsating antibiotic solution. Upon completion of same, the deeper tissue layer was reapproximated with a running 0 Vicryl suture and the remaining portion of the wound closed in layers in the routine manner, skin margins being reapproximated with a running subcuticular 3-0 Vicryl suture over which Steri-Strips were applied. Xeroform gauze and a bulky dry sterile dressing were placed. The patient was repositioned into a supine orientation a knee immobilizer was positioned, anesthesia was discontinued. She was thereafter transferred to a hospital bed and returned to the recovery room in satisfactory condition having tolerated her operative procedure well. Estimated blood loss was approximately 75-100 cc. Medications and IVs Current Medications Morphine Sulfate (Morphine Inj) 4 mg ONCE ONCE IV PUSH Last administered on 04/28/17at 16:40; Start 04/28/17 at 16:00; Stop 04/28/17 at 16:01; Status DC Ondansetron HCl (Zofran Inj) 4 mg ONCE ONCE IV PUSH Last administered on at 16:40; Start 04/28/17 at 16:00; Stop 04/28/17 at 16:01; Status DC Vancomycin HCl 1000 mg/Sodium Chloride 250 ml @ 250 mls/hr ONCE ONCE IV Last administered on 04/28/17at 17:27; Start 04/28/17 at 16:45; Stop 04/28/17 at 17:44; Status DC Propofol (Diprivan 200 Mg/20 ml Inj) 90 mg ONCE ONCE IV ; Start 04/28/17 at 17: 15; Stop 04/28/17 at 17:16; Status DC Pharmacy Profile Note 0 ml @ 0 mls/hr UNSCH OTHER ; Start 04/28/17 at 18:15; Stop 05/01/17 at 16:18; Status DC Morphine Sulfate (Morphine Inj) 3 mg Q2H PRN IV PAIN WHEN PT NPO Last administered on 04/29/17at 09:25; Start 04/28/17 at 23:15 Acetaminophen/ Hydrocodone Bitart ([place] 5-325 Mg) 2 tab QID PRN PO PAIN WHEN TAKING PO Last administered on 04/29/17at 14:51; Start 04/28/17 at 23:15; Stop 04/29 at 18:36; Status DC Vancomycin HCl 1500 mg/Sodium Chloride 515 ml @ 257.5 mls/ hr ONCE ONCE IV Last administered on 04/29/17at 10:20; Start 04/29/17 at 11:00; Stop 04/29/17 at 12: 59; Status DC Amlodipine Besylate (Norvasc) 5 mg DAILY PO Last administered on 05/04/17at 08: 50; Start 04/30/17 at 09:00 Brimonidine Tartrate ([place] 0.2% Opt Soln) 1 drop BID EACH EYE Last administered on 05/04/17at 08:51; Start 04/29/17 at 21:00 Bupropion HCl (Wellbutrin Sr) 150 mg DAILY PO Last administered on 05/04/17at 08 :50; Start 04/30/17 at 09:00 Levothyroxine Sodium (Synthroid) 100 mcg DAILY PO Last administered on at 11:28; Start 04/30/17 at 09:00; Stop 05/03/17 at 12:34; Status DC Paroxetine HCl (Paxil) 40 mg DAILY PO Last administered on 05/04/17at 08:50; Start 04/30/17 at 09:00 Acetaminophen/ Hydrocodone Bitart ([place] 5-325 Mg) 1 tab Q4H PRN PO PAIN LESS THAN 5 ON SCALE; Start 04/29/17 at 18:30 Acetaminophen/ Hydrocodone Bitart ([place] 5-325 Mg) 2 tab Q4H PRN PO PAIN SCALE 5 TO 10 Last administered on 05/04/17at 05:34; Start 04/29/17 at 18:30 Acetaminophen (Tylenol) 650 mg Q6H PRN PO FEVER > 101 Last administered on at 23:22; Start 04/29/17 at 18:30 Ondansetron HCl (Zofran Inj) 4 mg Q6H PRN IVP NAUSEA OR VOMITING; Start at 18:30 Docusate Sodium (Colace) 100 mg BID PRN PO CONSTIPATION; Start 04/29/17 at 18:30 ; Stop 05/01/17 at 15:14; Status DC Zolpidem Tartrate (Ambien) 5 mg HS PRN PO SLEEP Last administered on 05/03/17at 22:34; Start 04/29/17 at 18:30 Naloxone HCl (Narcan Inj) 0.4 mg UNSCH PRN IV PUSH RESPIRATORY RATE LESS THAN 10; Start 04/29/17 at 18:30 Gadodiamide (Omniscan Pf Inj) 18 ml STK-MED ONCE IV PUSH Last administered on at 23:03; Start 04/29/17 at 23:03; Stop 04/29/17 at 23:04; Status DC Vancomycin HCl 1500 mg/Sodium Chloride 515 ml @ 250 mls/hr Q18H IV Last administered on 05/02/17at 00:56; Start 04/30/17 at 13:00; Status Future Hold Miscellaneous Information SPECIFIC LAB TO BE DRAWN:VANCOMYCIN TROUGH DATE TO... ONCE ONCE .XX Last administered on 05/02/17at 00:45; Start 05/02/17 at 00:45; Stop 05/02/17 at 00:46; Status DC Lactated Ringer's 1,000 ml @ 30 mls/hr Q24H PRN IV SEE LABEL COMMENTS; Start at 05:15; Stop 05/01/17 at 15:14; Status DC Sodium Chloride 500 ml @ 30 mls/hr [id number] PRN IV SEE LABEL COMMENTS; Start 02/06 at 05:15; Stop 05/01/17 at 15:14; Status DC Metoprolol Tartrate (Lopressor) 25 mg MECHANICAL FACILITIES TECHNICIAN PRN PO SEE LABEL COMMENTS; Start 05/01/17 at 05:15; Stop 05/04/17 at 05:14; Status DC Povidone Iodine (Betadine 5% Antisepsis Kit) 1 applic MECHANICAL FACILITIES TECHNICIAN PRN EACH NARE SEE LABEL COMMENTS; Start 05/01/17 at 05:15; Stop 05/04/17 at 05:14; Status DC Chlorhexidine Gluconate (Chlorhexidine 2% Cloth) 3 pack MECHANICAL FACILITIES TECHNICIAN PRN TOPICAL SEE LABEL COMMENTS; Start 05/01/17 at 05:15; Stop 05/04/17 at 05:14; Status DC Gentamicin Sulfate (Gentamicin Inj) 640 mg STK-MED ONCE .ROUTE Last administered on 05/01/17at 13:48; Start 05/01/17 at 11:07; Stop 05/01/17 at 11:08 ; Status DC Vancomycin HCl (Vancomycin Inj) 1,000 mg STK-MED ONCE .ROUTE ; Start 05/01/17 at 11:07; Stop 05/01/17 at 11:08; Status DC Sodium Chloride 0 ml @ As Directed STK-MED ONCE .ROUTE ; Start 05/01/17 at 11:08 ; Stop 05/01/17 at 11:09; Status DC Fentanyl Citrate (fentaNYL INJ) 200 mcg STK-MED ONCE .ROUTE ; Start 05/01/17 at 13:17; Stop 05/01/17 at 13:18; Status DC Dextrose/Sodium Chloride 1,000 ml @ 125 mls/hr Q8H IV Last administered on at 05:34; Start 05/01/17 at 14:55 Vancomycin HCl 1000 mg/Sodium Chloride 250 ml @ 250 mls/hr Q12H IV ; Start 03/09 at 02:00; Stop 05/02/17 at 02:00; Status DC Miscellaneous Information (Post-op Orders (for Pharmacy)) STAT ONCE XX ; Start 05/01/17 at 15:00; Stop 05/01/17 at 15:16; Status DC Miscellaneous Medication ([facility] Pharmacy Information) ONCE ONCE XX ; Start 02/06 at 15:00; Stop 05/01/17 at 15:15; Status DC Acetaminophen/ Hydrocodone Bitart ([place] 5-325 Mg) 1 tab Q4H PRN PO PAIN LESS THAN 5 ON SCALE; Start 05/01/17 at 15:00; Stop 05/01/17 at 15:10; Status DC Acetaminophen/ Hydrocodone Bitart ([place] 5-325 Mg) 2 tab Q4H PRN PO PAIN SCALE 5 TO 10; Start 05/01/17 at 15:00; Stop 05/01/17 at 15:10; Status DC Acetaminophen (Tylenol) 650 mg Q6H PRN PO FEVER > 101; Start 05/01/17 at 15:00 ; Stop 05/01/17 at 15:12; Status DC Ondansetron HCl (Zofran Inj) 4 mg Q6H PRN IVP NAUSEA OR VOMITING; Start at 15:00; Stop 05/01/17 at 15:13; Status DC Docusate Sodium (Colace) 100 mg BID PRN PO CONSTIPATION; Start 05/01/17 at 15: 00 Zolpidem Tartrate (Ambien) 5 mg HS PRN PO SLEEP; Start 05/01/17 at 15:00; Stop 05/01/17 at 15:12; Status DC Naloxone HCl (Narcan Inj) 0.4 mg UNSCH PRN IV PUSH RESPIRATORY RATE LESS THAN 10; Start 05/01/17 at 15:00 Morphine Sulfate (Morphine 1 Mg/ ml PHERESIS SPECIALIST) 30 mg UNSCH IV Last administered on 03/09at 15:36; Start 05/01/17 at 15:00; Stop 05/03/17 at 14:59; Status DC PHERESIS SPECIALIST Dosage Infused (Pha) 1 Q8HR .XX Last administered on 05/03/17at 18:25; Start 05/01/17 at 22:00 Miscellaneous Information ALL NURSING DEPARTME... UNSCH PRN .XX SEE LABEL COMMENTS; Start 05/01/17 at 15:30; Stop 05/02/17 at 15:29; Status DC Morphine Sulfate (*morphine INJ PERIprocedure ONLY) 4 mg STK-MED ONCE .ROUTE Last administered on 05/01/17at 15:31; Start 05/01/17 at 15:31; Stop 05/01/17 at 15:32; Status DC Pharmacy Profile Note 0 ml @ 0 mls/hr UNSCH OTHER ; Start 05/01/17 at 16:00 Lactated Ringer's 1,000 ml @ As Directed STK-MED ONCE IV ; Start 05/01/17 at 12 :00; Stop 05/02/17 at 09:56; Status DC Lidocaine HCl (Xylocaine-Mpf 1% Inj) 10 ml STK-MED ONCE OTHER ; Start 05/01/17 at 12:00; Stop 05/02/17 at 09:56; Status DC Rocuronium [place] (Zemuron Inj) 50 mg STK-MED ONCE IV PUSH ; Start 05/01/17 at 12:00; Stop 05/02/17 at 09:56; Status DC Neostigmine Methylsulfate (Prostigmine Inj) 5 mg STK-MED ONCE IV PUSH ; Start at 12:00; Stop 05/02/17 at 09:56; Status DC Glycopyrrolate (Robinul Inj) 1 mg STK-MED ONCE IV PUSH ; Start 05/01/17 at 12:00 ; Stop 05/02/17 at 09:56; Status DC Phenylephrine HCl (Neosynephrine/ NS 1000 Mcg/10ml Syr) 1,000 mcg STK-MED ONCE IV ; Start 05/01/17 at 12:00; Stop 05/02/17 at 09:56; Status DC Ephedrine Sulfate (ePHEDrine/NS 25 MG/5 ML SYR) 50 mg STK-MED ONCE IV ; Start at 12:00; Stop 05/02/17 at 09:56; Status DC Ondansetron HCl (Zofran Inj) 4 mg STK-MED ONCE IV PUSH ; Start 05/01/17 at 12:00 ; Stop 05/02/17 at 09:56; Status DC Propofol (Diprivan 200 Mg/20 ml Inj) 200 mg STK-MED ONCE IV ; Start 05/01/17 at 12:00; Stop 05/02/17 at 09:56; Status DC Enoxaparin Sodium (Lovenox Inj) 40 mg Q24H SQ Last administered on 05/03/17at 18 :24; Start 05/02/17 at 16:00 Rifampin (Rifampin) 300 mg Q12HR PO Last administered on 05/04/17at 08:50; Start 05/02/17 at 21:00 Levothyroxine Sodium (Synthroid) 125 mcg DAILY@0600 PO Last administered on at 05:35; Start 05/04/17 at 06:00 A/P Problem List: (1) Bacteremia ICD Code: R78.81 - Bacteremia (2) Infected prosthetic hip ICD Code: T84.59XA - Infection and inflammatory reaction due to other internal joint prosthesis, initial encounter; Z96.649 - Presence of unspecified artificial hip joint (3) Dislocated hip ICD Code: S73.006A - Unspecified dislocation of unspecified hip, initial encounter Status: Acute (4) HTN (hypertension) ICD Code: I10 - Essential (primary) hypertension Status: Acute (5) Hypothyroidism ICD Code: E03.9 - Hypothyroidism, unspecified Status: Acute (6) Depression ICD Code: F32.9 - Major depressive disorder, single episode, unspecified Status: Acute (7) UTI (urinary tract infection) ICD Code: N39.0 - Urinary tract infection, site not specified Assessment and Plan 66 yrs old female with: Bacteremia Currently on vancomycin PENDING culture report Appreciate input from infectious disease specialist 2-D echo pending Suspect MRSA Right hip prosthetic infection Currently on vancomycin pending culture reports MRI of the hip noted and review Appreciate input from orthopedic surgery, infectious disease specialist Pain management accordingly PT to treat and eval Status post incision and drainage of right hip. Yesterday Suspect MRSA Questionable abscess posterior lateral of the right hip arthroplasty Had drainage by orthopedic surgery on 05/01/17 Continue current antibiotics Urinary tract infection Currently on IV Antibiotic pending culture report Hypertension Amlodipine Hypothyroidism: Continue Synthroid- WILL INCREASE TO 125MCG DAILY Depression: Continue Wellbutrin, paroxetine Suspected MRSA infection DVT prophylaxis: Anticoagulation per orthopedic surgery. AM LABS Wants to go home with home healthcare and not go to SNF VANCO 2GRAMS IV DAILY AND RIFAMPIN Discharge Planning Wants to go home with home health care and not SNF NEEDS PICC AND ANTIBIOTICS SET UP AND HHC SET UP Problem Qualifiers (1) Dislocated hip: Qualified Codes: S73.004A - Unspecified dislocation of right hip, initial encounter Dwayne Pak DO May 04, 2017 11:24
[2017-05-04 12:00] VITALS: BP 173/74; PULSE 64; PULSE 67; RESP 20; TEMP 97.7; O2SAT 99
--- NOTE | 2017-05-04 15:09 | RADRPT ---
EXAM DATE/TIME: 05/04/2017 14:50 [facility] COMPARISON: CHEST SINGLE AP, January 31, 2017, 19:00. INDICATIONS : PICC line placement MEDICAL HISTORY : None. SURGICAL HISTORY : None. ENCOUNTER: Initial ACUITY: 1 day PAIN SCORE: 0/10 LOCATION: Bilateral chest FINDINGS: A single view of the chest demonstrates the lungs to be symmetrically aerated without evidence of mas s, infiltrate or effusion. The cardiomediastinal contours are unremarkable. Osseous structures are intact. A right-sided PICC line is noted in place with the tip projected over the superior vena cava. CONCLUSION: No acute disease. Right-sided PICC line in place. Kelvin Bush MD on May 04, 2017 at 15:06 Board Certified Radiologist. This report was verified electronically.
[2017-05-04] MEDS: ENOXAPARIN SODIUM 40 MG/0.4 ML SYRINGE SQ SCH (15:55)
[2017-05-04 16:00] VITALS: BP 148/67; PULSE 62; PULSE 80; RESP 20; TEMP 97.5; O2SAT 99
[2017-05-04 20:00] VITALS: BP 123/61; PULSE 61; PULSE 62; RESP 17; TEMP 98.2; O2SAT 97
[2017-05-04] MEDS: VANCOMYCIN 1,000 MG/NS 250 ML IV SCH ×2 (20:44)
[2017-05-04] MEDS: ZOLPIDEM TARTRATE 5 MG TAB PO PRN (23:04)
[2017-05-05] VITALS (7 sets, daily range): BP systolic 129–178; BP diastolic 62–80; PULSE 51–68; RESP 17–20; TEMP 97–97.7; O2SAT 97–100
[2017-05-05] MEDS: PCA - TOTAL MG MORPHINE DELIVERED PER SHIFT SCH ×3 (05:30→22:00)
[2017-05-05] MEDS: DEXT 5%-NACL 0.45% 1000 ML INJ 1,000 ML IV SCH (05:30)
[2017-05-05] MEDS: ACETAMINOPHEN/HYDROcodone 325 MG/5 MG TAB PO PRN ×4 (05:30→20:12)
[2017-05-05] MEDS: LEVOTHYROXINE SODIUM 125 MCG TAB PO SCH (05:30)
[2017-05-05 05:42] LABS: AUTOMATED NEUTROPHIL # 4.9 TH/MM3 (1.8-7.7); BASOPHIL % 0.6 % (0.0-2.0); EOSINOPHIL # 0.3 TH/MM3 (0-0.4); EOSINOPHIL % 3.9 % (0.0-4.0); HEMATOCRIT 27.6 % (35.0-46.0); LYMPHOCYTE # 1.5 TH/MM3 (1.0-4.8); MEAN CELL VOLUME 78.4 FL (80.0-100.0); MEAN CORPUSCULAR HEMOGLOBIN 25.6 PG (27.0-34.0); MEAN CORPUSCULAR HGB CONC 32.6 % (32.0-36.0); MEAN PLATELET VOLUME 7.8 FL (7.0-11.0); MONO % 12.2 % (0.0-8.0); MONOCYTE # 0.9 TH/MM3 (0-0.9); NEUT % 63.3 % (16.0-70.0); PLATELET COUNT 586 TH/MM3 (150-450); RED BLOOD COUNT 3.51 MIL/MM3 (4.00-5.30); RED CELL DISTRIBUTION WIDTH 16.9 % (11.6-17.2); WHITE BLOOD COUNT 7.7 TH/MM3 (4.0-11.0)
[2017-05-05 06:05] LABS: ALBUMIN 2.2 GM/DL (3.4-5.0); AST (GOT) 17 U/L (15-37); BICARBONATE 29.4 MEQ/L (21.0-32.0); BLOOD UREA NITROGEN 6 MG/DL (7-18); CALCIUM 8.5 MG/DL (8.5-10.1); CHLORIDE 107 MEQ/L (98-107); CREATININE 0.84 MG/DL (0.50-1.00); GLOMERULAR FILTRATION RATE 67 ML/MIN (>89); GLUCOSE,RANDOM 115 MG/DL (74-106); MAGNESIUM 2.2 MG/DL (1.5-2.5); SODIUM (NA) 142 MEQ/L (136-145)
[2017-05-05 06:08] LABS: ALKALINE PHOSPHATASE 123 U/L (45-117); ALT (GPT) 18 U/L (10-53); PHOSPHORUS 3.5 MG/DL (2.5-4.9); TOTAL BILIRUBIN ADULT 0.2 MG/DL (0.2-1.0); TOTAL PROTEIN 6.8 GM/DL (6.4-8.2)
[2017-05-05] MEDS: PARoxetine HCL 20 MG TAB PO SCH (08:45)
[2017-05-05] MEDS: buPROPion HCL 150 MG SUSTAINED RELEASE TAB PO SCH (08:45)
[2017-05-05] MEDS: amLODIPine BESYLATE 5 MG TAB PO SCH (08:45)
[2017-05-05] MEDS: RIFAMPIN 150 MG CAP PO SCH ×2 (08:46→20:12)
[2017-05-05] MEDS: BRIMONIDINE TARTRATE 0.2% OPHT SOLN 5 ML BTL EACH EYE SCH ×3 (08:47→20:10)
--- NOTE | 2017-05-05 15:35 | HHI.PR ---
Subjective Remarks Follow up Right prosthetic hip infection/Bacteremia 04/30/17-Patient seen and examined, denies any significant stump pain. Currently afebrile 05/01/17-patient seen and examined, no complaint. Afebrile. Currently nothing by mouth 05-02 HAD SURGERY WITH ORTHO YESTERDAY STATES USED [employer] A LITTLE TODAY [facility] RN [facility] PT LIVES ALONE WITH HER DOGS WANTS HHC AT DC NOT SNF 05-03 NOT CLEARED BY ID YET WILL RECALL [facility] PT AND FAMILY USING [employer] A LITTLE STILL INCREASE SYNTHROID FOR ELEVATED TSH OF 7 05-04 needs PICC AND HHC SET UP FOR DISCHARGE ON ANTIBIOTICS 05-05 VANCO HAD BEEN ADJUSTED WILL NEED TO MAKE SURE ON RIGHT DOSE BEFORE DC TO HOME [facility] RN AND PT AND CASE MANAGEMENT AM LABS Objective Vitals Vital Signs Date Time Temp Pulse Resp B/P (MAP) Pulse Ox O2 Delivery O2 Flow Rate FiO2 05/05/17 12:00 61 05/05/17 12:00 97.3 61 18 138/62 (87) 100 05/05/17 09:19 Room Air 05/05/17 08:00 97.7 63 20 178/80 (112) 100 05/05/17 08:00 65 05/05/17 04:00 Room Air 05/05/17 04:00 56 05/05/17 04:00 97.2 60 17 163/71 (101) 100 05/05/17 00:00 51 05/05/17 00:00 Room Air 05/05/17 00:00 97.7 59 17 129/72 (91) 99 05/04/17 20:00 Room Air 05/04/17 20:00 98.2 61 17 123/61 (81) 97 05/04/17 20:00 62 05/04/17 16:00 80 05/04/17 16:00 97.5 62 20 148/67 (94) 99 I/O 05/04/17 05/04/17 05/04/17 05/05/17 05/05/17 05/05/17 07:00 15:00 23:00 07:00 15:00 23:00 Intake Total 1499 ml 1970 ml 1100 ml Output Total 500 ml Balance 999 ml 1970 ml 1100 ml Intake Oral 500 ml 720 ml 100 ml IV Total 999 ml 1250 ml 1000 ml Output Urine Total 500 ml # Voids 1 4 2 # Bowel Movements 1 1 0 Result Diagram: 05/05/17 0530 05/05/17 0530 Other Results Laboratory Tests Test 05/03/17 08:31 05/04/17 05:50 05/05/17 05:30 White Blood Count 6.3 TH/MM3 5.4 TH/MM3 7.7 TH/MM3 Red Blood Count 3.25 MIL/MM3 3.48 MIL/MM3 3.51 MIL/MM3 Hemoglobin 8.3 GM/DL 8.8 GM/DL 9.0 GM/DL Hematocrit 25.9 % 27.4 % 27.6 % Mean Corpuscular Volume 79.7 FL 78.6 FL 78.4 FL Mean Corpuscular Hemoglobin 25.7 PG 25.1 PG 25.6 PG Mean Corpuscular Hemoglobin Concent 32.2 % 31.9 % 32.6 % Red Cell Distribution Width 16.7 % 16.7 % 16.9 % Platelet Count 482 TH/MM3 462 TH/MM3 586 TH/MM3 Mean Platelet Volume 8.5 FL 8.0 FL 7.8 FL Neutrophils (%) (Auto) 66.3 % 57.4 % 63.3 % Lymphocytes (%) (Auto) 15.2 % 21.8 % 20.0 % Monocytes (%) (Auto) 13.0 % 14.4 % 12.2 % Eosinophils (%) (Auto) 4.6 % 5.4 % 3.9 % Basophils (%) (Auto) 0.9 % 1.0 % 0.6 % Neutrophils # (Auto) 4.2 TH/MM3 3.1 TH/MM3 4.9 TH/MM3 Lymphocytes # (Auto) 1.0 TH/MM3 1.2 TH/MM3 1.5 TH/MM3 Monocytes # (Auto) 0.8 TH/MM3 0.8 TH/MM3 0.9 TH/MM3 Eosinophils # (Auto) 0.3 TH/MM3 0.3 TH/MM3 0.3 TH/MM3 Basophils # (Auto) 0.1 TH/MM3 0.1 TH/MM3 0.0 TH/MM3 CBC Comment DIFF FINAL DIFF FINAL DIFF FINAL Differential Comment Blood Urea Nitrogen 6 MG/DL 5 MG/DL 6 MG/DL Creatinine 0.87 MG/DL 0.89 MG/DL 0.84 MG/DL Random Glucose 107 MG/DL 99 MG/DL 115 MG/DL Total Protein 6.4 GM/DL 6.5 GM/DL 6.8 GM/DL Albumin 2.1 GM/DL 2.0 GM/DL 2.2 GM/DL Calcium Level 8.5 MG/DL 8.4 MG/DL 8.5 MG/DL Phosphorus Level 3.4 MG/DL 3.6 MG/DL 3.5 MG/DL Magnesium Level 2.2 MG/DL 2.1 MG/DL 2.2 MG/DL Alkaline Phosphatase 96 U/L 101 U/L 123 U/L Aspartate Amino Transf (AST/SGOT) 16 U/L 18 U/L 17 U/L Alanine Aminotransferase (ALT/SGPT) 17 U/L 16 U/L 18 U/L Total Bilirubin 0.2 MG/DL 0.1 MG/DL 0.2 MG/DL Sodium Level 137 MEQ/L 141 MEQ/L 142 MEQ/L Potassium Level 3.7 MEQ/L 3.9 MEQ/L 3.9 MEQ/L Chloride Level 105 MEQ/L 108 MEQ/L 107 MEQ/L Carbon Dioxide Level 24.1 MEQ/L 24.2 MEQ/L 29.4 MEQ/L Anion Gap 8 MEQ/L 9 MEQ/L 6 MEQ/L Estimat Glomerular Filtration Rate 65 ML/MIN 63 ML/MIN 67 ML/MIN Hemoglobin A1c 5.2 % Free Thyroxine 1.06 NG/DL Thyroid Stimulating Hormone 3rd Gen 7.110 uIU/ML Random Vancomycin Level 25.2 COMMENT 19.1 COMMENT Imaging Last Impressions Chest X-Ray 05/04/17 0000 Signed Impressions: Service Date/Time: Thursday, May 04, 2017 14:50 - CONCLUSION: No acute disease. Right-sided PICC line in place. Kelvin Bush MD Hip X-Ray 05/01/17 1455 Signed Impressions: Service Date/Time: Monday, May 01, 2017 15:10 - CONCLUSION: Right hip arthroplasty, unchanged. Panchito Gonzalez MD Hip MRI 04/29/17 0000 Signed Impressions: Service Date/Time: Saturday, April 29, 2017 21:57 - CONCLUSION: 1. Fluid collection posterior lateral to the right hip arthroplasty. Abscess is not excluded. This would be accessible to percutaneous biopsy. Dave Eason MD Lower Extremity Ultrasound 04/28/17 0000 Signed Impressions: Service Date/Time: Friday, April 28, 2017 15:58 - CONCLUSION: 1. No evidence of deep venous thrombosis. Dave Eason MD Hip and Pelvis X-Ray 04/28/17 0000 Signed Impressions: Service Date/Time: Friday, April 28, 2017 16:44 - CONCLUSION: 1. Hip dislocation Dave Eason MD Objective Remarks GENERAL: Awake alert talkative and cooperative denies any pain in her right hip at this time SKIN: Warm and dry. HEAD: Atraumatic. Normocephalic. EYES: Pupils equal and round. No scleral icterus. No injection or drainage. Extraocular muscles intact ENT: No nasal bleeding or discharge. Mucous membranes pink and moist. Oral mucosa is moist tongue is midline NECK: Trachea midline. No JVD. Supple CARDIOVASCULAR: Regular rate and rhythm. S1 and S2 no S3-S4 RESPIRATORY: No accessory muscle use. Clear to auscultation. Breath sounds equal bilaterally. GASTROINTESTINAL: Abdomen soft, non-tender, nondistended. Hepatic and splenic margins not palpable. Obese MUSCULOSKELETAL: Extremities without clubbing, cyanosis, or edema. No obvious deformities. NEUROLOGICAL: Awake and alert. No obvious cranial nerve deficits. Motor grossly within normal limits. Five out of 5 muscle strength in the arms and legs. Normal speech. PSYCHIATRIC: Appropriate mood and affect; insight and judgment normal. 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 PROCEDURE Incision and drainage of right hip. SURGEON Waqas Brice MD ANESTHESIA General endotracheal. FORMAT Following the induction of satisfactory general anesthesia by endotracheal intubation as completed per the Department of Anesthesia, the patient was positioned upon the operating table in a right lateral decubitus fashion. The right hip and lower extremity proper were isolated with a U-drape thereafter being prepped with Betadine solution and draped into a sterile field in the routine manner. Prior to initiation of the actual procedure, the standard time-out protocol was completed. All parameters were appropriately addressed and confirmed by operating room personnel. A previous surgical incision with a very minimal degree of wound dehiscence was sharply excised in its entirety in an elliptical fashion and thereafter progressive dissection was completed in a deepening fashion. There was an obvious disruption of the deeper repair from recent surgery with communication being appreciated directly into the deeper tissues that was consistent with the history of the patient having had a recent dislocation of her right hip. Cultures were obtained at deep subcutaneous level as well as within the confines of the joint space. The hip components were visualized and noted to be in appropriate orientation. Thereafter thorough irrigation was completed utilizing 9 liters with pulsating antibiotic solution. Upon completion of same, the deeper tissue layer was reapproximated with a running 0 Vicryl suture and the remaining portion of the wound closed in layers in the routine manner, skin margins being reapproximated with a running subcuticular 3-0 Vicryl suture over which Steri-Strips were applied. Xeroform gauze and a bulky dry sterile dressing were placed. The patient was repositioned into a supine orientation a knee immobilizer was positioned, anesthesia was discontinued. She was thereafter transferred to a hospital bed and returned to the recovery room in satisfactory condition having tolerated her operative procedure well. Estimated blood loss was approximately 75-100 cc. Medications and IVs Current Medications Morphine Sulfate (Morphine Inj) 4 mg ONCE ONCE IV PUSH Last administered on 04/28/17at 16:40; Start 04/28/17 at 16:00; Stop 04/28/17 at 16:01; Status DC Ondansetron HCl (Zofran Inj) 4 mg ONCE ONCE IV PUSH Last administered on at 16:40; Start 04/28/17 at 16:00; Stop 04/28/17 at 16:01; Status DC Vancomycin HCl 1000 mg/Sodium Chloride 250 ml @ 250 mls/hr ONCE ONCE IV Last administered on 04/28/17at 17:27; Start 04/28/17 at 16:45; Stop 04/28/17 at 17:44; Status DC Propofol (Diprivan 200 Mg/20 ml Inj) 90 mg ONCE ONCE IV ; Start 04/28/17 at 17: 15; Stop 04/28/17 at 17:16; Status DC Pharmacy Profile Note 0 ml @ 0 mls/hr UNSCH OTHER ; Start 04/28/17 at 18:15; Stop 05/01/17 at 16:18; Status DC Morphine Sulfate (Morphine Inj) 3 mg Q2H PRN IV PAIN WHEN PT NPO Last administered on 04/29/17at 09:25; Start 04/28/17 at 23:15 Acetaminophen/ Hydrocodone Bitart (Ward 5-325 Mg) 2 tab QID PRN PO PAIN WHEN TAKING PO Last administered on 04/29/17at 14:51; Start 04/28/17 at 23:15; Stop 04/29 at 18:36; Status DC Vancomycin HCl 1500 mg/Sodium Chloride 515 ml @ 257.5 mls/ hr ONCE ONCE IV Last administered on 04/29/17at 10:20; Start 04/29/17 at 11:00; Stop 04/29/17 at 12: 59; Status DC Amlodipine Besylate (Norvasc) 5 mg DAILY PO Last administered on 05/05/17at 08: 45; Start 04/30/17 at 09:00 Brimonidine Tartrate (Alphagan 0.2% Opt Soln) 1 drop BID EACH EYE Last administered on 05/05/17 08:47; Start 04/29/17 at 21:00 Bupropion HCl (Wellbutrin Sr) 150 mg DAILY PO Last administered on 05/05/17at 08 :45; Start 04/30/17 at 09:00 Levothyroxine Sodium (Synthroid) 100 mcg DAILY PO Last administered on at 11:28; Start 04/30/17 at 09:00; Stop 05/03/17 at 12:34; Status DC Paroxetine HCl (Paxil) 40 mg DAILY PO Last administered on 05/05/17at 08:45; Start 04/30/17 at 09:00 Acetaminophen/ Hydrocodone Bitart (Ward 5-325 Mg) 1 tab Q4H PRN PO PAIN LESS THAN 5 ON SCALE; Start 04/29/17 at 18:30 Acetaminophen/ Hydrocodone Bitart (Ward 5-325 Mg) 2 tab Q4H PRN PO PAIN SCALE 5 TO 10 Last administered on 05/05/17at 10:46; Start 04/29/17 at 18:30 Acetaminophen (Tylenol) 650 mg Q6H PRN PO FEVER > 101 Last administered on at 23:22; Start 04/29/17 at 18:30 Ondansetron HCl (Zofran Inj) 4 mg Q6H PRN IVP NAUSEA OR VOMITING; Start at 18:30 Docusate Sodium (Colace) 100 mg BID PRN PO CONSTIPATION; Start 04/29/17 at 18:30 ; Stop 05/01/17 at 15:14; Status DC Zolpidem Tartrate (Ambien) 5 mg HS PRN PO SLEEP Last administered on 05/04/17at 23:04; Start 04/29/17 at 18:30 Naloxone HCl (Narcan Inj) 0.4 mg UNSCH PRN IV PUSH RESPIRATORY RATE LESS THAN 10; Start 04/29/17 at 18:30 Gadodiamide (Omniscan Pf Inj) 18 ml STK-MED ONCE IV PUSH Last administered on at 23:03; Start 04/29/17 at 23:03; Stop 04/29/17 at 23:04; Status DC Vancomycin HCl 1500 mg/Sodium Chloride 515 ml @ 250 mls/hr Q18H IV Last administered on 05/02/17at 00:56; Start 04/30/17 at 13:00; Stop 05/04/17 at 11:40 ; Status DC Miscellaneous Information SPECIFIC LAB TO BE DRAWN:VANCOMYCIN TROUGH DATE TO... ONCE ONCE .XX Last administered on 05/02/17at 00:45; Start 05/02/17 at 00:45; Stop 05/02/17 at 00:46; Status DC Lactated Ringer's 1,000 ml @ 30 mls/hr Q24H PRN IV SEE LABEL COMMENTS; Start at 05:15; Stop 05/01/17 at 15:14; Status DC Sodium Chloride 500 ml @ 30 mls/hr [id number] PRN IV SEE LABEL COMMENTS; Start 02/06 at 05:15; Stop 05/01/17 at 15:14; Status DC Metoprolol Tartrate (Lopressor) 25 mg WIRE LATHER PRN PO SEE LABEL COMMENTS; Start 05/01/17 at 05:15; Stop 05/04/17 at 05:14; Status DC Povidone Iodine (Betadine 5% Antisepsis Kit) 1 applic WIRE LATHER PRN EACH NARE SEE LABEL COMMENTS; Start 05/01/17 at 05:15; Stop 05/04/17 at 05:14; Status DC Chlorhexidine Gluconate (Chlorhexidine 2% Cloth) 3 pack WIRE LATHER PRN TOPICAL SEE LABEL COMMENTS; Start 05/01/17 at 05:15; Stop 05/04/17 at 05:14; Status DC Gentamicin Sulfate (Gentamicin Inj) 640 mg STK-MED ONCE .ROUTE Last administered on 05/01/17at 13:48; Start 05/01/17 at 11:07; Stop 05/01/17 at 11:08 ; Status DC Vancomycin HCl (Vancomycin Inj) 1,000 mg STK-MED ONCE .ROUTE ; Start 05/01/17 at 11:07; Stop 05/01/17 at 11:08; Status DC Sodium Chloride 0 ml @ As Directed STK-MED ONCE .ROUTE ; Start 05/01/17 at 11:08 ; Stop 05/01/17 at 11:09; Status DC Fentanyl Citrate (fentaNYL INJ) 200 mcg STK-MED ONCE .ROUTE ; Start 05/01/17 at 13:17; Stop 05/01/17 at 13:18; Status DC Dextrose/Sodium Chloride 1,000 ml @ 125 mls/hr Q8H IV Last administered on at 05:30; Start 05/01/17 at 14:55 Vancomycin HCl 1000 mg/Sodium Chloride 250 ml @ 250 mls/hr Q12H IV ; Start 03/09 at 02:00; Stop 05/02/17 at 02:00; Status DC Miscellaneous Information (Post-op Orders (for Pharmacy)) STAT ONCE XX ; Start 05/01/17 at 15:00; Stop 05/01/17 at 15:16; Status DC Miscellaneous Medication ([facility] Information) ONCE ONCE XX ; Start 02/06 at 15:00; Stop 05/01/17 at 15:15; Status DC Acetaminophen/ Hydrocodone Bitart (Ward 5-325 Mg) 1 tab Q4H PRN PO PAIN LESS THAN 5 ON SCALE; Start 05/01/17 at 15:00; Stop 05/01/17 at 15:10; Status DC Acetaminophen/ Hydrocodone Bitart (Ward 5-325 Mg) 2 tab Q4H PRN PO PAIN SCALE 5 TO 10; Start 05/01/17 at 15:00; Stop 05/01/17 at 15:10; Status DC Acetaminophen (Tylenol) 650 mg Q6H PRN PO FEVER > 101; Start 05/01/17 at 15:00 ; Stop 05/01/17 at 15:12; Status DC Ondansetron HCl (Zofran Inj) 4 mg Q6H PRN IVP NAUSEA OR VOMITING; Start at 15:00; Stop 05/01/17 at 15:13; Status DC Docusate Sodium (Colace) 100 mg BID PRN PO CONSTIPATION; Start 05/01/17 at 15: 00 Zolpidem Tartrate (Ambien) 5 mg HS PRN PO SLEEP; Start 05/01/17 at 15:00; Stop 05/01/17 at 15:12; Status DC Naloxone HCl (Narcan Inj) 0.4 mg UNSCH PRN IV PUSH RESPIRATORY RATE LESS THAN 10; Start 05/01/17 at 15:00 Morphine Sulfate (Morphine 1 Mg/ ml [employer]) 30 mg UNSCH IV Last administered on 03/09at 15:36; Start 05/01/17 at 15:00; Stop 05/03/17 at 14:59; Status DC [employer] Dosage Infused (Pha) 1 Q8HR .XX Last administered on 05/03/17at 18:25; Start 05/01/17 at 22:00 Miscellaneous Information ALL NURSING DEPARTME... UNSCH PRN .XX SEE LABEL COMMENTS; Start 05/01/17 at 15:30; Stop 05/02/17 at 15:29; Status DC Morphine Sulfate (*morphine INJ PERIprocedure ONLY) 4 mg STK-MED ONCE .ROUTE Last administered on 05/01/17at 15:31; Start 05/01/17 at 15:31; Stop 05/01/17 at 15:32; Status DC Pharmacy Profile Note 0 ml @ 0 mls/hr UNSCH OTHER ; Start 05/01/17 at 16:00 Lactated Ringer's 1,000 ml @ As Directed STK-MED ONCE IV ; Start 05/01/17 at 12 :00; Stop 05/02/17 at 09:56; Status DC Lidocaine HCl (Xylocaine-Mpf 1% Inj) 10 ml STK-MED ONCE OTHER ; Start 05/01/17 at 12:00; Stop 05/02/17 at 09:56; Status DC Rocuronium Apex (Zemuron Inj) 50 mg STK-MED ONCE IV PUSH ; Start 05/01/17 at 12:00; Stop 05/02/17 at 09:56; Status DC Neostigmine Methylsulfate (Prostigmine Inj) 5 mg STK-MED ONCE IV PUSH ; Start at 12:00; Stop 05/02/17 at 09:56; Status DC Glycopyrrolate (Robinul Inj) 1 mg STK-MED ONCE IV PUSH ; Start 05/01/17 at 12:00 ; Stop 05/02/17 at 09:56; Status DC Phenylephrine HCl (Neosynephrine/ NS 1000 Mcg/10ml Syr) 1,000 mcg STK-MED ONCE IV ; Start 05/01/17 at 12:00; Stop 05/02/17 at 09:56; Status DC Ephedrine Sulfate (ePHEDrine/NS 25 MG/5 ML SYR) 50 mg STK-MED ONCE IV ; Start at 12:00; Stop 05/02/17 at 09:56; Status DC Ondansetron HCl (Zofran Inj) 4 mg STK-MED ONCE IV PUSH ; Start 05/01/17 at 12:00 ; Stop 05/02/17 at 09:56; Status DC Propofol (Diprivan 200 Mg/20 ml Inj) 200 mg STK-MED ONCE IV ; Start 05/01/17 at 12:00; Stop 05/02/17 at 09:56; Status DC Enoxaparin Sodium (Lovenox Inj) 40 mg Q24H SQ Last administered on 05/04/17at 15 :55; Start 05/02/17 at 16:00 Rifampin (Rifampin) 300 mg Q12HR PO Last administered on 05/05/17at 08:46; Start 05/02/17 at 21:00 Levothyroxine Sodium (Synthroid) 125 mcg DAILY@0600 PO Last administered on at 05:30; Start 05/04/17 at 06:00 Vancomycin HCl 1000 mg/Sodium Chloride 250 ml @ 250 mls/hr Q24H IV Last administered on 05/04/17at 20:44; Start 05/04/17 at 20:00 Miscellaneous Information SPECIFIC LAB TO BE ... ONCE ONCE .XX ; Start 05/06 at 19:45; Stop 05/06/17 at 19:46 A/P Problem List: (1) Bacteremia ICD Code: R78.81 - Bacteremia (2) Infected prosthetic hip ICD Code: T84.59XA - Infection and inflammatory reaction due to other internal joint prosthesis, initial encounter; Z96.649 - Presence of unspecified artificial hip joint (3) Dislocated hip ICD Code: S73.006A - Unspecified dislocation of unspecified hip, initial encounter Status: Acute (4) HTN (hypertension) ICD Code: I10 - Essential (primary) hypertension Status: Acute (5) Hypothyroidism ICD Code: E03.9 - Hypothyroidism, unspecified Status: Acute (6) Depression ICD Code: F32.9 - Major depressive disorder, single episode, unspecified Status: Acute (7) UTI (urinary tract infection) ICD Code: N39.0 - Urinary tract infection, site not specified Assessment and Plan 66 yrs old female with: Bacteremia Currently on vancomycin PENDING culture report Appreciate input from infectious disease specialist 2-D echo pending Suspect MRSA Right hip prosthetic infection Currently on vancomycin pending culture reports MRI of the hip noted and review Appreciate input from orthopedic surgery, infectious disease specialist Pain management accordingly PT to treat and eval Status post incision and drainage of right hip. Yesterday Suspect MRSA Questionable abscess posterior lateral of the right hip arthroplasty Had drainage by orthopedic surgery on 05/01/17 Continue current antibiotics Urinary tract infection Currently on IV Antibiotic pending culture report Hypertension Amlodipine Hypothyroidism: Continue Synthroid- WILL INCREASE TO 125MCG DAILY Depression: Continue Wellbutrin, paroxetine Suspected MRSA infection DVT prophylaxis: Anticoagulation per orthopedic surgery. AM LABS Wants to go home with home healthcare and not go to SNF VANCO 2GRAMS IV DAILY AND RIFAMPIN BUT MEDS HAVE BEEN ADJUSTED VANCO WILL ADJUSTMENT BEFORE DC Discharge Planning Wants to go home with home health care and not SNF NEEDS PICC AND ANTIBIOTICS SET UP AND C SET UP Problem Qualifiers (1) Dislocated hip: Qualified Codes: S73.004A - Unspecified dislocation of right hip, initial encounter Dwayne Pak DO May 05, 2017 15:35
[2017-05-05] MEDS: ENOXAPARIN SODIUM 40 MG/0.4 ML SYRINGE SQ SCH (16:11)
[2017-05-05] MEDS: VANCOMYCIN 1,000 MG/NS 250 ML IV SCH ×2 (20:18)
[2017-05-05] MEDS: ZOLPIDEM TARTRATE 5 MG TAB PO PRN (22:31)
[2017-05-06] VITALS (8 sets, daily range): BP systolic 155–181; BP diastolic 63–75; PULSE 54–72; RESP 18–20; TEMP 97.6–98.2; O2SAT 96–99
[2017-05-06] MEDS: ACETAMINOPHEN/HYDROcodone 325 MG/5 MG TAB PO PRN ×2 (03:57→08:16)
[2017-05-06] MEDS: PCA - TOTAL MG MORPHINE DELIVERED PER SHIFT SCH ×2 (06:00→13:40)
[2017-05-06] MEDS: LEVOTHYROXINE SODIUM 125 MCG TAB PO SCH (06:16)
[2017-05-06 07:13] LABS: AUTOMATED NEUTROPHIL # 4.4 TH/MM3 (1.8-7.7); BASOPHIL # 0.1 TH/MM3 (0-0.2); BASOPHIL % 0.8 % (0.0-2.0); EOSINOPHIL # 0.3 TH/MM3 (0-0.4); EOSINOPHIL % 4.5 % (0.0-4.0); HEMATOCRIT 24.7 % (35.0-46.0); HEMOGLOBIN 8.3 GM/DL (11.6-15.3); LYMPHOCYTE # 1.2 TH/MM3 (1.0-4.8); MEAN CELL VOLUME 77.7 FL (80.0-100.0); MEAN CORPUSCULAR HGB CONC 33.4 % (32.0-36.0); MEAN PLATELET VOLUME 7.8 FL (7.0-11.0); MONO % 11.6 % (0.0-8.0); MONOCYTE # 0.8 TH/MM3 (0-0.9); NEUT % 65.1 % (16.0-70.0); PLATELET COUNT 533 TH/MM3 (150-450); RED BLOOD COUNT 3.18 MIL/MM3 (4.00-5.30); RED CELL DISTRIBUTION WIDTH 16.4 % (11.6-17.2); WHITE BLOOD COUNT 6.7 TH/MM3 (4.0-11.0)
[2017-05-06 07:25] LABS: ALBUMIN 2.2 GM/DL (3.4-5.0); ALT (GPT) 13 U/L (10-53); AST (GOT) 14 U/L (15-37); BICARBONATE 28.3 MEQ/L (21.0-32.0); BLOOD UREA NITROGEN 8 MG/DL (7-18); CALCIUM 8.3 MG/DL (8.5-10.1); CHLORIDE 108 MEQ/L (98-107); CREATININE 0.83 MG/DL (0.50-1.00); GLOMERULAR FILTRATION RATE 68 ML/MIN (>89); GLUCOSE,RANDOM 95 MG/DL (74-106); MAGNESIUM 2.2 MG/DL (1.5-2.5); PHOSPHORUS 3.3 MG/DL (2.5-4.9); SODIUM (NA) 143 MEQ/L (136-145)
[2017-05-06 07:26] LABS: ALKALINE PHOSPHATASE 119 U/L (45-117); TOTAL BILIRUBIN ADULT 0.2 MG/DL (0.2-1.0); TOTAL PROTEIN 6.4 GM/DL (6.4-8.2)
[2017-05-06] MEDS: PARoxetine HCL 20 MG TAB PO SCH (08:04)
[2017-05-06] MEDS: buPROPion HCL 150 MG SUSTAINED RELEASE TAB PO SCH (08:05)
[2017-05-06] MEDS: RIFAMPIN 150 MG CAP PO SCH (08:05)
[2017-05-06] MEDS: amLODIPine BESYLATE 5 MG TAB PO SCH (08:05)
[2017-05-06] MEDS: BRIMONIDINE TARTRATE 0.2% OPHT SOLN 5 ML BTL EACH EYE SCH (08:06)
--- NOTE | 2017-05-06 12:13 | HHI.FF ---
Infusion Therapy Location of Infusion Therapy: Home Health Care IV Infusion Order Patient Information Patient Weight 91.9 kg Diagnosis: Coded Allergies: Sulfa (Sulfonamide Antibiotics) (Verified Allergy, Severe, HIVES, 04/28/17) Administer Medication Vancomycin 1 gram IV q 24 hours Start Treatment: May 06, 2017 Stop Treatment: Jun 27, 2017 Additional Information Venous access: PICC Line Additional Instructions [x] Peripheral flush and dressing changes per protocol [x] Implanted port and central spout liner: * Implanted port: 10 ml Normal Saline followed by 5 ml Heparin 100 units/ml Heparin flush after each use and monthly to maintain. [] May leave port accessed during therapy. [] May leave peripheral site accessed for duration of therapy. [x] If patient has SOB or respiratory distress, check oxygen saturation. If less than 90% or clinical signs of respiratory distress, administer oxygen at 2 L/min. via nasal cannula and notify physician. [x] Anaphylaxis/Reaction orders: * Stop infusion. * Keep IV line open with saline flush. * Notify physician. * Monitor vital signs every 15 minutes until symptoms resolve. * Check Oxygen saturation; Oxygen at 2 L/min. via nasal cannula if less than 90% or clinical signs of respiratory distress. * Administer diphenhydramine (Benadryl) 25 mg IV STAT, (unless patient has received as pre-med). May repeat once, if necessary. * Solu-Cortef 250 mg IVP over 30-60 seconds, use 100 mg vials for each dissolution. * Epinephrine (1mg/1 ml) 0.3 mg subcutaneously or IVP now with any signs of respiratory distress. * Check with physician for new additional pre-med orders if patient is re- challenged or re-treated. [x] May remove PICC line when treatment complete, after confirming with Physician. [x] If the patient is admitted to the hospital, the ED, or transferred via [facility] , complete transfer form including medication reconciliation order sheet. Laboratory Tests Weekly Labs: CBC w/diff, Creatinine, Vancomycin Trough Makayla Mejia MD May 06, 2017 12:13
[2017-05-06] MEDS ORDERED: VANC10IN IV (12:16)
--- NOTE | 2017-05-06 12:18 | HHI.PR ---
Addendum to Inpatient Note Additional Information Vanco levels are high - noted Dose reduced to 1 gm daily will change her vancomycin dose to 1 gm daily and fu vancomyci levels Fu with Dr Barrett BERG to fl dw case mn Makayla Mejia MD May 06, 2017 12:18
--- NOTE | 2017-05-06 12:24 | HHI.PR ---
Subjective Remarks Follow up Right prosthetic hip infection/Bacteremia 04/30/17-Patient seen and examined, denies any significant stump pain. Currently afebrile 05/01/17-patient seen and examined, no complaint. Afebrile. Currently nothing by mouth 05-02 HAD SURGERY WITH ORTHO YESTERDAY STATES USED ELECTRICITY TRADER A LITTLE TODAY DW RN AND PT LIVES ALONE WITH HER DOGS WANTS HHC AT DC NOT SNF 05-03 NOT CLEARED BY ID YET WILL RECALL DW RN AND PT AND FAMILY USING ELECTRICITY TRADER A LITTLE STILL INCREASE SYNTHROID FOR ELEVATED TSH OF 7 05-04 needs PICC AND HHC SET UP FOR DISCHARGE ON ANTIBIOTICS 05-05 [facility] HAD BEEN ADJUSTED WILL NEED TO MAKE SURE ON RIGHT DOSE BEFORE DC TO HOME DW RN AND PT AND CASE MANAGEMENT AM LABS 05-06 [facility] DOSING ADJUSTED DC TO HOME TODAY FOLLOW UP WITH DR FRED FISCHER DC WITH C Objective Vitals Vital Signs Date Time Temp Pulse Resp B/P (MAP) Pulse Ox O2 Delivery O2 Flow Rate FiO2 05/06/17 11:19 60 05/06/17 08:25 Room Air 05/06/17 08:00 98.2 62 20 181/75 (110) 97 05/06/17 05:00 59 05/06/17 04:00 98.2 62 18 172/72 (105) 97 05/06/17 00:00 98.0 60 18 177/75 (109) 97 05/06/17 00:00 54 05/05/17 21:00 Room Air 05/05/17 21:00 68 05/05/17 20:00 97.7 68 18 163/72 (102) 97 05/05/17 16:00 97.0 63 18 157/70 (99) 100 05/05/17 16:00 67 I/O 05/05/17 05/05/17 05/05/17 05/06/17 05/06/17 05/06/17 07:00 15:00 23:00 07:00 15:00 23:00 Intake Total 1100 ml 480 ml Balance 1100 ml 480 ml Intake Oral 100 ml 480 ml IV Total 1000 ml # Voids 2 4 4 # Bowel Movements 0 1 1 Result Diagram: 05/06/17 0620 05/06/17 0620 Other Results Laboratory Tests Test 05/04/17 05:50 05/05/17 05:30 05/06/17 06:20 White Blood Count 5.4 TH/MM3 7.7 TH/MM3 6.7 TH/MM3 Red Blood Count 3.48 MIL/MM3 3.51 MIL/MM3 3.18 MIL/MM3 Hemoglobin 8.8 GM/DL 9.0 GM/DL 8.3 GM/DL Hematocrit 27.4 % 27.6 % 24.7 % Mean Corpuscular Volume 78.6 FL 78.4 FL 77.7 FL Mean Corpuscular Hemoglobin 25.1 PG 25.6 PG 26.0 PG Mean Corpuscular Hemoglobin Concent 31.9 % 32.6 % 33.4 % Red Cell Distribution Width 16.7 % 16.9 % 16.4 % Platelet Count 462 TH/MM3 586 TH/MM3 533 TH/MM3 Mean Platelet Volume 8.0 FL 7.8 FL 7.8 FL Neutrophils (%) (Auto) 57.4 % 63.3 % 65.1 % Lymphocytes (%) (Auto) 21.8 % 20.0 % 18.0 % Monocytes (%) (Auto) 14.4 % 12.2 % 11.6 % Eosinophils (%) (Auto) 5.4 % 3.9 % 4.5 % Basophils (%) (Auto) 1.0 % 0.6 % 0.8 % Neutrophils # (Auto) 3.1 TH/MM3 4.9 TH/MM3 4.4 TH/MM3 Lymphocytes # (Auto) 1.2 TH/MM3 1.5 TH/MM3 1.2 TH/MM3 Monocytes # (Auto) 0.8 TH/MM3 0.9 TH/MM3 0.8 TH/MM3 Eosinophils # (Auto) 0.3 TH/MM3 0.3 TH/MM3 0.3 TH/MM3 Basophils # (Auto) 0.1 TH/MM3 0.0 TH/MM3 0.1 TH/MM3 CBC Comment DIFF FINAL DIFF FINAL DIFF FINAL Differential Comment Blood Urea Nitrogen 5 MG/DL 6 MG/DL 8 MG/DL Creatinine 0.89 MG/DL 0.84 MG/DL 0.83 MG/DL Random Glucose 99 MG/DL 115 MG/DL 95 MG/DL Total Protein 6.5 GM/DL 6.8 GM/DL 6.4 GM/DL Albumin 2.0 GM/DL 2.2 GM/DL 2.2 GM/DL Calcium Level 8.4 MG/DL 8.5 MG/DL 8.3 MG/DL Phosphorus Level 3.6 MG/DL 3.5 MG/DL 3.3 MG/DL Magnesium Level 2.1 MG/DL 2.2 MG/DL 2.2 MG/DL Alkaline Phosphatase 101 U/L 123 U/L 119 U/L Aspartate Amino Transf (AST/SGOT) 18 U/L 17 U/L 14 U/L Alanine Aminotransferase (ALT/SGPT) 16 U/L 18 U/L 13 U/L Total Bilirubin 0.1 MG/DL 0.2 MG/DL 0.2 MG/DL Sodium Level 141 MEQ/L 142 MEQ/L 143 MEQ/L Potassium Level 3.9 MEQ/L 3.9 MEQ/L 3.9 MEQ/L Chloride Level 108 MEQ/L 107 MEQ/L 108 MEQ/L Carbon Dioxide Level 24.2 MEQ/L 29.4 MEQ/L 28.3 MEQ/L Anion Gap 9 MEQ/L 6 MEQ/L 7 MEQ/L Estimat Glomerular Filtration Rate 63 ML/MIN 67 ML/MIN 68 ML/MIN Random Vancomycin Level 19.1 COMMENT Imaging Last Impressions Chest X-Ray 05/04/17 0000 Signed Impressions: Service Date/Time: Thursday, May 04, 2017 14:50 - CONCLUSION: No acute disease. Right-sided PICC line in place. Kelvin Bush MD Hip X-Ray 05/01/17 1455 Signed Impressions: Service Date/Time: Monday, May 01, 2017 15:10 - CONCLUSION: Right hip arthroplasty, unchanged. Panchito Gonzalez MD Hip MRI 04/29/17 0000 Signed Impressions: Service Date/Time: Saturday, April 29, 2017 21:57 - CONCLUSION: 1. Fluid collection posterior lateral to the right hip arthroplasty. Abscess is not excluded. This would be accessible to percutaneous biopsy. Dave Eason MD Lower Extremity Ultrasound 04/28/17 0000 Signed Impressions: Service Date/Time: Friday, April 28, 2017 15:58 - CONCLUSION: 1. No evidence of deep venous thrombosis. Dave Eason MD Hip and Pelvis X-Ray 04/28/17 0000 Signed Impressions: Service Date/Time: Friday, April 28, 2017 16:44 - CONCLUSION: 1. Hip dislocation Dave Eason MD Objective Remarks GENERAL: Awake alert talkative and cooperative denies any pain in her right hip at this time SKIN: Warm and dry. HEAD: Atraumatic. Normocephalic. EYES: Pupils equal and round. No scleral icterus. No injection or drainage. Extraocular muscles intact ENT: No nasal bleeding or discharge. Mucous membranes pink and moist. Oral mucosa is moist tongue is midline NECK: Trachea midline. No JVD. Supple CARDIOVASCULAR: Regular rate and rhythm. S1 and S2 no S3-S4 RESPIRATORY: No accessory muscle use. Clear to auscultation. Breath sounds equal bilaterally. GASTROINTESTINAL: Abdomen soft, non-tender, nondistended. Hepatic and splenic margins not palpable. Obese MUSCULOSKELETAL: Extremities without clubbing, cyanosis, or edema. No obvious deformities. NEUROLOGICAL: Awake and alert. No obvious cranial nerve deficits. Motor grossly within normal limits. Five out of 5 muscle strength in the arms and legs. Normal speech. PSYCHIATRIC: Appropriate mood and affect; insight and judgment normal. 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 PROCEDURE Incision and drainage of right hip. SURGEON Waqas Brice MD ANESTHESIA General endotracheal. FORMAT Following the induction of satisfactory general anesthesia by endotracheal intubation as completed per the Department of Anesthesia, the patient was positioned upon the operating table in a right lateral decubitus fashion. The right hip and lower extremity proper were isolated with a U-drape thereafter being prepped with Betadine solution and draped into a sterile field in the routine manner. Prior to initiation of the actual procedure, the standard time-out protocol was completed. All parameters were appropriately addressed and confirmed by operating room personnel. A previous surgical incision with a very minimal degree of wound dehiscence was sharply excised in its entirety in an elliptical fashion and thereafter progressive dissection was completed in a deepening fashion. There was an obvious disruption of the deeper repair from recent surgery with communication being appreciated directly into the deeper tissues that was consistent with the history of the patient having had a recent dislocation of her right hip. Cultures were obtained at deep subcutaneous level as well as within the confines of the joint space. The hip components were visualized and noted to be in appropriate orientation. Thereafter thorough irrigation was completed utilizing 9 liters with pulsating antibiotic solution. Upon completion of same, the deeper tissue layer was reapproximated with a running 0 Vicryl suture and the remaining portion of the wound closed in layers in the routine manner, skin margins being reapproximated with a running subcuticular 3-0 Vicryl suture over which Steri-Strips were applied. Xeroform gauze and a bulky dry sterile dressing were placed. The patient was repositioned into a supine orientation a knee immobilizer was positioned, anesthesia was discontinued. She was thereafter transferred to a hospital bed and returned to the recovery room in satisfactory condition having tolerated her operative procedure well. Estimated blood loss was approximately 75-100 cc. Medications and IVs Current Medications Morphine Sulfate (Morphine Inj) 4 mg ONCE ONCE IV PUSH Last administered on 04/28/17at 16:40; Start 04/28/17 at 16:00; Stop 04/28/17 at 16:01; Status DC Ondansetron HCl (Zofran Inj) 4 mg ONCE ONCE IV PUSH Last administered on at 16:40; Start 04/28/17 at 16:00; Stop 04/28/17 at 16:01; Status DC Vancomycin HCl 1000 mg/Sodium Chloride 250 ml @ 250 mls/hr ONCE ONCE IV Last administered on 04/28/17at 17:27; Start 04/28/17 at 16:45; Stop 04/28/17 at 17:44; Status DC Propofol (Diprivan 200 Mg/20 ml Inj) 90 mg ONCE ONCE IV ; Start 04/28/17 at 17: 15; Stop 04/28/17 at 17:16; Status DC Pharmacy Profile Note 0 ml @ 0 mls/hr UNSCH OTHER ; Start 04/28/17 at 18:15; Stop 05/01/17 at 16:18; Status DC Morphine Sulfate (Morphine Inj) 3 mg Q2H PRN IV PAIN WHEN PT NPO Last administered on 04/29/17at 09:25; Start 04/28/17 at 23:15 Acetaminophen/ Hydrocodone Bitart (Alderson 5-325 Mg) 2 tab QID PRN PO PAIN WHEN TAKING PO Last administered on 04/29/17at 14:51; Start 04/28/17 at 23:15; Stop 04/29 at 18:36; Status DC Vancomycin HCl 1500 mg/Sodium Chloride 515 ml @ 257.5 mls/ hr ONCE ONCE IV Last administered on 04/29/17 10:20; Start 04/29/17 at 11:00; Stop 04/29/17 at 12: 59; Status DC Amlodipine Besylate (Norvasc) 5 mg DAILY PO Last administered on 05/06/17at 08: 05; Start 04/30/17 at 09:00 Brimonidine Tartrate (Alphagan 0.2% Opt Soln) 1 drop BID EACH EYE Last administered on 05/06/17at 08:06; Start 04/29/17 at 21:00 Bupropion HCl (Wellbutrin Sr) 150 mg DAILY PO Last administered on 05/06/17 08 :05; Start 04/30/17 at 09:00 Levothyroxine Sodium (Synthroid) 100 mcg DAILY PO Last administered on at 11:28; Start 04/30/17 at 09:00; Stop 05/03/17 at 12:34; Status DC Paroxetine HCl (Paxil) 40 mg DAILY PO Last administered on 05/06/17at 08:04; Start 04/30/17 at 09:00 Acetaminophen/ Hydrocodone Bitart (Alderson 5-325 Mg) 1 tab Q4H PRN PO PAIN LESS THAN 5 ON SCALE; Start 04/29/17 at 18:30 Acetaminophen/ Hydrocodone Bitart (Alderson 5-325 Mg) 2 tab Q4H PRN PO PAIN SCALE 5 TO 10 Last administered on 05/06/17at 08:16; Start 04/29/17 at 18:30 Acetaminophen (Tylenol) 650 mg Q6H PRN PO FEVER > 101 Last administered on at 23:22; Start 04/29/17 at 18:30 Ondansetron HCl (Zofran Inj) 4 mg Q6H PRN IVP NAUSEA OR VOMITING; Start at 18:30 Docusate Sodium (Colace) 100 mg BID PRN PO CONSTIPATION; Start 04/29/17 at 18:30 ; Stop 05/01/17 at 15:14; Status DC Zolpidem Tartrate (Ambien) 5 mg HS PRN PO SLEEP Last administered on 05/05/17at 22:31; Start 04/29/17 at 18:30 Naloxone HCl (Narcan Inj) 0.4 mg UNSCH PRN IV PUSH RESPIRATORY RATE LESS THAN 10; Start 04/29/17 at 18:30 Gadodiamide (Omniscan Pf Inj) 18 ml STK-MED ONCE IV PUSH Last administered on at 23:03; Start 04/29/17 at 23:03; Stop 04/29/17 at 23:04; Status DC Vancomycin HCl 1500 mg/Sodium Chloride 515 ml @ 250 mls/hr Q18H IV Last administered on 05/02/17at 00:56; Start 04/30/17 at 13:00; Stop 05/04/17 at 11:40 ; Status DC Miscellaneous Information SPECIFIC LAB TO BE DRAWN:VANCOMYCIN TROUGH DATE TO... ONCE ONCE .XX Last administered on 05/02/17at 00:45; Start 05/02/17 at 00:45; Stop 05/02/17 at 00:46; Status DC Lactated Ringer's 1,000 ml @ 30 mls/hr Q24H PRN IV SEE LABEL COMMENTS; Start at 05:15; Stop 05/01/17 at 15:14; Status DC Sodium Chloride 500 ml @ 30 mls/hr [id number] PRN IV SEE LABEL COMMENTS; Start 02/06 at 05:15; Stop 05/01/17 at 15:14; Status DC Metoprolol Tartrate (Lopressor) 25 mg SHELLFISH CHECKER PRN PO SEE LABEL COMMENTS; Start 05/01/17 at 05:15; Stop 05/04/17 at 05:14; Status DC Povidone Iodine (Betadine 5% Antisepsis Kit) 1 applic SHELLFISH CHECKER PRN EACH NARE SEE LABEL COMMENTS; Start 05/01/17 at 05:15; Stop 05/04/17 at 05:14; Status DC Chlorhexidine Gluconate (Chlorhexidine 2% Cloth) 3 pack SHELLFISH CHECKER PRN TOPICAL SEE LABEL COMMENTS; Start 05/01/17 at 05:15; Stop 05/04/17 at 05:14; Status DC Gentamicin Sulfate (Gentamicin Inj) 640 mg STK-MED ONCE .ROUTE Last administered on 05/01/17at 13:48; Start 05/01/17 at 11:07; Stop 05/01/17 at 11:08 ; Status DC Vancomycin HCl (Vancomycin Inj) 1,000 mg STK-MED ONCE .ROUTE ; Start 05/01/17 at 11:07; Stop 05/01/17 at 11:08; Status DC Sodium Chloride 0 ml @ As Directed STK-MED ONCE .ROUTE ; Start 05/01/17 at 11:08 ; Stop 05/01/17 at 11:09; Status DC Fentanyl Citrate (fentaNYL INJ) 200 mcg STK-MED ONCE .ROUTE ; Start 05/01/17 at 13:17; Stop 05/01/17 at 13:18; Status DC Dextrose/Sodium Chloride 1,000 ml @ 125 mls/hr Q8H IV Last administered on at 05:30; Start 05/01/17 at 14:55; Stop 05/05/17 at 15:34; Status DC Vancomycin HCl 1000 mg/Sodium Chloride 250 ml @ 250 mls/hr Q12H IV ; Start 03/09 at 02:00; Stop 05/02/17 at 02:00; Status DC Miscellaneous Information (Post-op Orders (for Pharmacy)) STAT ONCE XX ; Start 05/01/17 at 15:00; Stop 05/01/17 at 15:16; Status DC Miscellaneous Medication ([facility]) ONCE ONCE XX ; Start 02/06 at 15:00; Stop 05/01/17 at 15:15; Status DC Acetaminophen/ Hydrocodone Bitart (Alderson 5-325 Mg) 1 tab Q4H PRN PO PAIN LESS THAN 5 ON SCALE; Start 05/01/17 at 15:00; Stop 05/01/17 at 15:10; Status DC Acetaminophen/ Hydrocodone Bitart (Alderson 5-325 Mg) 2 tab Q4H PRN PO PAIN SCALE 5 TO 10; Start 05/01/17 at 15:00; Stop 05/01/17 at 15:10; Status DC Acetaminophen (Tylenol) 650 mg Q6H PRN PO FEVER > 101; Start 05/01/17 at 15:00 ; Stop 05/01/17 at 15:12; Status DC Ondansetron HCl (Zofran Inj) 4 mg Q6H PRN IVP NAUSEA OR VOMITING; Start at 15:00; Stop 05/01/17 at 15:13; Status DC Docusate Sodium (Colace) 100 mg BID PRN PO CONSTIPATION; Start 05/01/17 at 15: 00 Zolpidem Tartrate (Ambien) 5 mg HS PRN PO SLEEP; Start 05/01/17 at 15:00; Stop 05/01/17 at 15:12; Status DC Naloxone HCl (Narcan Inj) 0.4 mg UNSCH PRN IV PUSH RESPIRATORY RATE LESS THAN 10; Start 05/01/17 at 15:00 Morphine Sulfate (Morphine 1 Mg/ ml ELECTRICITY TRADER) 30 mg UNSCH IV Last administered on 03/09at 15:36; Start 05/01/17 at 15:00; Stop 05/03/17 at 14:59; Status DC ELECTRICITY TRADER Dosage Infused (Pha) 1 Q8HR .XX Last administered on 05/03/17at 18:25; Start 05/01/17 at 22:00 Miscellaneous Information ALL NURSING DEPARTME... UNSCH PRN .XX SEE LABEL COMMENTS; Start 05/01/17 at 15:30; Stop 05/02/17 at 15:29; Status DC Morphine Sulfate (*morphine INJ PERIprocedure ONLY) 4 mg STK-MED ONCE .ROUTE Last administered on 05/01/17at 15:31; Start 05/01/17 at 15:31; Stop 05/01/17 at 15:32; Status DC Pharmacy Profile Note 0 ml @ 0 mls/hr UNSCH OTHER ; Start 05/01/17 at 16:00 Lactated Ringer's 1,000 ml @ As Directed STK-MED ONCE IV ; Start 05/01/17 at 12 :00; Stop 05/02/17 at 09:56; Status DC Lidocaine HCl (Xylocaine-Mpf 1% Inj) 10 ml STK-MED ONCE OTHER ; Start 05/01/17 at 12:00; Stop 05/02/17 at 09:56; Status DC Rocuronium Alna (Zemuron Inj) 50 mg STK-MED ONCE IV PUSH ; Start 05/01/17 at 12:00; Stop 05/02/17 at 09:56; Status DC Neostigmine Methylsulfate (Prostigmine Inj) 5 mg STK-MED ONCE IV PUSH ; Start at 12:00; Stop 05/02/17 at 09:56; Status DC Glycopyrrolate (Robinul Inj) 1 mg STK-MED ONCE IV PUSH ; Start 05/01/17 at 12:00 ; Stop 05/02/17 at 09:56; Status DC Phenylephrine HCl (Neosynephrine/ NS 1000 Mcg/10ml Syr) 1,000 mcg STK-MED ONCE IV ; Start 05/01/17 at 12:00; Stop 05/02/17 at 09:56; Status DC Ephedrine Sulfate (ePHEDrine/NS 25 MG/5 ML SYR) 50 mg STK-MED ONCE IV ; Start at 12:00; Stop 05/02/17 at 09:56; Status DC Ondansetron HCl (Zofran Inj) 4 mg STK-MED ONCE IV PUSH ; Start 05/01/17 at 12:00 ; Stop 05/02/17 at 09:56; Status DC Propofol (Diprivan 200 Mg/20 ml Inj) 200 mg STK-MED ONCE IV ; Start 05/01/17 at 12:00; Stop 05/02/17 at 09:56; Status DC Enoxaparin Sodium (Lovenox Inj) 40 mg Q24H SQ Last administered on 05/05/17at 16 :11; Start 05/02/17 at 16:00 Rifampin (Rifampin) 300 mg Q12HR PO Last administered on 05/06/17at 08:05; Start 05/02/17 at 21:00 Levothyroxine Sodium (Synthroid) 125 mcg DAILY@0600 PO Last administered on at 06:16; Start 05/04/17 at 06:00 Vancomycin HCl 1000 mg/Sodium Chloride 250 ml @ 250 mls/hr Q24H IV Last administered on 05/05/17at 20:18; Start 05/04/17 at 20:00 Miscellaneous Information SPECIFIC LAB TO BE KUSUM... ONCE ONCE .XX ; Start 05/06 at 19:45; Stop 05/06/17 at 19:46 A/P Problem List: (1) Bacteremia ICD Code: R78.81 - Bacteremia (2) Infected prosthetic hip ICD Code: T84.59XA - Infection and inflammatory reaction due to other internal joint prosthesis, initial encounter; Z96.649 - Presence of unspecified artificial hip joint (3) Dislocated hip ICD Code: S73.006A - Unspecified dislocation of unspecified hip, initial encounter Status: Acute (4) HTN (hypertension) ICD Code: I10 - Essential (primary) hypertension Status: Acute (5) Hypothyroidism ICD Code: E03.9 - Hypothyroidism, unspecified Status: Acute (6) Depression ICD Code: F32.9 - Major depressive disorder, single episode, unspecified Status: Acute (7) UTI (urinary tract infection) ICD Code: N39.0 - Urinary tract infection, site not specified Assessment and Plan 66 yrs old female with: Bacteremia Currently on vancomyciN Appreciate input from infectious disease specialist 2-D echo DONE POSITIVE MRSA Right hip prosthetic infection Currently on vancomycin FOR MRSA MRI of the hip noted and review Appreciate input from orthopedic surgery, infectious disease specialist Pain management accordingly PT to treat and eval Status post incision and drainage of right hip. Yesterday MRSA Questionable abscess posterior lateral of the right hip arthroplasty Had drainage by orthopedic surgery on 05/01/17 Continue current antibiotics MRSA Urinary tract infection Currently on IV Antibiotic TREAT WITH VANCO Hypertension Amlodipine Hypothyroidism: Continue Synthroid- WILL INCREASE TO 125MCG DAILY Depression: Continue Wellbutrin, paroxetine Suspected MRSA infection DVT prophylaxis: Anticoagulation per orthopedic surgery. AM LABS Wants to go home with home healthcare and not go to SNF [facility] 1 GRAMS IV DAILY AND RIFAMPIN BUT MEDS HAVE BEEN ADJUSTED [facility] WILL ADJUSTMENT BEFORE DC Discharge Planning Wants to go home with home health care FOR ANTIBIOTICS Problem Qualifiers (1) Infected prosthetic hip: Qualified Codes: T84.59XA - Infection and inflammatory reaction due to other internal joint prosthesis, initial encounter; Z96.649 - Presence of unspecified artificial hip joint (2) Dislocated hip: Qualified Codes: S73.004A - Unspecified dislocation of right hip, initial encounter Dwayne Pak DO May 06, 2017 12:24
[2017-05-06] MEDS ORDERED: ASPI325T33 PO (12:28)
[2017-05-06] MEDS ORDERED: LEVO.125 PO (12:28)
[2017-05-06] MEDS ORDERED: AMLO5TAB2 PO (12:28)
[2017-05-06] MEDS ORDERED: HYDR-3516 PO (12:28)
[2017-05-06] MEDS ORDERED: DOCU1CAP39 PO (12:28)
--- NOTE | 2017-05-06 12:32 | HHI.DS ---
Discharge Summary Admission Date Apr 28, 2017 at 17:48 Discharge Date: May 06, 2017 Admitting Diagnosis septic joint, hip pain, history of septic joint w/recent surgery (1) Bacteremia ICD Code: R78.81 - Bacteremia Diagnosis: Principal (2) Infected prosthetic hip ICD Code: T84.59XA - Infection and inflammatory reaction due to other internal joint prosthesis, initial encounter; Z96.649 - Presence of unspecified artificial hip joint Diagnosis: Principal (3) Dislocated hip ICD Code: S73.006A - Unspecified dislocation of unspecified hip, initial encounter Diagnosis: Secondary Status: Acute (4) HTN (hypertension) ICD Code: I10 - Essential (primary) hypertension Diagnosis: Principal Status: Acute (5) Hypothyroidism ICD Code: E03.9 - Hypothyroidism, unspecified Diagnosis: Principal Status: Acute (6) Depression ICD Code: F32.9 - Major depressive disorder, single episode, unspecified Diagnosis: Secondary Status: Acute (7) UTI (urinary tract infection) ICD Code: N39.0 - Urinary tract infection, site not specified Diagnosis: Secondary Procedures JUANITO BRICE DATE OF SURGERY 01 May 2017 PREOPERATIVE DIAGNOSIS 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 PROCEDURE Incision and drainage of right hip. SURGEON Waqas Brice MD ANESTHESIA General endotracheal. FORMAT Following the induction of satisfactory general anesthesia by endotracheal intubation as completed per the Department of Anesthesia, the patient was positioned upon the operating table in a right lateral decubitus fashion. The right hip and lower extremity proper were isolated with a U-drape thereafter being prepped with Betadine solution and draped into a sterile field in the routine manner. Prior to initiation of the actual procedure, the standard time-out protocol was completed. All parameters were appropriately addressed and confirmed by operating room personnel. A previous surgical incision with a very minimal degree of wound dehiscence was sharply excised in its entirety in an elliptical fashion and thereafter progressive dissection was completed in a deepening fashion. There was an obvious disruption of the deeper repair from recent surgery with communication being appreciated directly into the deeper tissues that was consistent with the history of the patient having had a recent dislocation of her right hip. Cultures were obtained at deep subcutaneous level as well as within the confines of the joint space. The hip components were visualized and noted to be in appropriate orientation. Thereafter thorough irrigation was completed utilizing 9 liters with pulsating antibiotic solution. Upon completion of same, the deeper tissue layer was reapproximated with a running 0 Vicryl suture and the remaining portion of the wound closed in layers in the routine manner, skin margins being reapproximated with a running subcuticular 3-0 Vicryl suture over which Steri-Strips were applied. Xeroform gauze and a bulky dry sterile dressing were placed. The patient was repositioned into a supine orientation a knee immobilizer was positioned, anesthesia was discontinued. She was thereafter transferred to a hospital bed and returned to the recovery room in satisfactory condition having tolerated her operative procedure well. Estimated blood loss was approximately 75-100 cc. Brief History - From Admission The patient is a 66-year-old female who presented to emergency department for evaluation of right hip pain. She does not recall a specific injury. Pain became severe in the right hip and groin. She had hip replacement in June 2016. She developed an infection in the joint and the hip prosthesis was removed. She completed a 6 week course of vancomycin and rifampin. She had revision of the hip replacement on 04/17/17. Postoperative cultures were negative. She has been having home health for wound care. Other than the hip pain, she has no complaints at this time. CBC/BMP: 05/06/17 0620 05/06/17 0620 Significant Findings Laboratory Tests Test 05/04/17 05:50 05/05/17 05:30 05/06/17 06:20 Red Blood Count 3.48 MIL/MM3 (4.00-5.30) 3.51 MIL/MM3 (4.00-5.30) 3.18 MIL/MM3 (4.00-5.30) Hemoglobin 8.8 GM/DL (11.6-15.3) 9.0 GM/DL (11.6-15.3) 8.3 GM/DL (11.6-15.3) Hematocrit 27.4 % (35.0-46.0) 27.6 % (35.0-46.0) 24.7 % (35.0-46.0) Mean Corpuscular Volume 78.6 FL (80.0-100.0) 78.4 FL (80.0-100.0) 77.7 FL (80.0-100.0) Mean Corpuscular Hemoglobin 25.1 PG (27.0-34.0) 25.6 PG (27.0-34.0) 26.0 PG (27.0-34.0) Mean Corpuscular Hemoglobin Concent 31.9 % (32.0-36.0) Platelet Count 462 TH/MM3 (150-450) 586 TH/MM3 (150-450) 533 TH/MM3 (150-450) Monocytes (%) (Auto) 14.4 % (0.0-8.0) 12.2 % (0.0-8.0) 11.6 % (0.0-8.0) Eosinophils (%) (Auto) 5.4 % (0.0-4.0) 4.5 % (0.0-4.0) Blood Urea Nitrogen 5 MG/DL (7-18) 6 MG/DL (7-18) Albumin 2.0 GM/DL (3.4-5.0) 2.2 GM/DL (3.4-5.0) 2.2 GM/DL (3.4-5.0) Calcium Level 8.4 MG/DL (8.5-10.1) 8.3 MG/DL (8.5-10.1) Total Bilirubin 0.1 MG/DL (0.2-1.0) Chloride Level 108 MEQ/L (98-107) 108 MEQ/L (98-107) Estimat Glomerular Filtration Rate 63 ML/MIN (>89) 67 ML/MIN (>89) 68 ML/MIN (>89) Random Glucose 115 MG/DL (74-106) Alkaline Phosphatase 123 U/L (45-117) 119 U/L (45-117) Aspartate Amino Transf (AST/SGOT) 14 U/L (15-37) PE at Discharge GENERAL: Awake alert talkative and cooperative denies any pain in her right hip at this time SKIN: Warm and dry. HEAD: Atraumatic. Normocephalic. EYES: Pupils equal and round. No scleral icterus. No injection or drainage. Extraocular muscles intact ENT: No nasal bleeding or discharge. Mucous membranes pink and moist. Oral mucosa is moist tongue is midline NECK: Trachea midline. No JVD. Supple CARDIOVASCULAR: Regular rate and rhythm. S1 and S2 no S3-S4 RESPIRATORY: No accessory muscle use. Clear to auscultation. Breath sounds equal bilaterally. GASTROINTESTINAL: Abdomen soft, non-tender, nondistended. Hepatic and splenic margins not palpable. Obese MUSCULOSKELETAL: Extremities without clubbing, cyanosis, or edema. No obvious deformities. NEUROLOGICAL: Awake and alert. No obvious cranial nerve deficits. Motor grossly within normal limits. Five out of 5 muscle strength in the arms and legs. Normal speech. PSYCHIATRIC: Appropriate mood and affect; insight and judgment normal. Hospital Course The patient is a 66-year-old female who presented to emergency department for evaluation of right hip pain. She does not recall a specific injury. Pain became severe in the right hip and groin. She had hip replacement in June 2016. She developed an infection in the joint and the hip prosthesis was removed. She completed a 6 week course of vancomycin and rifampin. She had revision of the hip replacement on 04/17/17. Postoperative cultures were negative. She has been having home health for wound care. Other than the hip pain, she has no complaints at this time. Follow up Right prosthetic hip infection/Bacteremia 04/30/17-Patient seen and examined, denies any significant stump pain. Currently afebrile 05/01/17-patient seen and examined, no complaint. Afebrile. 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 Pt Condition on Discharge: Stable Discharge Disposition: Disch w/ Home Health Serv Discharge Time: > 30 minutes Discharge Instructions DIET: Follow Instructions for: As Tolerated, No Restrictions Speech Therapy-Diet Recommends: Regular Activities you can perform: Full Weight Bearing, Shower Only-No Bath Follow up Referrals: Appointment for Follow Up @ ORTHOPEDICS Appointment for Follow Up with Divina Carty MD Pt with MRSA recurrent prosthetic hip infection. On IV vancomycin and oral rifampin sp I& D of 2nd infected priosthesis. Will need oral abx after IV part completed Infectious Disease - 1 Week with Divina Carty MD Orthopedics - 3 Weeks with Juanito Brice MD PCP Follow-up - 2-3 Days with Laureano Fischer MD SNF/SKILLED NURSING/ with [facility] New Medications: Epinephrine Inj (Epinephrine Inj) 1 Mg/Ml (1 Ml) Inj 0.3 MG IV PUSH ONCE PRN for ALLERGIC REACTION, #1 VIAL Epinephrine Inj (Epinephrine Inj) 1 Mg/Ml (1 Ml) Inj 0.3 MG SQ ONCE PRN for ALLERGIC REACTION, #1 VIAL Give with any signs of respiratory distress. Hydrocortisone Inj (Solu-Cortef Inj) 250 Mg/2 Ml Inj 250 MG IV PUSH ONCE PRN for ALLERGIC REACTION, #1 VIAL 0 Refills Give over 30-60 seconds. Rifampin (Rifampin) 300 Mg Cap 300 MG PO BID for Infection for 60 Days, #120 CAP 0 Refills Vancomycin Inj (Vancomycin Inj) 10 Gram Inj 1000 MG IV DAILY for Infection for 60 Days, VIAL Docusate Sodium (Dok) 100 Mg Cap 100 MG PO BID PRN for CONSTIPATION, #60 CAP Levothyroxine (Synthroid) 125 Mcg Tab 125 MCG PO DAILY@0600 for Thyroid, #30 TAB Continued Medications: Amlodipine (Amlodipine) 5 Mg Tab 5 MG PO DAILY for Blood Pressure Management, #30 TAB 0 Refills (This prescription has been renewed) Aspirin DR (Aspirin EC) 325 Mg Tabdr 325 MG PO DAILY for Blood Clot Prevention, #30 TAB 0 Refills (This prescription has been renewed) Brimonidine Opth Drops (Brimonidine Opth Drops) 0.2% Soln 1 DROP EACH EYE BID for Intraocular pressure, #1 BOTTLE 0 Refills Bupropion HCl ER 24 HR (Bupropion HCl ER 24 HR) 150 Mg Tab 150 MG PO DAILY for Control Depression, TAB 0 Refills Hospital Bed - Electric (Hospital Bed - Electric) 1 Ea Ea EA .ROUTE DIRECTED, #1 use as directed Hydrocodone/Acetaminophen (Hydrocodone-Acetamin 5-325 mg) 5 Mg-325 Mg Tablet 2 TAB PO Q4H PRN for PAIN SCALE 5 TO 10, #60 CAP 0 Refills (This prescription has been renewed) Paroxetine (Paroxetine) 40 Mg Tab 40 MG PO DAILY, #30 TAB 0 Refills Discontinued Medications: Levothyroxine (Levothyroxine) 100 Mcg Tab 100 MCG PO DAILY for Thyroid, #30 TAB 0 Refills Dwayne Pak DO May 06, 2017 12:32
[2017-05-06] MEDS ORDERED: VANCOMYCIN 1,000 MG/NS 250 ML IV ONE ×2 (18:00)
[2017-05-06] MEDS: ENOXAPARIN SODIUM 40 MG/0.4 ML SYRINGE SQ SCH (18:07)
[2017-05-06] MEDS ORDERED: PHARMACY ORDERED LAB ONE (19:45)
== END 2017-05-06 20:23 | disposition home health service (06) | DRG 501 ==
LOC: NEPC 14:58 → NEDA 17:48 → N04A 19:09
PROVIDERS: ADMIT Orthopaedic Surgery; ATTEND Orthopaedic Surgery
PROC: 0SW9XJZ Revision of Synthetic Substitute in Right Hip Joint, External Approach (ICD-10-PCS; 2017-04-28)
PROC: 0HBHXZZ Excision of Right Upper Leg Skin, External Approach (ICD-10-PCS; 2017-05-01)
PROC: 0JDL0ZZ Extraction of Right Upper Leg Subcutaneous Tissue and Fascia, Open Approach (ICD-10-PCS; principal; 2017-05-01 13:06)
DX: T84.51XA Infection and inflammatory reaction due to internal right hip prosthesis, initial encounter (principal); N39.0 Urinary tract infection, site not specified; T84.020A Dislocation of internal right hip prosthesis, initial encounter; I10 Essential (primary) hypertension; B95.62 Methicillin resistant Staphylococcus aureus infection as the cause of diseases classified elsewhere; Y79.2 Prosthetic and other implants, materials and accessory orthopedic devices associated with adverse incidents; Y83.1 Surgical operation with implant of artificial internal device as the cause of abnormal reaction of the patient, or of later complication, without mention of misadventure at the time of the procedure; M19.90 Unspecified osteoarthritis, unspecified site; F41.9 Anxiety disorder, unspecified; F32.9 Major depressive disorder, single episode, unspecified; E03.9 Hypothyroidism, unspecified; E05.00 Thyrotoxicosis with diffuse goiter without thyrotoxic crisis or storm; Z86.14 Personal history of Methicillin resistant Staphylococcus aureus infection; Z72.0 Tobacco use; Z88.2 Allergy status to sulfonamides
CPT/HCPCS: 27265; 36569; 71045; 73501; 73502; 73723; 76937; 80053; 80202; 81001; 82565; 83036; 83605; 83735; 84100; 84439; 84443; 85014; 85018; 85025; 85652; 86140; 86403; 86850; 86900; 86901; 86920; 87015; 87040; 87070; 87077; 87086; 87102; 87116; 87176; 87186; 87205; 87206; 93005; 93308; 93971; 94150; 96365; 96375; A9579; J1580; J1650; J2270; J2370; J2405; J2710; J3010; J3370; J7040; J7050; J7120; L1830

== ENCOUNTER 2018-06-03 10:00 | Inpatient (IN) ==
--- NOTE | 2018-06-06 17:11 | MH ---
cc: Vinay Brice MD DATE OF ADMISSION: 06/11/2018 She is scheduled to be admitted to the hospital on 06/11/2018. ADMITTING DIAGNOSIS: Osteoarthritis, left knee. COMORBIDITIES: Hypothyroidism, depression, hypertension, history of MRSA infection, right hip. HISTORY OF PRESENT ILLNESS: The patient is a 68-year-old white female who has had greater than 1-year history of pain involving her left knee region. She had originally noted the onset of symptoms involving both her left knee as well as both hips for which she was diagnosed as having osteoarthritis. She subsequently underwent a right total hip arthroplasty within the past few years that unfortunately was complicated by postoperative wound infection with MRSA. She was treated with a resection arthroplasty and carried through an extended course of antibiotic management before undergoing a second stage reimplantation. During this interval of time, she did dislocate her temporary cement spacer prosthesis that did require closed reduction. She presented to the office in March of this past year reporting ongoing pain about her left hip and her left knee for which she had undergone recent evaluation with her primary care physician. X-ray studies had revealed moderately advanced osteoarthritis of the medial and lateral compartments of the left knee with associated osteophytes and lateral subluxation of the tibia. The patient had been taking diclofenac and hydrocodone for pain management while utilizing a walker as a full-time ambulatory aid. At the time of that office evaluation findings and treatment options were reviewed. The pros and cons of continued conservative management versus operative intervention involving total knee arthroplasty were outlined in detail. Emphasis was made regarding the fact that the decision to proceed with surgery would be left entirely to the patient's discretion. The patient was treated at that time with a Kenalog injection as well as being prescribed a Medrol Dosepak while being followed on an outpatient basis. Unfortunately, her symptoms persisted for which she became progressively more symptomatic with pain that was interfering with all ambulatory activities and requiring time study observer use of a walker. She returned to the office more recently indicating that she was significantly incapacitated with regard to all activities of daily living and was desirous of proceeding with further disposition that would involve total knee replacement. In compliance with her wishes, she was scheduled for admission at this time in order that the above be accomplished. Her past medical history, hospitalizations and surgeries in addition to the procedures of her right hip as described above have included vein stripping of the left lower extremity, bilateral cataract excision, tonsillectomy and a prior history of MRSA infection of the back area that required an I and D procedure. The patient's medical illnesses include hypothyroidism, depression, hypertension and a history of MRSA infection of her right hip. CURRENT MEDICATIONS: 1. Paroxetine 40 mg daily. 2. Bupropion 150 mg daily. 3. Levothyroxine 125 mcg daily. 4. Amlodipine 5-10 mg daily. 5. Doxycycline 100 mg daily. 6. Pantoprazole 40 mg daily. 7. Brimonidine 0.026 one drop to each eye twice daily. 8. She had been taking aspirin on a daily basis, but discontinued the medication prior to the surgery. 9. Mupirocin ointment to the nasal region. 10. She also takes a calcium supplement 600 mg twice daily. 11. Probiotic twice daily. ALLERGIES: THE PATIENT DESCRIBES A DRUG ALLERGY: SULFA, WHICH HAS BEEN ASSOCIATED WITH FACIAL SWELLING. REVIEW OF SYSTEMS: Denies headache, seizure, or syncope. Occasional sinus congestion. No epistaxis. Auditory acuity intact. No tinnitus. No bleeding gums or dysphagia. No cough, shortness of breath, upper respiratory infection, pneumonia, or tuberculosis. No angina or heart disease. She is medically managed for hypertension. Appetite is poor right now. Bowel movements are regular. No hepatitis, gallbladder disease, ulcers or hemorrhoids. No urinary tract infection, no kidney stones, no previous fractures. Previous psychiatric intervention for depression. Remaining review of systems is unremarkable and noncontributory. FAMILY HISTORY: The patient has been a for approximately 9 years, at 50 years of age secondary to congestive heart failure. Two sons and 1 daughter indicated to be in good health. Family history is positive for hypertension, heart disease and prostate cancer. SOCIAL HISTORY: The patient completed a high school education. She has been a housewife. She admits to a 88-myns-gaew use of tobacco, but has tried to taper this habit over the past few years. Ethanol consumption in the form of an occasional glass of wine or beer. PHYSICAL EXAMINATION: VITAL SIGNS: 5 feet, 4 inches, weight 184 pounds. GENERAL: An alert, oriented, responsive 68-year-old white female who sits quietly the examination table with no apparent distress. HEAD, EARS, EYES, NOSE AND THROAT: Pupils are equally round and reactive to light. Extraocular movements full. Sclerae are clear. External nares clear. External auditory canals clear. Edentulous. Mucous membranes pink and moist. Pharynx clear. NECK: Supple. Active range of motion. No significant pain. Carotid pulse is palpable bilaterally. Trachea midline. Thyroid without enlargement. LUNGS: Clear to auscultation and percussion. No CVA tenderness. No discomfort throughout the dorsolumbar spine. HEART: Regular irregular rhythm without murmur or gallop. ABDOMEN: Soft, nontender, bowel sounds present. PELVIC: Per primary care physician. EXTREMITIES: Left knee, there is a generalized fullness about the knee consistent with redundancy of soft tissue. No appreciable swelling or any effusion. Tenderness about the anterior aspect of the knee, without palpable deformity. Limited mobility of the knee joint and the 20-70 degree range of motion with pain associated. Suggestion for crepitation elicited. No collateral ligamentous laxity. Rico test and drawer sign negative. Pivot shift and Yusuf sign positive about the medial and lateral compartments. Straight leg raising unremarkable at 80 degrees. Antalgic gait with walker support. NEUROLOGIC: Cranial nerves 2-12 grossly intact. IMPRESSION: Osteoarthritis, left knee. Comorbidities: Hypothyroidism, depression, hypertension, history of methicillin-resistant Staphylococcus aureus infection, right hip. PLAN: Left total knee arthroplasty. The nature of the planned surgical procedure, the potential complications and risks associated, the expectations of surgery and the consent form have been thoroughly reviewed with the patient prior to her admission to the hospital bed. Vanessa has indicated her full understanding regarding all of the above and given consent to proceed with treatment as outlined. Medical evaluation and clearance for surgery completed by her primary care physician, Dr. Tracy. Infectious disease clearance per Dr. Carty. Vinay Brice MD NBS/ct , 04:19 PM , 04:35 PM
[2018-06-11] MEDS ORDERED: Chlorhexidine Gluconate 2% 1 Pack (2 Cloths) TOPICAL SCH (11:21)
[2018-06-11] MEDS ORDERED: Metoprolol Tartrate 25 MG Tablet PO SCH (11:21)
[2018-06-11] MEDS ORDERED: Bupivacaine Liposomal PF 1.3% Inj 20 ML Vial ONE (11:28)
[2018-06-11] MEDS ORDERED: Sodium Chlor 0.9% Inj 500 ML IV.SIG SCH (12:00)
[2018-06-11] MEDS ORDERED: Tranexamic Acid Inj 1,000 MG in Sodium Chlor 0.9% Inj 100 ML IV.SIG SCH ×2 (12:00→15:00)
[2018-06-11] MEDS ORDERED: ceFAZolin 2 GM Premix Inj 2 GM/50 ML PIGGYBACK IV.SIG SCH (12:00)
[2018-06-11] MEDS ORDERED: Sodium Chlor 0.9% Inj 50 ML, Bupivacaine Liposo PF 1.3% Inj 20 ML, Bupivacaine 0.25% In... P-ARTICULR SCH ×3 (12:00)
[2018-06-11] MEDS ORDERED: Glycopyrrolate Inj 1 MG/5 ML Syringe IV.PUSH ONE (12:11)
[2018-06-11] MEDS ORDERED: Phenylephrine/NS 1000 MCG/10ML Syringe IV.PUSH ONE (12:11)
[2018-06-11] MEDS ORDERED: Lidocaine PF 1% Inj 5 ML Syringe OTHER ONE (12:11)
[2018-06-11] MEDS ORDERED: Neostigmine Inj 5 MG/5 ML Syringe IV.PUSH ONE (12:11)
[2018-06-11] MEDS ORDERED: fentaNYL Citrate Inj 100 MCG/2 ML Ampul ONE (12:17)
[2018-06-11] MEDS ORDERED: *morphine SULFATE 10 MG/ML PERIprocedure ONLY ONE ×2 (14:25→14:33)
[2018-06-11] MEDS ORDERED: Bisacodyl 10 MG Supp RECTAL PRN (14:29)
[2018-06-11] MEDS ORDERED: Tranexamic Acid Inj 1,000 MG in Sodium Chlor 0.9% Inj 100 ML IV.SIG ONE (14:29)
[2018-06-11] MEDS ORDERED: Post-op Orders (for Pharmacy) OTHER STA (14:29)
[2018-06-11] MEDS ORDERED: Aluminum/Magnesium/Simethacone Susp 30 ML UDC PO PRN (14:29)
[2018-06-11] MEDS ORDERED: Naloxone Inj 0.4 MG/ML Vial IV.PUSH PRN (14:29)
[2018-06-11] MEDS ORDERED: Acetaminophen 325 MG Tablet PO PRN (14:29)
[2018-06-11] MEDS ORDERED: Morphine Inj 4 MG/ML Vial IV.PUSH PRN (14:29)
--- NOTE | 2018-06-11 14:32 | P.DCO ---
- Diagnosis (1) Degenerative joint disease of knee, left Status: Acute - Physical Therapy Order: Evaluate and treat, Improve ambulation, Strength and gait training - Home Health Nursing Order: Wound care and dressing changes, Nursing assessment with vital signs - Postdoctoral Scientist Order: To evaluate: Living conditions/environment, Support services Order: To provide: Long range planning, Community services - Case Management Consult Case Management Consult-Home Health: Yes - Certification I have seen patient Vanessa Cortez on 06/11/18. My clinical findings support the need for the requested home health care services because: Limited ability to care for self, High risk of falls I certify that my clinical findings support that this patient is homebound because: Post-op weakness, Unsteady gait/balance, Unsafe to leave home unassisted (1) Degenerative joint disease of knee, left Qualifiers: Osteoarthritis type: primary Qualified Code(s): M17.12 - Unilateral primary osteoarthritis, left knee
[2018-06-11] MEDS ORDERED: *Meperidine Inj 25 MG/ML Vial PERIprocedural Use ONLY ONE (14:34)
--- NOTE | 2018-06-11 14:42 | MP ---
cc: Vinay Brice MD DATE OF OPERATION: 06/11/2018 PREOPERATIVE DIAGNOSIS: Osteoarthritis, left knee. POSTOPERATIVE DIAGNOSIS: Osteoarthritis, left knee. PROCEDURE: Left total knee arthroplasty. SURGEON: Vinay Brice MD. ANESTHESIA: General endotracheal. INDICATIONS: A 68-year-old white female with 1-year history of progressive left knee pain as related to osteoarthritis. She had conformed to conservative management in the past, but became progressively more symptomatic with pain with the passage of time. She had conformed to various modes of conservative treatment including pain management disposition without any appreciable improvement of her symptoms being noted. Her x-ray studies revealed moderately advanced osteoarthritis throughout both medial and lateral compartments associated with osteophyte and lateral subluxation of the tibia. Neither diclofenac or hydrocodone had afforded the patient any significant improvement and she was requiring walker use as a full-time ambulatory aid. She had returned to the office in followup disposition indicating her desire to proceed with a more definitive course of treatment for which the involvement of total knee replacement was outlined, the patient indicating her desire to proceed accordingly and thus she was admitted to the hospital at this time in order that the above be accomplished. FORMAT: Following the induction of satisfactory general anesthesia by endotracheal intubation as completed per the Department of Anesthesia, a tourniquet was established around the proximal portion of the left lower extremity. The extremity proper was isolated with a U-drape, thereafter being prepped with Betadine solution and draped into a sterile field in the routine manner. Prior to initiation of the actual procedure, the standard timeout protocol was completed. All parameters were appropriately addressed and confirmed by operating room personnel. The extremity was elevated for approximately 1 minute and the tourniquet thus inflated to 250 mmHg pressure. Sharp skin incision was initiated midline over the anterior aspect of the knee and developed through underlying subcutaneous tissue with hemostasis maintained by electrocautery. By deepening dissection, the anterior capsule was exposed. A medial capsulotomy was completed and the patella subluxed in a lateral orientation. Examination of the joint space revealed tricompartmental degenerative changes. The articular surface of the patella was resected with power saw. The 3-holed guide was utilized for establishing post holes. The anterior cruciate ligament as well as medial and lateral meniscus structures were sharply excised. A centering hole was placed in the distal aspect of the femur, allowing positioning of the intramedullary guide. The distal femoral cutting jig was attached and the distal femur resected. AP measurement noted 62.5 mm sizing to be appropriate. The matching cutting block was positioned. Anterior, posterior and chamfer cuts were completed. Tibial plateau was subluxed in an anterior orientation allowing positioning of the extramedullary guide. The tibial plateau was resected and measured with 75 mm sizing determined to be satisfactory. Trial reduction followed utilizing a 62.5 mm anatomic femoral component, a 75 mm tibial base with 10, 12, and 14 mm bearing inserts trialed in a sequential fashion. The 14 mm thickness was determined to be the most favorable fit. The knee was readily brought to full extension. There was no laxity due to varus or valgus stress at both 0 and 90 degrees flexed posture. Orientation was confirmed as appropriate with measurement of the pelvic guide through the mechanical access of the knee. Trial reduction followed utilizing a 31 mm standard patellar button. Once again, good tracking noted with no tendency towards subluxation. All trial components being removed, the remaining portion of the proximal tibia was prepared for insertion of the permanent component. The joint space was thoroughly lavaged with pulsating antibiotic solution, hemostasis maintained by electrocautery. An autogenous bone plug was inserted into the distal femoral guide hole and thereafter a preparation of Biomet bone cement was utilized in inserting knee components in a sequential fashion, which included a 75 mm fixed cruciate tibial plate, to which a 14 mm Vanguard tibial bearing insert was secured with lock and hess. The 62.5 mm Vanguard femoral component was firmly seated with excess cement being removed. The knee was brought to full extension and thereafter, the 31 mm standard 3 post patellar button was attached and maintained in place with patellar clamp while cement hardening was completed. Final range of motion assessment noted good tracking and stability throughout the knee. Irrigation repeated with hemostasis maintained. An Exparel cocktail was injected in the periarticular manner both pre and post implantation. It should also be noted that the intraoperative stat Gram stain was completed with no evidence of bacterial contamination. The capsule was repaired with 0 Vicryl suture over autovac drain. The remaining portion of the wound closed in layers in the routine manner, skin margins being reapproximated with a running subcuticular 3-0 Vicryl suture. Steri-Strips applied. Xeroform gauze and a bulky dry sterile dressing were placed. Tourniquet deflated after 38 minutes of tourniquet time. The patient was transferred to the hospital stretcher and returned to the recovery room in satisfactory condition, having tolerated the operative procedure well. Estimated blood loss was approximately 50 mL as determined per anesthesia. All implants were of the Biomet Sealer Operator. MD MARIANA Webster/sb , 02:20 PM , 02:31 PM
--- NOTE | 2018-06-11 14:53 | P.CONIM ---
History of Present Illness Primary Care Provider: Laureano Tracy MD Chief Complaint: s/p knee replacement History of Present Illness: patient is a 68 y/o female with history of osteoarthritis,hypertension, hypothyroidism who underwent left total knee replacement. at the time of my evaluation she was in no acute distress. had mild left knee discomfort-otherwise no other complaints. Review of Systems Review of Systems: all other systems reviewed are negative [facility] Medical History Medical History MRSA (methicillin resistant Staphylococcus aureus) (Acute) GERD (gastroesophageal reflux disease) (Acute) HTN (hypertension) (Acute) Hypothyroid (Acute) Surgical History Surgical History H/O vein stripping (Acute) History of cataract surgery (Acute) Hx of tonsillectomy (Acute) History of right hip replacement (Acute) Social History Social History Substance History: No History of Abuse Second Hand Smoke Exposure: No Smoking Status: Current every day smoker Tobacco Type: Cigarettes How Often Do You Have a Drink Containing Alcohol: Never Recent Travel in [facility] within the Last 8 Weeks: No Recent Out of Country Travel within the Last 8 Weeks: No Medications and Allergies Allergies Allergy/AdvReac Type Severity Reaction Status Date / Time Sulfa (Sulfonamide Allergy Severe HIVES Verified 06/11/18 11:29 Antibiotics) Home Medications Medication Instructions Recorded Confirmed Type amlodipine-benazepril 1 cap PO DAILY 03/07/18 06/11/18 History aspirin 162 mg PO DAILY 03/07/18 06/11/18 History bupropion HCl 150 mg PO DAILY 03/07/18 06/11/18 History calcium carbonate [Calcium 600] 600 mg PO BID 03/07/18 06/11/18 History doxycycline hyclate 100 mg PO DAILY 03/07/18 06/11/18 History lactobacillus combination no.4 3,000 mmu cells PO DAILY 03/07/18 06/11/18 History [Probiotic] levothyroxine 125 mcg PO DAILY 03/07/18 06/11/18 History pantoprazole 40 mg PO DAILY 03/07/18 06/11/18 History paroxetine HCl 40 mg PO DAILY 03/07/18 06/11/18 History Active Medications: Active Medications Acetaminophen (Ofirmev Inj) 1,000 mg IV.SIG WAITER WAITRESS [facility] Stop: 06/11/18 23:59 Last Admin: 06/11/18 11:40 Dose: 1,000 mg Acetaminophen (Tylenol) 650 mg PO Q6H PRN PRN Reason: FEVER > 102 F Hydrocodone Bitart/Acetaminophen (Sorrento 5/325) 1 tab PO Q4H PRN PRN Reason: PAIN LESS THAN 5 ON SCALE Hydrocodone Bitart/Acetaminophen (Sorrento 5/325) 2 tab PO Q6H PRN PRN Reason: PAIN SCALE 5 TO 10 Al Hydrox/Mg Hydrox/Simethicone (Mag-Al Plus Susp Liq) 30 ml PO Q6H PRN PRN Reason: INDIGESTION Al Hydroxide/Mg Hydroxide (Milk Of Magnesia Liq) 30 ml PO BID PRN PRN Reason: Mild Constipation Aspirin (Aspirin) 325 mg PO BID [facility] Bisacodyl (Dulcolax Supp) 10 mg RECTAL DAILY PRN PRN Reason: SEVERE CONSITIPATION Bupropion HCl (Wellbutrin Sr) 150 mg PO DAILY [facility] Chlorhexidine Gluconate (Chlorhexidine 2% Cloth) 3 pack TOPICAL WAITER WAITRESS [facility] Stop: 06/14/18 11:20 Last Admin: 06/11/18 11:00 Dose: 3 pack Sodium Chloride 50 ml/Bupivacaine Liposome 20 ml/Bupivacaine HCl 50 ml 0 ml P- ARTICULR WAITER WAITRESS [facility] Stop: 06/11/18 18:00 Last Admin: 06/11/18 13:04 Dose: 120 bag Doxycycline Hyclate (Vibratab) 100 mg PO DAILY [facility] Cefazolin Sodium/Dextrose (Ancef 2 Gm Premix Inj) 2 gm in 50 mls @ 100 mls/hr IV.SIG WAITER WAITRESS [facility] Stop: 06/15/18 11:59 Last Infusion: 06/11/18 13:04 Dose: Infused Tranexamic Acid 1,000 mg/ (Sodium Chloride) 110 mls @ 200 mls/hr IV.SIG WAITER WAITRESS [facility] Stop: 06/11/18 18:00 Last Infusion: 06/11/18 13:04 Dose: Infused Tranexamic Acid 1,000 mg/ (Sodium Chloride) 110 mls @ 200 mls/hr IV.SIG WAITER WAITRESS [facility] Stop: 06/11/18 21:00 Lactated Ringer's (Lr 1000 Ml Inj) 1,000 mls @ 30 mls/hr IV.SIG .Q24H [facility] Stop: 06/14/18 11:29 Last Admin: 06/11/18 11:30 Dose: 30 mls/hr Sodium Chloride (Ns Inj) 500 mls @ 30 mls/hr IV.SIG .Q10H [facility] Stop: 06/14/18 11:59 Last Admin: 06/11/18 12:01 Dose: Not Given Cefazolin Sodium 1,000 mg/ (Sodium Chloride) 100 mls @ 200 mls/hr IV.SIG Q6H [facility] Stop: 06/12/18 03:29 Lactated Ringer's (Lr 1000 Ml Inj) 1,000 mls @ 80 mls/hr IV.CONT .[id number] [facility] Morphine Sulfate (Morphine Inj) 30 mg in 30 mls @ 0 mls/hr HUMAN RESOURCE MANAGER UNSCH PRN PRN Reason: prn pain Lactulose (Lactulose Liq) 30 ml PO DAILY PRN PRN Reason: SEVERE CONSITIPATION Metoprolol Tartrate (Lopressor) 25 mg PO WAITER WAITRESS [facility] Stop: 06/14/18 11:20 Last Admin: 06/11/18 12:00 Dose: Not Given Miscellaneous Information (Misc Nursing Information) 0 each OTHER UNSCH PRN PRN Reason: SEE DOSE INSTRUCTIONS Morphine Sulfate (Morphine Inj) 2 mg IV.PUSH Q3H PRN PRN Reason: BREAKTHROUGH PAIN Naloxone HCl (Narcan Inj) 0.4 mg IV.PUSH PRN PRN PRN Reason: Resp rate < 10 Non-Formulary Medication (Calcium Carbonate [Calcium 600]) 600 mg PO BID [facility] Non-Formulary Medication (Lactobacillus Combination No.4 [Probiotic]) 3,000 mmu cells PO DAILY [facility] Non-Formulary Medication (Levothyroxine [Levothyroxine]) 125 mcg PO DAILY [facility] Non-Formulary Medication (Lidocaine [Lidocaine]) 1 applic TOPICAL BID PRN PRN Reason: pain Non-Formulary Medication (Paroxetine Hcl [Paroxetine Hcl]) 40 mg PO DAILY [facility] Non-Formulary Medication (Amlodipine-Benazepril [Amlodipine-Benazepril]) 1 cap PO DAILY [facility] Ondansetron HCl (Zofran Inj) 4 mg IV.PUSH Q6H PRN PRN Reason: NAUSEA OR VOMITING Pantoprazole Sodium (Protonix) 40 mg PO DAILY [facility] Povidone Iodine (Betadine 7.5% Scrub) 1 applicatio TOPICAL ONCE [facility] Stop: 06/15/18 11:59 Povidone Iodine (Betadine 5% Antisepsis Kit) 1 applicatio EACH NARE WAITER WAITRESS [facility] Stop: 06/14/18 11:20 Last Admin: 06/11/18 11:40 Dose: 1 applicatio Senna/Docusate Sodium (Carmina-Colace) 1 tab PO BID [facility] Sennosides (Senokot) 17.2 mg PO BID PRN PRN Reason: Moderate Constipation Sodium Chloride (Ns Flush) 2 ml IV.FLUSH BID [facility] Sodium Chloride (Ns Flush) 2 ml IV.FLUSH PRN PRN PRN Reason: FLUSH AFTER USING IV ACCESS Zolpidem Tartrate (Ambien) 5 mg PO HS PRN PRN Reason: INSOMNIA Physical Exam Vital signs: Vital Signs 06/11/18 11:40 06/11/18 12:00 Temperature 97.5 F L Pulse Rate 75 Respiratory Rate 18 Blood Pressure 130/61 Pulse Oximetry 99 100 Intake & Output 06/10/18 06/11/18 06/11/18 18:59 06:59 18:59 Intake Total 1999 Output Total 50 / 50 Balance 1949 / 1950 Weight 83.5 kg Intake: IV 160 / 160 Cyklokapron Inj 1,000 MG In NS 110 / 110 Inj 100 ML @ 200 mls/hr IV.SIG WAITER WAITRESS [facility] Rx#:[id number] Ancef 2 GM Premix Inj 2 gm In 50 / 50 50 ml @ 100 mls/hr IV.SIG WAITER WAITRESS [facility] Rx#:[id number] Anesthesia Amount 1840 / 1840 Output: Estimated Blood Loss 50 / 50 Other: Weight On Admission 83.5 kg Constitutional no acute distress Routine HEENT Exam Eye: Present PERRL Routine Neck Exam Present supple Routine Respiratory Exam Present CTA bilaterally Routine Cardiovascular Exam Present RRR Routine Abdominal Exam Present soft Routine Extremities Exam Comments: left lower extremity covered with clean dressing. Routine Neurological Exam Present alert and oriented X3 Assessment and Plan (1) Degenerative joint disease of knee, left: Code(s): M17.12 - Unilateral primary osteoarthritis, left knee Status: Acute Plan A/P - osteoarthritis- s/p left total knee replacement continue with pain control and PT. management per ortho. -hypertension/ hypothyroidism resumed home meds. -DVT prophylaxis with aspirin per ortho. Thank you for the consult. _ (1) Degenerative joint disease of knee, left Qualifiers: Osteoarthritis type: primary Qualified Code(s): M17.12 - Unilateral primary osteoarthritis, left knee
--- NOTE | 2018-06-11 15:08 | XR ---
EXAM DATE: 06/11/2018 3:06 PM EST AGE/SEX: 68 years / Female INDICATIONS: Post OP. CLINICAL DATA: This is the patient's subsequent encounter. Patient reports that signs and symptoms h ave been present for 1 day and indicates a pain score of 0/10. MEDICAL/SURGICAL HISTORY: None. None. COMPARISON: [facility] [place], KNEE COMPLETE LEFT 4V, 03/07/2018. . FINDINGS: AP and lateral views of the knee following arthroplasty reveals a prosthesis in anatomic alignment. F racture is not appreciated. Surgical drain is evident CONCLUSION: Status post total knee arthroplasty. Dwayne Kunz MD FACR Electronically signed by: Dwayne Kunz MD Board Certified Radiologist 06/11/2018 3:07 PM EST
[2018-06-11] MEDS ORDERED: LIDOCAINE 5% TOPICAL PRN (15:15)
[2018-06-11] MEDS: Morphine Inj 30 MG/30 ML PCA.VIAL PCA PRN (15:18)
[2018-06-11] MEDS: ceFAZolin Inj 1 GM in Sodium Chlor 0.9% Inj 100 ML IV.SIG SCH ×2 (19:45→23:51)
[2018-06-11] MEDS: Aspirin 325 MG Tablet PO SCH (20:39)
[2018-06-11] MEDS: Senna/Docusate Sodium 8.6/50 MG Tablet PO SCH (20:40)
[2018-06-11] MEDS: Calcium Carbonate 500 MG Tablet PO SCH (20:40)
[2018-06-11] MEDS ORDERED: Zolpidem Tartrate 5 MG Tablet PO PRN (21:00)
[2018-06-12] MEDS: Levothyroxine 125 MCG Tablet PO SCH (05:17)
[2018-06-12] MEDS: ceFAZolin Inj 1 GM in Sodium Chlor 0.9% Inj 100 ML IV.SIG SCH (05:17)
[2018-06-12 05:26] LABS: Hematocrit 31.2 % (35.0-46.0); Hemoglobin 10.3 gm/dL (11.6-15.3)
[2018-06-12] MEDS: Morphine Inj 30 MG/30 ML PCA.VIAL PCA PRN (05:32)
[2018-06-12] MEDS: buPROPion 150 MG 12 HR Tablet PO SCH (08:40)
[2018-06-12] MEDS: Lisinopril 10 MG Tablet PO SCH (08:40)
[2018-06-12] MEDS: Senna/Docusate Sodium 8.6/50 MG Tablet PO SCH ×2 (08:41→20:53)
[2018-06-12] MEDS: Calcium Carbonate 500 MG Tablet PO SCH ×2 (08:41→20:53)
[2018-06-12] MEDS: Lactobacillus Acidophilus/L. Spores Tablet PO SCH (08:41)
[2018-06-12] MEDS: amLODIPine 5 MG Tablet PO SCH (08:41)
[2018-06-12] MEDS ORDERED: Non-Formulary Drug (Amlodipine-Benazepril [Amlodipine-Benazepril] 1 CAP) PO SCH (09:00)
[2018-06-12] MEDS: Aspirin 325 MG Tablet PO SCH ×2 (11:14→20:53)
--- NOTE | 2018-06-12 11:36 | P.PNIM ---
Subjective Interval history: Follow-up visit for osteoarthritis, status post left total knee replacement, hypertension, and hypothyroidism. Patient seen and examined sitting in the chair, physical therapy working on the patient. Patient states that pain of 4-5 out of 10 on the left knee since she move around. Better with rest. Patient encouraged to use some pain medication before physical therapy and after. Patient denies any headache or dizziness, denies any abdominal pain, nausea, or vomiting. Patient stated he did have bowel movement today yet however he she had one bowel movement had stool softener today. Patient discussed her history of MRSA from right hip surgery a year ago with kelly on February and had been taking oral antibiotic prophylaxis. Patient denies any right hip pain at this time Patient denies any fever or chills Physical Exam Vital signs: Vital Signs 06/11/18 11:40 06/11/18 12:00 06/11/18 14:15 Temperature 97.5 F L 97.4 F L Pulse Rate 75 75 Respiratory Rate 18 18 Blood Pressure 130/61 152/70 H Pulse Oximetry 99 100 100 06/11/18 14:30 06/11/18 14:45 06/11/18 15:00 Temperature Pulse Rate 85 81 83 Respiratory Rate 18 16 14 Blood Pressure 156/61 H 119/56 L 123/78 Pulse Oximetry 99 93 L 95 06/11/18 15:15 06/11/18 15:30 06/11/18 15:45 Temperature Pulse Rate 76 80 79 Respiratory Rate 16 16 17 Blood Pressure 132/62 141/56 H 136/64 Pulse Oximetry 100 100 100 06/11/18 16:00 06/11/18 16:15 06/11/18 20:24 Temperature 97.3 F L 97.6 F Pulse Rate 77 78 79 Respiratory Rate 16 16 16 Blood Pressure 116/58 L 116/58 L 116/58 L Pulse Oximetry 100 99 95 06/11/18 23:39 06/12/18 04:25 06/12/18 08:00 Temperature 97.2 F L 97.6 F 98.1 F Pulse Rate 68 71 74 Respiratory Rate 18 18 18 Blood Pressure 105/57 L 109/53 L 108/57 L Pulse Oximetry 99 98 96 06/12/18 08:47 Temperature Pulse Rate Respiratory Rate 16 Blood Pressure Pulse Oximetry Intake & Output 06/11/18 06/12/18 06/12/18 18:59 06:59 18:59 Intake Total 1999 / 1999 780 / 780 Output Total 50 / 50 90 / 90 Balance 1950 / 1950 690 / 690 Weight 83.5 kg 83.5 kg Intake: IV 160 / 160 300 / 300 Cyklokapron Inj 1,000 MG In NS 110 / 110 Inj 100 ML @ 200 mls/hr IV.SIG SCRAPPER [facility] Rx#:[id number] Ancef 2 GM Premix Inj 2 gm In 50 / 50 50 ml @ 100 mls/hr IV.SIG SCRAPPER [facility] Rx#:[id number] Ancef Inj 1 GM In NS Inj 100 ML 300 / 300 @ 200 mls/hr IV.SIG Q6H [facility] Rx #:[id number] Oral 480 / 480 Anesthesia Amount 1840 / 1840 Output: Estimated Blood Loss 50 / 50 Wound Drainage # 1 Left Knee Other: # Voids 1 Date of Last Bowel Movement 06/11/18 # Bowel Movements 0 Weight On Admission 83.5 kg Narrative: GENERAL: Well-developed, well-nourished, female sitting in a chair, in no acute distress SKIN: Warm and dry. Right hip surgical incision healing well. HEAD: Atraumatic. Normocephalic. NECK: Trachea midline. No JVD. CARDIOVASCULAR: Regular rate and rhythm. RESPIRATORY: No accessory muscle use. Clear to auscultation. Breath sounds equal bilaterally. GASTROINTESTINAL: Abdomen soft, non-tender, nondistended. Hepatic and splenic margins not palpable. MUSCULOSKELETAL: Extremities without clubbing, cyanosis. Left knee edema, left knee incision with Steri-Strips dressed dry and intact no drainage no redness noted. NEUROLOGICAL: Awake and alert. No obvious cranial nerve deficits. Generalized weakness moving all 4 extremities, except left lower extremity with limited range of motion. Normal speech. PSYCHIATRIC: Appropriate mood and affect; insight and judgment normal. Results Labs CBC & Chem 7: 06/12/18 04:59 Labs: Microbiology 06/11/18 12:46 Other Fungal Smear - Final 06/11/18 12:46 Wound - Knee Gram Stain - Final Imaging Imaging: Impressions Knee X-Ray 06/11/18 14:25 CONCLUSION: Status post total knee arthroplasty. Dwayne Kunz MD FACR Assessment and Plan (1) Degenerative joint disease of knee, left: Code(s): M17.12 - Unilateral primary osteoarthritis, left knee Status: Acute Plan This patient is a 68-year-old white female with PMH HTN, hypothyroidism and osteoarthritis with long time hx of pain involving her left knee and hip. She subsequently underwent a right total hip arthroplasty within the past few years complicated by postoperative wound infection with MRSA. She was treated with a resection arthroplasty and carried through an extended course of antibiotic management before undergoing a second stage reimplantation. She was admitted at this time for left total knee arthroplasty. Osteoarthritis s/p left total knee replacement, on 06/11/[address] le - Continue with pain control with bowel regimen -Continue physical therapy - management per ortho -Left knee went specimen sent for culture for precaution, results pending, follow results -Continue prophylactic antibiotic treatment with cefazolin postop -DVT prophylaxis, with aspirin twice daily for artery recommendation History of MRSA on right hip History of right hip replacement with -Continue prophylactic antibiotic doxycycline Hypertension -Blood pressure controlled -Continue home medication, Norvasc, lisinopril And benazepril -Monitor blood pressure, adjust medication accordingly Hpothyroidism -Continue levothyroxine, resumed home meds. -DVT prophylaxis with aspirin per ortho. Code Status: Focal Discussed Condition With: Patient and nurse Discharge Planning: visitor services coordinator to assist with discharge planning with home health care provider recommendation Progress Note: Quality VTE Deep Vein Thrombosis/Pulmonary Embolism Present on Admission: No _ (1) Degenerative joint disease of knee, left Qualifiers: Osteoarthritis type: primary Qualified Code(s): M17.12 - Unilateral primary osteoarthritis, left knee
[2018-06-13] MEDS: Levothyroxine 125 MCG Tablet PO SCH (05:09)
[2018-06-13] MEDS: Calcium Carbonate 500 MG Tablet PO SCH (08:01)
[2018-06-13] MEDS: buPROPion 150 MG 12 HR Tablet PO SCH (08:01)
[2018-06-13] MEDS: Aspirin 325 MG Tablet PO SCH (08:01)
[2018-06-13] MEDS: amLODIPine 5 MG Tablet PO SCH (08:01)
[2018-06-13] MEDS: Lactobacillus Acidophilus/L. Spores Tablet PO SCH (08:01)
[2018-06-13] MEDS: Senna/Docusate Sodium 8.6/50 MG Tablet PO SCH (08:02)
[2018-06-13] MEDS: Lisinopril 10 MG Tablet PO SCH (08:05)
[2018-06-13 08:52] VITALS: BP 116/54; PULSE 64; RESP 16; TEMP 97.8; O2SAT 99
--- NOTE | 2018-06-13 08:56 | MD ---
cc: Vinay Brice MD,Divina Bhaagt, DATE OF DISCHARGE: ADMITTING DIAGNOSIS: Osteoarthritis, left knee. DISCHARGE DIAGNOSIS: Osteoarthritis, left knee. HISTORY: A 68-year-old white female with a 1-year history of progressive left knee pain as related to osteoarthritis that conformed to conservative management in the past, but became progressively more symptomatic with pain with the passage of time. Her x-ray studies had revealed moderately advanced osteoarthritis throughout the medial and lateral compartments of her left knee with associated osteophyte and lateral subluxation of the tibia. The patient had utilized various medications for pain management without significant benefit being noted and in more recent followup evaluation indicated her desire to proceed with a more definitive course of treatment. The involvement of total knee arthroplasty was outlined in detail for which the patient indicated her full understanding and expressed her desire to proceed accordingly. In compliance with her wishes, she was scheduled for admission at this time. For additional details with regard to her pertinent history, interested parties would be directed to the documentation of her admitting history and physical report. Her physical examination at the time of admission revealed generalized fullness about the left knee consistent with redundancy of soft tissue. There was no appreciable swelling or effusion. Tenderness about the anterior aspect of the knee without palpable deformity. Limited mobility in the 20-70 degree range of motion with pain associated. There was suggestion for crepitation. No collateral ligament laxity. Rico test and drawer sign negative. Pivot shift and Yusuf sign positive. Straight leg raising unremarkable at 80 degrees. Antalgic gait with walker support. HOSPITAL COURSE: Prior to admission to the hospital, the patient had a medical evaluation and clearance for surgery as completed by her primary care physician, Dr. Bhagat. Infectious disease clearance per Dr. Carty. The patient was taken to the operating room on 06/11/2018 and on that date underwent a left total knee arthroplasty completed in an uncomplicated manner. The patient was noted to have tolerated her operative procedure well. Her postoperative course stable thereafter. Hemoglobin and hematocrit assessment postoperatively was 10.3 and 31.2 respectively. The patient was progressively mobilized under the guidance of physical therapy being permitted weightbearing to tolerance about the left lower extremity. Followup examination of her surgical wound noted to be intact, healing favorably with no evidence of infection. Medical followup per the hospitalist service. DVT prophylaxis initiated. Bookstore Clerk consulted to assist with discharge planning. The patient had indicated her desire for temporary rehab placement, which was facilitated to the social service department. She was scheduled for transfer on the second postoperative day, pending medical clearance with the planned office followup in approximately 4 weeks. CONDITION AT THE TIME OF DISCHARGE: Stable. PROGNOSIS: Favorable. DISCHARGE MEDICATIONS: Include hydrocodone 5/325, #30, aspirin 325 mg 1 tab twice daily for 3 weeks, #40. The patient was also to continue with doxycycline as prescribed per Dr. Carty that she had been taking preoperatively. MD MARIANA Webster/ts , 06:22 AM , 06:29 AM
--- NOTE | 2018-06-13 10:38 | P.PNIM ---
Subjective Interval history: Follow-up visit for osteoarthritis, status post left total knee replacement, hypertension, and hypothyroidism. Patient sitting in the chair, stated ready to go home to rehab facility. Patient stated pain control with pain medication. Only take pain medication when it is needed. Patient denies any fever or chills, denies any abdominal pain, nausea, or vomiting. Patient stated had a small bowel movement today. Instructed to take stool softeners and laxatives as needed. Physical Exam Vital signs: Vital Signs 06/12/18 12:00 06/12/18 16:20 06/12/18 19:40 Temperature 97.2 F L 98.1 F 97.6 F Pulse Rate 66 65 71 Respiratory Rate 16 17 18 Blood Pressure 94/49 L 106/53 L 104/52 L Pulse Oximetry 97 94 L 96 06/12/18 23:35 06/13/18 05:31 06/13/18 08:00 Temperature 97.4 F L 97.5 F L 97.8 F Pulse Rate 65 83 64 Respiratory Rate 18 18 16 Blood Pressure 103/53 L 111/53 L 116/54 L Pulse Oximetry 95 98 99 Intake & Output 06/12/18 06/13/18 06/13/18 18:59 06:59 18:59 Intake Total 100 / 100 Balance 100 / 100 Weight 86.8 kg Intake: Oral 100 / 100 Other: # Voids 3 Date of Last Bowel Movement 06/11/18 06/11/18 # Bowel Movements 0 Narrative: GENERAL: Well-developed, well-nourished, female sitting in a chair, in no acute distress SKIN: Warm and dry. Right hip surgical incision healing well. HEAD: Atraumatic. Normocephalic. NECK: Trachea midline. No JVD. CARDIOVASCULAR: Regular rate and rhythm. RESPIRATORY: No accessory muscle use. Clear to auscultation. Breath sounds equal bilaterally. GASTROINTESTINAL: Abdomen soft, non-tender, nondistended. Hepatic and splenic margins not palpable. MUSCULOSKELETAL: Extremities without clubbing, cyanosis. Left knee edema, left knee incision with Steri-Strips dressed dry and intact no drainage no redness noted. NEUROLOGICAL: Awake and alert. No obvious cranial nerve deficits. Generalized weakness moving all 4 extremities, except left lower extremity with limited range of motion. Normal speech. PSYCHIATRIC: Appropriate mood and affect; insight and judgment normal. Results Labs CBC & Chem 7: 06/12/18 04:59 Labs: Microbiology 06/11/18 12:46 Wound - Knee Gram Stain - Final 06/11/18 12:46 Wound - Knee Wound Culture - Preliminary No growth in 48 hours 06/11/18 12:46 Other Acid Fast Bacilli Smear - Final No acid fast bacilli seen Assessment and Plan (1) Degenerative joint disease of knee, left: Code(s): M17.12 - Unilateral primary osteoarthritis, left knee Status: Acute Plan This patient is a 68-year-old white female with PMH HTN, hypothyroidism and osteoarthritis with long time hx of pain involving her left knee and hip. She subsequently underwent a right total hip arthroplasty within the past few years complicated by postoperative wound infection with MRSA. She was treated with a resection arthroplasty and carried through an extended course of antibiotic management before undergoing a second stage reimplantation. She was admitted at this time for left total knee arthroplasty. Osteoarthritis s/p left total knee replacement, on 06/11/[address] 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 -DVT prophylaxis with aspirin per ortho. Patient medically clear for discharge to SNF. Thank you for your consultation Discharge Planning: business services vice president to assist with discharge planning with home health care provider recommendation Progress Note: Quality VTE Deep Vein Thrombosis/Pulmonary Embolism Present on Admission: No _ (1) Degenerative joint disease of knee, left Qualifiers: Osteoarthritis type: primary Qualified Code(s): M17.12 - Unilateral primary osteoarthritis, left knee
== END 2018-06-13 12:04 | DRG 470 ==
LOC: HSDI 06-11 10:23 → N06 06-11 16:36
PROVIDERS: ADMIT Orthopaedic Surgery; ATTEND Orthopaedic Surgery
CPT/HCPCS: 73560; 85014; 85018; 86850; 86891; 86900; 86901; 87015; 87070; 87102; 87116; 87205; 87206; 88305; 94150; 97110; 97116; 97150; 97163; 97167; 97530; C1776; C9290; J0131; J0690; J1100; J1580; J2175; J2250; J2270; J2370; J2405; J2704; J2710; J3010; J7120